=== PATIENT | female | born 1960 | race Caucasian/White ===

== ENCOUNTER 2021-05-16 09:44 | Inpatient (IN) | payer SELFPAY ==
[2021-05-16] MEDS ORDERED: Ondansetron 4 MG/2 ML SDV IVPUSH ONE (10:25)
--- NOTE | 2021-05-16 10:25 | PCM.EKG ---
#1 Interpretation EKG Interpretation Comments: KG sinus rhythm heart rate 92 AK 141 QT 421 axis -[address] and T impression essentially normal EKG
[2021-05-16] MEDS ORDERED: Sodium Chloride 0.9% 2.5 ML Syringe FLUSH PRN (10:26)
[2021-05-16] MEDS ORDERED: Sodium Chloride 0.9% 10 ML Syringe FLUSH PRN (10:26)
[2021-05-16] MEDS ORDERED: Sodium Chloride 0.9% 10 ML SDV IV STA (10:27)
--- NOTE | 2021-05-16 10:29 | EDM.PDOC ---
ED HPI GENERAL MEDICAL PROBLEM - General Chief Complaint: Respiratory Problem Stated Complaint: SHORTNESS OF BREATH COVID POS Time Seen by Provider: 05/16/21 10:00 Source of Information: Reports: Patient History Limitations: Reports: No Limitations - History of Present Illness INITIAL COMMENTS - FREE TEXT/NARRATIVE: HISTORY AND PHYSICAL: History of present illness: The patient is a 61-year-old female who presents to the emergency room with complaints of shortness of breath, fatigue, and nausea after being diagnosed with Covid on May 12, 2021. The patient started having shortness of breath yesterday. The patient started having symptoms on 05/07/2021 and presented for testing on 05/08/2021, however, her Covid test was negative. As her symptoms worsened over the weekend the patient tested again on 05/12/2021 and tested positive. The patient states that her provider stated she was outside the window of General as it was 3 days, however, its 10 days. The patient is not vaccinated as she is allergic to the flu vaccination and is worried about it. The patient denies any aches and pains. She is unable to eat or drink as she is extremely nauseated. Patient denies any headache, change in vision, syncope or near syncope. Denies any chest pain, or back pain. Denies any abdominal pain, vomiting, diarrhea, constipation or dysuria. Has not noted any blood in urine or stool. In the emergency department the patient is hemodynamically stable with a blood pressure of 114/71 and a pulse of 101. The patient's temperature is 101.4 and SPO2 of 87% on room air. 92% on O2 2 L per nasal cannula. Respiratory rate of 28. Review of systems: As per history of present illness and below otherwise all systems reviewed and negative. Past medical history: As per history of present illness and as reviewed below otherwise noncontributory. Surgical history: As per history of present illness and as reviewed below otherwise noncontributory. Social history: See social history for further information Family history: As per history of present illness and as reviewed below otherwise noncontributory. Physical exam: General: Well developed and well nourished. Alert and orientated x 3. Mild acute distress. Nursing notes were reviewed. HEENT: Atraumatic, normocephalic, pupils equal and reactive bilaterally, negative for conjunctival pallor or scleral icterus, mucous membranes moist, TMs normal bilaterally, throat clear, neck supple, nontender, trachea midline. No drooling or trismus noted. No meningeal signs. No hot potato voice noted. Lungs: Crackles scattered bilaterally bilaterally. No wheezes. Chest nontender. Increased work of breathing, no accessory muscles used. Heart: S1S2, sinus tachycardia and rhythm without overt murmur, gallops, or rubs. No JVD. No peripheral edema Abdomen: Soft, nondistended, nontender. Normoactive bowel sounds. Negative for masses or costovertebral tenderness. Skin: Intact, warm, dry. No lesions or rashes noted. Hematologic: No petechiae or purpra. Mucosa appropriate color and normal nail bed color and refill. Extremities: Atraumatic, moves all extremities per self without difficulty or deficits, negative for cords or calf pain. Neurovascular unremarkable. Neuro: Awake, alert, oriented. Cranial nerves II through XII unremarkable. Cerebellum unremarkable. Motor and sensory unremarkable throughout. Exam nonfocal. Psychiatric: Mood and affect are appropriate. Normal thought process. Answering questions appropriately. Notes: *This patient was seen and evaluated during the 2019 SARS-CoV-2 novel coronavirus pandemic period. Community viral transmission is ongoing at time of this encounter and the emergency department is operating under pandemic response procedures. As stated above the patient is a 61-year-old female who presents to the emergency room with complaints of shortness of breath which started yesterday, and nausea, cough that started on 05/07/2021. The patient was tested on for Covid which was negative. Her symptoms became progressively worse over the weekend and she again tested on 05/12/2021 and was positive for COVID- 19. The patient states that she did not receive a COVID-19 vaccination as she is allergic to the flu vaccination and was worried about her response. The patient states that she did not receive Regeneron because her provider told her it was within 3 days of onset of symptoms. The patient presented to the emergency department with an SPO2 of 87% on room air with increased work of breathing. Her SPO2 went to 92% on 2 L of oxygen per nasal cannula. She has complaints of severe nausea and has been unable to eat or drink for several days. I have ordered fluids but only to 250ml as her lung sounds have a few scattered crackles. After examination discussion with patient I have ordered a CBC, CMP, chest x-ray, EKG and Zofran 4 mg IV along with Motrin 400 mg p.o. The patient does have a temperature of 101.4 and as she is feeling extreme fatigue I will treat her temperature. The patient's CBC is unremarkable. The patient's CMP is remarkable for a sodium of 134 chloride of 97, calcium 8.4, AST is 68, and albumin 3.2. CXR 1 view: IMPRESSION: COVID-19 pneumonitis is suspected of moderate severity. Spoke with Dr. Alvarado regarding patient's requirement for 2 L of oxygen per nasal cannula and her inability to ingest fluids and eat. As the patient tested positive intermittent there is no need to retest the patient for COVID-19. We will admit her as an inpatient on telemetry. The patient is aware. I spoke with the patient's and he is aware of the admission process. Diagnostics: CBC, CMP, CXR, EKG Therapeutics: IV fluids, Zofran 4 mg IV, Motrin 400 mg p.o. Impression: Hypoxia, COVID-19, nausea, fatigue Definitive disposition and diagnosis as appropriate pending reevaluation and review of above. - Related Data Allergies Allergy/AdvReac Type Severity Reaction Status Date / Time acetaminophen [From Tylenol] Allergy Rash Verified 05/16/21 10:08 hydrocodone Allergy Rash Verified 05/16/21 10:08 shellfish derived Allergy Airway Verified 05/16/21 10:23 Tightness Flu Vaccine Allergy Edema Uncoded 05/16/21 10:23 Home Meds: Home Meds Diltiazem HCl [Diltiazem 24Hr ER] 360 mg PO DAILY 05/16/21 [History] Omeprazole 20 mg PO DAILY 05/16/21 [History] Past Medical History HEENT History: Reports: None Cardiovascular History: Reports: Hypertension Respiratory History: Reports: None Gastrointestinal History: Reports: Cholelithiasis, GERD Genitourinary History: Reports: None TREE SPECIALIST History: Reports: Musculoskeletal History: Reports: Back Pain, Chronic, Other (See Below) Other Musculoskeletal History: degenerative spinal stenosis Neurological History: Reports: None Psychiatric History: Reports: None Endocrine/Metabolic History: Reports: Obesity/BMI 30+ Hematologic History: Reports: None Immunologic History: Reports: None Oncologic (Cancer) History: Reports: None Dermatologic History: Reports: None - Infectious Disease History Infectious Disease History: Reports: Chicken Pox, Novel Coronavirus - Past Surgical History Head Surgeries/Procedures: Reports: None Cardiovascular Surgical History: Reports: None GI Surgical History: Reports: Cholecystectomy Female Surgical History: Reports: Hysterectomy, Oophorectomy Musculoskeletal Surgical History: Reports: None Social & Family History - Family History Family Medical History: No Pertinent Family History - Tobacco Use Tobacco Use Status *Q: Never Tobacco User - Caffeine Use Caffeine Use: Reports: Soda, Tea - Recreational Drug Use Recreational Drug Use: No ED ROS GENERAL - Review of Systems Review Of Systems: Comprehensive ROS is negative, except as noted in HPI. ED EXAM, GENERAL - Physical Exam Exam: See Below (See dictation) Course - Vital Signs Last Recorded V/S: Last Vital Signs Temp 97.9 F 05/16/21 13:26 Pulse 77 05/16/21 13:26 Resp 20 05/16/21 13:26 BP 101/71 05/16/21 13:26 Pulse Ox 94 L 05/16/21 13:26 - Orders/Labs/Meds Orders: Active Orders 24 hr Category Date Time Status Admission Status [Patient Status] [ADT] Stat ADT 05/16/21 12:05 Active Cardiac Monitoring [RC] . DIRECTED Care 05/16/21 12:05 Active Sodium Chloride 0.9% [Saline Flush] Med 05/16/21 10:26 Active 10 ml FLUSH ASDIRECTED PRN Sodium Chloride 0.9% [Saline Flush] Med 05/16/21 10:26 Active 2.5 ml FLUSH ASDIRECTED PRN Saline Lock Insert [OM.PC] Stat Oth 05/16/21 10:24 Ordered Medication Orders Albuterol/Ipratropium (Albuterol/Ipratropium 4 Gm Inhalation Banks) 1 gm INH Q4HRRT PRN PRN Reason: Dyspnea Dexamethasone (Dexamethasone 4 Mg Tab) 6 mg PO DAILY BJ Enoxaparin Sodium (Enoxaparin 40 Mg/0.4 Ml Syringe) 40 mg SUBCUT Q24H BJ Remdesivir 200 mg/ Sodium (Chloride) 250 mls @ 250 mls/hr IV ONETIME ONE Stop: 05/16/21 15:59 Remdesivir 100 mg/ Sodium (Chloride) 100 mls @ 100 mls/hr IV Q24H BJ Stop: 05/20/21 15:59 Pantoprazole Sodium 40 mg/ (Sodium Chloride) 10 mls @ 300 mls/hr IV Q24H BJ Ibuprofen (Ibuprofen 400 Mg Tab) 400 mg PO Q12H PRN PRN Reason: Pain Non-Formulary Medication (Diltiazem Hcl [Diltiazem 24hr Er]) 360 mg PO DAILY BJ Ondansetron HCl (Ondansetron 4 Mg/2 Ml Sdv) 4 mg IVPUSH Q4H PRN PRN Reason: Vomiting Sodium Chloride (Sodium Chloride 0.9% 10 Ml Syringe) 10 ml FLUSH ASDIRECTED PRN PRN Reason: Keep Vein Open Last Admin: 05/16/21 10:51 Dose: 10 ml Documented by: MANNY Sodium Chloride (Sodium Chloride 0.9% 2.5 Ml Syringe) 2.5 ml FLUSH ASDIRECTED PRN PRN Reason: Keep Vein Open Last Admin: 05/16/21 10:51 Dose: 2.5 ml Documented by: MANNY Labs: Laboratory Tests 05/16/21 05/16/21 Range/Units 10:45 10:45 WBC 4.41 (4.0-11.0) K/uL RBC 5.16 (4.30-5.90) M/uL Hgb 15.0 (12.0-16.0) g/dL Hct 44.5 (36.0-46.0) % MCV 86.2 (80.0-98.0) fL MCH 29.1 (27.0-32.0) pg MCHC 33.7 (31.0-37.0) g/dL RDW Std Deviation 43.0 (28.0-62.0) fl RDW Coeff of [place] 14 (11.0-15.0) % Plt Count 169 (150-400) K/uL MPV 10.20 (7.40-12.00) fL Neut % (Auto) 75.1 (48.0-80.0) % Lymph % (Auto) 13.4 L (16.0-40.0) % [place] % (Auto) 11.3 (0.0-15.0) % Eos % (Auto) 0.0 (0.0-7.0) % Baso % (Auto) 0.2 (0.0-1.5) % Neut # (Auto) 3.3 (1.4-5.7) K/uL Lymph # (Auto) 0.6 (0.6-2.4) K/uL [place] # (Auto) 0.5 (0.0-0.8) K/uL Eos # (Auto) 0.0 (0.0-0.7) K/uL Baso # (Auto) 0.0 (0.0-0.1) K/uL Sodium 134 L (136-145) mmol/L Potassium 3.9 (3.5-5.1) mmol/L Chloride 97 L (98-107) mmol/L Carbon Dioxide 28.5 (21.0-32.0) mmol/L BUN 9 (7.0-18.0) mg/dL Creatinine 1.0 (0.6-1.0) mg/dL Est Cr Clr Drug Dosing 58.09 mL/min Estimated GFR (MDRD) 56.0 ml/min Glucose 105 (74-106) mg/dL Calcium 8.4 L (8.5-10.1) mg/dL Total Bilirubin 0.7 (0.2-1.0) mg/dL AST 68 H (15-37) IU/L ALT 50 (14-63) IU/L Alkaline Phosphatase 69 (46-116) U/L Total Protein 7.1 (6.4-8.2) g/dL Albumin 3.2 L (3.4-5.0) g/dL Globulin 3.9 (2.6-4.0) g/dL Albumin/Globulin Ratio 0.8 L (0.9-1.6) Meds: Medications Generic Name Dose Route Start Last Admin Trade Name Freq PRN Reason Stop Dose Admin Albuterol/Ipratropium 1 gm 05/16/21 15:00 Albuterol/Ipratropium 4 Gm Inhalation Banks INH Q4HRRT PRN Dyspnea Dexamethasone 6 mg 05/16/21 14:45 Dexamethasone 4 Mg Tab PO DAILY BJ Enoxaparin Sodium 40 mg 05/16/21 15:00 Enoxaparin 40 Mg/0.4 Ml Syringe SUBCUT Q24H BJ Remdesivir 200 mg/ Sodium 250 mls @ 250 mls/hr 05/16/21 15:00 Chloride IV 05/16/21 15:59 ONETIME ONE Remdesivir 100 mg/ Sodium 100 mls @ 100 mls/hr 05/17/21 15:00 Chloride IV 05/20/21 15:59 Q24H BJ Pantoprazole Sodium 40 mg/ 10 mls @ 300 mls/hr 05/16/21 15:00 Sodium Chloride IV Q24H BJ Ibuprofen 400 mg 05/16/21 14:46 Ibuprofen 400 Mg Tab PO Q12H PRN Pain Non-Formulary Medication 360 mg 05/17/21 09:00 Diltiazem Hcl [Diltiazem 24hr Er] PO DAILY BJ Ondansetron HCl 4 mg 05/16/21 15:00 Ondansetron 4 Mg/2 Ml Sdv IVPUSH Q4H PRN Vomiting Sodium Chloride 10 ml 05/16/21 10:26 05/16/21 10:51 Sodium Chloride 0.9% 10 Ml Syringe FLUSH 10 ml ASDIRECTED PRN Administration Keep Vein Open Sodium Chloride 2.5 ml 05/16/21 10:26 05/16/21 10:51 Sodium Chloride 0.9% 2.5 Ml Syringe FLUSH 2.5 ml ASDIRECTED PRN Administration Keep Vein Open Discontinued Medications Generic Name Dose Route Start Last Admin Trade Name Freq PRN Reason Stop Dose Admin Sodium Chloride 1,000 mls @ 999 mls/hr 05/16/21 10:36 05/16/21 10:49 Normal Saline IV 05/16/21 11:36 999 mls/hr .Bolus ONE Administration Ibuprofen 400 mg 05/16/21 10:35 05/16/21 10:51 Ibuprofen 400 Mg Tab PO 05/16/21 10:36 400 mg ONETIME ONE Administration Ondansetron HCl 4 mg 05/16/21 10:25 05/16/21 10:47 Ondansetron 4 Mg/2 Ml Sdv IVPUSH 05/16/21 10:26 4 mg ONETIME ONE Administration Sodium Chloride 250 ml 05/16/21 10:27 05/16/21 10:36 Sodium Chloride 0.9% 10 Ml Sdv IV 05/16/21 10:28 Not Given STAT STA Departure - Departure Time of Disposition: 13:00 Disposition: Admitted As Inpatient 64 Condition: Fair Clinical Impression: Hypoxia, COVID-19, Nausea, Weakness - Discharge Information *PRESCRIPTION DRUG MONITORING PROGRAM REVIEWED*: Not Applicable *COPY OF PRESCRIPTION DRUG MONITORING REPORT IN PATIENT FARRUKH: Not Applicable Sepsis Event Note (ED) - Evaluation Sepsis Screening Result: Possible Sepsis Risk - Focused Exam Vital Signs: Vital Signs Temp Temp Pulse Resp BP Pulse Ox 05/16/21 11:54 100.4 F 78 20 96/55 L 91 L 05/16/21 11:51 100.4 F 05/16/21 11:35 91 L 05/16/21 11:32 81 109/64 89 L 05/16/21 11:04 85 101/59 L 90 L 05/16/21 10:51 101.6 F H 05/16/21 10:24 91 L 05/16/21 10:00 101.4 F H 101 H 28 H 114/71 87 L - My Orders Last 24 Hours: My Active Orders 05/16/21 10:24 Saline Lock Insert [OM.PC] Stat 05/16/21 10:26 Sodium Chloride 0.9% [Saline Flush] 10 ml FLUSH ASDIRECTED PRN Sodium Chloride 0.9% [Saline Flush] 2.5 ml FLUSH ASDIRECTED PRN 05/16/21 12:05 Admission Status [Patient Status] [ADT] Stat Cardiac Monitoring [RC] . DIRECTED - Assessment/Plan Last 24 Hours: My Active Orders 05/16/21 10:24 Saline Lock Insert [OM.PC] Stat 05/16/21 10:26 Sodium Chloride 0.9% [Saline Flush] 10 ml FLUSH ASDIRECTED PRN Sodium Chloride 0.9% [Saline Flush] 2.5 ml FLUSH ASDIRECTED PRN 05/16/21 12:05 Admission Status [Patient Status] [ADT] Stat Cardiac Monitoring [RC] . DIRECTED
[2021-05-16] MEDS ORDERED: Ibuprofen 400 MG Tab PO ONE (10:35)
[2021-05-16] MEDS ORDERED: Sodium Chloride 0.9% 1,000 ML IV ONE (10:36)
[2021-05-16 11:23] LABS: CARBON DIOXIDE,CO2 28.5 mmol/L (21.0-32.0); POTASSIUM,K 3.9 mmol/L (3.5-5.1)
--- NOTE | 2021-05-16 11:55 | CR ---
INDICATION: Shortness of breath. COVID-19 positive. TECHNIQUE: Chest 1 view. COMPARISON: None. FINDINGS: Cardiovascular and mediastinum: Heart size and vasculature are normal in caliber and appearance. Lungs and pleural spaces: Ill-defined infiltrates present in the periphery of both lungs. No effusions and no pneumothorax. Bones and soft tissues: No significant findings. IMPRESSION: COVID-19 pneumonitis is suspected of moderate severity. Dictated by Armond Le MD @ 05/16/2021 11:53:23 AM (Electronically Signed)
[2021-05-16] MEDS ORDERED: REMDESIVIR 200 MG in Sodium Chloride 0.9% 250 ML IV ONE (15:00)
--- NOTE | 2021-05-16 15:15 | PCM.HP.2 ---
<Gus Shell - Last Filed: 05/16/21 15:05> H&P History of Present Illness - General Date of Service: 05/16/21 Admit Problem/Dx: Admission Diagnosis/Problem Admission Diagnosis/Problem Hypoxia - History of Present Illness Initial Comments - Free Text/Narative: The patient is a 61-year-old female who was admitted to the medical floor today due to acute respiratory failure secondary to COVID-19 pneumonitis. She has a significant past medical history of hypertension, GERD, gallstones, obesity with a BMI over 30, and degenerative spinal stenosis. On 05/07 the patient developed fever ranging from 100-102, dry cough, sore throat, and loss of taste. On the following day 05/08 the patient had a COVID-19 test which was initially negative. Her symptoms progressively got worse and on 05/12 she had another COVID-19 test which was positive. She developed shortness of breath on 05/15 along with weakness and nausea. Since the onset of her symptoms on 05/07 the patient has not been eaten normally as previous to this date, but denies any chills, diarrhea, chest pain, abdominal pain, and urinary issues. This morning she felt extremely short of breath and presented to the emergency department and was found to have an oxygen saturation of 87%. Her initial chest x-ray today at [facility] showed COVID-19 pneumonitis of moderate severity. EKG displayed sinus rhythm with a heart rate of 92, WA interval of 141, and QTc interval of 421, with a normal QRS, ST, and T wave. In the emergency room she had a CBC, CMP, chest x-ray, EKG done; she also received normal saline 250 mL IV, ibuprofen 400 mg per oral once, Zofran 4 mg IV push once, and had a security monitor placed. Duration of Symptoms: Reports: Week(s): - Related Data Allergies/Adverse Reactions: Allergies Allergy/AdvReac Type Severity Reaction Status Date / Time acetaminophen [From Tylenol] Allergy Rash Verified 05/16/21 10:08 hydrocodone Allergy Rash Verified 05/16/21 10:08 Iodinated Contrast Media Allergy Rash Verified 05/17/21 13:25 iodine Allergy Rash Verified 05/17/21 13:25 shellfish derived Allergy Airway Verified 05/16/21 10:23 Tightness Flu Vaccine Allergy Edema Uncoded 05/16/21 10:23 Home Medications: Home Meds Diltiazem HCl [Diltiazem 24Hr ER] 360 mg PO DAILY 05/16/21 [History] Omeprazole 20 mg PO DAILY 05/16/21 [History] Past Medical History HEENT History: Reports: None Cardiovascular History: Reports: Hypertension Respiratory History: Reports: None Gastrointestinal History: Reports: Cholelithiasis, GERD Genitourinary History: Reports: None [employer] History: Reports: Musculoskeletal History: Reports: Back Pain, Chronic, Other (See Below) Other Musculoskeletal History: degenerative spinal stenosis Neurological History: Reports: None Psychiatric History: Reports: None Endocrine/Metabolic History: Reports: Obesity/BMI 30+ Hematologic History: Reports: None Immunologic History: Reports: None Oncologic (Cancer) History: Reports: None Dermatologic History: Reports: None - Infectious Disease History Infectious Disease History: Reports: Chicken Pox, Novel Coronavirus - Past Surgical History Head Surgeries/Procedures: Reports: None Cardiovascular Surgical History: Reports: None GI Surgical History: Reports: Cholecystectomy Female Surgical History: Reports: Hysterectomy, Oophorectomy Musculoskeletal Surgical History: Reports: None Social & Family History - Family History Family Medical History: No Pertinent Family History - Tobacco Use Tobacco Use Status *Q: Never Tobacco User - Caffeine Use Caffeine Use: Reports: Soda, Tea - Recreational Drug Use Recreational Drug Use: No H&P Review of Systems - Review of Systems: Review Of Systems: See Below General: Reports: Fever, Weakness, Fatigue. Denies: Chills, Night Sweats Pulmonary: Reports: Shortness of Breath, Wheezing, Cough. Denies: Pleuritic Chest Pain Cardiovascular: Denies: Chest Pain, Palpitations, Edema Gastrointestinal: Reports: Decreased Appetite. Denies: Abdominal Pain, Constipation, Diarrhea Genitourinary: Denies: Dysuria Skin: Denies: Cyanosis Neurological: Denies: Headache Exam - Exam Exam: See Below - Vital Signs Vital Signs: Last Vital Signs Temp 97.9 F 05/16/21 13:26 Pulse 77 05/16/21 13:26 Resp 20 05/16/21 13:26 BP 101/71 05/16/21 13:26 Pulse Ox 94 L 05/16/21 13:26 Weight: 96.1 kg - Exam General: Alert, Oriented, Cooperative, Mild Distress HEENT: Conjunctiva Clear, Normal Nasal Septum, Posterior Pharynx Clear Lungs: Wheezing Cardiovascular: Regular Rate, Regular Rhythm GI/Abdominal Exam: Normal Bowel Sounds, Soft, Non-Tender Back Exam: Decreased Range of Motion Extremities: No Pedal Edema - Patient Data Lab Results Last 24 hrs: Laboratory Results - last 24 hr 05/16/21 05/16/21 Range/Units 10:45 10:45 WBC 4.41 (4.0-11.0) K/uL RBC 5.16 (4.30-5.90) M/uL Hgb 15.0 (12.0-16.0) g/dL Hct 44.5 (36.0-46.0) % MCV 86.2 (80.0-98.0) fL MCH 29.1 (27.0-32.0) pg MCHC 33.7 (31.0-37.0) g/dL RDW Std Deviation 43.0 (28.0-62.0) fl RDW Coeff of Mulu 14 (11.0-15.0) % Plt Count 169 (150-400) K/uL MPV 10.20 (7.40-12.00) fL Neut % (Auto) 75.1 (48.0-80.0) % Lymph % (Auto) 13.4 L (16.0-40.0) % Armstrong % (Auto) 11.3 (0.0-15.0) % Eos % (Auto) 0.0 (0.0-7.0) % Baso % (Auto) 0.2 (0.0-1.5) % Neut # (Auto) 3.3 (1.4-5.7) K/uL Lymph # (Auto) 0.6 (0.6-2.4) K/uL Armstrong # (Auto) 0.5 (0.0-0.8) K/uL Eos # (Auto) 0.0 (0.0-0.7) K/uL Baso # (Auto) 0.0 (0.0-0.1) K/uL Sodium 134 L (136-145) mmol/L Potassium 3.9 (3.5-5.1) mmol/L Chloride 97 L (98-107) mmol/L Carbon Dioxide 28.5 (21.0-32.0) mmol/L BUN 9 (7.0-18.0) mg/dL Creatinine 1.0 (0.6-1.0) mg/dL Est Cr Clr Drug Dosing 58.09 mL/min Estimated GFR (MDRD) 56.0 ml/min Glucose 105 (74-106) mg/dL Calcium 8.4 L (8.5-10.1) mg/dL Total Bilirubin 0.7 (0.2-1.0) mg/dL AST 68 H (15-37) IU/L ALT 50 (14-63) IU/L Alkaline Phosphatase 69 (46-116) U/L Total Protein 7.1 (6.4-8.2) g/dL Albumin 3.2 L (3.4-5.0) g/dL Globulin 3.9 (2.6-4.0) g/dL Albumin/Globulin Ratio 0.8 L (0.9-1.6) Result Diagrams: 05/16/21 10:45 05/16/21 10:45 Sepsis Event Note - Evaluation Sepsis Screening Result: Possible Sepsis Risk - Focused Exam Vital Signs: Vital Signs Temp Temp Temp Pulse Resp BP Pulse Ox 05/16/21 13:26 97.9 F 77 20 101/71 94 L 05/16/21 12:32 75 20 96/59 L 91 L 05/16/21 11:54 100.4 F 78 20 96/55 L 91 L 05/16/21 11:51 100.4 F 05/16/21 11:35 91 L 05/16/21 11:32 81 109/64 89 L 05/16/21 11:04 85 101/59 L 90 L 05/16/21 10:51 101.6 F H 05/16/21 10:24 91 L 05/16/21 10:00 101.4 F H 101 H 28 H 114/71 87 L - Problem List (1) Hypertension SNOMED Code(s): 37835786 ICD Code: I10 - ESSENTIAL (PRIMARY) HYPERTENSION Status: Acute Current Visit: Yes (2) COVID-19 SNOMED Code(s): 652594236 ICD Code: U07.1 - COVID-19 Status: Acute Current Visit: Yes (3) Hypoxia SNOMED Code(s): 131087674 ICD Code: R09.02 - HYPOXEMIA Status: Acute Current Visit: Yes (4) Nausea SNOMED Code(s): 885891765 ICD Code: R11.0 - NAUSEA Status: Acute Current Visit: Yes (5) Weakness SNOMED Code(s): 23930119 ICD Code: R53.1 - WEAKNESS Status: Acute Current Visit: Yes (6) GERD (gastroesophageal reflux disease) SNOMED Code(s): 259197426 ICD Code: K21.9 - GASTRO-ESOPHAGEAL REFLUX DISEASE WITHOUT ESOPHAGITIS Status: Acute Current Visit: Yes (7) Spinal stenosis SNOMED Code(s): 83239301 ICD Code: M48.00 - SPINAL STENOSIS, SITE UNSPECIFIED Status: Acute C urrent Visit: Yes Problem List Initiated/Reviewed/Updated: Yes Orders Last 24hrs: Active Orders 24 hr Category Date Time Status Admission Status [Patient Status] [ADT] Stat ADT 05/16/21 12:05 Active Cardiac Monitoring [RC] . DIRECTED Care 05/16/21 12:05 Active Oxygen Therapy [RC] PRN Care 05/16/21 13:26 Ordered RT Post Treatment Assessment [RC] Click to Edit Care 05/16/21 14:43 Active RT Pre-Treatment Assessment [RC] Click to Edit Care 05/16/21 14:43 Active Telemetry Monitoring [Cardiac Monitoring] [RC] Q8H Care 05/16/21 13:05 Active VTE/DVT Education [RC] PER UNIT ROUTINE Care 05/16/21 13:26 Ordered Vital Signs [RC] Q4H Care 05/16/21 13:26 Ordered Regular Diet [DIET] Diet 05/16/21 Lunch Ordered CBC WITH AUTO DIFF [HEME] AM Lab 05/17/21 05:11 Ordered CBC WITH AUTO DIFF [HEME] AM Lab 05/18/21 05:11 Ordered CBC WITH AUTO DIFF [HEME] AM Lab 05/19/21 05:11 Ordered CMP [COMPREHENSIVE METABOLIC PN,CMP] [CHEM] AM Lab 05/17/21 05:11 Ordered CMP [COMPREHENSIVE METABOLIC PN,CMP] [CHEM] AM Lab 05/18/21 05:11 Ordered CMP [COMPREHENSIVE METABOLIC PN,CMP] [CHEM] AM Lab 05/19/21 05:11 Ordered Albuterol/Ipratropium [Combivent Respimat] Med 05/16/21 15:00 Active 1 gm INH Q4HRRT PRN Diltiazem [Cardizem CD] Med 05/17/21 09:00 Active 360 mg PO DAILY Enoxaparin [Lovenox] Med 05/16/21 15:00 Active 40 mg SUBCUT Q24H Ibuprofen [Motrin] Med 05/16/21 15:00 Active 400 mg PO Q12H PRN Ondansetron [Zofran] Med 05/16/21 15:00 Active 4 mg IVPUSH Q4H PRN Pantoprazole [ProTONIX IV] 40 mg Med 05/16/21 15:00 Active Sodium Chloride 0.9% [Normal Saline] 10 ml IV Q24H Remdesivir 100 mg Med 05/17/21 15:00 Active Sodium Chloride 0.9% [Normal Saline] 100 ml IV Q24H Remdesivir 200 mg Med 05/16/21 15:00 Active Sodium Chloride 0.9% [Normal Saline] 250 ml IV ONETIME Sodium Chloride 0.9% [Saline Flush] Med 05/16/21 10:26 Active 10 ml FLUSH ASDIRECTED PRN Sodium Chloride 0.9% [Saline Flush] Med 05/16/21 10:26 Active 2.5 ml FLUSH ASDIRECTED PRN dexAMETHasone Med 05/16/21 14:45 Active 6 mg PO DAILY Saline Lock Insert [OM.PC] Stat Oth 05/16/21 10:24 Ordered Medication Orders Albuterol/Ipratropium (Albuterol/Ipratropium 4 Gm Inhalation [place]) 1 gm INH Q4HRRT PRN PRN Reason: Dyspnea Dexamethasone (Dexamethasone 4 Mg Tab) 6 mg PO DAILY [facility] Diltiazem HCl (Diltiazem 180 Mg Cap.Cd) 360 mg PO DAILY [facility] Enoxaparin Sodium (Enoxaparin 40 Mg/0.4 Ml Syringe) 40 mg SUBCUT Q24H [facility] Remdesivir 200 mg/ Sodium (Chloride) 250 mls @ 250 mls/hr IV ONETIME ONE Stop: 05/16/21 15:59 Remdesivir 100 mg/ Sodium (Chloride) 100 mls @ 100 mls/hr IV Q24H [facility] Stop: 05/20/21 15:59 Pantoprazole Sodium 40 mg/ (Sodium Chloride) 10 mls @ 300 mls/hr IV Q24H [facility] Ibuprofen (Ibuprofen 400 Mg Tab) 400 mg PO Q12H PRN PRN Reason: Pain Ondansetron HCl (Ondansetron 4 Mg/2 Ml Sdv) 4 mg IVPUSH Q4H PRN PRN Reason: Vomiting Sodium Chloride (Sodium Chloride 0.9% 10 Ml Syringe) 10 ml FLUSH ASDIRECTED PRN PRN Reason: Keep Vein Open Last Admin: 05/16/21 10:51 Dose: 10 ml Documented by: MANNY Sodium Chloride (Sodium Chloride 0.9% 2.5 Ml Syringe) 2.5 ml FLUSH ASDIRECTED PRN PRN Reason: Keep Vein Open Last Admin: 05/16/21 10:51 Dose: 2.5 ml Documented by: MANNY Assessment/Plan Comment:: Admit the patient to the medical floor, regular diet, activity as tolerated, vitals per unit routine, GI prophylaxis with pantoprazole 40 mg IV every 24 hours, DVT prophylaxis with Lovenox 40 mg SQ once a day. 1. Hypoxia secondary to COVID-19 -The patient will receive her first dose of remdesivir IV 200 mg loading dose today, she will receive her second dose of remdesivir IV 100 mg once a day starting tomorrow from days 2-5 -The patient has been started on dexamethasone 6 mg per oral route once a day -We have started the patient on Combivent 1 puff/inh. every 4 hours as needed -Oxygen therapy has been initiated, and will continue in attempts to keep saturation over 92% -We encourage incentive spirometry in prone position -For the patient's nausea we have Zofran IV 4 mg as needed on board -Daily CBC and chemistries 2. Hypertension -The patient is on diltiazem as a home medication per oral route and we will continue this as long as her blood pressure is not controlled 3. GERD -The patient takes omeprazole at home, but here in the hospital GI prophylaxis with pantoprazole has been initiated and we will continue to monitor for symptoms 4. Degenerative spinal stenosis -The patient takes 800 mg of ibuprofen at home for this condition via oral route per day, we will continue with this dosage at 400 mg per oral twice daily <Haroldo Adams - Last Filed: 05/24/21 15:15> H&P History of Present Illness - General Admit Problem/Dx: Admission Diagnosis/Problem Admission Diagnosis/Problem Hypoxia Throat Pain Score (Numeric/FACES): 4 Exam - Vital Signs Vital Signs: Last Vital Signs Temp 36.7 C 05/24/21 12:00 Pulse 55 L 05/21/21 19:00 Resp 23 H 05/24/21 12:00 BP 114/67 05/24/21 12:00 Pulse Ox 92 L 05/24/21 12:00 - Patient Data Lab Results Last 24 hrs: Laboratory Results - last 24 hr 05/24/21 05/24/21 05/24/21 Range/Units 06:30 06:30 06:30 WBC 8.10 (4.0-11.0) K/uL RBC 5.08 (4.30-5.90) M/uL Hgb 14.9 (12.0-16.0) g/dL Hct 43.7 (36.0-46.0) % MCV 86.0 (80.0-98.0) fL MCH 29.3 (27.0-32.0) pg MCHC 34.1 (31.0-37.0) g/dL RDW Std Deviation 41.5 (28.0-62.0) fl RDW Coeff of Mulu 13 (11.0-15.0) % Plt Count 321 (150-400) K/uL MPV 10.20 (7.40-12.00) fL Neut % (Auto) 79.2 (48.0-80.0) % Lymph % (Auto) 9.6 L (16.0-40.0) % Armstrong % (Auto) 10.7 (0.0-15.0) % Eos % (Auto) 0.4 (0.0-7.0) % Baso % (Auto) 0.1 (0.0-1.5) % Neut # (Auto) 6.4 H (1.4-5.7) K/uL Lymph # (Auto) 0.8 (0.6-2.4) K/uL Armstrong # (Auto) 0.9 H (0.0-0.8) K/uL Eos # (Auto) 0.0 (0.0-0.7) K/uL Baso # (Auto) 0.0 (0.0-0.1) K/uL Nucleated RBC % 0.0 /100WBC Nucleated RBCs # 0 K/uL Sodium 139 (136-145) mmol/L Potassium 4.5 (3.5-5.1) mmol/L Chloride 103 (98-107) mmol/L Carbon Dioxide 27.7 (21.0-32.0) mmol/L BUN 18 (7.0-18.0) mg/dL Creatinine 0.7 (0.6-1.0) mg/dL Est Cr Clr Drug Dosing 82.98 mL/min Estimated GFR (MDRD) > 60.0 ml/min Glucose 91 (74-106) mg/dL Calcium 8.2 L (8.5-10.1) mg/dL Phosphorus 3.6 (2.6-4.7) mg/dL Magnesium 2.3 (1.8-2.4) mg/dL Total Bilirubin 1.1 H (0.2-1.0) mg/dL AST 27 (15-37) IU/L ALT 40 (14-63) IU/L Alkaline Phosphatase 63 (46-116) U/L Total Protein 6.4 (6.4-8.2) g/dL Albumin 2.8 L (3.4-5.0) g/dL Globulin 3.6 (2.6-4.0) g/dL Albumin/Globulin Ratio 0.8 L (0.9-1.6) Result Diagrams: 05/24/21 06:30 05/24/21 06:30 Sepsis Event Note - Focused Exam Vital Signs: Vital Signs Temp Resp BP Pulse Ox 05/24/21 12:00 36.7 C 23 H 114/67 92 L 05/24/21 11:00 19 106/61 90 L 05/24/21 10:00 13 94/56 L 92 L 05/24/21 09:00 36.6 C 22 H 98/57 L 92 L 05/24/21 08:00 24 H 91/59 L 89 L 05/24/21 07:00 21 H 99/55 L 92 L 05/24/21 06:00 20 92 L 05/24/21 05:00 17 92 L 05/24/21 04:00 36.4 C 20 94 L Orders Last 24hrs: Active Orders 24 hr Category Date Time Status CBC WITH AUTO DIFF [HEME] AM Lab 05/25/21 05:11 Ordered CBC WITH AUTO DIFF [HEME] AM Lab 05/26/21 05:11 Ordered CBC WITH AUTO DIFF [HEME] AM Lab 05/27/21 05:11 Ordered CBC WITH AUTO DIFF [HEME] AM Lab 05/28/21 05:11 Ordered CMP [COMPREHENSIVE METABOLIC PN,CMP] [CHEM] AM Lab 05/25/21 05:11 Ordered CMP [COMPREHENSIVE METABOLIC PN,CMP] [CHEM] AM Lab 05/26/21 05:11 Ordered CMP [COMPREHENSIVE METABOLIC PN,CMP] [CHEM] AM Lab 05/27/21 05:11 Ordered CMP [COMPREHENSIVE METABOLIC PN,CMP] [CHEM] AM Lab 05/28/21 05:11 Ordered MAGNESIUM [CHEM] AM Lab 05/25/21 05:11 Ordered guaiFENesin [Robitussin] Med 05/24/21 12:00 Active 100 mg PO Q4H PRN polyethylene glycoL 3350 [MiraLAX] Med 05/23/21 21:00 Active 17 gm PO BEDTIME polyethylene glycoL 3350 [MiraLAX] Med 05/24/21 21:00 Active 17 gm PO BEDTIME Medication Orders Albuterol/Ipratropium (Albuterol/Ipratropium 4 Gm Inhalation [place]) 1 gm INH Q4HRRT [facility] Admin: 05/24/21 14:40 Dose: 1 puff Documented by: Admin: 05/24/21 09:33 Dose: 1 puff Documented by: Admin: 05/24/21 06:21 Dose: 1 puff Documented by: Admin: 05/24/21 01:36 Dose: 1 puff Documented by: Admin: 05/23/21 21:59 Dose: 1 puff Documented by: Admin: 05/23/21 18:11 Dose: 1 puff Documented by: Admin: 05/23/21 14:10 Dose: 1 puff Documented by: Admin: 05/23/21 10:15 Dose: Not Given Documented by: Admin: 05/23/21 05:52 Dose: 1 puff Documented by: Admin: 05/23/21 02:46 Dose: 1 puff Documented by: Admin: 05/22/21 21:28 Dose: 1 puff Documented by: Admin: 05/22/21 17:41 Dose: 1 puff Documented by: Admin: 05/22/21 14:12 Dose: 1 puff Documented by: Admin: 05/22/21 10:06 Dose: 1 puff Documented by: Admin: 05/22/21 05:42 Dose: 1 puff Documented by: Admin: 05/22/21 02:47 Dose: 1 puff Documented by: Admin: 05/21/21 20:59 Dose: 1 puff Documented by: Admin: 05/21/21 17:16 Dose: 1 puff Documented by: Admin: 05/21/21 13:50 Dose: 1 puff Documented by: Admin: 05/21/21 09:29 Dose: 1 puff Documented by: Admin: 05/21/21 05:02 Dose: 1 puff Documented by: Admin: 05/21/21 02:00 Dose: 1 puff Documented by: Admin: 05/20/21 22:50 Dose: Not Given Documented by: Admin: 05/20/21 18:27 Dose: 1 puff Documented by: Admin: 05/20/21 13:00 Dose: 1 puff Documented by: Admin: 05/20/21 09:33 Dose: 1 puff Documented by: Admin: 05/20/21 05:41 Dose: 1 puff Documented by: Admin: 05/20/21 03:34 Dose: Not Given Documented by: Admin: 05/19/21 23:12 Dose: Not Given Documented by: Admin: 05/19/21 17:15 Dose: 1 puff Documented by: Admin: 05/19/21 13:37 Dose: 1 puff Documented by: Admin: 05/19/21 10:27 Dose: 1 puff Documented by: Admin: 05/19/21 05:56 Dose: 1 puff Documented by: Admin: 05/19/21 02:41 Dose: Not Given Documented by: Admin: 05/18/21 22:48 Dose: 1 puff Documented by: Admin: 05/18/21 17:31 Dose: 1 puff Documented by: Admin: 05/18/21 14:03 Dose: 1 puff Documented by: SEMICHR Albuterol/Ipratropium (Albuterol/Ipratropium 3.0-0.5 Mg/3 Ml Neb Soln) 3 ml NEB Q4HRRT PRN PRN Reason: Shortness of Breath Last Admin: 05/20/21 11:36 Dose: 3 ml Documented by: DEJUAN Dexamethasone (Dexamethasone 4 Mg Tab) 6 mg PO DAILY [facility] Last Admin: 05/24/21 08:19 Dose: 6 mg Documented by: Admin: 05/23/21 08:40 Dose: 6 mg Documented by: Admin: 05/22/21 08:36 Dose: 6 mg Documented by: Admin: 05/21/21 08:03 Dose: 6 mg Documented by: Admin: 05/20/21 09:33 Dose: 6 mg Documented by: Admin: 05/19/21 08:11 Dose: 6 mg Documented by: Admin: 05/18/21 08:38 Dose: 6 mg Documented by: Admin: 05/17/21 08:04 Dose: 6 mg Documented by: Admin: 05/16/21 15:49 Dose: 6 mg Documented by: JEFFERSON Enoxaparin Sodium (Enoxaparin 40 Mg/0.4 Ml Syringe) 40 mg SUBCUT Q24H [facility] Admin: 05/24/21 14:41 Dose: 40 mg Documented by: Admin: 05/23/21 14:12 Dose: 40 mg Documented by: Admin: 05/22/21 15:48 Dose: 40 mg Documented by: Admin: 05/21/21 14:57 Dose: 40 mg Documented by: Admin: 05/20/21 14:37 Dose: 40 mg Documented by: Admin: 05/19/21 15:16 Dose: 40 mg Documented by: Admin: 05/18/21 14:43 Dose: 40 mg Documented by: Admin: 05/17/21 14:12 Dose: 40 mg Documented by: Admin: 05/16/21 15:51 Dose: 40 mg Documented by: JEFFERSON Guaifenesin (Guaifenesin 100 Mg/5 Ml Soln 5 Ml Ud Cup) 100 mg PO Q4H PRN PRN Reason: Cough Pantoprazole Sodium 40 mg/ (Sodium Chloride) 10 mls @ 300 mls/hr IV Q24H [facility] Last Admin: 05/24/21 14:41 Dose: 300 mls/hr Documented by: Infusion: 05/23/21 14:14 Dose: 300 mls/hr Documented by: Admin: 05/23/21 14:12 Dose: 300 mls/hr Documented by: Infusion: 05/22/21 15:50 Dose: 300 mls/hr Documented by: Admin: 05/22/21 15:48 Dose: 300 mls/hr Documented by: Infusion: 05/21/21 14:58 Dose: 300 mls/hr Documented by: Admin: 05/21/21 14:56 Dose: 300 mls/hr Documented by: Infusion: 05/20/21 14:39 Dose: 300 mls/hr Documented by: Admin: 05/20/21 14:37 Dose: 300 mls/hr Documented by: Infusion: 05/19/21 15:18 Dose: 300 mls/hr Documented by: [email or web address] Admin: 05/19/21 15:16 Dose: 300 mls/hr Documented by: Infusion: 05/18/21 14:45 Dose: 300 mls/hr Documented by: Admin: 05/18/21 14:43 Dose: 300 mls/hr Documented by: Infusion: 05/17/21 14:14 Dose: 300 mls/hr Documented by: Admin: 05/17/21 14:12 Dose: 300 mls/hr Documented by: Infusion: 05/16/21 15:56 Dose: 300 mls/hr Documented by: Admin: 05/16/21 15:54 Dose: 300 mls/hr Documented by: JEFFERSON Levofloxacin/Dextrose 750 mg/ (Premix) 150 mls @ 100 mls/hr IV Q24H [facility] Last Admin: 05/23/21 21:58 Dose: 100 mls/hr Documented by: Infusion: 05/22/21 22:45 Dose: 100 mls/hr Documented by: Admin: 05/22/21 21:15 Dose: 100 mls/hr Documented by: Infusion: 05/21/21 22:23 Dose: 100 mls/hr Documented by: Admin: 05/21/21 20:53 Dose: 100 mls/hr Documented by: KURT Ibuprofen (Ibuprofen 400 Mg Tab) 400 mg PO Q8H PRN PRN Reason: Pain Last Admin: 05/19/21 18:09 Dose: 400 mg Documented by: Admin: 05/19/21 00:34 Dose: 400 mg Documented by: ROHINI Lorazepam (Lorazepam 2 Mg/Ml Sdv) 1 mg IVPUSH Q4H PRN PRN Reason: Agitation Last Admin: 05/23/21 00:58 Dose: 1 mg Documented by: Admin: 05/21/21 23:47 Dose: 1 mg Documented by: Admin: 05/21/21 04:57 Dose: 1 mg Documented by: Admin: 05/21/21 00:59 Dose: 1 mg Documented by: DIANA Ondansetron HCl (Ondansetron 4 Mg/2 Ml Sdv) 4 mg IVPUSH Q4H PRN PRN Reason: Vomiting Last Admin: 05/17/21 12:03 Dose: 4 mg Documented by: Admin: 05/17/21 07:36 Dose: 4 mg Documented by: LOC Oxycodone HCl (Oxycodone 5 Mg Tab) 5 mg PO Q6H PRN PRN Reason: Pain Last Admin: 05/22/21 03:53 Dose: 5 mg Documented by: Admin: 05/21/21 20:47 Dose: 5 mg Documented by: Admin: 05/21/21 10:41 Dose: 5 mg Documented by: YARA Polyethylene Glycol (Polyethylene Glycol 3350 Powder 17 Gm Packet) 17 gm PO BEDTIME BJ Last Admin: 05/23/21 21:58 Dose: 17 gm Documented by: KURT Polyethylene Glycol (Polyethylene Glycol 3350 Powder 17 Gm Packet) 17 gm PO BEDTIME [facility] Sodium Chloride (Sodium Chloride 0.9% 10 Ml Syringe) 10 ml FLUSH ASDIRECTED PRN PRN Reason: Keep Vein Open Last Admin: 05/16/21 10:51 Dose: 10 ml Documented by: MANNY Sodium Chloride (Sodium Chloride 0.9% 2.5 Ml Syringe) 2.5 ml FLUSH ASDIRECTED PRN PRN Reason: Keep Vein Open Last Admin: 05/16/21 10:51 Dose: 2.5 ml Documented by: MANNY Assessment/Plan Comment:: I performed a history and physical exam of the patient and discussed management with resident. I have reviewed the residents note and agree with documented findings and plan unless otherwise specified in my note.
[2021-05-16] MEDS: Dexamethasone 4 MG Tab PO SCH (15:49)
[2021-05-16] MEDS: Enoxaparin 40 MG/0.4 ML Syringe SUBCUT SCH (15:51)
[2021-05-16] MEDS: Pantoprazole 40 MG in Sodium Chloride 0.9% 10 ML IV SCH (15:54)
[2021-05-16] MEDS: Albuterol/Ipratropium 4 GM Inhalation Spray INH PRN ×2 (15:59→19:53)
[2021-05-17 07:08] LABS: BLOOD UREA NITROGEN,BUN 12 mg/dL (7.0-18.0); CHLORIDE,CL 103 mmol/L (98-107); GLUCOSE RANDOM 113 mg/dL (74-106); POTASSIUM,K 4.5 mmol/L (3.5-5.1); SODIUM,NA 139 mmol/L (136-145)
[2021-05-17] MEDS: Ondansetron 4 MG/2 ML SDV IVPUSH PRN ×2 (07:36→12:03)
[2021-05-17] MEDS: Diltiazem 180 MG Cap.CD PO SCH (08:03)
[2021-05-17] MEDS: Dexamethasone 4 MG Tab PO SCH (08:04)
[2021-05-17] MEDS: guaiFENesin/Dextromethorphan 100-10 MG/5 ML Soln 10 ML Cup PO PRN (08:13)
[2021-05-17] MEDS ORDERED: Omeprazole 20 MG Cap.CR PO SCH (09:00)
[2021-05-17] MEDS: Ibuprofen 400 MG Tab PO PRN (12:09)
[2021-05-17] MEDS: Enoxaparin 40 MG/0.4 ML Syringe SUBCUT SCH (14:12)
[2021-05-17] MEDS: Pantoprazole 40 MG in Sodium Chloride 0.9% 10 ML IV SCH (14:12)
[2021-05-17] MEDS: REMDESIVIR 100 MG in Sodium Chloride 0.9% 100 ML IV SCH (14:20)
--- NOTE | 2021-05-17 14:21 | PCM.PN ---
- General Info Date of Service: 05/17/21 Subjective Update: Patient still states nausea, shortness of breath and mild nonradiating chest pain with ambulation. Patient denies fever, chills, vomiting, diarrhea. Patient does state however improved appetite from yesterday. - Review of Systems General: Denies: Fever, Chills Pulmonary: Reports: Shortness of Breath, Cough Cardiovascular: Reports: Chest Pain, Dyspnea on Exertion. Denies: Orthopnea, Edema Gastrointestinal: Denies: Abdominal Pain, Decreased Appetite, Nausea, Vomiting Neurological: Denies: Confusion, Dizziness, Headache Psychiatric: Denies: Confusion - Patient Data Vitals - Most Recent: Last Vital Signs Temp 98.9 F 05/17/21 07:42 Pulse 67 05/17/21 07:42 Resp 22 H 05/17/21 07:42 BP 102/60 05/17/21 07:42 Pulse Ox 91 L 05/17/21 13:26 Weight - Most Recent: 211 lb 13.828 oz I&O - Last 24 Hours: Intake & Output 05/16/21 05/17/21 05/17/21 22:59 06:59 14:59 Intake Total 400 1350 Output Total 1950 Balance 400 -600 Lab Results Last 24 Hours: Laboratory Results - last 24 hr 05/17/21 05/17/21 05/17/21 Range/Units 06:10 06:10 06:10 WBC 3.63 L (4.0-11.0) K/uL RBC 4.88 (4.30-5.90) M/uL Hgb 14.3 (12.0-16.0) g/dL Hct 42.1 (36.0-46.0) % MCV 86.3 (80.0-98.0) fL MCH 29.3 (27.0-32.0) pg MCHC 34.0 (31.0-37.0) g/dL RDW Std Deviation 43.5 (28.0-62.0) fl RDW Coeff of Mulu 14 (11.0-15.0) % Plt Count 178 (150-400) K/uL MPV 10.60 (7.40-12.00) fL Neut % (Auto) 73.0 (48.0-80.0) % Lymph % (Auto) 16.5 (16.0-40.0) % [place] % (Auto) 10.5 (0.0-15.0) % Eos % (Auto) 0.0 (0.0-7.0) % Baso % (Auto) 0.0 (0.0-1.5) % Neut # (Auto) 2.7 (1.4-5.7) K/uL Lymph # (Auto) 0.6 (0.6-2.4) K/uL [place] # (Auto) 0.4 (0.0-0.8) K/uL Eos # (Auto) 0.0 (0.0-0.7) K/uL Baso # (Auto) 0.0 (0.0-0.1) K/uL Nucleated RBC % 0.0 /100WBC Nucleated RBCs # 0 K/uL Sodium 139 (136-145) mmol/L Potassium 4.5 (3.5-5.1) mmol/L Chloride 103 (98-107) mmol/L Carbon Dioxide 28.0 (21.0-32.0) mmol/L BUN 12 (7.0-18.0) mg/dL Creatinine 0.9 (0.6-1.0) mg/dL Est Cr Clr Drug Dosing 64.54 mL/min Estimated GFR (MDRD) > 60.0 ml/min Glucose 113 H (74-106) mg/dL Calcium 8.0 L (8.5-10.1) mg/dL Total Bilirubin 0.6 (0.2-1.0) mg/dL AST 65 H (15-37) IU/L ALT 55 (14-63) IU/L Alkaline Phosphatase 64 (46-116) U/L C-Reactive Protein 3.40 H (0.00-0.90) mg/dL Total Protein 6.6 (6.4-8.2) g/dL Albumin 2.9 L (3.4-5.0) g/dL Globulin 3.7 (2.6-4.0) g/dL Albumin/Globulin Ratio 0.8 L (0.9-1.6) Med Orders - Current: Current Medications Albuterol/Ipratropium (Albuterol/Ipratropium 4 Gm Inhalation [place]) 1 gm INH Q4HRRT PRN PRN Reason: Dyspnea Last Admin: 05/16/21 19:53 Dose: 1 puff Documented by: Dexamethasone (Dexamethasone 4 Mg Tab) 6 mg PO DAILY [facility] Last Admin: 05/17/21 08:04 Dose: 6 mg Documented by: Diltiazem HCl (Diltiazem 180 Mg Cap.Cd) 360 mg PO DAILY [facility] Last Admin: 05/17/21 08:03 Dose: Not Given Documented by: Enoxaparin Sodium (Enoxaparin 40 Mg/0.4 Ml Syringe) 40 mg SUBCUT Q24H [facility] Last Admin: 05/17/21 14:12 Dose: 40 mg Documented by: Guaifenesin/Dextromethorphan (Guaifenesin/Dextromethorphan 100-10 Mg/5 Ml Soln 10 Ml Cup) 10 ml PO Q4H PRN PRN Reason: Cough Last Admin: 05/17/21 08:13 Dose: 10 ml Documented by: Remdesivir 100 mg/ Sodium (Chloride) 100 mls @ 100 mls/hr IV Q24H [facility] Stop: 05/20/21 15:59 Pantoprazole Sodium 40 mg/ (Sodium Chloride) 10 mls @ 300 mls/hr IV Q24H [facility] Last Admin: 05/17/21 14:12 Dose: 300 mls/hr Documented by: Ibuprofen (Ibuprofen 400 Mg Tab) 400 mg PO Q12H PRN PRN Reason: Pain Last Admin: 05/17/21 12:09 Dose: 400 mg Documented by: Ondansetron HCl (Ondansetron 4 Mg/2 Ml Sdv) 4 mg IVPUSH Q4H PRN PRN Reason: Vomiting Last Admin: 05/17/21 12:03 Dose: 4 mg Documented by: Sodium Chloride (Sodium Chloride 0.9% 10 Ml Syringe) 10 ml FLUSH ASDIRECTED PRN PRN Reason: Keep Vein Open Last Admin: 05/16/21 10:51 Dose: 10 ml Documented by: Sodium Chloride (Sodium Chloride 0.9% 2.5 Ml Syringe) 2.5 ml FLUSH ASDIRECTED PRN PRN Reason: Keep Vein Open Last Admin: 05/16/21 10:51 Dose: 2.5 ml Documented by: Discontinued Medications Sodium Chloride (Normal Saline) 1,000 mls @ 999 mls/hr IV .Bolus ONE Stop: 05/16/21 11:36 Last Admin: 05/16/21 10:49 Dose: 999 mls/hr Documented by: Remdesivir 200 mg/ Sodium (Chloride) 250 mls @ 250 mls/hr IV ONETIME ONE Stop: 05/16/21 15:59 Last Admin: 05/16/21 15:52 Dose: 250 mls/hr Documented by: Ibuprofen (Ibuprofen 400 Mg Tab) 400 mg PO ONETIME ONE Stop: 05/16/21 10:36 Last Admin: 05/16/21 10:51 Dose: 400 mg Documented by: Omeprazole (Omeprazole 20 Mg Cap.Cr) 20 mg PO DAILY [facility] Last Admin: 05/17/21 14:06 Dose: Not Given Documented by: Ondansetron HCl (Ondansetron 4 Mg/2 Ml Sdv) 4 mg IVPUSH ONETIME ONE Stop: 05/16/21 10:26 Last Admin: 05/16/21 10:47 Dose: 4 mg Documented by: Sodium Chloride (Sodium Chloride 0.9% 10 Ml Sdv) 250 ml IV STAT STA Stop: 05/16/21 10:28 Last Admin: 05/16/21 10:36 Dose: Not Given Documented by: - Exam Quality Assessment: Supplemental Oxygen General: Alert, Oriented Lungs: Crackles. No: Normal Respiratory Effort (shallow breathing secondary to coughing) Cardiovascular: Regular Rate, Regular Rhythm GI/Abdominal Exam: Soft, Non-Tender, No Distention. No: Distended, Guarding Extremities: No Pedal Edema Psy/Mental Status: Alert - Patient Data Lab Results Last 24 hrs: Laboratory Results - last 24 hr 05/17/21 05/17/21 05/17/21 Range/Units 06:10 06:10 06:10 WBC 3.63 L (4.0-11.0) K/uL RBC 4.88 (4.30-5.90) M/uL Hgb 14.3 (12.0-16.0) g/dL Hct 42.1 (36.0-46.0) % MCV 86.3 (80.0-98.0) fL MCH 29.3 (27.0-32.0) pg MCHC 34.0 (31.0-37.0) g/dL RDW Std Deviation 43.5 (28.0-62.0) fl RDW Coeff of Mulu 14 (11.0-15.0) % Plt Count 178 (150-400) K/uL MPV 10.60 (7.40-12.00) fL Neut % (Auto) 73.0 (48.0-80.0) % Lymph % (Auto) 16.5 (16.0-40.0) % [place] % (Auto) 10.5 (0.0-15.0) % Eos % (Auto) 0.0 (0.0-7.0) % Baso % (Auto) 0.0 (0.0-1.5) % Neut # (Auto) 2.7 (1.4-5.7) K/uL Lymph # (Auto) 0.6 (0.6-2.4) K/uL [place] # (Auto) 0.4 (0.0-0.8) K/uL Eos # (Auto) 0.0 (0.0-0.7) K/uL Baso # (Auto) 0.0 (0.0-0.1) K/uL Nucleated RBC % 0.0 /100WBC Nucleated RBCs # 0 K/uL Sodium 139 (136-145) mmol/L Potassium 4.5 (3.5-5.1) mmol/L Chloride 103 (98-107) mmol/L Carbon Dioxide 28.0 (21.0-32.0) mmol/L BUN 12 (7.0-18.0) mg/dL Creatinine 0.9 (0.6-1.0) mg/dL Est Cr Clr Drug Dosing 64.54 mL/min Estimated GFR (MDRD) > 60.0 ml/min Glucose 113 H (74-106) mg/dL Calcium 8.0 L (8.5-10.1) mg/dL Total Bilirubin 0.6 (0.2-1.0) mg/dL AST 65 H (15-37) IU/L ALT 55 (14-63) IU/L Alkaline Phosphatase 64 (46-116) U/L C-Reactive Protein 3.40 H (0.00-0.90) mg/dL Total Protein 6.6 (6.4-8.2) g/dL Albumin 2.9 L (3.4-5.0) g/dL Globulin 3.7 (2.6-4.0) g/dL Albumin/Globulin Ratio 0.8 L (0.9-1.6) Result Diagrams: 09/25/21 06:10 05/17/21 06:10 Sepsis Event Note - Evaluation Sepsis Screening Result: No Definite Risk - Focused Exam Vital Signs: Vital Signs Temp Pulse Resp BP Pulse Ox Pulse Ox 05/17/21 13:26 91 L 05/17/21 13:20 91 L 05/17/21 07:42 98.9 F 67 22 H 102/60 89 L 05/17/21 05:00 69 20 108/61 90 L - Problem List & Annotations (1) COVID-19 SNOMED Code(s): 815633239 Code(s): U07.1 - COVID-19 Status: Acute Current Visit: Yes (2) GERD (gastroesophageal reflux disease) SNOMED Code(s): 683362750 Code(s): K21.9 - GASTRO-ESOPHAGEAL REFLUX DISEASE WITHOUT ESOPHAGITIS Stat us: Acute Current Visit: Yes (3) Hypertension SNOMED Code(s): 47457010 Code(s): I10 - ESSENTIAL (PRIMARY) HYPERTENSION Status: Acute Current Visit: Yes (4) Hypoxia SNOMED Code(s): 926511044 Code(s): R09.02 - HYPOXEMIA Status: Acute Current Visit: Yes (5) Nausea SNOMED Code(s): 061277709 Code(s): R11.0 - NAUSEA Status: Acute Current Visit: Yes (6) Spinal stenosis SNOMED Code(s): 04842773 Code(s): M48.00 - SPINAL STENOSIS, SITE UNSPECIFIED Status: Acute Current Visit: Yes (7) Weakness SNOMED Code(s): 14452763 Code(s): R53.1 - WEAKNESS Status: Acute Current Visit: Yes - Problem List Review Problem List Initiated/Reviewed/Updated: Yes - My Orders Last 24 Hours: My Active Orders 05/17/21 08:02 Dextromethorphan/guaiFENesin [Robitussin DM] 10 ml PO Q4H PRN 05/17/21 12:54 Ang Chest [CT] Urgent - Plan Plan:: Hypoxia secondary to COVID-19 remdesivir IV 100 mg X 4days, dexamethasone 6 mg daily, Combivent ING Q4hr PRN, I/S Proning, Zofran 4 mg IV prn, Protonix 40mg IV q24hr, Robitussin-DM as needed, Lovenox 40mg daily SQ Patient transitioned to high flow oxygen therapy due to increased demand. Oxygen increased to 8 L, wean as tolerated. Degenerative spinal stenosis 400 mg BID, PRN
[2021-05-18] MEDS: Ibuprofen 400 MG Tab PO PRN ×2 (02:56→13:58)
[2021-05-18 06:24] LABS: POTASSIUM,K 4.5 mmol/L (3.5-5.1)
[2021-05-18] MEDS: Dexamethasone 4 MG Tab PO SCH (08:38)
[2021-05-18] MEDS: Diltiazem 180 MG Cap.CD PO SCH (09:15)
[2021-05-18] MEDS: guaiFENesin/Dextromethorphan 100-10 MG/5 ML Soln 10 ML Cup PO PRN ×4 (09:16→22:48)
[2021-05-18] MEDS: Albuterol/Ipratropium 4 GM Inhalation Spray INH PRN (11:29)
--- NOTE | 2021-05-18 13:49 | PCM.PN ---
- General Info Date of Service: 05/18/21 Subjective Update: The patient is a 61-year-old female on day 3 of service with a significant past medical history of degenerative spinal stenosis, GERD, and hypertension who was admitted due to hypoxia secondary to COVID-19 pneumonia. Upon interview today the patient continues to feel weak and has a dry cough. She has extreme shortness of breath and says that it hurts when she breathes deeply. She is able to eat, but says that she does so forcefully in order to k eep her nutrition up. Nonetheless, she says that she feels much better than her initial presentation to the hospital. A CT angiogram could not be done because this patient has allergies to shellfish and iodine. She denies chest pain, palpitations, abdominal pain, and any issues with urination and/or defecation. She does admit that her nausea which she presented with has mostly subsided, and feels medication in the hospital has helped her accomplish this. She is currently saturating 93% on 7 L of oxygen. - Review of Systems General: Reports: Fatigue. Denies: Fever, Weakness, Chills HEENT: Denies: Headaches Pulmonary: Reports: Shortness of Breath, Cough. Denies: Pleuritic Chest Pain Cardiovascular: Denies: Chest Pain, Palpitations Gastrointestinal: Denies: Abdominal Pain, Constipation, Diarrhea Genitourinary: Denies: Dysuria - Patient Data Vitals - Most Recent: Last Vital Signs Temp 97.3 F 05/18/21 11:44 Pulse 60 05/18/21 11:44 Resp 20 05/18/21 11:44 BP 90/58 L 05/18/21 11:44 Pulse Ox 91 L 05/18/21 11:44 Weight - Most Recent: 211 lb 13.828 oz I&O - Last 24 Hours: Intake & Output 05/17/21 05/18/21 05/18/21 22:59 06:59 14:59 Intake Total 750 600 Output Total 400 1100 Balance 350 -500 Lab Results Last 24 Hours: Laboratory Results - last 24 hr 05/18/21 05/18/21 Range/Units 05:30 05:30 WBC 5.04 (4.0-11.0) K/uL RBC 4.78 (4.30-5.90) M/uL Hgb 13.7 (12.0-16.0) g/dL Hct 41.4 (36.0-46.0) % MCV 86.6 (80.0-98.0) fL MCH 28.7 (27.0-32.0) pg MCHC 33.1 (31.0-37.0) g/dL RDW Std Deviation 43.1 (28.0-62.0) fl RDW Coeff of Mulu 14 (11.0-15.0) % Plt Count 186 (150-400) K/uL MPV 10.30 (7.40-12.00) fL Neut % (Auto) 67.3 (48.0-80.0) % Lymph % (Auto) 19.0 (16.0-40.0) % [place] % (Auto) 13.7 (0.0-15.0) % Eos % (Auto) 0.0 (0.0-7.0) % Baso % (Auto) 0.0 (0.0-1.5) % Neut # (Auto) 3.4 (1.4-5.7) K/uL Lymph # (Auto) 1.0 (0.6-2.4) K/uL [place] # (Auto) 0.7 (0.0-0.8) K/uL Eos # (Auto) 0.0 (0.0-0.7) K/uL Baso # (Auto) 0.0 (0.0-0.1) K/uL Nucleated RBC % 0.0 /100WBC Nucleated RBCs # 0 K/uL Sodium 140 (136-145) mmol/L Potassium 4.5 (3.5-5.1) mmol/L Chloride 103 (98-107) mmol/L Carbon Dioxide 32.0 (21.0-32.0) mmol/L BUN 19 H (7.0-18.0) mg/dL Creatinine 1.0 (0.6-1.0) mg/dL Est Cr Clr Drug Dosing 58.09 mL/min Estimated GFR (MDRD) 56.0 ml/min Glucose 103 (74-106) mg/dL Calcium 8.6 (8.5-10.1) mg/dL Total Bilirubin 0.5 (0.2-1.0) mg/dL AST 53 H (15-37) IU/L ALT 47 (14-63) IU/L Alkaline Phosphatase 56 (46-116) U/L Total Protein 6.3 L (6.4-8.2) g/dL Albumin 2.8 L (3.4-5.0) g/dL Globulin 3.5 (2.6-4.0) g/dL Albumin/Globulin Ratio 0.8 L (0.9-1.6) Med Orders - Current: Current Medications Albuterol/Ipratropium (Albuterol/Ipratropium 4 Gm Inhalation [place]) 1 gm INH Q4HRRT [facility] Dexamethasone (Dexamethasone 4 Mg Tab) 6 mg PO DAILY [facility] Last Admin: 05/18/21 08:38 Dose: 6 mg Documented by: Diltiazem HCl (Diltiazem 180 Mg Cap.Cd) 360 mg PO DAILY [facility] Last Admin: 05/18/21 09:15 Dose: Not Given Documented by: Enoxaparin Sodium (Enoxaparin 40 Mg/0.4 Ml Syringe) 40 mg SUBCUT Q24H [facility] Last Admin: 05/17/21 14:12 Dose: 40 mg Documented by: Guaifenesin/Dextromethorphan (Guaifenesin/Dextromethorphan 100-10 Mg/5 Ml Soln 10 Ml Cup) 10 ml PO Q4H PRN PRN Reason: Cough Last Admin: 05/18/21 09:16 Dose: 10 ml Documented by: Remdesivir 100 mg/ Sodium (Chloride) 100 mls @ 100 mls/hr IV Q24H [facility] Stop: 05/20/21 15:59 Last Admin: 05/17/21 14:20 Dose: 100 mls/hr Documented by: Pantoprazole Sodium 40 mg/ (Sodium Chloride) 10 mls @ 300 mls/hr IV Q24H [facility] Last Admin: 05/17/21 14:12 Dose: 300 mls/hr Documented by: Ibuprofen (Ibuprofen 400 Mg Tab) 400 mg PO Q12H PRN PRN Reason: Pain Last Admin: 05/18/21 02:56 Dose: 400 mg Documented by: Ondansetron HCl (Ondansetron 4 Mg/2 Ml Sdv) 4 mg IVPUSH Q4H PRN PRN Reason: Vomiting Last Admin: 05/17/21 12:03 Dose: 4 mg Documented by: Sodium Chloride (Sodium Chloride 0.9% 10 Ml Syringe) 10 ml FLUSH ASDIRECTED PRN PRN Reason: Keep Vein Open Last Admin: 05/16/21 10:51 Dose: 10 ml Documented by: Sodium Chloride (Sodium Chloride 0.9% 2.5 Ml Syringe) 2.5 ml FLUSH ASDIRECTED PRN PRN Reason: Keep Vein Open Last Admin: 05/16/21 10:51 Dose: 2.5 ml Documented by: Discontinued Medications Albuterol/Ipratropium (Albuterol/Ipratropium 4 Gm Inhalation [place]) 1 gm INH Q4HRRT PRN PRN Reason: Dyspnea Last Admin: 05/18/21 11:29 Dose: 1 puff Documented by: Sodium Chloride (Normal Saline) 1,000 mls @ 999 mls/hr IV .Bolus ONE Stop: 05/16/21 11:36 Last Admin: 05/16/21 10:49 Dose: 999 mls/hr Documented by: Remdesivir 200 mg/ Sodium (Chloride) 250 mls @ 250 mls/hr IV ONETIME ONE Stop: 05/16/21 15:59 Last Admin: 05/16/21 15:52 Dose: 250 mls/hr Documented by: Ibuprofen (Ibuprofen 400 Mg Tab) 400 mg PO ONETIME ONE Stop: 05/16/21 10:36 Last Admin: 05/16/21 10:51 Dose: 400 mg Documented by: Omeprazole (Omeprazole 20 Mg Cap.Cr) 20 mg PO DAILY [facility] Last Admin: 05/17/21 14:06 Dose: Not Given Documented by: Ondansetron HCl (Ondansetron 4 Mg/2 Ml Sdv) 4 mg IVPUSH ONETIME ONE Stop: 05/16/21 10:26 Last Admin: 05/16/21 10:47 Dose: 4 mg Documented by: Sodium Chloride (Sodium Chloride 0.9% 10 Ml Sdv) 250 ml IV STAT STA Stop: 05/16/21 10:28 Last Admin: 05/16/21 10:36 Dose: Not Given Documented by: - Exam General: Alert, Oriented, Cooperative HEENT: Mucous Membr. Moist/Gramling Lungs: Wheezing Cardiovascular: Regular Rate, Regular Rhythm, No Murmurs GI/Abdominal Exam: Normal Bowel Sounds, Soft, Non-Tender, No Organomegaly - Patient Data Lab Results Last 24 hrs: Laboratory Results - last 24 hr 05/18/21 05/18/21 Range/Units 05:30 05:30 WBC 5.04 (4.0-11.0) K/uL RBC 4.78 (4.30-5.90) M/uL Hgb 13.7 (12.0-16.0) g/dL Hct 41.4 (36.0-46.0) % MCV 86.6 (80.0-98.0) fL MCH 28.7 (27.0-32.0) pg MCHC 33.1 (31.0-37.0) g/dL RDW Std Deviation 43.1 (28.0-62.0) fl RDW Coeff of Mulu 14 (11.0-15.0) % Plt Count 186 (150-400) K/uL MPV 10.30 (7.40-12.00) fL Neut % (Auto) 67.3 (48.0-80.0) % Lymph % (Auto) 19.0 (16.0-40.0) % Charles % (Auto) 13.7 (0.0-15.0) % Eos % (Auto) 0.0 (0.0-7.0) % Baso % (Auto) 0.0 (0.0-1.5) % Neut # (Auto) 3.4 (1.4-5.7) K/uL Lymph # (Auto) 1.0 (0.6-2.4) K/uL [place] # (Auto) 0.7 (0.0-0.8) K/uL Eos # (Auto) 0.0 (0.0-0.7) K/uL Baso # (Auto) 0.0 (0.0-0.1) K/uL Nucleated RBC % 0.0 /100WBC Nucleated RBCs # 0 K/uL Sodium 140 (136-145) mmol/L Potassium 4.5 (3.5-5.1) mmol/L Chloride 103 (98-107) mmol/L Carbon Dioxide 32.0 (21.0-32.0) mmol/L BUN 19 H (7.0-18.0) mg/dL Creatinine 1.0 (0.6-1.0) mg/dL Est Cr Clr Drug Dosing 58.09 mL/min Estimated GFR (MDRD) 56.0 ml/min Glucose 103 (74-106) mg/dL Calcium 8.6 (8.5-10.1) mg/dL Total Bilirubin 0.5 (0.2-1.0) mg/dL AST 53 H (15-37) IU/L ALT 47 (14-63) IU/L Alkaline Phosphatase 56 (46-116) U/L Total Protein 6.3 L (6.4-8.2) g/dL Albumin 2.8 L (3.4-5.0) g/dL Globulin 3.5 (2.6-4.0) g/dL Albumin/Globulin Ratio 0.8 L (0.9-1.6) Result Diagrams: 05/18/21 05:30 05/18/21 05:30 Sepsis Event Note - Evaluation Sepsis Screening Result: No Definite Risk - Focused Exam Vital Signs: Vital Signs Temp Pulse Resp BP Pulse Ox 05/18/21 11:44 97.3 F 60 20 90/58 L 91 L 05/18/21 09:16 62 100/55 L 05/18/21 08:36 97 F 62 20 85/46 L 91 L 05/18/21 03:00 97.5 F 55 L 17 94/50 L 94 L - Problem List & Annotations (1) Hypertension SNOMED Code(s): 23761966 Code(s): I10 - ESSENTIAL (PRIMARY) HYPERTENSION Status: Acute Current Visit: Yes (2) COVID-19 SNOMED Code(s): 985805683 Code(s): U07.1 - COVID-19 Status: Acute Current Visit: Yes (3) Hypoxia SNOMED Code(s): 886176914 Code(s): R09.02 - HYPOXEMIA Status: Acute Current Visit: Yes (4) Nausea SNOMED Code(s): 521627145 Code(s): R11.0 - NAUSEA Status: Acute Current Visit: Yes (5) Weakness SNOMED Code(s): 67706057 Code(s): R53.1 - WEAKNESS Status: Acute Current Visit: Yes (6) GERD (gastroesophageal reflux disease) SNOMED Code(s): 467859002 Code(s): K21.9 - GASTRO-ESOPHAGEAL REFLUX DISEASE WITHOUT ESOPHAGITIS Status: Acute Current Visit: Yes (7) Spinal stenosis SNOMED Code(s): 32579959 Code(s): M48.00 - SPINAL STENOSIS, SITE UNSPECIFIED Status: Acute Current Visit: Yes - Problem List Review Problem List Initiated/Reviewed/Updated: Yes - My Orders Last 24 Hours: My Active Orders 05/17/21 15:00 Remdesivir 100 mg Sodium Chloride 0.9% [Normal Saline] 100 ml IV Q24H 05/18/21 14:00 Albuterol/Ipratropium [Combivent Respimat] 1 gm INH Q4HRRT 05/19/21 05:11 CBC WITH AUTO DIFF [HEME] AM CMP [COMPREHENSIVE METABOLIC PN,CMP] [CHEM] AM - Plan Plan:: 1. Hypoxia secondary to COVID-19 pneumonia -We will continue the patient on remdesivir IV 100 mg for 4 doses, she already received 2 doses on 05/16 and 05/17 -We will continue the patient on dexamethasone 6 mg per oral route once a day, she has already received 2 doses, with the third happening today -For shortness of breath, we will continue with Combivent every 4 hours as needed -For cough, we will continue with Robitussin DM 10 mL per oral route every 4 hours now scheduled -The patient's nausea has decreased significantly, but still Zofran 4 mg IV as needed is on board -We will continue to encourage incentive spirometry in the prone position -Continue supplying oxygen as needed 2. Degenerative spinal stenosis -The patient's home dose is 800 mg of ibuprofen for pain related to this condition, here in hospital she is on 400 mg of ibuprofen twice a day per oral route 3. GERD -In hospital for GI prophylaxis the patient is on pantoprazole 40 mg, we will continue to supply this dosage and monitor for any symptoms of heartburn or reflux 4. Hypertension -The patient has a home dose of diltiazem 360 mg once a day per oral route, this is being held due to her blood pressure in hospital being hypotensive
[2021-05-18] MEDS: Albuterol/Ipratropium 4 GM Inhalation Spray INH SCH ×3 (14:03→22:48)
[2021-05-18] MEDS ORDERED: Ketorolac 30 MG/ML SDV IVPUSH ONE (14:10)
[2021-05-18] MEDS: Enoxaparin 40 MG/0.4 ML Syringe SUBCUT SCH (14:43)
[2021-05-18] MEDS: REMDESIVIR 100 MG in Sodium Chloride 0.9% 100 ML IV SCH (14:43)
[2021-05-18] MEDS: Pantoprazole 40 MG in Sodium Chloride 0.9% 10 ML IV SCH (14:43)
[2021-05-19] MEDS: Ibuprofen 400 MG Tab PO PRN ×2 (00:34→18:09)
[2021-05-19] MEDS: Albuterol/Ipratropium 4 GM Inhalation Spray INH SCH ×6 (02:41→23:12)
[2021-05-19 06:30] LABS: BLOOD UREA NITROGEN,BUN 14 mg/dL (7.0-18.0); CARBON DIOXIDE,CO2 33.2 mmol/L (21.0-32.0); CHLORIDE,CL 104 mmol/L (98-107); GLUCOSE RANDOM 91 mg/dL (74-106); POTASSIUM,K 4.7 mmol/L (3.5-5.1); SODIUM,NA 143 mmol/L (136-145)
[2021-05-19] MEDS: Dexamethasone 4 MG Tab PO SCH (08:11)
[2021-05-19] MEDS: Diltiazem 180 MG Cap.CD PO SCH (10:22)
[2021-05-19] MEDS ORDERED: Polyethylene Glycol 3350 Powder 17 GM Packet PO ONE (10:25)
--- NOTE | 2021-05-19 14:05 | PCM.PN ---
- General Info Date of Service: 05/19/21 Subjective Update: The patient is a 61-year-old female, on day for service, with a significant past medical history of degenerative spinal stenosis, GERD, and hypertension, who was admitted for hypoxia secondary to COVID-19 pneumonia. The patient also has been receiving treatment in hospital for degenerative spinal stenosis. Upon interview today the patient admits to feeling extremely weak and having dyspnea upon exertion whenever she gets up to move around the room or go to the washroom. She is also complaining of a little cough which has improved but is still there and worse upon exertion. She is eating and drinking without any issues and is voiding. She does complain that she feels constipated and has not had a regular bowel movement in couple days. She is currently saturating 93% on 6 L. She has no other complaints at this time. - Review of Systems General: Reports: Fatigue. Denies: Fever, Chills HEENT: Denies: Sore Throat Pulmonary: Reports: Shortness of Breath, Cough Cardiovascular: Reports: Dyspnea on Exertion. Denies: Chest Pain, Palpitations Gastrointestinal: Reports: Constipation. Denies: Abdominal Pain Genitourinary: Denies: Dysuria Musculoskeletal: Reports: Back Pain - Patient Data Vitals - Most Recent: Last Vital Signs Temp 97.3 F 05/19/21 12:00 Pulse 54 L 05/19/21 12:00 Resp 18 05/19/21 12:00 BP 113/66 05/19/21 12:00 Pulse Ox 94 L 05/19/21 12:00 Weight - Most Recent: 211 lb 13.828 oz I&O - Last 24 Hours: Intake & Output 05/18/21 05/19/21 05/19/21 22:59 06:59 14:59 Intake Total 1010 650 Output Total 1200 1150 Balance -190 -500 Lab Results Last 24 Hours: Laboratory Results - last 24 hr 05/19/21 05/19/21 Range/Units 05:40 05:40 WBC 4.17 (4.0-11.0) K/uL RBC 4.77 (4.30-5.90) M/uL Hgb 13.6 (12.0-16.0) g/dL Hct 41.4 (36.0-46.0) % MCV 86.8 (80.0-98.0) fL MCH 28.5 (27.0-32.0) pg MCHC 32.9 (31.0-37.0) g/dL RDW Std Deviation 43.4 (28.0-62.0) fl RDW Coeff of [place] 14 (11.0-15.0) % Plt Count 213 (150-400) K/uL MPV 10.40 (7.40-12.00) fL Neut % (Auto) 61.2 (48.0-80.0) % Lymph % (Auto) 26.1 (16.0-40.0) % [place] % (Auto) 12.7 (0.0-15.0) % Eos % (Auto) 0.0 (0.0-7.0) % Baso % (Auto) 0.0 (0.0-1.5) % Neut # (Auto) 2.6 (1.4-5.7) K/uL Lymph # (Auto) 1.1 (0.6-2.4) K/uL [place] # (Auto) 0.5 (0.0-0.8) K/uL Eos # (Auto) 0.0 (0.0-0.7) K/uL Baso # (Auto) 0.0 (0.0-0.1) K/uL Nucleated RBC % 0.0 /100WBC Nucleated RBCs # 0 K/uL Sodium 143 (136-145) mmol/L Potassium 4.7 (3.5-5.1) mmol/L Chloride 104 (98-107) mmol/L Carbon Dioxide 33.2 H (21.0-32.0) mmol/L BUN 14 (7.0-18.0) mg/dL Creatinine 0.8 (0.6-1.0) mg/dL Est Cr Clr Drug Dosing 72.61 mL/min Estimated GFR (MDRD) > 60.0 ml/min Glucose 91 (74-106) mg/dL Calcium 7.8 L (8.5-10.1) mg/dL Total Bilirubin 0.6 (0.2-1.0) mg/dL AST 58 H (15-37) IU/L ALT 52 (14-63) IU/L Alkaline Phosphatase 55 (46-116) U/L Total Protein 6.2 L (6.4-8.2) g/dL Albumin 2.7 L (3.4-5.0) g/dL Globulin 3.5 (2.6-4.0) g/dL Albumin/Globulin Ratio 0.8 L (0.9-1.6) Med Orders - Current: Current Medications Albuterol/Ipratropium (Albuterol/Ipratropium 4 Gm Inhalation [place]) 1 gm INH Q 4HRRT [facility] Last Admin: 05/19/21 13:37 Dose: 1 puff Documented by: Dexamethasone (Dexamethasone 4 Mg Tab) 6 mg PO DAILY [facility] Last Admin: 05/19/21 08:11 Dose: 6 mg Documented by: Diltiazem HCl (Diltiazem 180 Mg Cap.Cd) 360 mg PO DAILY [facility] Last Admin: 05/19/21 10:22 Dose: Not Given Documented by: Enoxaparin Sodium (Enoxaparin 40 Mg/0.4 Ml Syringe) 40 mg SUBCUT Q24H [facility] Last Admin: 05/18/21 14:43 Dose: 40 mg Documented by: Guaifenesin/Dextromethorphan (Guaifenesin/Dextromethorphan 100-10 Mg/5 Ml Soln 10 Ml Cup) 10 ml PO Q4H PRN PRN Reason: Cough Last Admin: 05/18/21 22:48 Dose: 10 ml Documented by: Remdesivir 100 mg/ Sodium (Chloride) 100 mls @ 100 mls/hr IV Q24H [facility] Stop: 05/20/21 15:59 Last Admin: 05/18/21 14:43 Dose: 100 mls/hr Documented by: Pantoprazole Sodium 40 mg/ (Sodium Chloride) 10 mls @ 300 mls/hr IV Q24H [facility] Last Admin: 05/18/21 14:43 Dose: 300 mls/hr Documented by: Ibuprofen (Ibuprofen 400 Mg Tab) 400 mg PO Q8H PRN PRN Reason: Pain Last Admin: 05/19/21 00:34 Dose: 400 mg Documented by: Ondansetron HCl (Ondansetron 4 Mg/2 Ml Sdv) 4 mg IVPUSH Q4H PRN PRN Reason: Vomiting Last Admin: 05/17/21 12:03 Dose: 4 mg Documented by: Oxycodone HCl (Oxycodone 5 Mg Tab) 5 mg PO Q6H PRN PRN Reason: Pain Sodium Chloride (Sodium Chloride 0.9% 10 Ml Syringe) 10 ml FLUSH ASDIRECTED PRN PRN Reason: Keep Vein Open Last Admin: 05/16/21 10:51 Dose: 10 ml Documented by: Sodium Chloride (Sodium Chloride 0.9% 2.5 Ml Syringe) 2.5 ml FLUSH ASDIRECTED PRN PRN Reason: Keep Vein Open Last Admin: 05/16/21 10:51 Dose: 2.5 ml Documented by: Discontinued Medications Albuterol/Ipratropium (Albuterol/Ipratropium 4 Gm Inhalation [place]) 1 gm INH Q4HRRT PRN PRN Reason: Dyspnea Last Admin: 05/18/21 11:29 Dose: 1 puff Documented by: Sodium Chloride (Normal Saline) 1,000 mls @ 999 mls/hr IV .Bolus ONE Stop: 05/16/21 11:36 Last Admin: 05/16/21 10:49 Dose: 999 mls/hr Documented by: Remdesivir 200 mg/ Sodium (Chloride) 250 mls @ 250 mls/hr IV ONETIME ONE Stop: 05/16/21 15:59 Last Admin: 05/16/21 15:52 Dose: 250 mls/hr Documented by: Ibuprofen (Ibuprofen 400 Mg Tab) 400 mg PO ONETIME ONE Stop: 05/16/21 10:36 Last Admin: 05/16/21 10:51 Dose: 400 mg Documented by: Ibuprofen (Ibuprofen 400 Mg Tab) 400 mg PO Q12H PRN PRN Reason: Pain Last Admin: 05/18/21 13:58 Dose: 400 mg Documented by: Ketorolac Tromethamine (Ketorolac 30 Mg/Ml Sdv) 30 mg IVPUSH ONETIME ONE Stop: 05/18/21 14:11 Last Admin: 05/18/21 14:42 Dose: 30 mg Documented by: Omeprazole (Omeprazole 20 Mg Cap.Cr) 20 mg PO DAILY [facility] Last Admin: 05/17/21 14:06 Dose: Not Given Documented by: Ondansetron HCl (Ondansetron 4 Mg/2 Ml Sdv) 4 mg IVPUSH ONETIME ONE Stop: 05/16/21 10:26 Last Admin: 05/16/21 10:47 Dose: 4 mg Documented by: Polyethylene Glycol (Polyethylene Glycol 3350 Powder 17 Gm Packet) 17 gm PO ONETIME ONE Stop: 05/19/21 10:26 Last Admin: 05/19/21 11:46 Dose: 17 gm Documented by: Sodium Chloride (Sodium Chloride 0.9% 10 Ml Sdv) 250 ml IV STAT STA Stop: 05/16/21 10:28 Last Admin: 05/16/21 10:36 Dose: Not Given Documented by: - Exam General: Alert, Oriented, Cooperative HEENT: Mucous Membr. Moist/[place] Neck: No Thyromegaly Lungs: Wheezing Cardiovascular: Regular Rate, Regular Rhythm, No Murmurs GI/Abdominal Exam: Normal Bowel Sounds, Soft, Non-Tender - Patient Data Lab Results Last 24 hrs: Laboratory Results - last 24 hr 05/19/21 05/19/21 Range/Units 05:40 05:40 WBC 4.17 (4.0-11.0) K/uL RBC 4.77 (4.30-5.90) M/uL Hgb 13.6 (12.0-16.0) g/dL Hct 41.4 (36.0-46.0) % MCV 86.8 (80.0-98.0) fL MCH 28.5 (27.0-32.0) pg MCHC 32.9 (31.0-37.0) g/dL RDW Std Deviation 43.4 (28.0-62.0) fl RDW Coeff of [place] 14 (11.0-15.0) % Plt Count 213 (150-400) K/uL MPV 10.40 (7.40-12.00) fL Neut % (Auto) 61.2 (48.0-80.0) % Lymph % (Auto) 26.1 (16.0-40.0) % [place] % (Auto) 12.7 (0.0-15.0) % Eos % (Auto) 0.0 (0.0-7.0) % Baso % (Auto) 0.0 (0.0-1.5) % Neut # (Auto) 2.6 (1.4-5.7) K/uL Lymph # (Auto) 1.1 (0.6-2.4) K/uL [place] # (Auto) 0.5 (0.0-0.8) K/uL Eos # (Auto) 0.0 (0.0-0.7) K/uL Baso # (Auto) 0.0 (0.0-0.1) K/uL Nucleated RBC % 0.0 /100WBC Nucleated RBCs # 0 K/uL Sodium 143 (136-145) mmol/L Potassium 4.7 (3.5-5.1) mmol/L Chloride 104 (98-107) mmol/L Carbon Dioxide 33.2 H (21.0-32.0) mmol/L BUN 14 (7.0-18.0) mg/dL Creatinine 0.8 (0.6-1.0) mg/dL Est Cr Clr Drug Dosing 72.61 mL/min Estimated GFR (MDRD) > 60.0 ml/min Glucose 91 (74-106) mg/dL Calcium 7.8 L (8.5-10.1) mg/dL Total Bilirubin 0.6 (0.2-1.0) mg/dL AST 58 H (15-37) IU/L ALT 52 (14-63) IU/L Alkaline Phosphatase 55 (46-116) U/L Total Protein 6.2 L (6.4-8.2) g/dL Albumin 2.7 L (3.4-5.0) g/dL Globulin 3.5 (2.6-4.0) g/dL Albumin/Globulin Ratio 0.8 L (0.9-1.6) Result Diagrams: 05/19/21 05:40 05/19/21 05:40 Sepsis Event Note - Evaluation Sepsis Screening Result: No Definite Risk - Focused Exam Vital Signs: Vital Signs Temp Pulse Resp BP Pulse Ox 05/19/21 12:00 97.3 F 54 L 18 113/66 94 L 05/19/21 08:09 97.4 F 57 L 18 116/64 90 L 05/19/21 04:01 97.3 F 52 L 19 123/69 93 L - Problem List & Annotations (1) Hypertension SNOMED Code(s): 13042679 Code(s): I10 - ESSENTIAL (PRIMARY) HYPERTENSION Status: Acute Current Visit: Yes (2) COVID-19 SNOMED Code(s): 724550045 Code(s): U07.1 - COVID-19 Status: Acute Current Visit: Yes (3) Hypoxia SNOMED Code(s): 179226821 Code(s): R09.02 - HYPOXEMIA Status: Acute Current Visit: Yes (4) Nausea SNOMED Code(s): 367412767 Code(s): R11.0 - NAUSEA Status: Acute Current Visit: Yes (5) Weakness SNOMED Code(s): 45117746 Code(s): R53.1 - WEAKNESS Status: Acute Current Visit: Yes (6) GERD (gastroesophageal reflux disease) SNOMED Code(s): 682318964 Code(s): K21.9 - GASTRO-ESOPHAGEAL REFLUX DISEASE WITHOUT ESOPHAGITIS Status: Acute Current Visit: Yes (7) Spinal stenosis SNOMED Code(s): 58017396 Code(s): M48.00 - SPINAL STENOSIS, SITE UNSPECIFIED Status: Acute Current Visit: Yes (8) Constipation SNOMED Code(s): 99446682 Code(s): K59.00 - CONSTIPATION, UNSPECIFIED Status: Acute Current Visit: Yes - Problem List Review Problem List Initiated/Reviewed/Updated: Yes - My Orders Last 24 Hours: My Active Orders 05/18/21 14:00 Albuterol/Ipratropium [Combivent Respimat] 1 gm INH Q4HRRT 05/18/21 16:18 Code Status [Resuscitation Status] Routine - Plan Plan:: 1. Hypoxia secondary to COVID-19 pneumonia -We will continue the patient on remdesivir IV 100 mg -We will continue the patient on dexamethasone 6 mg per oral route once a day -For shortness of breath, we will continue with Combivent every 4 hours as needed -For cough, we will continue with Robitussin DM 10 mL per oral route every 4 hours now scheduled -For nausea continue Zofran 4 mg IV as needed -We will continue to encourage incentive spirometry in the prone position -Continue supplying oxygen as needed 2. Degenerative spinal stenosis -Continue the patient on ibuprofen 400 mg 3 times a day for oral route 3. GERD -In hospital for GI prophylaxis the patient is on pantoprazole 40 mg 4. Hypertension -The patient is currently normotensive/hypotensive, we will continue to hold diltiazem 5. Constipation -The patient has been started on MiraLAX
[2021-05-19] MEDS: Enoxaparin 40 MG/0.4 ML Syringe SUBCUT SCH (15:16)
[2021-05-19] MEDS: Pantoprazole 40 MG in Sodium Chloride 0.9% 10 ML IV SCH (15:16)
[2021-05-19] MEDS: REMDESIVIR 100 MG in Sodium Chloride 0.9% 100 ML IV SCH (15:23)
[2021-05-19] MEDS: guaiFENesin/Dextromethorphan 100-10 MG/5 ML Soln 10 ML Cup PO PRN (20:46)
[2021-05-20] MEDS: Albuterol/Ipratropium 4 GM Inhalation Spray INH SCH ×6 (03:34→22:50)
[2021-05-20 08:09] LABS: BLOOD UREA NITROGEN,BUN 14 mg/dL (7.0-18.0); CARBON DIOXIDE,CO2 29.9 mmol/L (21.0-32.0); CHLORIDE,CL 106 mmol/L (98-107); GLUCOSE RANDOM 80 mg/dL (74-106); POTASSIUM,K 4.2 mmol/L (3.5-5.1); SODIUM,NA 144 mmol/L (136-145)
[2021-05-20] MEDS: Dexamethasone 4 MG Tab PO SCH (09:33)
[2021-05-20] MEDS ORDERED: Albuterol/Ipratropium 3.0-0.5 MG/3 ML Neb Soln NEB PRN (10:30)
[2021-05-20] MEDS: Diltiazem 180 MG Cap.CD PO SCH (11:21)
--- NOTE | 2021-05-20 12:29 | PCM.PN ---
- General Info Date of Service: 05/20/21 Subjective Update: The patient is a 61-year-old female, on day 5 of service, who has a significant past medical history of degenerative spinal stenosis, GERD, and hypertension, who was admitted for hypoxia secondary to COVID-19 pneumonia. Upon interview today the patient feels like she is taking steps backwards, she feels lightheaded and dizzy and extremely short of breath whenever she breathes and whenever she tries to get up to go to the restroom. She is extremely worried and wants to know what she can do to decrease the exertion that she feels when she does move around. She is currently saturating 90% on 10 L of oxygen. He is on Combivent every 4 hours as scheduled but may need nebulizer treatment to to help with her dyspnea. She denies chest pain, abdominal pain, pain in her extremities, but does admit that she has a family history on her mother's side of clots even though she herself has never had one. She is forcing herself to eat and drink in order to not feel tired. She has no other complaints at this time. - Review of Systems General: Reports: Fatigue. Denies: Fever, Chills HEENT: Denies: Sore Throat Pulmonary: Reports: Shortness of Breath, Cough Cardiovascular: Reports: Dyspnea on Exertion. Denies: Chest Pain, Palpitations Gastrointestinal: Denies: Abdominal Pain, Constipation, Diarrhea Genitourinary: Denies: Dysuria - Patient Data Vitals - Most Recent: Last Vital Signs Temp 97.4 F 05/20/21 09:29 Pulse 58 L 05/20/21 11:09 Resp 16 05/20/21 11:09 BP 113/66 05/20/21 11:09 Pulse Ox 91 L 05/20/21 11:09 Weight - Most Recent: 211 lb 13.828 oz I&O - Last 24 Hours: Intake & Output 05/19/21 05/20/21 05/20/21 22:59 06:59 14:59 Intake Total 1350 600 Output Total 1850 350 Balance -500 250 Lab Results Last 24 Hours: Laboratory Results - last 24 hr 05/20/21 05/20/21 05/20/21 Range/Units 05:59 05:59 10:57 WBC 4.80 (4.0-11.0) K/uL RBC 4.89 (4.30-5.90) M/uL Hgb 14.1 (12.0-16.0) g/dL Hct 42.9 (36.0-46.0) % MCV 87.7 (80.0-98.0) fL MCH 28.8 (27.0-32.0) pg MCHC 32.9 (31.0-37.0) g/dL RDW Std Deviation 43.5 (28.0-62.0) fl RDW Coeff of Mulu 14 (11.0-15.0) % Plt Count 228 (150-400) K/uL MPV 10.50 (7.40-12.00) fL Neut % (Auto) 56.7 (48.0-80.0) % Lymph % (Auto) 29.0 (16.0-40.0) % [place] % (Auto) 13.3 (0.0-15.0) % Eos % (Auto) 0.8 (0.0-7.0) % Baso % (Auto) 0.2 (0.0-1.5) % Neut # (Auto) 2.7 (1.4-5.7) K/uL Lymph # (Auto) 1.4 (0.6-2.4) K/uL [place] # (Auto) 0.6 (0.0-0.8) K/uL Eos # (Auto) 0.0 (0.0-0.7) K/uL Baso # (Auto) 0.0 (0.0-0.1) K/uL Nucleated RBC % 0.0 /100WBC Nucleated RBCs # 0 K/uL D-Dimer, Quantitative 0.49 (0.0-0.50) mg/L FEU Sodium 144 (136-145) mmol/L Potassium 4.2 (3.5-5.1) mmol/L Chloride 106 (98-107) mmol/L Carbon Dioxide 29.9 (21.0-32.0) mmol/L BUN 14 (7.0-18.0) mg/dL Creatinine 0.8 (0.6-1.0) mg/dL Est Cr Clr Drug Dosing 72.61 mL/min Estimated GFR (MDRD) > 60.0 ml/min Glucose 80 (74-106) mg/dL Calcium 8.1 L (8.5-10.1) mg/dL Total Bilirubin 0.8 (0.2-1.0) mg/dL AST 64 H (15-37) IU/L ALT 68 H (14-63) IU/L Alkaline Phosphatase 60 (46-116) U/L Total Protein 6.5 (6.4-8.2) g/dL Albumin 2.7 L (3.4-5.0) g/dL Globulin 3.8 (2.6-4.0) g/dL Albumin/Globulin Ratio 0.7 L (0.9-1.6) Med Orders - Current: Current Medications Albuterol/Ipratropium (Albuterol/Ipratropium 4 Gm Inhalation [place]) [address] [facility] Last Admin: 05/20/21 09:33 Dose: 1 puff Documented by: Albuterol/Ipratropium (Albuterol/Ipratropium 3.0-0.5 Mg/3 Ml Neb Soln) 3 ml NEB Q4HRRT PRN PRN Reason: Shortness of Breath Last Admin: 05/20/21 11:36 Dose: 3 ml Documented by: Dexamethasone (Dexamethasone 4 Mg Tab) [address] [facility] Last Admin: 05/20/21 09:33 Dose: 6 mg Documented by: Diltiazem HCl (Diltiazem 180 Mg Cap.Cd) [address] [facility] Last Admin: 05/20/21 11:21 Dose: Not Given Documented by: Enoxaparin Sodium (Enoxaparin 40 Mg/0.4 Ml Syringe) [address] [facility] Last Admin: 05/19/21 15:16 Dose: 40 mg Documented by: Guaifenesin/Dextromethorphan (Guaifenesin/Dextromethorphan 100-10 Mg/5 Ml Soln 10 Ml Cup) 10 ml PO Q4H PRN PRN Reason: Cough Last Admin: 05/19/21 20:46 Dose: 10 ml Documented by: Remdesivir 100 mg/ Sodium (Chloride) 100 mls @ 100 mls/hr IV Q24H [facility] Stop: 05/20/21 15:59 Last Admin: 05/19/21 15:23 Dose: 100 mls/hr Documented by: Pantoprazole Sodium 40 mg/ (Sodium Chloride) 10 mls @ 300 mls/hr IV Q24H [facility] Last Admin: 05/19/21 15:16 Dose: 300 mls/hr Documented by: Ibuprofen (Ibuprofen 400 Mg Tab) 400 mg PO Q8H PRN PRN Reason: Pain Last Admin: 05/19/21 18:09 Dose: 400 mg Documented by: Ondansetron HCl (Ondansetron 4 Mg/2 Ml Sdv) 4 mg IVPUSH Q4H PRN PRN Reason: Vomiting Last Admin: 05/17/21 12:03 Dose: 4 mg Documented by: Oxycodone HCl (Oxycodone 5 Mg Tab) 5 mg PO Q6H PRN PRN Reason: Pain Sodium Chloride (Sodium Chloride 0.9% 10 Ml Syringe) 10 ml FLUSH ASDIRECTED PRN PRN Reason: Keep Vein Open Last Admin: 05/16/21 10:51 Dose: 10 ml Documented by: Sodium Chloride (Sodium Chloride 0.9% 2.5 Ml Syringe) 2.5 ml FLUSH ASDIRECTED PRN PRN Reason: Keep Vein Open Last Admin: 05/16/21 10:51 Dose: 2.5 ml Documented by: Discontinued Medications Albuterol/Ipratropium (Albuterol/Ipratropium 4 Gm Inhalation [place]) 1 gm INH Q4HRRT PRN PRN Reason: Dyspnea Last Admin: 05/18/21 11:29 Dose: 1 puff Documented by: Sodium Chloride (Normal Saline) 1,000 mls @ 999 mls/hr IV .Bolus ONE Stop: 05/16/21 11:36 Last Admin: 05/16/21 10:49 Dose: 999 mls/hr Documented by: Remdesivir 200 mg/ Sodium (Chloride) 250 mls @ 250 mls/hr IV ONETIME ONE Stop: 05/16/21 15:59 Last Admin: 05/16/21 15:52 Dose: 250 mls/hr Documented by: Ibuprofen (Ibuprofen 400 Mg Tab) 400 mg PO ONETIME ONE Stop: 05/16/21 10:36 Last Admin: 05/16/21 10:51 Dose: 400 mg Documented by: Ibuprofen (Ibuprofen 400 Mg Tab) 400 mg PO Q12H PRN PRN Reason: Pain Last Admin: 05/18/21 13:58 Dose: 400 mg Documented by: Ketorolac Tromethamine (Ketorolac 30 Mg/Ml Sdv) 30 mg IVPUSH ONETIME ONE Stop: 05/18/21 14:11 Last Admin: 05/18/21 14:42 Dose: 30 mg Documented by: Omeprazole (Omeprazole 20 Mg Cap.Cr) 20 mg PO DAILY [facility] Last Admin: 05/17/21 14:06 Dose: Not Given Documented by: Ondansetron HCl (Ondansetron 4 Mg/2 Ml Sdv) 4 mg IVPUSH ONETIME ONE Stop: 05/16/21 10:26 Last Admin: 05/16/21 10:47 Dose: 4 mg Documented by: Polyethylene Glycol (Polyethylene Glycol 3350 Powder 17 Gm Packet) 17 gm PO ONETIME ONE Stop: 05/19/21 10:26 Last Admin: 05/19/21 11:46 Dose: 17 gm Documented by: Sodium Chloride (Sodium Chloride 0.9% 10 Ml Sdv) 250 ml IV STAT STA Stop: 05/16/21 10:28 Last Admin: 05/16/21 10:36 Dose: Not Given Documented by: - Exam General: Alert, Oriented, Mild Distress HEENT: Mucous Membr. Moist/[place] Neck: Trachea Midline Lungs: Wheezing Cardiovascular: Regular Rate, Regular Rhythm, No Murmurs GI/Abdominal Exam: Normal Bowel Sounds, Soft, Non-Tender, No Organomegaly - Patient Data Lab Results Last 24 hrs: Laboratory Results - last 24 hr 05/20/21 05/20/21 05/20/21 Range/Units 05:59 05:59 10:57 WBC 4.80 (4.0-11.0) K/uL RBC 4.89 (4.30-5.90) M/uL Hgb 14.1 (12.0-16.0) g/dL Hct 42.9 (36.0-46.0) % MCV 87.7 (80.0-98.0) fL MCH 28.8 (27.0-32.0) pg MCHC 32.9 (31.0-37.0) g/dL RDW Std Deviation 43.5 (28.0-62.0) fl RDW Coeff of [place] 14 (11.0-15.0) % Plt Count 228 (150-400) K/uL MPV 10.50 (7.40-12.00) fL Neut % (Auto) 56.7 (48.0-80.0) % Lymph % (Auto) 29.0 (16.0-40.0) % [place] % (Auto) 13.3 (0.0-15.0) % Eos % (Auto) 0.8 (0.0-7.0) % Baso % (Auto) 0.2 (0.0-1.5) % Neut # (Auto) 2.7 (1.4-5.7) K/uL Lymph # (Auto) 1.4 (0.6-2.4) K/uL [place] # (Auto) 0.6 (0.0-0.8) K/uL Eos # (Auto) 0.0 (0.0-0.7) K/uL Baso # (Auto) 0.0 (0.0-0.1) K/uL Nucleated RBC % 0.0 /100WBC Nucleated RBCs # 0 K/uL D-Dimer, Quantitative 0.49 (0.0-0.50) mg/L FEU Sodium 144 (136-145) mmol/L Potassium 4.2 (3.5-5.1) mmol/L Chloride 106 (98-107) mmol/L Carbon Dioxide 29.9 (21.0-32.0) mmol/L BUN 14 (7.0-18.0) mg/dL Creatinine 0.8 (0.6-1.0) mg/dL Est Cr Clr Drug Dosing 72.61 mL/min Estimated GFR (MDRD) > 60.0 ml/min Glucose 80 (74-106) mg/dL Calcium 8.1 L (8.5-10.1) mg/dL Total Bilirubin 0.8 (0.2-1.0) mg/dL AST 64 H (15-37) IU/L ALT 68 H (14-63) IU/L Alkaline Phosphatase 60 (46-116) U/L Total Protein 6.5 (6.4-8.2) g/dL Albumin 2.7 L (3.4-5.0) g/dL Globulin 3.8 (2.6-4.0) g/dL Albumin/Globulin Ratio 0.7 L (0.9-1.6) Result Diagrams: 05/20/21 05:59 05/20/21 05:59 Sepsis Event Note - Evaluation Sepsis Screening Result: No Definite Risk - Focused Exam Vital Signs: Vital Signs Temp Pulse Resp BP Pulse Ox 05/20/21 11:09 58 L 16 113/66 91 L 05/20/21 09:29 97.4 F 59 L 17 99/56 L 90 L 05/20/21 03:32 97.2 F 53 L 18 135/73 94 L - Problem List & Annotations (1) Hypertension SNOMED Code(s): 68773217 Code(s): I10 - ESSENTIAL (PRIMARY) HYPERTENSION Status: Acute Current Visit: Yes (2) COVID-19 SNOMED Code(s): 261670084 Code(s): U07.1 - COVID-19 Status: Acute Current Visit: Yes (3) Hypoxia SNOMED Code(s): 725333740 Code(s): R09.02 - HYPOXEMIA Status: Acute Current Visit: Yes (4) Nausea SNOMED Code(s): 795413486 Code(s): R11.0 - NAUSEA Status: Acute Current Visit: Yes (5) Weakness SNOMED Code(s): 61429405 Code(s): R53.1 - WEAKNESS Status: Acute Current Visit: Yes (6) GERD (gastroesophageal reflux disease) SNOMED Code(s): 700181949 Code(s): K21.9 - GASTRO-ESOPHAGEAL REFLUX DISEASE WITHOUT ESOPHAGITIS Status: Acute Current Visit: Yes (7) Spinal stenosis SNOMED Code(s): 55441762 Code(s): M48.00 - SPINAL STENOSIS, SITE UNSPECIFIED Status: Acute Current Visit: Yes - Problem List Review Problem List Initiated/Reviewed/Updated: Yes - My Orders Last 24 Hours: My Active Orders 05/20/21 10:30 Albuterol/Ipratropium [DuoNeb 3.0-0.5 MG/3 ML] 3 ml NEB Q4HRRT PRN 05/20/21 10:34 RT Aerosol Therapy [RC] ASDIRECTED 05/20/21 10:35 Venous Doppler Lwr Ext Bi [US] Routine 05/21/21 05:11 CBC WITH AUTO DIFF [HEME] AM CMP [COMPREHENSIVE METABOLIC PN,CMP] [CHEM] AM 05/22/21 05:11 CBC WITH AUTO DIFF [HEME] AM CMP [COMPREHENSIVE METABOLIC PN,CMP] [CHEM] AM 05/23/21 05:11 CBC WITH AUTO DIFF [HEME] AM CMP [COMPREHENSIVE METABOLIC PN,CMP] [CHEM] AM - Plan Plan:: 1. Hypoxia secondary to COVID-19 pneumonia -Patient was extremely short of breath this morning, so we have added a duo nebulizer treatment once to her regimen in order to help her breathe. We have also ordered a D-dimer and an ultrasound of the lower extremities to assess for any DVTs that may have moved up to the lungs and are causing her symptoms. -We will continue the patient on remdesivir IV 100 mg -We will continue the patient on dexamethasone 6 mg per oral route once a day -For shortness of breath, we will continue with Combivent every 4 hours as needed -For cough, we will continue with Robitussin DM 10 mL per oral route every 4 hours now scheduled -For nausea continue Zofran 4 mg IV as needed -We will continue to encourage incentive spirometry in the prone position -Continue supplying oxygen as needed 2. Degenerative spinal stenosis -Continue the patient on ibuprofen 400 mg 3 times a day for oral route 3. GERD -In hospital for GI prophylaxis the patient is on pantoprazole 40 mg
--- NOTE | 2021-05-20 13:00 | US ---
INDICATION: Possible DVT/PE. COMPARISON: None. TECHNIQUE: A compression venous ultrasound exam was performed of both lower extremities using lund scale imaging, color Doppler and spectral Doppler analysis. FINDINGS: Sonographic imaging of the lower extremities demonstrates normal compressibility and color Doppler venous blood flow within the common femoral, deep femoral, and proximal greater saphenous veins. Within the thighs the femoral veins are patent and compressible. At a lower level the popliteal, peroneal, and posterior tibial veins also show normal compressibility and color Doppler venous blood flow. IMPRESSION: Negative for acute DVT in the lower extremities bilaterally. Dictated by Noemy Castrejon MD @ 05/20/2021 12:59:27 PM (Electronically Signed)
[2021-05-20] MEDS: Pantoprazole 40 MG in Sodium Chloride 0.9% 10 ML IV SCH (14:37)
[2021-05-20] MEDS: Enoxaparin 40 MG/0.4 ML Syringe SUBCUT SCH (14:37)
[2021-05-20] MEDS: REMDESIVIR 100 MG in Sodium Chloride 0.9% 100 ML IV SCH (14:39)
--- NOTE | 2021-05-20 16:21 | CR ---
INDICATION: COVID. TECHNIQUE: Chest 1 view. COMPARISON: Chest radiograph 05/16/2021. FINDINGS: Low lung volumes. There are patchy opacities throughout the lungs bilaterally which have increased since prior exam. No pleural effusion or pneumothorax. Normal heart size. The bones are unremarkable. IMPRESSION: Increased patchy opacities throughout the lungs bilaterally compatible with worsening pneumonia. Dictated by Noemy Castrejon MD @ 05/20/2021 4:20:38 PM (Electronically Signed)
[2021-05-20] MEDS: guaiFENesin/Dextromethorphan 100-10 MG/5 ML Soln 10 ML Cup PO PRN (20:42)
[2021-05-21] MEDS: LORazepam 2 MG/ML SDV IVPUSH PRN ×3 (00:59→23:47)
--- NOTE | 2021-05-21 00:59 | PN ---
THC Physician - Brief Progress [id number]/29/2021 00:55[facility] [place] Mal[place], [place] [facility] - POLI STEVENSDate of Service 05/21/2021 00:55HPI/Events o f Note Case discussed with RN. 61 year old F admitted with COVID, transferred to ICU for CPAP. Mercedes charlie with decadron/remdesivir.Recs include: hemodynamic monitoring, HHF/CPAP as needed, encourage self proning as tolerated, decadron/remdesivir, GI and DVT prophylaxis, low threshold for abx, replace ly vince as needed, glycemic monitoring, pain control.Interventions Minor-Communication with other healthc are providers and/or family
[2021-05-21] MEDS ORDERED: Levofloxacin/Dextrose 5%-Water 750 MG in Premix Bag 1 BAG IV ONE (01:30)
[2021-05-21] MEDS: Albuterol/Ipratropium 4 GM Inhalation Spray INH SCH ×6 (02:00→20:59)
--- NOTE | 2021-05-21 03:33 | PN ---
THC Physician - Brief Progress [id number]/29/2021 03:29[facility] romy [place], [place] [facility] - POLI STEVENSDate of Service 05/21/2021 03:29HPI/Events o f Note Discussed with RN: Pt desats with any movement and when getting up to commode.Plan: place fole y for now assess for removal in am , trend Cr and I+Os.Interventions Minor-[facility] and/or family
[2021-05-21 06:57] LABS: BLOOD UREA NITROGEN,BUN 15 mg/dL (7.0-18.0); CARBON DIOXIDE,CO2 31.4 mmol/L (21.0-32.0); CHLORIDE,CL 105 mmol/L (98-107); GLUCOSE RANDOM 86 mg/dL (74-106); POTASSIUM,K 4.2 mmol/L (3.5-5.1); SODIUM,NA 144 mmol/L (136-145)
[2021-05-21] MEDS: Dexamethasone 4 MG Tab PO SCH (08:03)
[2021-05-21] MEDS: Diltiazem 180 MG Cap.CD PO SCH (08:04)
[2021-05-21] MEDS: oxyCODONE 5 MG Tab PO PRN ×2 (10:41→20:47)
--- NOTE | 2021-05-21 14:37 | PCM.PN ---
- General Info Date of Service: 05/21/21 Subjective Update: The patient is a 61-year-old female, on day 6 of service, who has a significant past medical history of degenerative spinal stenosis, GERD, and hypertension, who was admitted for hypoxia secondary to COVID-19 pneumonia and has been found to have worsening pneumonia on chest x-ray. Her overall respiratory function has declined in the past 24 hours and she has required more oxygen than previously. She is currently saturating 95% on 8 L with an FiO2 of 80. When seen today, the patient has extreme difficulty speaking due to her decreased lung function. She was complaining of dry mouth and pain in her back and asked to be shifted in bed in order to decrease the chances of developing a pressure ulcer. I tried on multiple counts to reach both the patient's and daughter via phone call to discuss the latest clinical findings but could n ot get through. The patient was extremely lethargic upon interview today and could not answer questions because she kept dosing off. We will continue to monitor this patient for improvements and/or worsening of her symptoms. - Review of Systems General: Reports: Weakness, Fatigue. Denies: Fever, Chills HEENT: Denies: Sore Throat Pulmonary: Reports: Shortness of Breath, Cough, Sputum Cardiovascular: Denies: Chest Pain, Palpitations Gastrointestinal: Denies: Abdominal Pain Genitourinary: Reports: Other (Patient has a Montoya in place and was complaining of discomfort) - Patient Data Vitals - Most Recent: Last Vital Signs Temp 98.4 F 05/21/21 14:00 Pulse 64 05/21/21 14:00 Resp 26 H 05/21/21 14:00 BP 100/54 L 05/21/21 14:00 Pulse Ox 95 05/21/21 14:00 Weight - Most Recent: 204 lb 3.2 oz I&O - Last 24 Hours: Intake & Output 05/20/21 05/21/21 05/21/21 22:59 06:59 14:59 Intake Total 670 400 Output Total 890 800 Balance -220 -400 Lab Results Last 24 Hours: Laboratory Results - last 24 hr 05/21/21 05/21/21 Range/Units 05:39 05:39 WBC 6.23 (4.0-11.0) K/uL RBC 4.89 (4.30-5.90) M/uL Hgb 14.1 (12.0-16.0) g/dL Hct 42.4 (36.0-46.0) % MCV 86.7 (80.0-98.0) fL MCH 28.8 (27.0-32.0) pg MCHC 33.3 (31.0-37.0) g/dL RDW Std Deviation 42.6 (28.0-62.0) fl RDW Coeff of Mulu 13 (11.0-15.0) % Plt Count 253 (150-400) K/uL MPV 9.90 (7.40-12.00) fL Neut % (Auto) 72.4 (48.0-80.0) % Lymph % (Auto) 15.9 L (16.0-40.0) % Mcdonald % (Auto) 10.9 (0.0-15.0) % Eos % (Auto) 0.8 (0.0-7.0) % Baso % (Auto) 0.0 (0.0-1.5) % Neut # (Auto) 4.5 (1.4-5.7) K/uL Lymph # (Auto) 1.0 (0.6-2.4) K/uL Mcdonald # (Auto) 0.7 (0.0-0.8) K/uL Eos # (Auto) 0.1 (0.0-0.7) K/uL Baso # (Auto) 0.0 (0.0-0.1) K/uL Nucleated RBC % 0.0 /100WBC Nucleated RBCs # 0 K/uL Sodium 144 (136-145) mmol/L Potassium 4.2 (3.5-5.1) mmol/L Chloride 105 (98-107) mmol/L Carbon Dioxide 31.4 (21.0-32.0) mmol/L BUN 15 (7.0-18.0) mg/dL Creatinine 0.7 (0.6-1.0) mg/dL Est Cr Clr Drug Dosing 82.98 mL/min Estimated GFR (MDRD) > 60.0 ml/min Glucose 86 (74-106) mg/dL Calcium 7.9 L (8.5-10.1) mg/dL Total Bilirubin 1.0 (0.2-1.0) mg/dL AST 51 H (15-37) IU/L ALT 59 (14-63) IU/L Alkaline Phosphatase 66 (46-116) U/L Total Protein 6.2 L (6.4-8.2) g/dL Albumin 2.8 L (3.4-5.0) g/dL Globulin 3.4 (2.6-4.0) g/dL Albumin/Globulin Ratio 0.8 L (0.9-1.6) Med Orders - Current: Current Medications Albuterol/Ipratropium (Albuterol/Ipratropium 4 Gm Inhalation [place]) 1 gm INH Q4HRRT [facility] Last Admin: 05/21/21 13:50 Dose: 1 puff Documented by: Albuterol/Ipratropium (Albuterol/Ipratropium 3.0-0.5 Mg/3 Ml Neb Soln) 3 ml NEB Q4HRRT PRN PRN Reason: Shortness of Breath Last Admin: 05/20/21 11:36 Dose: 3 ml Documented by: Dexamethasone (Dexamethasone 4 Mg Tab) 6 mg PO DAILY [facility] Last Admin: 05/21/21 08:03 Dose: 6 mg Documented by: Diltiazem HCl (Diltiazem 180 Mg Cap.Cd) 360 mg PO DAILY [facility] Last Admin: 05/21/21 08:04 Dose: 360 mg Documented by: Enoxaparin Sodium (Enoxaparin 40 Mg/0.4 Ml Syringe) 40 mg SUBCUT Q24H [facility] Last Admin: 05/20/21 14:37 Dose: 40 mg Documented by: Guaifenesin/Dextromethorphan (Guaifenesin/Dextromethorphan 100-10 Mg/5 Ml Soln 10 Ml Cup) 10 ml PO Q4H PRN PRN Reason: Cough Last Admin: 05/20/21 20:42 Dose: 10 ml Documented by: Pantoprazole Sodium 40 mg/ (Sodium Chloride) 10 mls @ 300 mls/hr IV Q24H [facility] Last Admin: 05/20/21 14:37 Dose: 300 mls/hr Documented by: Levofloxacin/Dextrose 750 mg/ (Premix) 150 mls @ 100 mls/hr IV Q24H [facility] Ibuprofen (Ibuprofen 400 Mg Tab) 400 mg PO Q8H PRN PRN Reason: Pain Last Admin: 05/19/21 18:09 Dose: 400 mg Documented by: Lorazepam (Lorazepam 2 Mg/Ml Sdv) 1 mg IVPUSH Q4H PRN PRN Reason: Agitation Last Admin: 05/21/21 04:57 Dose: 1 mg Documented by: Ondansetron HCl (Ondansetron 4 Mg/2 Ml Sdv) 4 mg IVPUSH Q4H PRN PRN Reason: Vomiting Last Admin: 05/17/21 12:03 Dose: 4 mg Documented by: Oxycodone HCl (Oxycodone 5 Mg Tab) 5 mg PO Q6H PRN PRN Reason: Pain Last Admin: 05/21/21 10:41 Dose: 5 mg Documented by: Sodium Chloride (Sodium Chloride 0.9% 10 Ml Syringe) 10 ml FLUSH ASDIRECTED PRN PRN Reason: Keep Vein Open Last Admin: 05/16/21 10:51 Dose: 10 ml Documented by: Sodium Chloride (Sodium Chloride 0.9% 2.5 Ml Syringe) 2.5 ml FLUSH ASDIRECTED PRN PRN Reason: Keep Vein Open Last Admin: 05/16/21 10:51 Dose: 2.5 ml Documented by: Discontinued Medications Albuterol/Ipratropium (Albuterol/Ipratropium 4 Gm Inhalation [place]) 1 gm INH Q4HRRT PRN PRN Reason: Dyspnea Last Admin: 05/18/21 11:29 Dose: 1 puff Documented by: Sodium Chloride (Normal Saline) 1,000 mls @ 999 mls/hr IV .Bolus ONE Stop: 05/16/21 11:36 Last Admin: 05/16/21 10:49 Dose: 999 mls/hr Documented by: Remdesivir 200 mg/ Sodium (Chloride) 250 mls @ 250 mls/hr IV ONETIME ONE Stop: 05/16/21 15:59 Last Admin: 05/16/21 15:52 Dose: 250 mls/hr Documented by: Remdesivir 100 mg/ Sodium (Chloride) 100 mls @ 100 mls/hr IV Q24H [facility]J Stop: 05/20/21 15:59 Last Admin: 05/20/21 14:39 Dose: 100 mls/hr Documented by: Levofloxacin/Dextrose 750 mg/ (Premix) 150 mls @ 100 mls/hr IV NOW ONE Stop: 05/21/21 02:59 Last Admin: 05/21/21 02:01 Dose: 100 mls/hr Documented by: Ibuprofen (Ibuprofen 400 Mg Tab) 400 mg PO ONETIME ONE Stop: 05/16/21 10:36 Last Admin: 05/16/21 10:51 Dose: 400 mg Documented by: Ibuprofen (Ibuprofen 400 Mg Tab) 400 mg PO Q12H PRN PRN Reason: Pain Last Admin: 05/18/21 13:58 Dose: 400 mg Documented by: Ketorolac Tromethamine (Ketorolac 30 Mg/Ml Sdv) 30 mg IVPUSH ONETIME ONE Stop: 05/18/21 14:11 Last Admin: 05/18/21 14:42 Dose: 30 mg Documented by: Omeprazole (Omeprazole 20 Mg Cap.Cr) 20 mg PO DAILY [facility] Last Admin: 05/17/21 14:06 Dose: Not Given Documented by: Ondansetron HCl (Ondansetron 4 Mg/2 Ml Sdv) 4 mg IVPUSH ONETIME ONE Stop: 05/16/21 10:26 Last Admin: 05/16/21 10:47 Dose: 4 mg Documented by: Polyethylene Glycol (Polyethylene Glycol 3350 Powder 17 Gm Packet) 17 gm PO ONETIME ONE Stop: 05/19/21 10:26 Last Admin: 05/19/21 11:46 Dose: 17 gm Documented by: Sodium Chloride (Sodium Chloride 0.9% 10 Ml Sdv) 250 ml IV STAT STA Stop: 05/16/21 10:28 Last Admin: 05/16/21 10:36 Dose: Not Given Documented by: - Exam Urinary Catheter Total Time: 0Days 0Hours General: Lethargic HEENT: Other (Dry mucous membranes) Neck: Trachea Midline Lungs: Wheezing Cardiovascular: Regular Rate, Regular Rhythm, No Murmurs GI/Abdominal Exam: Normal Bowel Sounds, Soft, Non-Tender (Female) Exam: Other (Montoya in place) - Patient Data Lab Results Last 24 hrs: Laboratory Results - last 24 hr 05/21/21 05/21/21 Range/Units 05:39 05:39 WBC 6.23 (4.0-11.0) K/uL RBC 4.89 (4.30-5.90) M/uL Hgb 14.1 (12.0-16.0) g/dL Hct 42.4 (36.0-46.0) % MCV 86.7 (80.0-98.0) fL MCH 28.8 (27.0-32.0) pg MCHC 33.3 (31.0-37.0) g/dL RDW Std Deviation 42.6 (28.0-62.0) fl RDW Coeff of Mulu 13 (11.0-15.0) % Plt Count 253 (150-400) K/uL MPV 9.90 (7.40-12.00) fL Neut % (Auto) 72.4 (48.0-80.0) % Lymph % (Auto) 15.9 L (16.0-40.0) % Mcdonald % (Auto) 10.9 (0.0-15.0) % Eos % (Auto) 0.8 (0.0-7.0) % Baso % (Auto) 0.0 (0.0-1.5) % Neut # (Auto) 4.5 (1.4-5.7) K/uL Lymph # (Auto) 1.0 (0.6-2.4) K/uL Mcdonald # (Auto) 0.7 (0.0-0.8) K/uL Eos # (Auto) 0.1 (0.0-0.7) K/uL Baso # (Auto) 0.0 (0.0-0.1) K/uL Nucleated RBC % 0.0 /100WBC Nucleated RBCs # 0 K/uL Sodium 144 (136-145) mmol/L Potassium 4.2 (3.5-5.1) mmol/L Chloride 105 (98-107) mmol/L Carbon Dioxide 31.4 (21.0-32.0) mmol/L BUN 15 (7.0-18.0) mg/dL Creatinine 0.7 (0.6-1.0) mg/dL Est Cr Clr Drug Dosing 82.98 mL/min Estimated GFR (MDRD) > 60.0 ml/min Glucose 86 (74-106) mg/dL Calcium 7.9 L (8.5-10.1) mg/dL Total Bilirubin 1.0 (0.2-1.0) mg/dL AST 51 H (15-37) IU/L ALT 59 (14-63) IU/L Alkaline Phosphatase 66 (46-116) U/L Total Protein 6.2 L (6.4-8.2) g/dL Albumin 2.8 L (3.4-5.0) g/dL Globulin 3.4 (2.6-4.0) g/dL Albumin/Globulin Ratio 0.8 L (0.9-1.6) Result Diagrams: 05/21/21 05:39 05/21/21 05:39 Sepsis Event Note - Evaluation Sepsis Screening Result: No Definite Risk - Focused Exam Vital Signs: Vital Signs Temp Pulse Resp BP Pulse Ox Pulse Ox 05/21/21 14:00 98.4 F 64 26 H 100/54 L 95 05/21/21 13:00 97.3 F 68 28 H 95/56 L 94 L 05/21/21 12:00 59 L 21 H 97/52 L 94 L 05/21/21 10:49 97.8 F 66 28 H 128/71 92 L 05/21/21 10:00 78 29 H 128/71 93 L 05/21/21 09:00 62 30 H 122/74 93 L 05/21/21 08:00 97.1 F 78 14 112/73 94 L 05/21/21 07:00 58 L 10 L 126/68 95 05/21/21 06:00 63 25 H 108/63 95 05/21/21 05:00 57 L 28 H 116/70 92 L 92 L 05/21/21 04:00 96.8 F L 75 17 117/70 92 L 05/21/21 03:00 61 17 154/78 H 94 L - Problem List & Annotations (1) Hypertension SNOMED Code(s): 84822563 Code(s): I10 - ESSENTIAL (PRIMARY) HYPERTENSION Status: Acute Current Visit: Yes (2) COVID-19 SNOMED Code(s): 135574592 Code(s): U07.1 - COVID-19 Status: Acute Current Visit: Yes (3) Hypoxia SNOMED Code(s): 663960481 Code(s): R09.02 - HYPOXEMIA Status: Acute Current Visit: Yes (4) Nausea SNOMED Code(s): 055396683 Code(s): R11.0 - NAUSEA Status: Acute Current Visit: Yes (5) Weakness SNOMED Code(s): 63329696 Code(s): R53.1 - WEAKNESS Status: Acute Current Visit: Yes (6) GERD (gastroesophageal reflux disease) SNOMED Code(s): 198455912 Code(s): K21.9 - GASTRO-ESOPHAGEAL REFLUX DISEASE WITHOUT ESOPHAGITIS Status: Acute Current Visit: Yes (7) Spinal stenosis SNOMED Code(s): 07141426 Code(s): M48.00 - SPINAL STENOSIS, SITE UNSPECIFIED Status: Acute Current Visit: Yes - Problem List Review Problem List Initiated/Reviewed/Updated: Yes - My Orders Last 24 Hours: My Active Orders 05/22/21 05:11 CBC WITH AUTO DIFF [HEME] AM CMP [COMPREHENSIVE METABOLIC PN,CMP] [CHEM] AM 05/23/21 05:11 CBC WITH AUTO DIFF [HEME] AM CMP [COMPREHENSIVE METABOLIC PN,CMP] [CHEM] AM - Plan Plan:: 1. Hypoxia secondary to COVID-19 pneumonia -Patient is severely short of breath and has been moved from the medical floor to the ICU where she is saturating 95% on 8 L with an FiO2 of 80 -The patient's is agitated with respect to her respiratory decline, she has been put on Ativan 1 mg IV push every 4 hours as needed -In regards to her respiratory decline, there was attempts to reach the patient's family in order to give them updates, however both the and daughter of the patient were unable to be reached via phone call. When the 's phone number on file is called it goes straight to voicemail, when I tried to call the patient's daughters phone number on file it rang but no one picked up. -She has finished her remdesivir doses -We will continue the patient on dexamethasone 6 mg per oral route once a day -For shortness of breath, we will continue with Combivent every 4 hours as needed -For cough, we will continue with Robitussin DM 10 mL per oral route every 4 hours now scheduled -For nausea continue Zofran 4 mg IV as needed -Continue supplying oxygen as needed 2. Worsening pneumonia on chest x-ray -The patient has been put on levofloxacin/dextrose 750 mg IV route every 24 hours -Daily CBC/CMP 3. Degenerative spinal stenosis -Continue the patient on ibuprofen 400 mg 3 times a day for oral route -She also has oxycodone 5 mg per oral route every 6 hours as needed on board 4. GERD -In hospital for GI prophylaxis the patient is on pantoprazole 40 mg 5. Hypertension -We are currently holding her blood pressure medications due to her being normotensive
[2021-05-21] MEDS: Pantoprazole 40 MG in Sodium Chloride 0.9% 10 ML IV SCH (14:56)
[2021-05-21] MEDS: Enoxaparin 40 MG/0.4 ML Syringe SUBCUT SCH (14:57)
[2021-05-21] MEDS: guaiFENesin/Dextromethorphan 100-10 MG/5 ML Soln 10 ML Cup PO PRN (20:46)
[2021-05-21] MEDS: Levofloxacin/Dextrose 5%-Water 750 MG in Premix Bag 1 BAG IV SCH (20:53)
[2021-05-22] MEDS: Albuterol/Ipratropium 4 GM Inhalation Spray INH SCH ×6 (02:47→21:28)
[2021-05-22] MEDS: oxyCODONE 5 MG Tab PO PRN (03:53)
[2021-05-22 07:49] LABS: BLOOD UREA NITROGEN,BUN 18 mg/dL (7.0-18.0); CARBON DIOXIDE,CO2 27.8 mmol/L (21.0-32.0); CHLORIDE,CL 102 mmol/L (98-107); GLUCOSE RANDOM 101 mg/dL (74-106); POTASSIUM,K 4.5 mmol/L (3.5-5.1); SODIUM,NA 140 mmol/L (136-145)
[2021-05-22] MEDS: Dexamethasone 4 MG Tab PO SCH (08:36)
--- NOTE | 2021-05-22 10:01 | PN ---
[facility] Physician - Brief Progress [id number]/29/2021 15:54[facility] Malena Hobbs, [place] - JAREDN (ABDULAZIZ) - JAREDN POLI BHARDWAJ, COVID+Date of Service 05/21/2021 15:54HPI/ Events of Note eICU Progress NotePatient was admitted on 05/16 with hypoxic resp failue due to covid p neumonia, on 05/20 due to increase dyspnea and lethargy, CXR showed worsening infiltrates, doppler LE was negative. Patient is on treatment with decadron, prophylactic lovenox and levofloxacin.Today RN r eports that patient looks better, less agitated and anxious, she remains on NIV for the makority of t he time, Patient was seen in camera, case reviewed with bedside RNeICU Recommendations:Wean off O2 as toleratedSpecific COvid therapies based on hospital guidelines.Self-proning if ableKeep negative flu id balance if possible.Consider respiratory culture to guide antibiotic therapy.In case of clinical d eterioration consider CT chest with contrast to evaluate for PE. Continue lovenoxContinue PUD prophyl axisThank you for allowing us to participate in the care of your patient.Interventions Major-Hypoxemi a - evaluation and management, Respiratory failure - evaluation and managementIntermediate-Communicat ion with other healthcare providers and/or familyElectronically Signed by: HERNAN HANSEN) on 05/21 16:01
[2021-05-22] MEDS: Pantoprazole 40 MG in Sodium Chloride 0.9% 10 ML IV SCH (15:48)
[2021-05-22] MEDS: Enoxaparin 40 MG/0.4 ML Syringe SUBCUT SCH (15:48)
--- NOTE | 2021-05-22 17:03 | PCM.PN ---
<Gus Shell - Last Filed: 05/22/21 16:56> - General Info Date of Service: 05/22/21 Subjective Update: The patient is a 61-year-old female, on day 7 of service, with a significant past medical history of degenerative spinal stenosis, GERD, and hypertension, who was admitted for hypoxia secondary to COVID-19 pneumonia. The patient finished the remdesivir course of her medication however her oxygen demand has increased and her respiratory function has declined. The patient is currently on CPAP and saturating at 90%, with a PEEP of 8, and FiO2 of 70. Upon interview today the patient has extreme difficulty breathing and is uncomfortable. She is complaining of dry mouth and dry throat. She does admit to less cough than usual. She also is being treated for pneumonia with levofloxacin/dextrose 750 mg via IV route. I tried to contact the patient's daughter once again today, but could not get through. It was attempted to ask the patient additional questions during interview today however it was difficult based on her inability to speak for longer than 5-second periods before struggl ing to catch her breath. I will attempt again to call the patients family to discuss her current clinical status. - Review of Systems General: Reports: Weakness. Denies: Fever Pulmonary: Reports: Shortness of Breath, Cough Cardiovascular: Denies: Chest Pain, Palpitations Gastrointestinal: Denies: Abdominal Pain Genitourinary: Denies: Dysuria - Patient Data Vitals - Most Recent: Last Vital Signs Temp 96.6 F L 05/22/21 08:00 Pulse 55 L 05/21/21 19:00 Resp 18 05/22/21 10:00 BP 90/50 L 05/22/21 10:00 Pulse Ox 86 L 05/22/21 10:30 Weight - Most Recent: 93.44 kg I&O - Last 24 Hours: Intake & Output 05/22/21 05/22/21 05/22/21 06:59 14:59 22:59 Intake Total 600 Output Total 625 Balance -25 Lab Results Last 24 Hours: Laboratory Results - last 24 hr 05/20/21 05/22/21 05/22/21 Range/Units 05:39 06:08 06:08 WBC 5.79 (4.0-11.0) K/uL RBC 4.98 (4.30-5.90) M/uL Hgb 14.2 (12.0-16.0) g/dL Hct 43.1 (36.0-46.0) % MCV 86.5 (80.0-98.0) fL MCH 28.5 (27.0-32.0) pg MCHC 32.9 (31.0-37.0) g/dL RDW Std Deviation 42.0 (28.0-62.0) fl RDW Coeff of Mulu 13 (11.0-15.0) % Plt Count 290 (150-400) K/uL MPV 10.30 (7.40-12.00) fL Neut % (Auto) 76.3 (48.0-80.0) % Lymph % (Auto) 13.3 L (16.0-40.0) % Gillespie % (Auto) 10.2 (0.0-15.0) % Eos % (Auto) 0.2 (0.0-7.0) % Baso % (Auto) 0.0 (0.0-1.5) % Neut # (Auto) 4.4 (1.4-5.7) K/uL Lymph # (Auto) 0.8 (0.6-2.4) K/uL Gillespie # (Auto) 0.6 (0.0-0.8) K/uL Eos # (Auto) 0.0 (0.0-0.7) K/uL Baso # (Auto) 0.0 (0.0-0.1) K/uL Nucleated RBC % 0.0 /100WBC Nucleated RBCs # 0 K/uL Sodium 140 (136-145) mmol/L Potassium 4.5 (3.5-5.1) mmol/L Chloride 102 (98-107) mmol/L Carbon Dioxide 27.8 (21.0-32.0) mmol/L BUN 18 (7.0-18.0) mg/dL Creatinine 0.7 (0.6-1.0) mg/dL Est Cr Clr Drug Dosing 82.98 mL/min Estimated GFR (MDRD) > 60.0 ml/min Glucose 101 (74-106) mg/dL Calcium 7.8 L (8.5-10.1) mg/dL Total Bilirubin 1.2 H (0.2-1.0) mg/dL AST 62 H (15-37) IU/L ALT 75 H (14-63) IU/L Alkaline Phosphatase 72 (46-116) U/L Total Protein 6.3 L (6.4-8.2) g/dL Albumin 2.8 L (3.4-5.0) g/dL Globulin 3.5 (2.6-4.0) g/dL Albumin/Globulin Ratio 0.8 L (0.9-1.6) Procalcitonin <0.05 ng/mL Med Orders - Current: Current Medications Albuterol/Ipratropium (Albuterol/Ipratropium 4 Gm Inhalation [place]) 1 gm INH Q4HRRT [facility] Last Admin: 05/22/21 14:12 Dose: 1 puff Documented by: Albuterol/Ipratropium (Albuterol/Ipratropium 3.0-0.5 Mg/3 Ml Neb Soln) 3 ml NEB Q4HRRT PRN PRN Reason: Shortness of Breath Last Admin: 05/20/21 11:36 Dose: 3 ml Documented by: Dexamethasone (Dexamethasone 4 Mg Tab) 6 mg PO DAILY [facility] Last Admin: 05/22/21 08:36 Dose: 6 mg Documented by: Enoxaparin Sodium (Enoxaparin 40 Mg/0.4 Ml Syringe) 40 mg SUBCUT Q24H [facility] Last Admin: 05/22/21 15:48 Dose: 40 mg Documented by: Guaifenesin/Dextromethorphan (Guaifenesin/Dextromethorphan 100-10 Mg/5 Ml Soln 10 Ml Cup) 10 ml PO Q4H PRN PRN Reason: Cough Last Admin: 05/21/21 20:46 Dose: 10 ml Documented by: Pantoprazole Sodium 40 mg/ (Sodium Chloride) 10 mls @ 300 mls/hr IV Q24H [facility] Last Admin: 05/22/21 15:48 Dose: 300 mls/hr Documented by: Levofloxacin/Dextrose 750 mg/ (Premix) 150 mls @ 100 mls/hr IV Q24H [facility] Last Admin: 05/21/21 20:53 Dose: 100 mls/hr Documented by: Ibuprofen (Ibuprofen 400 Mg Tab) 400 mg PO Q8H PRN PRN Reason: Pain Last Admin: 05/19/21 18:09 Dose: 400 mg Documented by: Lorazepam (Lorazepam 2 Mg/Ml Sdv) 1 mg IVPUSH Q4H PRN PRN Reason: Agitation Last Admin: 05/21/21 23:47 Dose: 1 mg Documented by: Ondansetron HCl (Ondansetron 4 Mg/2 Ml Sdv) 4 mg IVPUSH Q4H PRN PRN Reason: Vomiting Last Admin: 05/17/21 12:03 Dose: 4 mg Documented by: Oxycodone HCl (Oxycodone 5 Mg Tab) 5 mg PO Q6H PRN PRN Reason: Pain Last Admin: 05/22/21 03:53 Dose: 5 mg Documented by: Sodium Chloride (Sodium Chloride 0.9% 10 Ml Syringe) 10 ml FLUSH ASDIRECTED PRN PRN Reason: Keep Vein Open Last Admin: 05/16/21 10:51 Dose: 10 ml Documented by: Sodium Chloride (Sodium Chloride 0.9% 2.5 Ml Syringe) 2.5 ml FLUSH ASDIRECTED PRN PRN Reason: Keep Vein Open Last Admin: 05/16/21 10:51 Dose: 2.5 ml Documented by: Discontinued Medications Albuterol/Ipratropium (Albuterol/Ipratropium 4 Gm Inhalation [place]) 1 gm INH Q4HRRT PRN PRN Reason: Dyspnea Last Admin: 05/18/21 11:29 Dose: 1 puff Documented by: Diltiazem HCl (Diltiazem 180 Mg Cap.Cd) 360 mg PO DAILY JB Last Admin: 05/21/21 08:04 Dose: 360 mg Documented by: Sodium Chloride (Normal Saline) 1,000 mls @ 999 mls/hr IV .Bolus ONE Stop: 05/16/21 11:36 Last Admin: 05/16/21 10:49 Dose: 999 mls/hr Documented by: Remdesivir 200 mg/ Sodium (Chloride) 250 mls @ 250 mls/hr IV ONETIME ONE Stop: 05/16/21 15:59 Last Admin: 05/16/21 15:52 Dose: 250 mls/hr Documented by: Remdesivir 100 mg/ Sodium (Chloride) 100 mls @ 100 mls/hr IV Q24H BJ Stop: 05/20/21 15:59 Last Admin: 05/20/21 14:39 Dose: 100 mls/hr Documented by: Levofloxacin/Dextrose 750 mg/ (Premix) 150 mls @ 100 mls/hr IV NOW ONE Stop: 05/21/21 02:59 Last Admin: 05/21/21 02:01 Dose: 100 mls/hr Documented by: Ibuprofen (Ibuprofen 400 Mg Tab) 400 mg PO ONETIME ONE Stop: 05/16/21 10:36 Last Admin: 05/16/21 10:51 Dose: 400 mg Documented by: Ibuprofen (Ibuprofen 400 Mg Tab) 400 mg PO Q12H PRN PRN Reason: Pain Last Admin: 05/18/21 13:58 Dose: 400 mg Documented by: Ketorolac Tromethamine (Ketorolac 30 Mg/Ml Sdv) 30 mg IVPUSH ONETIME ONE Stop: 05/18/21 14:11 Last Admin: 05/18/21 14:42 Dose: 30 mg Documented by: Omeprazole (Omeprazole 20 Mg Cap.Cr) 20 mg PO DAILY BJ Last Admin: 05/17/21 14:06 Dose: Not Given Documented by: Ondansetron HCl (Ondansetron 4 Mg/2 Ml Sdv) 4 mg IVPUSH ONETIME ONE Stop: 05/16/21 10:26 Last Admin: 05/16/21 10:47 Dose: 4 mg Documented by: Polyethylene Glycol (Polyethylene Glycol 3350 Powder 17 Gm Packet) 17 gm PO ONETIME ONE Stop: 05/19/21 10:26 Last Admin: 05/19/21 11:46 Dose: 17 gm Documented by: Sodium Chloride (Sodium Chloride 0.9% 10 Ml Sdv) 250 ml IV STAT STA Stop: 05/16/21 10:28 Last Admin: 05/16/21 10:36 Dose: Not Given Documented by: - Exam Urinary Catheter Total Time: 1Days 5Hours General: Lethargic HEENT: Other (dry oral mucous membranes ) Lungs: Other (on CPAP) Cardiovascular: No Murmurs GI/Abdominal Exam: Normal Bowel Sounds, Soft, Non-Tender (Female) Exam: Other (galarza in place) - Patient Data Lab Results Last 24 hrs: Laboratory Results - last 24 hr 05/20/21 05/22/21 05/22/21 Range/Units 05:39 06:08 06:08 WBC 5.79 (4.0-11.0) K/uL RBC 4.98 (4.30-5.90) M/uL Hgb 14.2 (12.0-16.0) g/dL Hct 43.1 (36.0-46.0) % MCV 86.5 (80.0-98.0) fL MCH 28.5 (27.0-32.0) pg MCHC 32.9 (31.0-37.0) g/dL RDW Std Deviation 42.0 (28.0-62.0) fl RDW Coeff of Mulu 13 (11.0-15.0) % Plt Count 290 (150-400) K/uL MPV 10.30 (7.40-12.00) fL Neut % (Auto) 76.3 (48.0-80.0) % Lymph % (Auto) 13.3 L (16.0-40.0) % Gillespie % (Auto) 10.2 (0.0-15.0) % Eos % (Auto) 0.2 (0.0-7.0) % Baso % (Auto) 0.0 (0.0-1.5) % Neut # (Auto) 4.4 (1.4-5.7) K/uL Lymph # (Auto) 0.8 (0.6-2.4) K/uL Gillespie # (Auto) 0.6 (0.0-0.8) K/uL Eos # (Auto) 0.0 (0.0-0.7) K/uL Baso # (Auto) 0.0 (0.0-0.1) K/uL Nucleated RBC % 0.0 /100WBC Nucleated RBCs # 0 K/uL Sodium 140 (136-145) mmol/L Potassium 4.5 (3.5-5.1) mmol/L Chloride 102 (98-107) mmol/L Carbon Dioxide 27.8 (21.0-32.0) mmol/L BUN 18 (7.0-18.0) mg/dL Creatinine 0.7 (0.6-1.0) mg/dL Est Cr Clr Drug Dosing 82.98 mL/min Estimated GFR (MDRD) > 60.0 ml/min Glucose 101 (74-106) mg/dL Calcium 7.8 L (8.5-10.1) mg/dL Total Bilirubin 1.2 H (0.2-1.0) mg/dL AST 62 H (15-37) IU/L ALT 75 H (14-63) IU/L Alkaline Phosphatase 72 (46-116) U/L Total Protein 6.3 L (6.4-8.2) g/dL Albumin 2.8 L (3.4-5.0) g/dL Globulin 3.5 (2.6-4.0) g/dL Albumin/Globulin Ratio 0.8 L (0.9-1.6) Procalcitonin <0.05 ng/mL Result Diagrams: 05/22/21 06:08 05/22/21 06:08 Sepsis Event Note - Evaluation Sepsis Screening Result: No Definite Risk - Focused Exam Vital Signs: Vital Signs Temp Resp BP Pulse Ox Pulse Ox 05/22/21 10:30 86 L 05/22/21 10:00 18 90/50 L 89 L 05/22/21 09:00 22 H 104/59 L 89 L 05/22/21 08:00 96.6 F L 18 98/55 L 88 L 05/22/21 07:00 20 96/59 L 90 L 90 L 05/22/21 06:00 17 104/55 L 90 L 05/22/21 05:00 22 H 101/56 L 93 L - Problem List & Annotations (1) Hypertension SNOMED Code(s): 66514650 Code(s): I10 - ESSENTIAL (PRIMARY) HYPERTENSION Status: Acute Current Visit: Yes (2) COVID-19 SNOMED Code(s): 805624719 Code(s): U07.1 - COVID-19 Status: Acute Current Visit: Yes (3) Hypoxia SNOMED Code(s): 565645926 Code(s): R09.02 - HYPOXEMIA Status: Acute Current Visit: Yes (4) Nausea SNOMED Code(s): 083765298 Code(s): R11.0 - NAUSEA Status: Acute Current Visit: Yes (5) Weakness SNOMED Code(s): 23281031 Code(s): R53.1 - WEAKNESS Status: Acute Current Visit: Yes (6) GERD (gastroesophageal reflux disease) SNOMED Code(s): 296936325 Code(s): K21.9 - GASTRO-ESOPHAGEAL REFLUX DISEASE WITHOUT ESOPHAGITIS Status: Acute Current Visit: Yes (7) Spinal stenosis SNOMED Code(s): 94862003 Code(s): M48.00 - SPINAL STENOSIS, SITE UNSPECIFIED Status: Acute Current Visit: Yes - Problem List Review Problem List Initiated/Reviewed/Updated: Yes - My Orders Last 24 Hours: My Active Orders 05/23/21 05:11 CBC WITH AUTO DIFF [HEME] AM CMP [COMPREHENSIVE METABOLIC PN,CMP] [CHEM] AM - Plan Plan:: 1. Hypoxia secondary to COVID-19 pneumonia -Patient is severely short of breath and currently on CPAP with O2 saturation of 90%, PEEP of 8 and FiO2 of 70, will continue supplying oxygen as needed -The patient's is agitated, will continue Ativan 1 mg IV push every 4 hours as needed -In regards to her respiratory decline, there was attempts to reach the patient's family in order to give them updates, however daughter of the patient could not be reached via phone call. -She has finished her remdesivir doses -We will continue the patient on dexamethasone 6 mg per oral route once a day -For shortness of breath, we will continue with Duoneb treatment -For cough, we will continue with Robitussin DM 10 mL per oral route every 4 hours 2. Pneumonia -Continue levofloxacin/dextrose 750 mg IV route every 24 hours -Daily CBC/CMP 3. Degenerative spinal stenosis -Continue the patient on ibuprofen 400 mg 3 times a day for oral route -She also has oxycodone 5 mg per oral route every 6 hours as needed on board <Haroldo Adams - Last Filed: 05/24/21 15:29> - Patient Data Vitals - Most Recent: Last Vital Signs Temp 36.7 C 05/24/21 12:00 Pulse 55 L 05/21/21 19:00 Resp 23 H 05/24/21 12:00 BP 114/67 05/24/21 12:00 Pulse Ox 92 L 05/24/21 12:00 I&O - Last 24 Hours: Intake & Output 05/24/21 05/24/21 05/24/21 06:59 14:59 22:59 Intake Total 850 Output Total 1150 Balance -300 Lab Results Last 24 Hours: Laboratory Results - last 24 hr 05/24/21 05/24/21 05/24/21 Range/Units 06:30 06:30 06:30 WBC 8.10 (4.0-11.0) K/uL RBC 5.08 (4.30-5.90) M/uL Hgb 14.9 (12.0-16.0) g/dL Hct 43.7 (36.0-46.0) % MCV 86.0 (80.0-98.0) fL MCH 29.3 (27.0-32.0) pg MCHC 34.1 (31.0-37.0) g/dL RDW Std Deviation 41.5 (28.0-62.0) fl RDW Coeff of Mulu 13 (11.0-15.0) % Plt Count 321 (150-400) K/uL MPV 10.20 (7.40-12.00) fL Neut % (Auto) 79.2 (48.0-80.0) % Lymph % (Auto) 9.6 L (16.0-40.0) % Gillespie % (Auto) 10.7 (0.0-15.0) % Eos % (Auto) 0.4 (0.0-7.0) % Baso % (Auto) 0.1 (0.0-1.5) % Neut # (Auto) 6.4 H (1.4-5.7) K/uL Lymph # (Auto) 0.8 (0.6-2.4) K/uL Gillespie # (Auto) 0.9 H (0.0-0.8) K/uL Eos # (Auto) 0.0 (0.0-0.7) K/uL Baso # (Auto) 0.0 (0.0-0.1) K/uL Nucleated RBC % 0.0 /100WBC Nucleated RBCs # 0 K/uL Sodium 139 (136-145) mmol/L Potassium 4.5 (3.5-5.1) mmol/L Chloride 103 (98-107) mmol/L Carbon Dioxide 27.7 (21.0-32.0) mmol/L BUN 18 (7.0-18.0) mg/dL Creatinine 0.7 (0.6-1.0) mg/dL Est Cr Clr Drug Dosing 82.98 mL/min Estimated GFR (MDRD) > 60.0 ml/min Glucose 91 (74-106) mg/dL Calcium 8.2 L (8.5-10.1) mg/dL Phosphorus 3.6 (2.6-4.7) mg/dL Magnesium 2.3 (1.8-2.4) mg/dL Total Bilirubin 1.1 H (0.2-1.0) mg/dL AST 27 (15-37) IU/L ALT 40 (14-63) IU/L Alkaline Phosphatase 63 (46-116) U/L Total Protein 6.4 (6.4-8.2) g/dL Albumin 2.8 L (3.4-5.0) g/dL Globulin 3.6 (2.6-4.0) g/dL Albumin/Globulin Ratio 0.8 L (0.9-1.6) Med Orders - Current: Current Medications Albuterol/Ipratropium (Albuterol/Ipratropium 4 Gm Inhalation [place]) 1 gm INH Q4HRRT [facility] Last Admin: 05/24/21 14:40 Dose: 1 puff Documented by: Albuterol/Ipratropium (Albuterol/Ipratropium 3.0-0.5 Mg/3 Ml Neb Soln) 3 ml NEB Q4HRRT PRN PRN Reason: Shortness of Breath Last Admin: 05/20/21 11:36 Dose: 3 ml Documented by: Dexamethasone (Dexamethasone 4 Mg Tab) 6 mg PO DAILY [facility] Last Admin: 05/24/21 08:19 Dose: 6 mg Documented by: Enoxaparin Sodium (Enoxaparin 40 Mg/0.4 Ml Syringe) 40 mg SUBCUT Q24H [facility] Last Admin: 05/24/21 14:41 Dose: 40 mg Documented by: Guaifenesin (Guaifenesin 100 Mg/5 Ml Soln 5 Ml Ud Cup) 100 mg PO Q4H PRN PRN Reason: Cough Pantoprazole Sodium 40 mg/ (Sodium Chloride) 10 mls @ 300 mls/hr IV Q24H [facility] Last Admin: 05/24/21 14:41 Dose: 300 mls/hr Documented by: Levofloxacin/Dextrose 750 mg/ (Premix) 150 mls @ 100 mls/hr IV Q24H [facility] Last Admin: 05/23/21 21:58 Dose: 100 mls/hr Documented by: Ibuprofen (Ibuprofen 400 Mg Tab) 400 mg PO Q8H PRN PRN Reason: Pain Last Admin: 05/19/21 18:09 Dose: 400 mg Documented by: Lorazepam (Lorazepam 2 Mg/Ml Sdv) 1 mg IVPUSH Q4H PRN PRN Reason: Agitation Last Admin: 05/23/21 00:58 Dose: 1 mg Documented by: Ondansetron HCl (Ondansetron 4 Mg/2 Ml Sdv) 4 mg IVPUSH Q4H PRN PRN Reason: Vomiting Last Admin: 05/17/21 12:03 Dose: 4 mg Documented by: Oxycodone HCl (Oxycodone 5 Mg Tab) 5 mg PO Q6H PRN PRN Reason: Pain Last Admin: 05/22/21 03:53 Dose: 5 mg Documented by: Polyethylene Glycol (Polyethylene Glycol 3350 Powder 17 Gm Packet) 17 gm PO BEDTIME BJ Last Admin: 05/23/21 21:58 Dose: 17 gm Documented by: Polyethylene Glycol (Polyethylene Glycol 3350 Powder 17 Gm Packet) 17 gm PO BEDTIME BJ Sodium Chloride (Sodium Chloride 0.9% 10 Ml Syringe) 10 ml FLUSH ASDIRECTED PRN PRN Reason: Keep Vein Open Last Admin: 05/16/21 10:51 Dose: 10 ml Documented by: Sodium Chloride (Sodium Chloride 0.9% 2.5 Ml Syringe) 2.5 ml FLUSH ASDIRECTED PRN PRN Reason: Keep Vein Open Last Admin: 05/16/21 10:51 Dose: 2.5 ml Documented by: Discontinued Medications Albuterol/Ipratropium (Albuterol/Ipratropium 4 Gm Inhalation [place]) 1 gm INH Q4HRRT PRN PRN Reason: Dyspnea Last Admin: 05/18/21 11:29 Dose: 1 puff Documented by: Diltiazem HCl (Diltiazem 180 Mg Cap.Cd) 360 mg PO DAILY BJ Last Admin: 05/21/21 08:04 Dose: 360 mg Documented by: Guaifenesin/Dextromethorphan (Guaifenesin/Dextromethorphan 100-10 Mg/5 Ml Soln 10 Ml Cup) 10 ml PO Q4H PRN PRN Reason: Cough Last Admin: 05/24/21 03:34 Dose: 10 ml Documented by: Sodium Chloride (Normal Saline) 1,000 mls @ 999 mls/hr IV .Bolus ONE Stop: 05/16/21 11:36 Last Admin: 05/16/21 10:49 Dose: 999 mls/hr Documented by: Remdesivir 200 mg/ Sodium (Chloride) 250 mls @ 250 mls/hr IV ONETIME ONE Stop: 05/16/21 15:59 Last Admin: 05/16/21 15:52 Dose: 250 mls/hr Documented by: Remdesivir 100 mg/ Sodium (Chloride) 100 mls @ 100 mls/hr IV Q24H BJ Stop: 05/20/21 15:59 Last Admin: 05/20/21 14:39 Dose: 100 mls/hr Documented by: Levofloxacin/Dextrose 750 mg/ (Premix) 150 mls @ 100 mls/hr IV NOW ONE Stop: 05/21/21 02:59 Last Admin: 05/21/21 02:01 Dose: 100 mls/hr Documented by: Lactated Ringer's (Ringers, Lactated) 250 mls @ 999 mls/hr IV ONETIME ONE Stop: 05/23/21 14:15 Last Admin: 05/23/21 14:13 Dose: 999 mls/hr Documented by: Ibuprofen (Ibuprofen 400 Mg Tab) 400 mg PO ONETIME ONE Stop: 05/16/21 10:36 Last Admin: 05/16/21 10:51 Dose: 400 mg Documented by: Ibuprofen (Ibuprofen 400 Mg Tab) 400 mg PO Q12H PRN PRN Reason: Pain Last Admin: 05/18/21 13:58 Dose: 400 mg Documented by: Ketorolac Tromethamine (Ketorolac 30 Mg/Ml Sdv) 30 mg IVPUSH ONETIME ONE Stop: 05/18/21 14:11 Last Admin: 05/18/21 14:42 Dose: 30 mg Documented by: Omeprazole (Omeprazole 20 Mg Cap.Cr) 20 mg PO DAILY [facility] Last Admin: 05/17/21 14:06 Dose: Not Given Documented by: Ondansetron HCl (Ondansetron 4 Mg/2 Ml Sdv) 4 mg IVPUSH ONETIME ONE Stop: 05/16/21 10:26 Last Admin: 05/16/21 10:47 Dose: 4 mg Documented by: Polyethylene Glycol (Polyethylene Glycol 3350 Powder 17 Gm Packet) 17 gm PO ONETIME ONE Stop: 05/19/21 10:26 Last Admin: 05/19/21 11:46 Dose: 17 gm Documented by: Sodium Chloride (Sodium Chloride 0.9% 10 Ml Sdv) 250 ml IV STAT STA Stop: 05/16/21 10:28 Last Admin: 05/16/21 10:36 Dose: Not Given Documented by: - Patient Data Lab Results Last 24 hrs: Laboratory Results - last 24 hr 05/24/21 05/24/21 05/24/21 Range/Units 06:30 06:30 06:30 WBC 8.10 (4.0-11.0) K/uL RBC 5.08 (4.30-5.90) M/uL Hgb 14.9 (12.0-16.0) g/dL Hct 43.7 (36.0-46.0) % MCV 86.0 (80.0-98.0) fL MCH 29.3 (27.0-32.0) pg MCHC 34.1 (31.0-37.0) g/dL RDW Std Deviation 41.5 (28.0-62.0) fl RDW Coeff of Mulu 13 (11.0-15.0) % Plt Count 321 (150-400) K/uL MPV 10.20 (7.40-12.00) fL Neut % (Auto) 79.2 (48.0-80.0) % Lymph % (Auto) 9.6 L (16.0-40.0) % Gillespie % (Auto) 10.7 (0.0-15.0) % Eos % (Auto) 0.4 (0.0-7.0) % Baso % (Auto) 0.1 (0.0-1.5) % Neut # (Auto) 6.4 H (1.4-5.7) K/uL Lymph # (Auto) 0.8 (0.6-2.4) K/uL Gillespie # (Auto) 0.9 H (0.0-0.8) K/uL Eos # (Auto) 0.0 (0.0-0.7) K/uL Baso # (Auto) 0.0 (0.0-0.1) K/uL Nucleated RBC % 0.0 /100WBC Nucleated RBCs # 0 K/uL Sodium 139 (136-145) mmol/L Potassium 4.5 (3.5-5.1) mmol/L Chloride 103 (98-107) mmol/L Carbon Dioxide 27.7 (21.0-32.0) mmol/L BUN 18 (7.0-18.0) mg/dL Creatinine 0.7 (0.6-1.0) mg/dL Est Cr Clr Drug Dosing 82.98 mL/min Estimated GFR (MDRD) > 60.0 ml/min Glucose 91 (74-106) mg/dL Calcium 8.2 L (8.5-10.1) mg/dL Phosphorus 3.6 (2.6-4.7) mg/dL Magnesium 2.3 (1.8-2.4) mg/dL Total Bilirubin 1.1 H (0.2-1.0) mg/dL AST 27 (15-37) IU/L ALT 40 (14-63) IU/L Alkaline Phosphatase 63 (46-116) U/L Total Protein 6.4 (6.4-8.2) g/dL Albumin 2.8 L (3.4-5.0) g/dL Globulin 3.6 (2.6-4.0) g/dL Albumin/Globulin Ratio 0.8 L (0.9-1.6) Result Diagrams: 05/24/21 06:30 05/24/21 06:30 Sepsis Event Note - Focused Exam Vital Signs: Vital Signs Temp Resp BP Pulse Ox 05/24/21 12:00 36.7 C 23 H 114/67 92 L 05/24/21 11:00 19 106/61 90 L 05/24/21 10:00 13 94/56 L 92 L 05/24/21 09:00 36.6 C 22 H 98/57 L 92 L 05/24/21 08:00 24 H 91/59 L 89 L 05/24/21 07:00 21 H 99/55 L 92 L 05/24/21 06:00 20 92 L 05/24/21 05:00 17 92 L 05/24/21 04:00 36.4 C 20 94 L - Plan Plan:: I have seen and evaluated the patient and agree with the residents note unless specified in my note
[2021-05-22] MEDS: Levofloxacin/Dextrose 5%-Water 750 MG in Premix Bag 1 BAG IV SCH (21:15)
[2021-05-22] MEDS: guaiFENesin/Dextromethorphan 100-10 MG/5 ML Soln 10 ML Cup PO PRN (22:35)
[2021-05-23] MEDS: LORazepam 2 MG/ML SDV IVPUSH PRN (00:58)
[2021-05-23] MEDS: Albuterol/Ipratropium 4 GM Inhalation Spray INH SCH ×6 (02:46→21:59)
[2021-05-23] MEDS: guaiFENesin/Dextromethorphan 100-10 MG/5 ML Soln 10 ML Cup PO PRN ×2 (05:54→19:48)
[2021-05-23 07:16] LABS: BLOOD UREA NITROGEN,BUN 20 mg/dL (7.0-18.0); CARBON DIOXIDE,CO2 28.4 mmol/L (21.0-32.0); CHLORIDE,CL 103 mmol/L (98-107); GLUCOSE RANDOM 106 mg/dL (74-106); POTASSIUM,K 4.6 mmol/L (3.5-5.1); SODIUM,NA 140 mmol/L (136-145)
[2021-05-23] MEDS: Dexamethasone 4 MG Tab PO SCH (08:40)
--- NOTE | 2021-05-23 12:07 | PN ---
CHAR[facility] Physician - Brief Progress [id number]/01/2021 11:56[facility] [place], [place] - SEB (ABDULAZIZ) - POLI STEVENS, COVID+Date of Service 05/23/2021 11:56HPI/ Events of Note EICU progress note 1. Acute hypoxemin resp failure2. COVID-19 pneumoniaLast 24 hour ev ents:- On CPAP 6, 70% FiO2- Hemodynamically stable- No acute distressEICU recommendations:- Continue Dexamethasone, levaquin, bronchodilators, stress ulcer and DVT prophylaxis- Discussed with ICU nursin g staffInterventions Major-Respiratory failure - evaluation and management
--- NOTE | 2021-05-23 12:39 | CR ---
Indication: Decline in respiratory function, COVID positive Technique: Chest 1 view Comparison: May 20, 2021 Findings/Impression: Normal cardiomediastinal silhouette. Scattered areas of patchy opacity throughout the lungs are not significantly changed compared to the prior exam. No effusion or pneumothorax. Acute osseous abnormality. Dictated by Frances Fields MD @ 05/23/2021 12:38:12 PM (Electronically Signed)
[2021-05-23] MEDS ORDERED: Lactated Ringers 250 ML IV ONE (14:00)
[2021-05-23] MEDS: Pantoprazole 40 MG in Sodium Chloride 0.9% 10 ML IV SCH (14:12)
[2021-05-23] MEDS: Enoxaparin 40 MG/0.4 ML Syringe SUBCUT SCH (14:12)
--- NOTE | 2021-05-23 16:47 | PCM.PN ---
<Gus Shell - Last Filed: 05/23/21 16:51> - General Info Date of Service: 05/23/21 Subjective Update: The patient is a 61-year-old female, on day 8 of service, with a significant past medical history of degenerative spinal stenosis, GERD, and hypertension, who was admitted for hypoxia secondary to COVID-19 pneumonia. The patient finished her remdesivir course, however her oxygen demand has increased and respiratory function is worsening. The patient is currently on CPAP with a flow of 8, O2 saturation of 89-91%, FiO2 of 65. If the patient does not improve on this regimen we might have to progress further to BiPAP treatment. A history was very difficult to obtain from the patient as she is struggling to breathe. She did complain of dry mouth and dry throat which was barely audible when speaking. She is still being treated with antibiotics for pneumonia, more specifically levofloxacin/dextrose 750 mg via IV route. Due to the patient's clinical deterioration we ordered a chest x-ray and ABG. ABGs revealed a pH of 7.45, PCO2 of 39, PO2 of 64, HCO3 of 27, and a base excess of 3.1. Chest x-ray revealed scattered areas of patchy opacity throughout the lung nelson that were not significantly different from prior exam. - Review of Systems HEENT: Reports: Other (Dry mouth, dry throat) Pulmonary: Reports: Other (Patient nodded yes when asked if her shortness of breath is worse) Cardiovascular: Reports: Other (Patient nodded no when asked if she has chest pain) Gastrointestinal: Reports: Other (Patient noted no when asked if she has abdominal pain) - Patient Data Vitals - Most Recent: Last Vital Signs Temp 97.1 F 05/23/21 12:00 Pulse 55 L 05/21/21 19:00 Resp 27 H 05/23/21 16:00 BP 97/52 L 05/23/21 16:00 Pulse Ox 89 L 05/23/21 16:00 Weight - Most Recent: 90.083 kg I&O - Last 24 Hours: Intake & Output 05/23/21 05/23/21 05/23/21 06:59 14:59 22:59 Intake Total 800 420 Output Total 1025 450 Balance -225 -30 Lab Results Last 24 Hours: Laboratory Results - last 24 hr 05/23/21 05/23/2121 Range/Units 05:58 05:58 14:45 WBC 7.30 (4.0-11.0) K/uL RBC 5.06 (4.30-5.90) M/uL Hgb 14.7 (12.0-16.0) g/dL Hct 43.3 (36.0-46.0) % MCV 85.6 (80.0-98.0) fL MCH 29.1 (27.0-32.0) pg MCHC 33.9 (31.0-37.0) g/dL RDW Std Deviation 40.5 (28.0-62.0) fl RDW Coeff of Mulu 13 (11.0-15.0) % Plt Count 306 (150-400) K/uL MPV 10.20 (7.40-12.00) fL Neut % (Auto) 80.7 H (48.0-80.0) % Lymph % (Auto) 9.5 L (16.0-40.0) % [place] % (Auto) 9.6 (0.0-15.0) % Eos % (Auto) 0.1 (0.0-7.0) % Baso % (Auto) 0.1 (0.0-1.5) % Neut # (Auto) 5.9 H (1.4-5.7) K/uL Lymph # (Auto) 0.7 (0.6-2.4) K/uL [place] # (Auto) 0.7 (0.0-0.8) K/uL Eos # (Auto) 0.0 (0.0-0.7) K/uL Baso # (Auto) 0.0 (0.0-0.1) K/uL Nucleated RBC % 0.0 /100WBC Nucleated RBCs # 0 K/uL ABG pH 7.45 (7.35-7.45) ABG pCO2 39 (35-45) mmHG ABG pO2 64 L (80-105) mmHG ABG HCO3 27 H (22-26) mEq/L ABG Total CO2 23.9 (23-27) mmol/L ABG Base Excess 3.1 H (-2.0-3.0) Sodium 140 (136-145) mmol/L Potassium 4.6 (3.5-5.1) mmol/L Chloride 103 (98-107) mmol/L Carbon Dioxide 28.4 (21.0-32.0) mmol/L BUN 20 H (7.0-18.0) mg/dL Creatinine 0.7 (0.6-1.0) mg/dL Est Cr Clr Drug Dosing 82.98 mL/min Estimated GFR (MDRD) > 60.0 ml/min Glucose 106 (74-106) mg/dL Calcium 8.0 L (8.5-10.1) mg/dL Total Bilirubin 0.9 (0.2-1.0) mg/dL AST 32 (15-37) IU/L ALT 55 (14-63) IU/L Alkaline Phosphatase 66 (46-116) U/L Total Protein 6.3 L (6.4-8.2) g/dL Albumin 2.8 L (3.4-5.0) g/dL Globulin 3.5 (2.6-4.0) g/dL Albumin/Globulin Ratio 0.8 L (0.9-1.6) Med Orders - Current: Current Medications Albuterol/Ipratropium (Albuterol/Ipratropium 4 Gm Inhalation Browder) 1 gm INH Q4HRRT [facility] Last Admin: 05/23/21 14:10 Dose: 1 puff Documented by: Albuterol/Ipratropium (Albuterol/Ipratropium 3.0-0.5 Mg/3 Ml Neb Soln) 3 ml NEB Q4HRRT PRN PRN Reason: Shortness of Breath Last Admin: 05/20/21 11:36 Dose: 3 ml Documented by: Dexamethasone (Dexamethasone 4 Mg Tab) 6 mg PO DAILY [facility] Last Admin: 05/23/21 08:40 Dose: 6 mg Documented by: Enoxaparin Sodium (Enoxaparin 40 Mg/0.4 Ml Syringe) 40 mg SUBCUT Q24H [facility] Last Admin: 05/23/21 14:12 Dose: 40 mg Documented by: Guaifenesin/Dextromethorphan (Guaifenesin/Dextromethorphan 100-10 Mg/5 Ml Soln 10 Ml Cup) 10 ml PO Q4H PRN PRN Reason: Cough Last Admin: 05/23/21 05:54 Dose: 10 ml Documented by: Pantoprazole Sodium 40 mg/ (Sodium Chloride) 10 mls @ 300 mls/hr IV Q24H [facility] Last Admin: 05/23/21 14:12 Dose: 300 mls/hr Documented by: Levofloxacin/Dextrose 750 mg/ (Premix) 150 mls @ 100 mls/hr IV Q24H [facility] Last Admin: 05/22/21 21:15 Dose: 100 mls/hr Documented by: Ibuprofen (Ibuprofen 400 Mg Tab) 400 mg PO Q8H PRN PRN Reason: Pain Last Admin: 05/19/21 18:09 Dose: 400 mg Documented by: Lorazepam (Lorazepam 2 Mg/Ml Sdv) 1 mg IVPUSH Q4H PRN PRN Reason: Agitation Last Admin: 05/23/21 00:58 Dose: 1 mg Documented by: Ondansetron HCl (Ondansetron 4 Mg/2 Ml Sdv) 4 mg IVPUSH Q4H PRN PRN Reason: Vomiting Last Admin: 05/17/21 12:03 Dose: 4 mg Documented by: Oxycodone HCl (Oxycodone 5 Mg Tab) 5 mg PO Q6H PRN PRN Reason: Pain Last Admin: 05/22/21 03:53 Dose: 5 mg Documented by: Polyethylene Glycol (Polyethylene Glycol 3350 Powder 17 Gm Packet) 17 gm PO BEDTIME [facility] Sodium Chloride (Sodium Chloride 0.9% 10 Ml Syringe) 10 ml FLUSH ASDIRECTED PRN PRN Reason: Keep Vein Open Last Admin: 05/16/21 10:51 Dose: 10 ml Documented by: Sodium Chloride (Sodium Chloride 0.9% 2.5 Ml Syringe) 2.5 ml FLUSH ASDIRECTED PRN PRN Reason: Keep Vein Open Last Admin: 05/16/21 10:51 Dose: 2.5 ml Documented by: Discontinued Medications Albuterol/Ipratropium (Albuterol/Ipratropium 4 Gm Inhalation [place]) 1 gm INH Q4HRRT PRN PRN Reason: Dyspnea Last Admin: 05/18/21 11:29 Dose: 1 puff Documented by: Diltiazem HCl (Diltiazem 180 Mg Cap.Cd) 360 mg PO DAILY [facility] Last Admin: 05/21/21 08:04 Dose: 360 mg Documented by: Sodium Chloride (Normal Saline) 1,000 mls @ 999 mls/hr IV .Bolus ONE Stop: 05/16/21 11:36 Last Admin: 05/16/21 10:49 Dose: 999 mls/hr Documented by: Remdesivir 200 mg/ Sodium (Chloride) 250 mls @ 250 mls/hr IV ONETIME ONE Stop: 05/16/21 15:59 Last Admin: 05/16/21 15:52 Dose: 250 mls/hr Documented by: Remdesivir 100 mg/ Sodium (Chloride) 100 mls @ 100 mls/hr IV Q24H [facility] Stop: 05/20/21 15:59 Last Admin: 05/20/21 14:39 Dose: 100 mls/hr Documented by: Levofloxacin/Dextrose 750 mg/ (Premix) 150 mls @ 100 mls/hr IV NOW ONE Stop: 05/21/21 02:59 Last Admin: 05/21/21 02:01 Dose: 100 mls/hr Documented by: Lactated Ringer's (Ringers, Lactated) 250 mls @ 999 mls/hr IV ONETIME ONE Stop: 05/23/21 14:15 Last Admin: 05/23/21 14:13 Dose: 999 mls/hr Documented by: Ibuprofen (Ibuprofen 400 Mg Tab) 400 mg PO ONETIME ONE Stop: 05/16/21 10:36 Last Admin: 05/16/21 10:51 Dose: 400 mg Documented by: Ibuprofen (Ibuprofen 400 Mg Tab) 400 mg PO Q12H PRN PRN Reason: Pain Last Admin: 05/18/21 13:58 Dose: 400 mg Documented by: Ketorolac Tromethamine (Ketorolac 30 Mg/Ml Sdv) 30 mg IVPUSH ONETIME ONE Stop: 05/18/21 14:11 Last Admin: 05/18/21 14:42 Dose: 30 mg Documented by: Omeprazole (Omeprazole 20 Mg Cap.Cr) 20 mg PO DAILY [facility] Last Admin: 05/17/21 14:06 Dose: Not Given Documented by: Ondansetron HCl (Ondansetron 4 Mg/2 Ml Sdv) 4 mg IVPUSH ONETIME ONE Stop: 05/16/21 10:26 Last Admin: 05/16/21 10:47 Dose: 4 mg Documented by: Polyethylene Glycol (Polyethylene Glycol 3350 Powder 17 Gm Packet) 17 gm PO ONETIME ONE Stop: 05/19/21 10:26 Last Admin: 05/19/21 11:46 Dose: 17 gm Documented by: Sodium Chloride (Sodium Chloride 0.9% 10 Ml Sdv) 250 ml IV STAT STA Stop: 05/16/21 10:28 Last Admin: 05/16/21 10:36 Dose: Not Given Documented by: - Exam Urinary Catheter Total Time: 2Days 12Hours General: Lethargic HEENT: Other (Dry lips) Lungs: Other (Patient is on CPAP, regular breath sounds difficult to distinguish from CPAP apparatus) Cardiovascular: No Murmurs, Bradycardia GI/Abdominal Exam: Normal Bowel Sounds, Soft, Non-Tender - Patient Data Lab Results Last 24 hrs: Laboratory Results - last 24 hr 05/23/21 05/23/21 05/23/21 Range/Units 05:58 05:58 14:45 WBC 7.30 (4.0-11.0) K/uL RBC 5.06 (4.30-5.90) M/uL Hgb 14.7 (12.0-16.0) g/dL Hct 43.3 (36.0-46.0) % MCV 85.6 (80.0-98.0) fL MCH 29.1 (27.0-32.0) pg MCHC 33.9 (31.0-37.0) g/dL RDW Std Deviation 40.5 (28.0-62.0) fl RDW Coeff of Mulu 13 (11.0-15.0) % Plt Count 306 (150-400) K/uL MPV 10.20 (7.40-12.00) fL Neut % (Auto) 80.7 H (48.0-80.0) % Lymph % (Auto) 9.5 L (16.0-40.0) % [place] % (Auto) 9.6 (0.0-15.0) % Eos % (Auto) 0.1 (0.0-7.0) % Baso % (Auto) 0.1 (0.0-1.5) % Neut # (Auto) 5.9 H (1.4-5.7) K/uL Lymph # (Auto) 0.7 (0.6-2.4) K/uL [place] # (Auto) 0.7 (0.0-0.8) K/uL Eos # (Auto) 0.0 (0.0-0.7) K/uL Baso # (Auto) 0.0 (0.0-0.1) K/uL Nucleated RBC % 0.0 /100WBC Nucleated RBCs # 0 K/uL ABG pH 7.45 (7.35-7.45) ABG pCO2 39 (35-45) mmHG ABG pO2 64 L (80-105) mmHG ABG HCO3 27 H (22-26) mEq/L ABG Total CO2 23.9 (23-27) mmol/L ABG Base Excess 3.1 H (-2.0-3.0) Sodium 140 (136-145) mmol/L Potassium 4.6 (3.5-5.1) mmol/L Chloride 103 (98-107) mmol/L Carbon Dioxide 28.4 (21.0-32.0) mmol/L BUN 20 H (7.0-18.0) mg/dL Creatinine 0.7 (0.6-1.0) mg/dL Est Cr Clr Drug Dosing 82.98 mL/min Estimated GFR (MDRD) > 60.0 ml/min Glucose 106 (74-106) mg/dL Calcium 8.0 L (8.5-10.1) mg/dL Total Bilirubin 0.9 (0.2-1.0) mg/dL AST 32 (15-37) IU/L ALT 55 (14-63) IU/L Alkaline Phosphatase 66 (46-116) U/L Total Protein 6.3 L (6.4-8.2) g/dL Albumin 2.8 L (3.4-5.0) g/dL Globulin 3.5 (2.6-4.0) g/dL Albumin/Globulin Ratio 0.8 L (0.9-1.6) Result Diagrams: 05/23/21 05:58 05/23/21 05:58 Sepsis Event Note - Evaluation Sepsis Screening Result: Possible Sepsis Risk - Focused Exam Vital Signs: Vital Signs Temp Resp BP Pulse Ox 05/23/21 16:00 27 H 97/52 L 89 L 05/23/21 15:00 28 H 129/64 91 L 05/23/21 14:00 26 H 90/53 L 89 L 05/23/21 13:00 17 123/75 05/23/21 12:00 97.1 F 30 H 96/57 L 88 L 05/23/21 11:00 26 H 115/71 89 L 05/23/21 10:00 25 H 119/68 91 L 05/23/21 09:00 96.9 F 19 86/47 L 82 L 05/23/21 08:00 9 L 108/55 L 86 L 05/23/21 07:00 18 111/68 90 L 05/23/21 06:00 15 127/62 88 L 05/23/21 05:00 25 H 145/71 H 90 L - Problem List & Annotations (1) Hypertension SNOMED Code(s): 67525040 Code(s): I10 - ESSENTIAL (PRIMARY) HYPERTENSION Status: Acute Current Visit: Yes (2) COVID-19 SNOMED Code(s): 665298063 Code(s): U07.1 - COVID-19 Status: Acute Current Visit: Yes (3) Hypoxia SNOMED Code(s): 021836800 Code(s): R09.02 - HYPOXEMIA Status: Acute Current Visit: Yes (4) Nausea SNOMED Code(s): 079274348 Code(s): R11.0 - NAUSEA Status: Acute Current Visit: Yes (5) Weakness SNOMED Code(s): 67336662 Code(s): R53.1 - WEAKNESS Status: Acute Current Visit: Yes (6) GERD (gastroesophageal reflux disease) SNOMED Code(s): 441824335 Code(s): K21.9 - GASTRO-ESOPHAGEAL REFLUX DISEASE WITHOUT ESOPHAGITIS Status: Acute Current Visit: Yes (7) Spinal stenosis SNOMED Code(s): 76863869 Code(s): M48.00 - SPINAL STENOSIS, SITE UNSPECIFIED Status: Acute Current Visit: Yes - Problem List Review Problem List Initiated/Reviewed/Updated: Yes - Plan Plan:: 1. Hypoxia secondary to COVID-19 pneumonia -Patient is severely short of breath, on CPAP with flow of 8, O2 saturation of 89-91%, FiO2 of 65, will continue supplying oxygen as needed -Will will continue Ativan 1 mg IV push every 4 hours as needed -We will continue the patient on dexamethasone 6 mg per oral route once a day -For shortness of breath, we will continue with Duoneb treatment -For cough, we will continue with Robitussin DM 10 mL per oral route every 4 hours 2. Pneumonia -Continue levofloxacin/dextrose 750 mg IV route every 24 hours -Daily CBC/CMP 3. Degenerative spinal stenosis -Continue the patient on ibuprofen 400 mg 3 times a day for oral route -She also has oxycodone 5 mg per oral route every 6 hours as needed on board <Haroldo Adams - Last Filed: 05/24/21 15:39> - Patient Data Vitals - Most Recent: Last Vital Signs Temp 36.7 C 05/24/21 12:00 Pulse 55 L 05/21/21 19:00 Resp 23 H 05/24/21 12:00 BP 114/67 05/24/21 12:00 Pulse Ox 92 L 05/24/21 12:00 I&O - Last 24 Hours: Intake & Output 05/24/21 05/24/21 05/24/21 06:59 14:59 22:59 Intake Total 850 Output Total 1150 Balance -300 Lab Results Last 24 Hours: Laboratory Results - last 24 hr 05/24/21 05/24/21 05/24/21 Range/Units 06:30 06:30 06:30 WBC 8.10 (4.0-11.0) K/uL RBC 5.08 (4.30-5.90) M/uL Hgb 14.9 (12.0-16.0) g/dL Hct 43.7 (36.0-46.0) % MCV 86.0 (80.0-98.0) fL MCH 29.3 (27.0-32.0) pg MCHC 34.1 (31.0-37.0) g/dL RDW Std Deviation 41.5 (28.0-62.0) fl RDW Coeff of Mulu 13 (11.0-15.0) % Plt Count 321 (150-400) K/uL MPV 10.20 (7.40-12.00) fL Neut % (Auto) 79.2 (48.0-80.0) % Lymph % (Auto) 9.6 L (16.0-40.0) % [place] % (Auto) 10.7 (0.0-15.0) % Eos % (Auto) 0.4 (0.0-7.0) % Baso % (Auto) 0.1 (0.0-1.5) % Neut # (Auto) 6.4 H (1.4-5.7) K/uL Lymph # (Auto) 0.8 (0.6-2.4) K/uL [place] # (Auto) 0.9 H (0.0-0.8) K/uL Eos # (Auto) 0.0 (0.0-0.7) K/uL Baso # (Auto) 0.0 (0.0-0.1) K/uL Nucleated RBC % 0.0 /100WBC Nucleated RBCs # 0 K/uL Sodium 139 (136-145) mmol/L Potassium 4.5 (3.5-5.1) mmol/L Chloride 103 (98-107) mmol/L Carbon Dioxide 27.7 (21.0-32.0) mmol/L BUN 18 (7.0-18.0) mg/dL Creatinine 0.7 (0.6-1.0) mg/dL Est Cr Clr Drug Dosing 82.98 mL/min Estimated GFR (MDRD) > 60.0 ml/min Glucose 91 (74-106) mg/dL Calcium 8.2 L (8.5-10.1) mg/dL Phosphorus 3.6 (2.6-4.7) mg/dL Magnesium 2.3 (1.8-2.4) mg/dL Total Bilirubin 1.1 H (0.2-1.0) mg/dL AST 27 (15-37) IU/L ALT 40 (14-63) IU/L Alkaline Phosphatase 63 (46-116) U/L Total Protein 6.4 (6.4-8.2) g/dL Albumin 2.8 L (3.4-5.0) g/dL Globulin 3.6 (2.6-4.0) g/dL Albumin/Globulin Ratio 0.8 L (0.9-1.6) Med Orders - Current: Current Medications Albuterol/Ipratropium (Albuterol/Ipratropium 4 Gm Inhalation Browder) 1 gm INH Q4HRRT [facility] Last Admin: 05/24/21 14:40 Dose: 1 puff Documented by: Albuterol/Ipratropium (Albuterol/Ipratropium 3.0-0.5 Mg/3 Ml Neb Soln) 3 ml NEB Q4HRRT PRN PRN Reason: Shortness of Breath Last Admin: 05/20/21 11:36 Dose: 3 ml Documented by: Dexamethasone (Dexamethasone 4 Mg Tab) 6 mg PO DAILY [facility] Last Admin: 05/24/21 08:19 Dose: 6 mg Documented by: Enoxaparin Sodium (Enoxaparin 40 Mg/0.4 Ml Syringe) 40 mg SUBCUT Q24H [facility] Last Admin: 05/24/21 14:41 Dose: 40 mg Documented by: Guaifenesin (Guaifenesin 100 Mg/5 Ml Soln 5 Ml Ud Cup) 100 mg PO Q4H PRN PRN Reason: Cough Pantoprazole Sodium 40 mg/ (Sodium Chloride) 10 mls @ 300 mls/hr IV Q24H [facility] Last Admin: 05/24/21 14:41 Dose: 300 mls/hr Documented by: Levofloxacin/Dextrose 750 mg/ (Premix) 150 mls @ 100 mls/hr IV Q24H [facility] Last Admin: 05/23/21 21:58 Dose: 100 mls/hr Documented by: Ibuprofen (Ibuprofen 400 Mg Tab) 400 mg PO Q8H PRN PRN Reason: Pain Last Admin: 05/19/21 18:09 Dose: 400 mg Documented by: Lorazepam (Lorazepam 2 Mg/Ml Sdv) 1 mg IVPUSH Q4H PRN PRN Reason: Agitation Last Admin: 05/23/21 00:58 Dose: 1 mg Documented by: Ondansetron HCl (Ondansetron 4 Mg/2 Ml Sdv) 4 mg IVPUSH Q4H PRN PRN Reason: Vomiting Last Admin: 05/17/21 12:03 Dose: 4 mg Documented by: Oxycodone HCl (Oxycodone 5 Mg Tab) 5 mg PO Q6H PRN PRN Reason: Pain Last Admin: 05/22/21 03:53 Dose: 5 mg Documented by: Polyethylene Glycol (Polyethylene Glycol 3350 Powder 17 Gm Packet) 17 gm PO BEDTIME [facility] Last Admin: 05/23/21 21:58 Dose: 17 gm Documented by: Polyethylene Glycol (Polyethylene Glycol 3350 Powder 17 Gm Packet) 17 gm PO BEDTIME [facility] Sodium Chloride (Sodium Chloride 0.9% 10 Ml Syringe) 10 ml FLUSH ASDIRECTED PRN PRN Reason: Keep Vein Open Last Admin: 05/16/21 10:51 Dose: 10 ml Documented by: Sodium Chloride (Sodium Chloride 0.9% 2.5 Ml Syringe) 2.5 ml FLUSH ASDIRECTED PRN PRN Reason: Keep Vein Open Last Admin: 05/16/21 10:51 Dose: 2.5 ml Documented by: Discontinued Medications Albuterol/Ipratropium (Albuterol/Ipratropium 4 Gm Inhalation [place]der) 1 gm INH Q4HRRT PRN PRN Reason: Dyspnea Last Admin: 05/18/21 11:29 Dose: 1 puff Documented by: Diltiazem HCl (Diltiazem 180 Mg Cap.Cd) 360 mg PO DAILY [facility] Last Admin: 05/21/21 08:04 Dose: 360 mg Documented by: Guaifenesin/Dextromethorphan (Guaifenesin/Dextromethorphan 100-10 Mg/5 Ml Soln 10 Ml Cup) 10 ml PO Q4H PRN PRN Reason: Cough Last Admin: 05/24/21 03:34 Dose: 10 ml Documented by: Sodium Chloride (Normal Saline) 1,000 mls @ 999 mls/hr IV .Bolus ONE Stop: 05/16/21 11:36 Last Admin: 05/16/21 10:49 Dose: 999 mls/hr Documented by: Remdesivir 200 mg/ Sodium (Chloride) 250 mls @ 250 mls/hr IV ONETIME ONE Stop: 05/16/21 15:59 Last Admin: 05/16/21 15:52 Dose: 250 mls/hr Documented by: Remdesivir 100 mg/ Sodium (Chloride) 100 mls @ 100 mls/hr IV Q24H [facility] Stop: 05/20/21 15:59 Last Admin: 05/20/21 14:39 Dose: 100 mls/hr Documented by: Levofloxacin/Dextrose 750 mg/ (Premix) 150 mls @ 100 mls/hr IV NOW ONE Stop: 05/21/21 02:59 Last Admin: 05/21/21 02:01 Dose: 100 mls/hr Documented by: Lactated Ringer's (Ringers, Lactated) 250 mls @ 999 mls/hr IV ONETIME ONE Stop: 05/23/21 14:15 Last Admin: 05/23/21 14:13 Dose: 999 mls/hr Documented by: Ibuprofen (Ibuprofen 400 Mg Tab) 400 mg PO ONETIME ONE Stop: 05/16/21 10:36 Last Admin: 05/16/21 10:51 Dose: 400 mg Documented by: Ibuprofen (Ibuprofen 400 Mg Tab) 400 mg PO Q12H PRN PRN Reason: Pain Last Admin: 05/18/21 13:58 Dose: 400 mg Documented by: Ketorolac Tromethamine (Ketorolac 30 Mg/Ml Sdv) 30 mg IVPUSH ONETIME ONE Stop: 05/18/21 14:11 Last Admin: 05/18/21 14:42 Dose: 30 mg Documented by: Omeprazole (Omeprazole 20 Mg Cap.Cr) 20 mg PO DAILY [facility] Last Admin: 05/17/21 14:06 Dose: Not Given Documented by: Ondansetron HCl (Ondansetron 4 Mg/2 Ml Sdv) 4 mg IVPUSH ONETIME ONE Stop: 05/16/21 10:26 Last Admin: 05/16/21 10:47 Dose: 4 mg Documented by: Polyethylene Glycol (Polyethylene Glycol 3350 Powder 17 Gm Packet) 17 gm PO ONETIME ONE Stop: 05/19/21 10:26 Last Admin: 05/19/21 11:46 Dose: 17 gm Documented by: Sodium Chloride (Sodium Chloride 0.9% 10 Ml Sdv) 250 ml IV STAT STA Stop: 05/16/21 10:28 Last Admin: 05/16/21 10:36 Dose: Not Given Documented by: - Patient Data Lab Results Last 24 hrs: Laboratory Results - last 24 hr 05/24/21 05/24/21 05/24/21 Range/Units 06:30 06:30 06:30 WBC 8.10 (4.0-11.0) K/uL RBC 5.08 (4.30-5.90) M/uL Hgb 14.9 (12.0-16.0) g/dL Hct 43.7 (36.0-46.0) % MCV 86.0 (80.0-98.0) fL MCH 29.3 (27.0-32.0) pg MCHC 34.1 (31.0-37.0) g/dL RDW Std Deviation 41.5 (28.0-62.0) fl RDW Coeff of Mulu 13 (11.0-15.0) % Plt Count 321 (150-400) K/uL MPV 10.20 (7.40-12.00) fL Neut % (Auto) 79.2 (48.0-80.0) % Lymph % (Auto) 9.6 L (16.0-40.0) % [place] % (Auto) 10.7 (0.0-15.0) % Eos % (Auto) 0.4 (0.0-7.0) % Baso % (Auto) 0.1 (0.0-1.5) % Neut # (Auto) 6.4 H (1.4-5.7) K/uL Lymph # (Auto) 0.8 (0.6-2.4) K/uL [place] # (Auto) 0.9 H (0.0-0.8) K/uL Eos # (Auto) 0.0 (0.0-0.7) K/uL Baso # (Auto) 0.0 (0.0-0.1) K/uL Nucleated RBC % 0.0 /100WBC Nucleated RBCs # 0 K/uL Sodium 139 (136-145) mmol/L Potassium 4.5 (3.5-5.1) mmol/L Chloride 103 (98-107) mmol/L Carbon Dioxide 27.7 (21.0-32.0) mmol/L BUN 18 (7.0-18.0) mg/dL Creatinine 0.7 (0.6-1.0) mg/dL Est Cr Clr Drug Dosing 82.98 mL/min Estimated GFR (MDRD) > 60.0 ml/min Glucose 91 (74-106) mg/dL Calcium 8.2 L (8.5-10.1) mg/dL Phosphorus 3.6 (2.6-4.7) mg/dL Magnesium 2.3 (1.8-2.4) mg/dL Total Bilirubin 1.1 H (0.2-1.0) mg/dL AST 27 (15-37) IU/L ALT 40 (14-63) IU/L Alkaline Phosphatase 63 (46-116) U/L Total Protein 6.4 (6.4-8.2) g/dL Albumin 2.8 L (3.4-5.0) g/dL Globulin 3.6 (2.6-4.0) g/dL Albumin/Globulin Ratio 0.8 L (0.9-1.6) Result Diagrams: 05/24/21 06:30 05/24/21 06:30 Sepsis Event Note - Focused Exam Vital Signs: Vital Signs Temp Resp BP Pulse Ox 05/24/21 12:00 36.7 C 23 H 114/67 92 L 05/24/21 11:00 19 106/61 90 L 05/24/21 10:00 13 94/56 L 92 L 05/24/21 09:00 36.6 C 22 H 98/57 L 92 L 05/24/21 08:00 24 H 91/59 L 89 L 05/24/21 07:00 21 H 99/55 L 92 L 05/24/21 06:00 20 92 L 05/24/21 05:00 17 92 L 05/24/21 04:00 36.4 C 20 94 L - Plan Plan:: I have seen and evaluated the patient and agree with the residents note unless specified in my note
[2021-05-23] MEDS: Polyethylene Glycol 3350 Powder 17 GM Packet PO SCH (21:58)
[2021-05-23] MEDS: Levofloxacin/Dextrose 5%-Water 750 MG in Premix Bag 1 BAG IV SCH (21:58)
[2021-05-24] MEDS: Albuterol/Ipratropium 4 GM Inhalation Spray INH SCH ×6 (01:36→22:43)
[2021-05-24] MEDS: guaiFENesin/Dextromethorphan 100-10 MG/5 ML Soln 10 ML Cup PO PRN (03:34)
[2021-05-24 07:44] LABS: BLOOD UREA NITROGEN,BUN 18 mg/dL (7.0-18.0); CARBON DIOXIDE,CO2 27.7 mmol/L (21.0-32.0); CHLORIDE,CL 103 mmol/L (98-107); GLUCOSE RANDOM 91 mg/dL (74-106); POTASSIUM,K 4.5 mmol/L (3.5-5.1); SODIUM,NA 139 mmol/L (136-145)
[2021-05-24] MEDS: Dexamethasone 4 MG Tab PO SCH (08:19)
[2021-05-24] MEDS ORDERED: guaiFENesin 100 MG/5 ML Soln 5 ML UD Cup PO PRN (12:00)
--- NOTE | 2021-05-24 12:24 | PCM.PN ---
<Seng Jonas - Last Filed: 05/24/21 12:42> - General Info Date of Service: 05/24/21 Subjective Update: Patient states concerns over her health this morning as she states significant shortness of breath and dizziness with any movements or ambulation efforts. Patient transition to heated high flow this morning from CPAP. Patient able to tolerate diet. Patient denies fever, chills, nausea, vomiting, diarrhea. - Review of Systems General: Reports: Fatigue. Denies: Fever, Chills Pulmonary: Reports: Shortness of Breath, Cough Cardiovascular: Reports: Dyspnea on Exertion. Denies: Chest Pain, Edema Gastrointestinal: Reports: Constipation. Denies: Abdominal Pain, Decreased Josie etite, Diarrhea, Nausea, Vomiting Neurological: Denies: Confusion, Dizziness, Headache Psychiatric: Denies: Confusion - Patient Data Vitals - Most Recent: Last Vital Signs Temp 97.8 F 05/24/21 09:00 Pulse 55 L 05/21/21 19:00 Resp 13 05/24/21 10:00 BP 94/56 L 05/24/21 10:00 Pulse Ox 92 L 05/24/21 10:00 Weight - Most Recent: 95.254 kg I&O - Last 24 Hours: Intake & Output 05/23/21 05/24/21 05/24/21 22:59 06:59 14:59 Intake Total 420 850 Output Total 450 1150 Balance -30 -300 Lab Results Last 24 Hours: Laboratory Results - last 24 hr 05/23/21 05/24/21 05/24/21 Range/Units 14:45 06:30 06:30 WBC 8.10 (4.0-11.0) K/uL RBC 5.08 (4.30-5.90) M/uL Hgb 14.9 (12.0-16.0) g/dL Hct 43.7 (36.0-46.0) % MCV 86.0 (80.0-98.0) fL MCH 29.3 (27.0-32.0) pg MCHC 34.1 (31.0-37.0) g/dL RDW Std Deviation 41.5 (28.0-62.0) fl RDW Coeff of Mulu 13 (11.0-15.0) % Plt Count 321 (150-400) K/uL MPV 10.20 (7.40-12.00) fL Neut % (Auto) 79.2 (48.0-80.0) % Lymph % (Auto) 9.6 L (16.0-40.0) % [place] % (Auto) 10.7 (0.0-15.0) % Eos % (Auto) 0.4 (0.0-7.0) % Baso % (Auto) 0.1 (0.0-1.5) % Neut # (Auto) 6.4 H (1.4-5.7) K/uL Lymph # (Auto) 0.8 (0.6-2.4) K/uL [place] # (Auto) 0.9 H (0.0-0.8) K/uL Eos # (Auto) 0.0 (0.0-0.7) K/uL Baso # (Auto) 0.0 (0.0-0.1) K/uL Nucleated RBC % 0.0 /100WBC Nucleated RBCs # 0 K/uL ABG pH 7.45 (7.35-7.45) ABG pCO2 39 (35-45) mmHG ABG pO2 64 L (80-105) mmHG ABG HCO3 27 H (22-26) mEq/L ABG Total CO2 23.9 (23-27) mmol/L ABG Base Excess 3.1 H (-2.0-3.0) Sodium 139 (136-145) mmol/L Potassium 4.5 (3.5-5.1) mmol/L Chloride 103 (98-107) mmol/L Carbon Dioxide 27.7 (21.0-32.0) mmol/L BUN 18 (7.0-18.0) mg/dL Creatinine 0.7 (0.6-1.0) mg/dL Est Cr Clr Drug Dosing 82.98 mL/min Estimated GFR (MDRD) > 60.0 ml/min Glucose 91 (74-106) mg/dL Calcium 8.2 L (8.5-10.1) mg/dL Total Bilirubin 1.1 H (0.2-1.0) mg/dL AST 27 (15-37) IU/L ALT 40 (14-63) IU/L Alkaline Phosphatase 63 (46-116) U/L Total Protein 6.4 (6.4-8.2) g/dL Albumin 2.8 L (3.4-5.0) g/dL Globulin 3.6 (2.6-4.0) g/dL Albumin/Globulin Ratio 0.8 L (0.9-1.6) Med Orders - Current: Current Medications Albuterol/Ipratropium (Albuterol/Ipratropium 4 Gm Inhalation [place]) 1 gm INH Q4HRRT [facility] Last Admin: 05/24/21 09:33 Dose: 1 puff Documented by: Albuterol/Ipratropium (Albuterol/Ipratropium 3.0-0.5 Mg/3 Ml Neb Soln) 3 ml NEB Q4HRRT PRN PRN Reason: Shortness of Breath Last Admin: 05/20/21 11:36 Dose: 3 ml Documented by: Dexamethasone (Dexamethasone 4 Mg Tab) 6 mg PO DAILY [facility] Last Admin: 05/24/21 08:19 Dose: 6 mg Documented by: Enoxaparin Sodium (Enoxaparin 40 Mg/0.4 Ml Syringe) 40 mg SUBCUT Q24H [facility] Last Admin: 05/23/21 14:12 Dose: 40 mg Documented by: Guaifenesin (Guaifenesin 100 Mg/5 Ml Soln 5 Ml Ud Cup) 100 mg PO Q4H PRN PRN Reason: Cough Pantoprazole Sodium 40 mg/ (Sodium Chloride) 10 mls @ 300 mls/hr IV Q24H [facility] Last Admin: 05/23/21 14:12 Dose: 300 mls/hr Documented by: Levofloxacin/Dextrose 750 mg/ (Premix) 150 mls @ 100 mls/hr IV Q24H [facility] Last Admin: 05/23/21 21:58 Dose: 100 mls/hr Documented by: Ibuprofen (Ibuprofen 400 Mg Tab) 400 mg PO Q8H PRN PRN Reason: Pain Last Admin: 05/19/21 18:09 Dose: 400 mg Documented by: Lorazepam (Lorazepam 2 Mg/Ml Sdv) 1 mg IVPUSH Q4H PRN PRN Reason: Agitation Last Admin: 05/23/21 00:58 Dose: 1 mg Documented by: Ondansetron HCl (Ondansetron 4 Mg/2 Ml Sdv) 4 mg IVPUSH Q4H PRN PRN Reason: Vomiting Last Admin: 05/17/21 12:03 Dose: 4 mg Documented by: Oxycodone HCl (Oxycodone 5 Mg Tab) 5 mg PO Q6H PRN PRN Reason: Pain Last Admin: 05/22/21 03:53 Dose: 5 mg Documented by: Polyethylene Glycol (Polyethylene Glycol 3350 Powder 17 Gm Packet) 17 gm PO BEDTIME BJ Last Admin: 05/23/21 21:58 Dose: 17 gm Documented by: Polyethylene Glycol (Polyethylene Glycol 3350 Powder 17 Gm Packet) 17 gm PO BEDTIME BJ Sodium Chloride (Sodium Chloride 0.9% 10 Ml Syringe) 10 ml FLUSH ASDIRECTED PRN PRN Reason: Keep Vein Open Last Admin: 05/16/21 10:51 Dose: 10 ml Documented by: Sodium Chloride (Sodium Chloride 0.9% 2.5 Ml Syringe) 2.5 ml FLUSH ASDIRECTED PRN PRN Reason: Keep Vein Open Last Admin: 05/16/21 10:51 Dose: 2.5 ml Documented by: Discontinued Medications Albuterol/Ipratropium (Albuterol/Ipratropium 4 Gm Inhalation [place]) 1 gm INH Q4HRRT PRN PRN Reason: Dyspnea Last Admin: 05/18/21 11:29 Dose: 1 puff Documented by: Diltiazem HCl (Diltiazem 180 Mg Cap.Cd) 360 mg PO DAILY [facility] Last Admin: 05/21/21 08:04 Dose: 360 mg Documented by: Guaifenesin/Dextromethorphan (Guaifenesin/Dextromethorphan 100-10 Mg/5 Ml Soln 10 Ml Cup) 10 ml PO Q4H PRN PRN Reason: Cough Last Admin: 05/24/21 03:34 Dose: 10 ml Documented by: Sodium Chloride (Normal Saline) 1,000 mls @ 999 mls/hr IV .Bolus ONE Stop: 05/16/21 11:36 Last Admin: 05/16/21 10:49 Dose: 999 mls/hr Documented by: Remdesivir 200 mg/ Sodium (Chloride) 250 mls @ 250 mls/hr IV ONETIME ONE Stop: 05/16/21 15:59 Last Admin: 05/16/21 15:52 Dose: 250 mls/hr Documented by: Remdesivir 100 mg/ Sodium (Chloride) 100 mls @ 100 mls/hr IV Q24H [facility]J Stop: 05/20/21 15:59 Last Admin: 05/20/21 14:39 Dose: 100 mls/hr Documented by: Levofloxacin/Dextrose 750 mg/ (Premix) 150 mls @ 100 mls/hr IV NOW ONE Stop: 05/21/21 02:59 Last Admin: 05/21/21 02:01 Dose: 100 mls/hr Documented by: Lactated Ringer's (Ringers, Lactated) 250 mls @ 999 mls/hr IV ONETIME ONE Stop: 05/23/21 14:15 Last Admin: 05/23/21 14:13 Dose: 999 mls/hr Documented by: Ibuprofen (Ibuprofen 400 Mg Tab) 400 mg PO ONETIME ONE Stop: 05/16/21 10:36 Last Admin: 05/16/21 10:51 Dose: 400 mg Documented by: Ibuprofen (Ibuprofen 400 Mg Tab) 400 mg PO Q12H PRN PRN Reason: Pain Last Admin: 05/18/21 13:58 Dose: 400 mg Documented by: Ketorolac Tromethamine (Ketorolac 30 Mg/Ml Sdv) 30 mg IVPUSH ONETIME ONE Stop: 05/18/21 14:11 Last Admin: 05/18/21 14:42 Dose: 30 mg Documented by: Omeprazole (Omeprazole 20 Mg Cap.Cr) 20 mg PO DAILY [facility] Last Admin: 05/17/21 14:06 Dose: Not Given Documented by: Ondansetron HCl (Ondansetron 4 Mg/2 Ml Sdv) 4 mg IVPUSH ONETIME ONE Stop: 05/16/21 10:26 Last Admin: 05/16/21 10:47 Dose: 4 mg Documented by: Polyethylene Glycol (Polyethylene Glycol 3350 Powder 17 Gm Packet) 17 gm PO ONETIME ONE Stop: 05/19/21 10:26 Last Admin: 05/19/21 11:46 Dose: 17 gm Documented by: Sodium Chloride (Sodium Chloride 0.9% 10 Ml Sdv) 250 ml IV STAT STA Stop: 05/16/21 10:28 Last Admin: 05/16/21 10:36 Dose: Not Given Documented by: - Exam Quality Assessment: Supplemental Oxygen Urinary Catheter Total Time: 3Days 8Hours General: Alert, Oriented Lungs: Normal Respiratory Effort (With heated high flow), Crackles (Right side, fine) Cardiovascular: Regular Rate, Regular Rhythm GI/Abdominal Exam: Soft, Non-Tender Extremities: No Pedal Edema Psy/Mental Status: Alert - Patient Data Lab Results Last 24 hrs: Laboratory Results - last 24 hr 05/23/21 05/24/21 05/24/21 Range/Units 14:45 06:30 06:30 WBC 8.10 (4.0-11.0) K/uL RBC 5.08 (4.30-5.90) M/uL Hgb 14.9 (12.0-16.0) g/dL Hct 43.7 (36.0-46.0) % MCV 86.0 (80.0-98.0) fL MCH 29.3 (27.0-32.0) pg MCHC 34.1 (31.0-37.0) g/dL RDW Std Deviation 41.5 (28.0-62.0) fl RDW Coeff of Mulu 13 (11.0-15.0) % Plt Count 321 (150-400) K/uL MPV 10.20 (7.40-12.00) fL Neut % (Auto) 79.2 (48.0-80.0) % Lymph % (Auto) 9.6 L (16.0-40.0) % [place] % (Auto) 10.7 (0.0-15.0) % Eos % (Auto) 0.4 (0.0-7.0) % Baso % (Auto) 0.1 (0.0-1.5) % Neut # (Auto) 6.4 H (1.4-5.7) K/uL Lymph # (Auto) 0.8 (0.6-2.4) K/uL [place] # (Auto) 0.9 H (0.0-0.8) K/uL Eos # (Auto) 0.0 (0.0-0.7) K/uL Baso # (Auto) 0.0 (0.0-0.1) K/uL Nucleated RBC % 0.0 /100WBC Nucleated RBCs # 0 K/uL ABG pH 7.45 (7.35-7.45) ABG pCO2 39 (35-45) mmHG ABG pO2 64 L (80-105) mmHG ABG HCO3 27 H (22-26) mEq/L ABG Total CO2 23.9 (23-27) mmol/L ABG Base Excess 3.1 H (-2.0-3.0) Sodium 139 (136-145) mmol/L Potassium 4.5 (3.5-5.1) mmol/L Chloride 103 (98-107) mmol/L Carbon Dioxide 27.7 (21.0-32.0) mmol/L BUN 18 (7.0-18.0) mg/dL Creatinine 0.7 (0.6-1.0) mg/dL Est Cr Clr Drug Dosing 82.98 mL/min Estimated GFR (MDRD) > 60.0 ml/min Glucose 91 (74-106) mg/dL Calcium 8.2 L (8.5-10.1) mg/dL Total Bilirubin 1.1 H (0.2-1.0) mg/dL AST 27 (15-37) IU/L ALT 40 (14-63) IU/L Alkaline Phosphatase 63 (46-116) U/L Total Protein 6.4 (6.4-8.2) g/dL Albumin 2.8 L (3.4-5.0) g/dL Globulin 3.6 (2.6-4.0) g/dL Albumin/Globulin Ratio 0.8 L (0.9-1.6) Result Diagrams: 05/24/21 06:30 05/24/21 06:30 Sepsis Event Note - Evaluation Sepsis Screening Result: No Definite Risk - Focused Exam Vital Signs: Vital Signs Temp Resp BP Pulse Ox 05/24/21 10:00 13 94/56 L 92 L 05/24/21 09:00 97.8 F 22 H 98/57 L 92 L 05/24/21 08:00 24 H 91/59 L 89 L 05/24/21 07:00 21 H 99/55 L 92 L 05/24/21 06:00 20 92 L 05/24/21 05:00 17 92 L 05/24/21 04:00 97.6 F 20 94 L 05/24/21 03:00 26 H 94/57 L 90 L 05/24/21 02:00 24 H 123/75 88 L 05/24/21 01:00 19 106/58 L 91 L - Problem List & Annotations (1) COVID-19 SNOMED Code(s): 718980935 Code(s): U07.1 - COVID-19 Status: Acute (2) GERD (gastroesophageal reflux disease) SNOMED Code(s): 910326026 Code(s): K21.9 - GASTRO-ESOPHAGEAL REFLUX DISEASE WITHOUT ESOPHAGITIS Status: Acute (3) Hypertension SNOMED Code(s): 33196193 Code(s): I10 - ESSENTIAL (PRIMARY) HYPERTENSION Status: Acute (4) Hypoxia SNOMED Code(s): 503119336 Code(s): R09.02 - HYPOXEMIA Status: Acute (5) Nausea SNOMED Code(s): 564721695 Code(s): R11.0 - NAUSEA Status: Acute (6) Spinal stenosis SNOMED Code(s): 72454033 Code(s): M48.00 - SPINAL STENOSIS, SITE UNSPECIFIED Status: Acute (7) Weakness SNOMED Code(s): 97843814 Code(s): R53.1 - WEAKNESS Status: Acute - Problem List Review Problem List Initiated/Reviewed/Updated: Yes - My Orders Last 24 Hours: My Active Orders 05/23/21 21:00 polyethylene glycoL 3350 [MiraLAX] 17 gm PO BEDTIME 05/24/21 12:00 guaiFENesin [Robitussin] 100 mg PO Q4H PRN 05/24/21 21:00 polyethylene glycoL 3350 [MiraLAX] 17 gm PO BEDTIME - Plan Plan:: Hypoxia secondary to COVID-19 pneumonia Patient currently on heated high flow 50 FiO2 75. Downgraded from CPAP today. Patient may need CPAP intermittently throughout the day if saturations are not maintained on heated high flow. dexamethasone 6 mg daily, duoneb prn, Robitussin Q4hr (pharmacy is currently out of DM formula. Patient has allergies to codeine, will hold AC robitussin) Resume DM once available. Levaquin 750 mg every 24, Lovenox 40 mg subq every 24 hours Degenerative spinal stenosis Ibuprofen 4 mg 3 times daily Oxycodone 5 mg every 6 hours as needed <Haroldo Adams - Last Filed: 06/07/21 15:34> - Patient Data Vitals - Most Recent: Last Vital Signs Temp 36.3 C 06/03/21 08:52 Pulse 92 06/03/21 08:52 Resp 18 06/03/21 08:52 BP 99/56 L 06/03/21 08:52 Pulse Ox 92 L 06/03/21 08:52 Med Orders - Current: Current Medications Discontinued Medications Albuterol/Ipratropium (Albuterol/Ipratropium 4 Gm Inhalation [place]) 1 gm INH Q4HRRT PRN PRN Reason: Dyspnea Last Admin: 05/18/21 11:29 Dose: 1 puff Documented by: Albuterol/Ipratropium (Albuterol/Ipratropium 4 Gm Inhalation [place]) 1 gm INH Q4HRRT [facility] Last Admin: 06/02/21 09:59 Dose: Not Given Documented by: Albuterol/Ipratropium (Albuterol/Ipratropium 3.0-0.5 Mg/3 Ml Neb Soln) 3 ml NEB Q4HRRT PRN PRN Reason: Shortness of Breath Last Admin: 05/20/21 11:36 Dose: 3 ml Documented by: Dexamethasone (Dexamethasone 4 Mg Tab) 6 mg PO DAILY [facility] Last Admin: 05/29/21 08:41 Dose: 6 mg Documented by: Diltiazem HCl (Diltiazem 180 Mg Cap.Cd) 360 mg PO DAILY [facility] Last Admin: 05/21/21 08:04 Dose: 360 mg Documented by: Enoxaparin Sodium (Enoxaparin 40 Mg/0.4 Ml Syringe) 40 mg SUBCUT Q24H [facility] Last Admin: 06/02/21 14:12 Dose: 40 mg Documented by: Guaifenesin (Guaifenesin 100 Mg/5 Ml Soln 5 Ml Ud Cup) 100 mg PO Q4H PRN PRN Reason: Cough Last Admin: 06/02/21 22:50 Dose: 100 mg Documented by: Guaifenesin/Dextromethorphan (Guaifenesin/Dextromethorphan 100-10 Mg/5 Ml Soln 10 Ml Cup) 10 ml PO Q4H PRN PRN Reason: Cough Last Admin: 05/24/21 03:34 Dose: 10 ml Documented by: Sodium Chloride (Normal Saline) 1,000 mls @ 999 mls/hr IV .Bolus ONE Stop: 05/16/21 11:36 Last Admin: 05/16/21 10:49 Dose: 999 mls/hr Documented by: Remdesivir 200 mg/ Sodium (Chloride) 250 mls @ 250 mls/hr IV ONETIME ONE Stop: 05/16/21 15:59 Last Admin: 05/16/21 15:52 Dose: 250 mls/hr Documented by: Remdesivir 100 mg/ Sodium (Chloride) 100 mls @ 100 mls/hr IV Q24H [facility] Stop: 05/20/21 15:59 Last Admin: 05/20/21 14:39 Dose: 100 mls/hr Documented by: Pantoprazole Sodium 40 mg/ (Sodium Chloride) 10 mls @ 300 mls/hr IV Q24H [facility] Last Admin: 06/02/21 14:14 Dose: 300 mls/hr Documented by: Levofloxacin/Dextrose 750 mg/ (Premix) 150 mls @ 100 mls/hr IV Q24H [facility] Last Admin: 05/28/21 21:18 Dose: 100 mls/hr Documented by: Levofloxacin/Dextrose 750 mg/ (Premix) 150 mls @ 100 mls/hr IV NOW ONE Stop: 05/21/21 02:59 Last Admin: 05/21/21 02:01 Dose: 100 mls/hr Documented by: Lactated Ringer's (Ringers, Lactated) 250 mls @ 999 mls/hr IV ONETIME ONE Stop: 05/23/21 14:15 Last Admin: 05/23/21 14:13 Dose: 999 mls/hr Documented by: Lactated Ringer's (Ringers, Lactated) 250 mls @ 999 mls/hr IV ONETIME ONE Stop: 05/26/21 13:21 Last Admin: 05/26/21 13:16 Dose: 999 mls/hr Documented by: Sodium Chloride (Normal Saline) 250 mls @ 999 mls/hr IV BOLUS [facility] Last Admin: 05/27/21 09:40 Dose: 999 mls/hr Documented by: Lactated Ringer's (Ringers, Lactated) 250 mls @ 999 mls/hr IV ONETIME ONE Stop: 05/28/21 13:43 Last Admin: 05/28/21 13:55 Dose: 999 mls/hr Documented by: Lactated Ringer's (Ringers, Lactated) 1,000 mls @ 250 mls/hr IV ONETIME ONE Stop: 05/29/21 13:44 Last Admin: 05/29/21 10:29 Dose: Not Given Documented by: Lactated Ringer's (Ringers, Lactated) 250 mls @ 250 mls/hr IV .BOLUS [facility]J Last Admin: 05/29/21 10:05 Dose: 250 mls/hr Documented by: Ibuprofen (Ibuprofen 400 Mg Tab) 400 mg PO ONETIME ONE Stop: 05/16/21 10:36 Last Admin: 05/16/21 10:51 Dose: 400 mg Documented by: Ibuprofen (Ibuprofen 400 Mg Tab) 400 mg PO Q12H PRN PRN Reason: Pain Last Admin: 05/18/21 13:58 Dose: 400 mg Documented by: Ibuprofen (Ibuprofen 400 Mg Tab) 400 mg PO Q8H PRN PRN Reason: Pain Last Admin: 06/03/21 04:24 Dose: 400 mg Documented by: Ketorolac Tromethamine (Ketorolac 30 Mg/Ml Sdv) 30 mg IVPUSH ONETIME ONE Stop: 05/18/21 14:11 Last Admin: 05/18/21 14:42 Dose: 30 mg Documented by: Loperamide HCl (Loperamide 2 Mg Cap) 2 mg PO ONETIME ONE Stop: 06/01/21 10:26 Last Admin: 06/01/21 11:42 Dose: Not Given Documented by: Lorazepam (Lorazepam 2 Mg/Ml Sdv) 1 mg IVPUSH Q4H PRN PRN Reason: Agitation Last Admin: 05/26/21 13:16 Dose: 1 mg Documented by: Magnesium Hydroxide (Magnesium Hydroxide 400 Mg/5 Ml Susp 30 Ml Cup) 30 ml PO ONETIME PRN PRN Reason: Constipation Last Admin: 05/28/21 13:59 Dose: 30 ml Documented by: Omeprazole (Omeprazole 20 Mg Cap.Cr) 20 mg PO DAILY [facility] Last Admin: 05/17/21 14:06 Dose: Not Given Documented by: Ondansetron HCl (Ondansetron 4 Mg/2 Ml Sdv) 4 mg IVPUSH ONETIME ONE Stop: 05/16/21 10:26 Last Admin: 05/16/21 10:47 Dose: 4 mg Documented by: Ondansetron HCl (Ondansetron 4 Mg/2 Ml Sdv) 4 mg IVPUSH Q4H PRN PRN Reason: Vomiting Last Admin: 05/27/21 10:38 Dose: 4 mg Documented by: Oxycodone HCl (Oxycodone 5 Mg Tab) 5 mg PO Q6H PRN PRN Reason: Pain Last Admin: 05/22/21 03:53 Dose: 5 mg Documented by: Polyethylene Glycol (Polyethylene Glycol 3350 Powder 17 Gm Packet) 17 gm PO ONETIME ONE Stop: 05/19/21 10:26 Last Admin: 05/19/21 11:46 Dose: 17 gm Documented by: Polyethylene Glycol (Polyethylene Glycol 3350 Powder 17 Gm Packet) 17 gm PO BEDTIME BJ Last Admin: 05/29/21 23:39 Dose: 17 gm Documented by: Polyethylene Glycol (Polyethylene Glycol 3350 Powder 17 Gm Packet) 17 gm PO BEDTIME BJ Sodium Chloride (Sodium Chloride 0.9% 10 Ml Syringe) 10 ml FLUSH ASDIRECTED PRN PRN Reason: Keep Vein Open Last Admin: 05/16/21 10:51 Dose: 10 ml Documented by: Sodium Chloride (Sodium Chloride 0.9% 2.5 Ml Syringe) 2.5 ml FLUSH ASDIRECTED PRN PRN Reason: Keep Vein Open Last Admin: 05/16/21 10:51 Dose: 2.5 ml Documented by: Sodium Chloride (Sodium Chloride 0.9% 10 Ml Sdv) 250 ml IV STAT STA Stop: 05/16/21 10:28 Last Admin: 05/16/21 10:36 Dose: Not Given Documented by: Sodium Chloride (Sodium Chloride 0.65% Nasal [place] 45 Ml Bottle) 0 ml GALINDO Q6H PRN PRN Reason: Congestion - Patient Data Result Diagrams: 06/03/21 05:55 06/03/21 05:55 - Problem List & Annotations (1) Acute respiratory failure with hypoxia SNOMED Code(s): 94544420, 341725236 Code(s): J96.01 - ACUTE RESPIRATORY FAILURE WITH HYPOXIA Status: Acute (2) COVID-19 SNOMED Code(s): 000960968 Code(s): U07.1 - COVID-19 Status: Acute (3) Constipation SNOMED Code(s): 86970052 Code(s): K59.00 - CONSTIPATION, UNSPECIFIED Status: Deleted (4) GERD (gastroesophageal reflux disease) SNOMED Code(s): 820566325 Code(s): K21.9 - GASTRO-ESOPHAGEAL REFLUX DISEASE WITHOUT ESOPHAGITIS Status: Acute (5) Hypertension SNOMED Code(s): 59238464 Code(s): I10 - ESSENTIAL (PRIMARY) HYPERTENSION Status: Deleted (6) Hypoxia SNOMED Code(s): 782046688 Code(s): R09.02 - HYPOXEMIA Status: Acute - Plan Plan:: I have seen and evaluated the patient and agree with the residents note unless specified in my note
[2021-05-24] MEDS: Pantoprazole 40 MG in Sodium Chloride 0.9% 10 ML IV SCH (14:41)
[2021-05-24] MEDS: Enoxaparin 40 MG/0.4 ML Syringe SUBCUT SCH (14:41)
[2021-05-24] MEDS: Polyethylene Glycol 3350 Powder 17 GM Packet PO SCH ×2 (20:22→21:00)
[2021-05-24] MEDS: Levofloxacin/Dextrose 5%-Water 750 MG in Premix Bag 1 BAG IV SCH (20:22)
[2021-05-24] MEDS ORDERED: Polyethylene Glycol 3350 Powder 17 GM Packet PO SCH (21:00)
[2021-05-25] MEDS: Albuterol/Ipratropium 4 GM Inhalation Spray INH SCH ×6 (01:28→22:25)
[2021-05-25] MEDS: guaiFENesin 100 MG/5 ML Soln 5 ML UD Cup PO PRN (07:07)
[2021-05-25 07:22] LABS: BLOOD UREA NITROGEN,BUN 18 mg/dL (7.0-18.0); CHLORIDE,CL 104 mmol/L (98-107); GLUCOSE RANDOM 87 mg/dL (74-106); POTASSIUM,K 4.2 mmol/L (3.5-5.1); SODIUM,NA 140 mmol/L (136-145)
[2021-05-25] MEDS: Dexamethasone 4 MG Tab PO SCH (09:16)
--- NOTE | 2021-05-25 14:46 | PCM.PN ---
- General Info Date of Service: 05/25/21 Subjective Update: The patient is a 61-year-old female, on day 10 of service, with a significant past medical history of degenerative spinal stenosis, GERD, and hypertension, who was admitted for hypoxia secondary to COVID-19 pneumonia. The patient finished her remdesivir course, however her oxygen demand fluctuated over the past couple of days from CPAP to heated high flow. The patient is currently on heated high flow, 55 L of oxygen, O2 saturation of over 92%, FiO2 of 75. This morning the patient was on CPAP and upon interview was agitated with her current oxygen requirement, she felt the pressure was too much, and as a result she was changed to HHF where now she is more comfortable. Upon further interview, the patient continues to complain of constipation and has not had a bowel movement since 05/17 even though being on MiraLAX to promote evacuation. The patient will have an enema today in hopes that a bowel movement will be passed. She is still being treated with antibiotics for pneumonia, more specifically levofloxacin/dextrose 750 mg via IV route. The patient addressed concerns of wanting to see her and hopes he could come visit her. We will try to set up a video call on the patient's phone with her today, and in a couple days a [id number] with proper precautions in place including full gowning and PPE protection. The patient has no other concerns at this time. - Review of Systems General: Reports: Fatigue. Denies: Fever, Chills, Night Sweats HEENT: Denies: Headaches, Sore Throat Pulmonary: Reports: Shortness of Breath, Cough Cardiovascular: Denies: Chest Pain, Palpitations Gastrointestinal: Reports: Constipation. Denies: Abdominal Pain Genitourinary: Denies: Dysuria - Patient Data Vitals - Most Recent: Last Vital Signs Temp 97.5 F 05/25/21 12:00 Pulse 55 L 05/21/21 19:00 Resp 26 H 05/25/21 14:00 BP 87/48 L 05/25/21 14:00 Pulse Ox 91 L 05/25/21 14:00 Weight - Most Recent: 202 lb 8 oz I&O - Last 24 Hours: Intake & Output 05/24/21 05/25/21 05/25/21 22:59 06:59 14:59 Intake Total 620 700 Output Total 550 700 Balance 70 0 Lab Results Last 24 Hours: Laboratory Results - last 24 hr 05/25/21 05/25/21 Range/Units 06:27 06:27 WBC 6.37 (4.0-11.0) K/uL RBC 5.19 (4.30-5.90) M/uL Hgb 15.0 (12.0-16.0) g/dL Hct 44.4 (36.0-46.0) % MCV 85.5 (80.0-98.0) fL MCH 28.9 (27.0-32.0) pg MCHC 33.8 (31.0-37.0) g/dL RDW Std Deviation 41.4 (28.0-62.0) fl RDW Coeff of Mulu 13 (11.0-15.0) % Plt Count 308 (150-400) K/uL MPV 10.20 (7.40-12.00) fL Neut % (Auto) 73.9 (48.0-80.0) % Lymph % (Auto) 15.1 L (16.0-40.0) % [place] % (Auto) 10.2 (0.0-15.0) % Eos % (Auto) 0.8 (0.0-7.0) % Baso % (Auto) 0.0 (0.0-1.5) % Neut # (Auto) 4.7 (1.4-5.7) K/uL Lymph # (Auto) 1.0 (0.6-2.4) K/uL [place] # (Auto) 0.7 (0.0-0.8) K/uL Eos # (Auto) 0.1 (0.0-0.7) K/uL Baso # (Auto) 0.0 (0.0-0.1) K/uL Nucleated RBC % 0.0 /100WBC Nucleated RBCs # 0 K/uL Sodium 140 (136-145) mmol/L Potassium 4.2 (3.5-5.1) mmol/L Chloride 104 (98-107) mmol/L Carbon Dioxide 28.0 (21.0-32.0) mmol/L BUN 18 (7.0-18.0) mg/dL Creatinine 0.8 (0.6-1.0) mg/dL Est Cr Clr Drug Dosing 72.61 mL/min Estimated GFR (MDRD) > 60.0 ml/min Glucose 87 (74-106) mg/dL Calcium 8.3 L (8.5-10.1) mg/dL Magnesium 2.2 (1.8-2.4) mg/dL Total Bilirubin 1.1 H (0.2-1.0) mg/dL AST 22 (15-37) IU/L ALT 41 (14-63) IU/L Alkaline Phosphatase 60 (46-116) U/L Total Protein 6.3 L (6.4-8.2) g/dL Albumin 2.7 L (3.4-5.0) g/dL Globulin 3.6 (2.6-4.0) g/dL Albumin/Globulin Ratio 0.8 L (0.9-1.6) Med Orders - Current: Current Medications Albuterol/Ipratropium (Albuterol/Ipratropium 4 Gm Inhalation [place]) 1 gm INH Q4HRRT [facility] Last Admin: 05/25/21 13:00 Dose: 1 puff Documented by: Albuterol/Ipratropium (Albuterol/Ipratropium 3.0-0.5 Mg/3 Ml Neb Soln) 3 ml NEB Q4HRRT PRN PRN Reason: Shortness of Breath Last Admin: 05/20/21 11:36 Dose: 3 ml Documented by: Dexamethasone (Dexamethasone 4 Mg Tab) 6 mg PO DAILY [facility] Last Admin: 05/25/21 09:16 Dose: 6 mg Documented by: Enoxaparin Sodium (Enoxaparin 40 Mg/0.4 Ml Syringe) 40 mg SUBCUT Q24H [facility] Last Admin: 05/24/21 14:41 Dose: 40 mg Documented by: Guaifenesin (Guaifenesin 100 Mg/5 Ml Soln 5 Ml Ud Cup) 100 mg PO Q4H PRN PRN Reason: Cough Last Admin: 05/25/21 07:07 Dose: 100 mg Documented by: Pantoprazole Sodium 40 mg/ (Sodium Chloride) 10 mls @ 300 mls/hr IV Q24H [facility] Last Admin: 05/24/21 14:41 Dose: 300 mls/hr Documented by: Levofloxacin/Dextrose 750 mg/ (Premix) 150 mls @ 100 mls/hr IV Q24H [facility] Last Admin: 05/24/21 20:22 Dose: 100 mls/hr Documented by: Ibuprofen (Ibuprofen 400 Mg Tab) 400 mg PO Q8H PRN PRN Reason: Pain Last Admin: 05/19/21 18:09 Dose: 400 mg Documented by: Lorazepam (Lorazepam 2 Mg/Ml Sdv) 1 mg IVPUSH Q4H PRN PRN Reason: Agitation Last Admin: 05/23/21 00:58 Dose: 1 mg Documented by: Ondansetron HCl (Ondansetron 4 Mg/2 Ml Sdv) 4 mg IVPUSH Q4H PRN PRN Reason: Vomiting Last Admin: 05/17/21 12:03 Dose: 4 mg Documented by: Oxycodone HCl (Oxycodone 5 Mg Tab) 5 mg PO Q6H PRN PRN Reason: Pain Last Admin: 05/22/21 03:53 Dose: 5 mg Documented by: Polyethylene Glycol (Polyethylene Glycol 3350 Powder 17 Gm Packet) 17 gm PO BEDTIME [facility] Last Admin: 05/24/21 21:00 Dose: Not Given Documented by: Sodium Chloride (Sodium Chloride 0.9% 10 Ml Syringe) 10 ml FLUSH ASDIRECTED PRN PRN Reason: Keep Vein Open Last Admin: 05/16/21 10:51 Dose: 10 ml Documented by: Sodium Chloride (Sodium Chloride 0.9% 2.5 Ml Syringe) 2.5 ml FLUSH ASDIRECTED PRN PRN Reason: Keep Vein Open Last Admin: 05/16/21 10:51 Dose: 2.5 ml Documented by: Discontinued Medications Albuterol/Ipratropium (Albuterol/Ipratropium 4 Gm Inhalation [place]) 1 gm INH Q4HRRT PRN PRN Reason: Dyspnea Last Admin: 05/18/21 11:29 Dose: 1 puff Documented by: Diltiazem HCl (Diltiazem 180 Mg Cap.Cd) 360 mg PO DAILY [facility] Last Admin: 05/21/21 08:04 Dose: 360 mg Documented by: Guaifenesin/Dextromethorphan (Guaifenesin/Dextromethorphan 100-10 Mg/5 Ml Soln 10 Ml Cup) 10 ml PO Q4H PRN PRN Reason: Cough Last Admin: 05/24/21 03:34 Dose: 10 ml Documented by: Sodium Chloride (Normal Saline) 1,000 mls @ 999 mls/hr IV .Bolus ONE Stop: 05/16/21 11:36 Last Admin: 05/16/21 10:49 Dose: 999 mls/hr Documented by: Remdesivir 200 mg/ Sodium (Chloride) 250 mls @ 250 mls/hr IV ONETIME ONE Stop: 05/16/21 15:59 Last Admin: 05/16/21 15:52 Dose: 250 mls/hr Documented by: Remdesivir 100 mg/ Sodium (Chloride) 100 mls @ 100 mls/hr IV Q24H BJ Stop: 05/20/21 15:59 Last Admin: 05/20/21 14:39 Dose: 100 mls/hr Documented by: Levofloxacin/Dextrose 750 mg/ (Premix) 150 mls @ 100 mls/hr IV NOW ONE Stop: 05/21/21 02:59 Last Admin: 05/21/21 02:01 Dose: 100 mls/hr Documented by: Lactated Ringer's (Ringers, Lactated) 250 mls @ 999 mls/hr IV ONETIME ONE Stop: 05/23/21 14:15 Last Admin: 05/23/21 14:13 Dose: 999 mls/hr Documented by: Ibuprofen (Ibuprofen 400 Mg Tab) 400 mg PO ONETIME ONE Stop: 05/16/21 10:36 Last Admin: 05/16/21 10:51 Dose: 400 mg Documented by: Ibuprofen (Ibuprofen 400 Mg Tab) 400 mg PO Q12H PRN PRN Reason: Pain Last Admin: 05/18/21 13:58 Dose: 400 mg Documented by: Ketorolac Tromethamine (Ketorolac 30 Mg/Ml Sdv) 30 mg IVPUSH ONETIME ONE Stop: 05/18/21 14:11 Last Admin: 05/18/21 14:42 Dose: 30 mg Documented by: Omeprazole (Omeprazole 20 Mg Cap.Cr) 20 mg PO DAILY [facility] Last Admin: 05/17/21 14:06 Dose: Not Given Documented by: Ondansetron HCl (Ondansetron 4 Mg/2 Ml Sdv) 4 mg IVPUSH ONETIME ONE Stop: 05/16/21 10:26 Last Admin: 05/16/21 10:47 Dose: 4 mg Documented by: Polyethylene Glycol (Polyethylene Glycol 3350 Powder 17 Gm Packet) 17 gm PO ONETIME ONE Stop: 05/19/21 10:26 Last Admin: 05/19/21 11:46 Dose: 17 gm Documented by: Polyethylene Glycol (Polyethylene Glycol 3350 Powder 17 Gm Packet) 17 gm PO BEDTIME [facility] Sodium Chloride (Sodium Chloride 0.9% 10 Ml Sdv) 250 ml IV STAT STA Stop: 05/16/21 10:28 Last Admin: 05/16/21 10:36 Dose: Not Given Documented by: - Exam Urinary Catheter Total Time: 4Days 10Hours General: Lethargic HEENT: Other (Dry mucous membranes) Neck: Trachea Midline Lungs: Decreased Breath Sounds Cardiovascular: Bradycardia GI/Abdominal Exam: Normal Bowel Sounds, Soft, Non-Tender - Patient Data Lab Results Last 24 hrs: Laboratory Results - last 24 hr 05/25/21 05/25/21 Range/Units 06:27 06:27 WBC 6.37 (4.0-11.0) K/uL RBC 5.19 (4.30-5.90) M/uL Hgb 15.0 (12.0-16.0) g/dL Hct 44.4 (36.0-46.0) % MCV 85.5 (80.0-98.0) fL MCH 28.9 (27.0-32.0) pg MCHC 33.8 (31.0-37.0) g/dL RDW Std Deviation 41.4 (28.0-62.0) fl RDW Coeff of Mulu 13 (11.0-15.0) % Plt Count 308 (150-400) K/uL MPV 10.20 (7.40-12.00) fL Neut % (Auto) 73.9 (48.0-80.0) % Lymph % (Auto) 15.1 L (16.0-40.0) % [place] % (Auto) 10.2 (0.0-15.0) % Eos % (Auto) 0.8 (0.0-7.0) % Baso % (Auto) 0.0 (0.0-1.5) % Neut # (Auto) 4.7 (1.4-5.7) K/uL Lymph # (Auto) 1.0 (0.6-2.4) K/uL [place] # (Auto) 0.7 (0.0-0.8) K/uL Eos # (Auto) 0.1 (0.0-0.7) K/uL Baso # (Auto) 0.0 (0.0-0.1) K/uL Nucleated RBC % 0.0 /100WBC Nucleated RBCs # 0 K/uL Sodium 140 (136-145) mmol/L Potassium 4.2 (3.5-5.1) mmol/L Chloride 104 (98-107) mmol/L Carbon Dioxide 28.0 (21.0-32.0) mmol/L BUN 18 (7.0-18.0) mg/dL Creatinine 0.8 (0.6-1.0) mg/dL Est Cr Clr Drug Dosing 72.61 mL/min Estimated GFR (MDRD) > 60.0 ml/min Glucose 87 (74-106) mg/dL Calcium 8.3 L (8.5-10.1) mg/dL Magnesium 2.2 (1.8-2.4) mg/dL Total Bilirubin 1.1 H (0.2-1.0) mg/dL AST 22 (15-37) IU/L ALT 41 (14-63) IU/L Alkaline Phosphatase 60 (46-116) U/L Total Protein 6.3 L (6.4-8.2) g/dL Albumin 2.7 L (3.4-5.0) g/dL Globulin 3.6 (2.6-4.0) g/dL Albumin/Globulin Ratio 0.8 L (0.9-1.6) Result Diagrams: 05/25/21 06:27 05/25/21 06:27 Sepsis Event Note - Evaluation Sepsis Screening Result: No Definite Risk - Focused Exam Vital Signs: Vital Signs Temp Resp BP Pulse Ox Pulse Ox 05/25/21 14:00 26 H 87/48 L 91 L 91 L 05/25/21 13:00 22 H 117/48 L 91 L 05/25/21 12:00 97.5 F 12 92/47 L 88 L 05/25/21 11:00 19 96/52 L 93 L 05/25/21 10:00 22 H 97/52 L 90 L 05/25/21 09:00 98 F 11 L 87/51 L 88 L 05/25/21 08:00 21 H 109/58 L 90 L 05/25/21 07:00 23 H 106/60 88 L 05/25/21 06:00 19 134/70 92 L 05/25/21 05:00 23 H 133/73 89 L 05/25/21 04:00 98.0 F 16 117/72 89 L 05/25/21 03:00 17 132/70 91 L - Problem List & Annotations (1) Hypertension SNOMED Code(s): 26321662 Code(s): I10 - ESSENTIAL (PRIMARY) HYPERTENSION Status: Acute Current Visit: Yes (2) COVID-19 SNOMED Code(s): 302068267 Code(s): U07.1 - COVID-19 Status: Acute Current Visit: Yes (3) Hypoxia SNOMED Code(s): 053613573 Code(s): R09.02 - HYPOXEMIA Status: Acute Current Visit: Yes (4) Nausea SNOMED Code(s): 794673229 Code(s): R11.0 - NAUSEA Status: Acute Current Visit: Yes (5) GERD (gastroesophageal reflux disease) SNOMED Code(s): 831590353 Code(s): K21.9 - GASTRO-ESOPHAGEAL REFLUX DISEASE WITHOUT ESOPHAGITIS Sta tus: Acute Current Visit: Yes (6) Spinal stenosis SNOMED Code(s): 36465710 Code(s): M48.00 - SPINAL STENOSIS, SITE UNSPECIFIED Status: Acute Current Visit: Yes (7) Constipation SNOMED Code(s): 39354385 Code(s): K59.00 - CONSTIPATION, UNSPECIFIED Status: Acute Current Visit: Yes - Problem List Review Problem List Initiated/Reviewed/Updated: Yes - My Orders Last 24 Hours: My Active Orders 05/25/21 14:06 Enema [RC] ONETIME 05/26/21 05:11 CBC WITH AUTO DIFF [HEME] AM CMP [COMPREHENSIVE METABOLIC PN,CMP] [CHEM] AM 05/27/21 05:11 CBC WITH AUTO DIFF [HEME] AM CMP [COMPREHENSIVE METABOLIC PN,CMP] [CHEM] AM 05/28/21 05:11 CBC WITH AUTO DIFF [HEME] AM CMP [COMPREHENSIVE METABOLIC PN,CMP] [CHEM] AM - Assessment Assessment:: 1. Hypoxia secondary to COVID-19 pneumonia -Patient is on heated high flow, 55 L, O2 saturation is over 92%, FiO2 of 75, will continue supplying oxygen as needed -Will continue Ativan 1 mg IV push every 4 hours as needed -Continue the patient on dexamethasone 6 mg per oral route once a day -For shortness of breath, we will continue with Duoneb treatment and Combivent -For cough, we will continue with Robitussin per oral route every 4 hours -For vomiting, Zofran 4 mg IV every 4 hours as needed is on board 2. Constipation -Despite having MiraLAX on board, the patient has not had a bowel movement since 05/17 -The patient will have an enema today in hopes of passing stool 3. Pneumonia -Continue levofloxacin/dextrose 750 mg IV route every 24 hours -Daily CBC/CMP 4. Degenerative spinal stenosis -Continue the patient on ibuprofen 400 mg 3 times a day for oral route -She also has oxycodone 5 mg per oral route every 6 hours as needed on board
[2021-05-25] MEDS: Pantoprazole 40 MG in Sodium Chloride 0.9% 10 ML IV SCH (15:44)
[2021-05-25] MEDS: Enoxaparin 40 MG/0.4 ML Syringe SUBCUT SCH (15:45)
[2021-05-25] MEDS: Levofloxacin/Dextrose 5%-Water 750 MG in Premix Bag 1 BAG IV SCH (20:11)
[2021-05-25] MEDS: Polyethylene Glycol 3350 Powder 17 GM Packet PO SCH (20:11)
[2021-05-26] MEDS: Albuterol/Ipratropium 4 GM Inhalation Spray INH SCH ×6 (01:55→21:17)
[2021-05-26 06:42] LABS: BLOOD UREA NITROGEN,BUN 19 mg/dL (7.0-18.0); CARBON DIOXIDE,CO2 26.7 mmol/L (21.0-32.0); CHLORIDE,CL 103 mmol/L (98-107); GLUCOSE RANDOM 87 mg/dL (74-106); POTASSIUM,K 4.2 mmol/L (3.5-5.1); SODIUM,NA 139 mmol/L (136-145)
[2021-05-26] MEDS: Dexamethasone 4 MG Tab PO SCH (08:34)
--- NOTE | 2021-05-26 10:41 | CR ---
Indication: Constipation Technique: Supine view abdomen was obtained Comparison: None available. Findings: There is a non-obstructive, non-specific bowel gas pattern. There is a mild to moderate amount of stool seen throughout the colon. There is prior cholecystectomy. There is no intraabdominal free air. The visualized osseus structures are grossly intact. Impression: Non-obstructive bowel gas pattern. Mild to moderate stool seen throughout the colon. Dictated by Austin Howard MD @ 05/26/2021 10:38:57 AM (Electronically Signed)
[2021-05-26] MEDS ORDERED: Lactated Ringers 250 ML IV ONE (13:06)
[2021-05-26] MEDS: LORazepam 2 MG/ML SDV IVPUSH PRN (13:16)
--- NOTE | 2021-05-26 14:44 | PCM.PN ---
- General Info Date of Service: 05/26/21 Subjective Update: The patient is a 61-year-old female, on day 10 of service, with a significant past medical history of degenerative spinal stenosis, GERD, and hypertension, who was admitted for hypoxia secondary to COVID-19 pneumonia. The patient is currently on heated high flow, 55 L of oxygen, O2 saturation of over 91%, FiO2 of 60. The patient is doing much better today and feels that her breathing has improved, she has less cough than usual. She still is complaining of constipation and has not had a bowel movement in 9 days. Saline enema was used yesterday in order to promote evacuation however it failed to produce a bowel movement. She had an x-ray of the abdomen done today which showed no bowel obstructions or abnormalities, however she does have mild to moderate amount of stool within her GI system. We will try a mineral oil enema today to promote passing of stool. She is still being treated with antibiotics for pneumonia, more specifically levofloxacin/dextrose 750 mg via IV route. She has no other concerns at this time. - Review of Systems General: Reports: Fatigue. Denies: Fever, Weakness HEENT: Denies: Headaches Pulmonary: Reports: Shortness of Breath, Cough Cardiovascular: Denies: Chest Pain, Palpitations Gastrointestinal: Reports: Constipation. Denies: Abdominal Pain Genitourinary: Denies: Dysuria - Patient Data Vitals - Most Recent: Last Vital Signs Temp 97.5 F 05/26/21 12:00 Pulse 55 L 05/21/21 19:00 Resp 20 05/26/21 14:00 BP 100/49 L 05/26/21 14:00 Pulse Ox 90 L 05/26/21 14:00 Weight - Most Recent: 203 lb 3.68 oz I&O - Last 24 Hours: Intake & Output 05/25/21 05/26/21 05/26/21 22:59 06:59 14:59 Intake Total 680 800 250 Output Total 900 1050 Balance -220 -250 250 Lab Results Last 24 Hours: Laboratory Results - last 24 hr 05/26/21 05/26/21 Range/Units 05:40 05:40 WBC 5.68 (4.0-11.0) K/uL RBC 5.23 (4.30-5.90) M/uL Hgb 15.3 (12.0-16.0) g/dL Hct 44.4 (36.0-46.0) % MCV 84.9 (80.0-98.0) fL MCH 29.3 (27.0-32.0) pg MCHC 34.5 (31.0-37.0) g/dL RDW Std Deviation 40.4 (28.0-62.0) fl RDW Coeff of [place]ulu 13 (11.0-15.0) % Plt Count 291 (150-400) K/uL MPV 10.00 (7.40-12.00) fL Neut % (Auto) 69.1 (48.0-80.0) % Lymph % (Auto) 19.4 (16.0-40.0) % [place] % (Auto) 9.9 (0.0-15.0) % Eos % (Auto) 1.4 (0.0-7.0) % Baso % (Auto) 0.2 (0.0-1.5) % Neut # (Auto) 3.9 (1.4-5.7) K/uL Lymph # (Auto) 1.1 (0.6-2.4) K/uL [place] # (Auto) 0.6 (0.0-0.8) K/uL Eos # (Auto) 0.1 (0.0-0.7) K/uL Baso # (Auto) 0.0 (0.0-0.1) K/uL Nucleated RBC % 0.0 /100WBC Nucleated RBCs # 0 K/uL Sodium 139 (136-145) mmol/L Potassium 4.2 (3.5-5.1) mmol/L Chloride 103 (98-107) mmol/L Carbon Dioxide 26.7 (21.0-32.0) mmol/L BUN 19 H (7.0-18.0) mg/dL Creatinine 0.8 (0.6-1.0) mg/dL Est Cr Clr Drug Dosing 72.61 mL/min Estimated GFR (MDRD) > 60.0 ml/min Glucose 87 (74-106) mg/dL Calcium 8.4 L (8.5-10.1) mg/dL Total Bilirubin 1.0 (0.2-1.0) mg/dL AST 16 (15-37) IU/L ALT 31 (14-63) IU/L Alkaline Phosphatase 60 (46-116) U/L Total Protein 6.1 L (6.4-8.2) g/dL Albumin 2.7 L (3.4-5.0) g/dL Globulin 3.4 (2.6-4.0) g/dL Albumin/Globulin Ratio 0.8 L (0.9-1.6) Med Orders - Current: Current Medications Albuterol/Ipratropium (Albuterol/Ipratropium 4 Gm Inhalation [place]) 1 gm INH Q4HRRT BJ Last Admin: 05/26/21 13:17 Dose: 1 puff Documented by: Albuterol/Ipratropium (Albuterol/Ipratropium 3.0-0.5 Mg/3 Ml Neb Soln) 3 ml NEB Q4HRRT PRN PRN Reason: Shortness of Breath Last Admin: 05/20/21 11:36 Dose: 3 ml Documented by: Dexamethasone (Dexamethasone 4 Mg Tab) 6 mg PO DAILY [facility] [place] Last Admin: 05/26/21 08:34 Dose: 6 mg Documented by: Enoxaparin Sodium (Enoxaparin 40 Mg/0.4 Ml Syringe) 40 mg SUBCUT Q24H BJ Last Admin: 05/25/21 15:45 Dose: 40 mg Documented by: Guaifenesin (Guaifenesin 100 Mg/5 Ml Soln 5 Ml Ud Cup) 100 mg PO Q4H PRN PRN Reason: Cough Last Admin: 05/25/21 07:07 Dose: 100 mg Documented by: Pantoprazole Sodium 40 mg/ (Sodium Chloride) 10 mls @ 300 mls/hr IV Q24H BJ Last Admin: 05/25/21 15:44 Dose: 300 mls/hr Documented by: Levofloxacin/Dextrose 750 mg/ (Premix) 150 mls @ 100 mls/hr IV Q24H [facility] [place] Last Admin: 05/25/21 20:11 Dose: 100 mls/hr Documented by: Ibuprofen (Ibuprofen 400 Mg Tab) 400 mg PO Q8H PRN PRN Reason: Pain Last Admin: 05/19/21 18:09 Dose: 400 mg Documented by: Lorazepam (Lorazepam 2 Mg/Ml Sdv) 1 mg IVPUSH Q4H PRN PRN Reason: Agitation Last Admin: 05/26/21 13:16 Dose: 1 mg Documented by: Ondansetron HCl (Ondansetron 4 Mg/2 Ml Sdv) 4 mg IVPUSH Q4H PRN PRN Reason: Vomiting Last Admin: 05/17/21 12:03 Dose: 4 mg Documented by: Oxycodone HCl (Oxycodone 5 Mg Tab) 5 mg PO Q6H PRN PRN Reason: Pain Last Admin: 05/22/21 03:53 Dose: 5 mg Documented by: Polyethylene Glycol (Polyethylene Glycol 3350 Powder 17 Gm Packet) 17 gm PO BEDTIME [facility] [place] Last Admin: 05/25/21 20:11 Dose: 17 gm Documented by: Sodium Chloride (Sodium Chloride 0.9% 10 Ml Syringe) 10 ml FLUSH ASDIRECTED PRN PRN Reason: Keep Vein Open Last Admin: 05/16/21 10:51 Dose: 10 ml Documented by: Sodium Chloride (Sodium Chloride 0.9% 2.5 Ml Syringe) 2.5 ml FLUSH ASDIRECTED PRN PRN Reason: Keep Vein Open Last Admin: 05/16/21 10:51 Dose: 2.5 ml Documented by: Discontinued Medications Albuterol/Ipratropium (Albuterol/Ipratropium 4 Gm Inhalation [place]) 1 gm INH Q4HRRT PRN PRN Reason: Dyspnea Last Admin: 05/18/21 11:29 Dose: 1 puff Documented by: Diltiazem HCl (Diltiazem 180 Mg Cap.Cd) 360 mg PO DAILY [facility] [place] Last Admin: 05/21/21 08:04 Dose: 360 mg Documented by: Guaifenesin/Dextromethorphan (Guaifenesin/Dextromethorphan 100-10 Mg/5 Ml Soln 10 Ml Cup) 10 ml PO Q4H PRN PRN Reason: Cough Last Admin: 05/24/21 03:34 Dose: 10 ml Documented by: Sodium Chloride (Normal Saline) 1,000 mls @ 999 mls/hr IV .Bolus ONE Stop: 05/16/21 11:36 Last Admin: 05/16/21 10:49 Dose: 999 mls/hr Documented by: Remdesivir 200 mg/ Sodium (Chloride) 250 mls @ 250 mls/hr IV ONETIME ONE Stop: 05/16/21 15:59 Last Admin: 05/16/21 15:52 Dose: 250 mls/hr Documented by: Remdesivir 100 mg/ Sodium (Chloride) 100 mls @ 100 mls/hr IV Q24H BJ Stop: 05/20/21 15:59 Last Admin: 05/20/21 14:39 Dose: 100 mls/hr Documented by: Levofloxacin/Dextrose 750 mg/ (Premix) 150 mls @ 100 mls/hr IV NOW ONE Stop: 05/21/21 02:59 Last Admin: 05/21/21 02:01 Dose: 100 mls/hr Documented by: Lactated Ringer's (Ringers, Lactated) 250 mls @ 999 mls/hr IV ONETIME ONE Stop: 05/23/21 14:15 Last Admin: 05/23/21 14:13 Dose: 999 mls/hr Documented by: Lactated Ringer's (Ringers, Lactated) 250 mls @ 999 mls/hr IV ONETIME ONE Stop: 05/26/21 13:21 Last Admin: 05/26/21 13:16 Dose: 999 mls/hr Documented by: Ibuprofen (Ibuprofen 400 Mg Tab) 400 mg PO ONETIME ONE Stop: 05/16/21 10:36 Last Admin: 05/16/21 10:51 Dose: 400 mg Documented by: Ibuprofen (Ibuprofen 400 Mg Tab) 400 mg PO Q12H PRN PRN Reason: Pain Last Admin: 05/18/21 13:58 Dose: 400 mg Documented by: Ketorolac Tromethamine (Ketorolac 30 Mg/Ml Sdv) 30 mg IVPUSH ONETIME ONE Stop: 05/18/21 14:11 Last Admin: 05/18/21 14:42 Dose: 30 mg Documented by: Omeprazole (Omeprazole 20 Mg Cap.Cr) 20 mg PO DAILY [facility] [place] Last Admin: 05/17/21 14:06 Dose: Not Given Documented by: Ondansetron HCl (Ondansetron 4 Mg/2 Ml Sdv) 4 mg IVPUSH ONETIME ONE Stop: 05/16/21 10:26 Last Admin: 05/16/21 10:47 Dose: 4 mg Documented by: Polyethylene Glycol (Polyethylene Glycol 3350 Powder 17 Gm Packet) 17 gm PO ONETIME ONE Stop: 05/19/21 10:26 Last Admin: 05/19/21 11:46 Dose: 17 gm Documented by: Polyethylene Glycol (Polyethylene Glycol 3350 Powder 17 Gm Packet) 17 gm PO BEDTIME BJ Sodium Chloride (Sodium Chloride 0.9% 10 Ml Sdv) 250 ml IV STAT STA Stop: 05/16/21 10:28 Last Admin: 05/16/21 10:36 Dose: Not Given Documented by: - Exam Urinary Catheter Total Time: 5Days 8Hours General: Alert, Oriented, Cooperative HEENT: Pupils Equal, Pupils Reactive, Mucous Membr. Moist/[place] Neck: Trachea Midline Lungs: Decreased Breath Sounds Cardiovascular: Bradycardia GI/Abdominal Exam: Normal Bowel Sounds, Non-Tender - Patient Data Lab Results Last 24 hrs: Laboratory Results - last 24 hr 05/26/21 05/26/21 Range/Units 05:40 05:40 WBC 5.68 (4.0-11.0) K/uL RBC 5.23 (4.30-5.90) M/uL Hgb 15.3 (12.0-16.0) g/dL Hct 44.4 (36.0-46.0) % MCV 84.9 (80.0-98.0) fL MCH 29.3 (27.0-32.0) pg MCHC 34.5 (31.0-37.0) g/dL RDW Std Deviation 40.4 (28.0-62.0) fl RDW Coeff of [place] 13 (11.0-15.0) % Plt Count 291 (150-400) K/uL MPV 10.00 (7.40-12.00) fL Neut % (Auto) 69.1 (48.0-80.0) % Lymph % (Auto) 19.4 (16.0-40.0) % [place] % (Auto) 9.9 (0.0-15.0) % Eos % (Auto) 1.4 (0.0-7.0) % Baso % (Auto) 0.2 (0.0-1.5) % Neut # (Auto) 3.9 (1.4-5.7) K/uL Lymph # (Auto) 1.1 (0.6-2.4) K/uL [place] # (Auto) 0.6 (0.0-0.8) K/uL Eos # (Auto) 0.1 (0.0-0.7) K/uL Baso # (Auto) 0.0 (0.0-0.1) K/uL Nucleated RBC % 0.0 /100WBC Nucleated RBCs # 0 K/uL Sodium 139 (136-145) mmol/L Potassium 4.2 (3.5-5.1) mmol/L Chloride 103 (98-107) mmol/L Carbon Dioxide 26.7 (21.0-32.0) mmol/L BUN 19 H (7.0-18.0) mg/dL Creatinine 0.8 (0.6-1.0) mg/dL Est Cr Clr Drug Dosing 72.61 mL/min Estimated GFR (MDRD) > 60.0 ml/min Glucose 87 (74-106) mg/dL Calcium 8.4 L (8.5-10.1) mg/dL Total Bilirubin 1.0 (0.2-1.0) mg/dL AST 16 (15-37) IU/L ALT 31 (14-63) IU/L Alkaline Phosphatase 60 (46-116) U/L Total Protein 6.1 L (6.4-8.2) g/dL Albumin 2.7 L (3.4-5.0) g/dL Globulin 3.4 (2.6-4.0) g/dL Albumin/Globulin Ratio 0.8 L (0.9-1.6) Result Diagrams: 05/26/21 05:40 05/26/21 05:40 Sepsis Event Note - Evaluation Sepsis Screening Result: No Definite Risk - Focused Exam Vital Signs: Vital Signs Temp Resp BP Pulse Ox 05/26/21 14:00 20 100/49 L 90 L 05/26/21 13:00 21 H 86/48 L 91 L 05/26/21 12:00 97.5 F 21 H 87/45 L 89 L 05/26/21 11:00 24 H 90/40 L 91 L 05/26/21 10:00 21 H 88/57 L 87 L 05/26/21 09:00 24 H 73/42 L 83 L 05/26/21 08:00 17 83/55 L 86 L 05/26/21 07:00 20 98/61 89 L 05/26/21 06:00 22 H 94/55 L 91 L 05/26/21 05:00 18 92/58 L 90 L 05/26/21 04:00 18 101/44 L 89 L 05/26/21 03:00 23 H 96/57 L 91 L - Problem List & Annotations (1) Hypertension SNOMED Code(s): 71970728 Code(s): I10 - ESSENTIAL (PRIMARY) HYPERTENSION Status: Acute Current Vis it: Yes (2) COVID-19 SNOMED Code(s): 438413770 Code(s): U07.1 - COVID-19 Status: Acute Current Visit: Yes (3) Hypoxia SNOMED Code(s): 137417036 Code(s): R09.02 - HYPOXEMIA Status: Acute Current Visit: Yes (4) Nausea SNOMED Code(s): 100583218 Code(s): R11.0 - NAUSEA Status: Acute Current Visit: Yes (5) GERD (gastroesophageal reflux disease) SNOMED Code(s): 496438505 Code(s): K21.9 - GASTRO-ESOPHAGEAL REFLUX DISEASE WITHOUT ESOPHAGITIS Status: Acute Current Visit: Yes (6) Spinal stenosis SNOMED Code(s): 95537280 Code(s): M48.00 - SPINAL STENOSIS, SITE UNSPECIFIED Status: Acute Current Visit: Yes (7) Constipation SNOMED Code(s): 58980359 Code(s): K59.00 - CONSTIPATION, UNSPECIFIED Status: Acute Current Visit: Yes - Problem List Review Problem List Initiated/Reviewed/Updated: Yes - My Orders Last 24 Hours: My Active Orders 05/25/21 14:06 Enema [RC] ONETIME 05/26/21 14:33 Communication Order [RC] ASDIRECTED 05/27/21 05:11 CBC WITH AUTO DIFF [HEME] AM CMP [COMPREHENSIVE METABOLIC PN,CMP] [CHEM] AM 05/28/21 05:11 CBC WITH AUTO DIFF [HEME] AM CMP [COMPREHENSIVE METABOLIC PN,CMP] [CHEM] AM - Assessment Assessment:: 1. Hypoxia secondary to COVID-19 pneumonia -Patient is on heated high flow, 55 L, O2 saturation is over 91%, FiO2 of 60, will continue supplying oxygen as needed -Will continue Ativan 1 mg IV push every 4 hours as needed -Continue the patient on dexamethasone 6 mg per oral route once a day -For shortness of breath, we will continue with Duoneb treatment and Combivent -For cough, we will continue with Robitussin per oral route every 4 hours 2. Constipation -We tried a saline enema yesterday which was unsuccessful, and MiraLAX has not produced a bowel movement. -An x-ray of the abdomen was done today which showed no bowel obstruction but did show moderate amount of stool, we will proceed with a mineral oil enema today. 3. Pneumonia -Continue levofloxacin/dextrose 750 mg IV route every 24 hours -Daily CBC/CMP 4. Degenerative spinal stenosis -Continue the patient on ibuprofen 400 mg 3 times a day for oral route -She also has oxycodone 5 mg per oral route every 6 hours as needed on board
[2021-05-26] MEDS: Enoxaparin 40 MG/0.4 ML Syringe SUBCUT SCH (15:03)
[2021-05-26] MEDS: Pantoprazole 40 MG in Sodium Chloride 0.9% 10 ML IV SCH (15:04)
[2021-05-26] MEDS: Levofloxacin/Dextrose 5%-Water 750 MG in Premix Bag 1 BAG IV SCH (21:17)
[2021-05-26] MEDS: Polyethylene Glycol 3350 Powder 17 GM Packet PO SCH (21:17)
[2021-05-27] MEDS: guaiFENesin 100 MG/5 ML Soln 5 ML UD Cup PO PRN ×2 (02:13→20:11)
[2021-05-27] MEDS: Albuterol/Ipratropium 4 GM Inhalation Spray INH SCH ×6 (02:13→21:51)
[2021-05-27] MEDS: Ibuprofen 400 MG Tab PO PRN (02:13)
[2021-05-27 07:30] LABS: BLOOD UREA NITROGEN,BUN 21 mg/dL (7.0-18.0); CARBON DIOXIDE,CO2 25.6 mmol/L (21.0-32.0); CHLORIDE,CL 106 mmol/L (98-107); GLUCOSE RANDOM 93 mg/dL (74-106); POTASSIUM,K 4.2 mmol/L (3.5-5.1); SODIUM,NA 142 mmol/L (136-145)
[2021-05-27] MEDS: Dexamethasone 4 MG Tab PO SCH (09:23)
[2021-05-27] MEDS ORDERED: Sodium Chloride 0.9% 250 ML IV SCH (09:45)
[2021-05-27] MEDS: Ondansetron 4 MG/2 ML SDV IVPUSH PRN (10:38)
--- NOTE | 2021-05-27 11:59 | PCM.PN ---
- General Info Date of Service: 05/27/21 Subjective Update: The patient is a 61-year-old female, on day 12 of service, with a significant past medical history of degenerative spinal stenosis, GERD, and hypertension, who was admitted for hypoxia secondary to COVID-19 pneumonia. The patient is currently on heated high flow, 50 L of oxygen, O2 saturation of 90- 93%, FiO2 of 50. The patient addressed concerns of wanting to see her but was told that she would have to wait a full 20 days since confirmed di agnosis of COVID-19 to have visitors. The patient is doing much better today and feels that her breathing has improved. The patient had soap enema done yesterday which produced pale hard stool, and will have repeat done today in order to promote evacuation. The patient is hypotensive. With respect to her dexamethasone regimen, I spoke with the eICU physician Dr. Silverio who recommended we continue the steroid dose because it will help with the patient's lowered blood pressures by keeping them elevated. She is still being treated with antibiotics for pneumonia, more specifically levofloxacin/dextrose 750 mg via IV route. She has no other concerns at this time. - Review of Systems General: Reports: Fatigue. Denies: Fever, Weakness, Malaise, Chills HEENT: Denies: Headaches Pulmonary: Reports: Shortness of Breath, Cough Cardiovascular: Denies: Chest Pain, Palpitations Gastrointestinal: Reports: Constipation. Denies: Abdominal Pain, Diarrhea Genitourinary: Denies: Dysuria - Patient Data Vitals - Most Recent: Last Vital Signs Temp 97.8 F 05/27/21 08:00 Pulse 55 L 05/21/21 19:00 Resp 21 H 05/27/21 11:00 BP 87/49 L 05/27/21 11:00 Pulse Ox 100 05/27/21 11:00 Weight - Most Recent: 204 lb 9.6 oz I&O - Last 24 Hours: Intake & Output 05/26/21 05/27/21 05/27/21 22:59 06:59 14:59 Intake Total 850 700 Output Total 1000 650 Balance -150 50 Lab Results Last 24 Hours: Laboratory Results - last 24 hr 05/27/21 05/27/21 Range/Units 05:00 05:00 WBC 6.78 (4.0-11.0) K/uL RBC 5.02 (4.30-5.90) M/uL Hgb 14.6 (12.0-16.0) g/dL Hct 42.9 (36.0-46.0) % MCV 85.5 (80.0-98.0) fL MCH 29.1 (27.0-32.0) pg MCHC 34.0 (31.0-37.0) g/dL RDW Std Deviation 40.7 (28.0-62.0) fl RDW Coeff of Mulu 13 (11.0-15.0) % Plt Count 290 (150-400) K/uL MPV 10.60 (7.40-12.00) fL Neut % (Auto) 71.9 (48.0-80.0) % Lymph % (Auto) 16.2 (16.0-40.0) % [place] % (Auto) 10.0 (0.0-15.0) % Eos % (Auto) 1.8 (0.0-7.0) % Baso % (Auto) 0.1 (0.0-1.5) % Neut # (Auto) 4.9 (1.4-5.7) K/uL Lymph # (Auto) 1.1 (0.6-2.4) K/uL [place] # (Auto) 0.7 (0.0-0.8) K/uL Eos # (Auto) 0.1 (0.0-0.7) K/uL Baso # (Auto) 0.0 (0.0-0.1) K/uL Nucleated RBC % 0.0 /100WBC Nucleated RBCs # 0 K/uL Sodium 142 (136-145) mmol/L Potassium 4.2 (3.5-5.1) mmol/L Chloride 106 (98-107) mmol/L Carbon Dioxide 25.6 (21.0-32.0) mmol/L BUN 21 H (7.0-18.0) mg/dL Creatinine 0.9 (0.6-1.0) mg/dL Est Cr Clr Drug Dosing 64.54 mL/min Estimated GFR (MDRD) > 60.0 ml/min Glucose 93 (74-106) mg/dL Calcium 8.0 L (8.5-10.1) mg/dL Total Bilirubin 0.8 (0.2-1.0) mg/dL AST 17 (15-37) IU/L ALT 30 (14-63) IU/L Alkaline Phosphatase 55 (46-116) U/L Total Protein 5.7 L (6.4-8.2) g/dL Albumin 2.6 L (3.4-5.0) g/dL Globulin 3.1 (2.6-4.0) g/dL Albumin/Globulin Ratio 0.8 L (0.9-1.6) Med Orders - Current: Current Medications Albuterol/Ipratropium (Albuterol/Ipratropium 4 Gm Inhalation [place]) 1 gm INH Q4HRRT [facility] Last Admin: 05/27/21 09:24 Dose: 1 puff Documented by: Albuterol/Ipratropium (Albuterol/Ipratropium 3.0-0.5 Mg/3 Ml Neb Soln) 3 ml NEB Q4HRRT PRN PRN Reason: Shortness of Breath Last Admin: 05/20/21 11:36 Dose: 3 ml Documented by: Dexamethasone (Dexamethasone 4 Mg Tab) 6 mg PO DAILY [facility] Last Admin: 05/27/21 09:23 Dose: 6 mg Documented by: Enoxaparin Sodium (Enoxaparin 40 Mg/0.4 Ml Syringe) 40 mg SUBCUT Q24H [facility] Last Admin: 05/26/21 15:03 Dose: 40 mg Documented by: Guaifenesin (Guaifenesin 100 Mg/5 Ml Soln 5 Ml Ud Cup) 100 mg PO Q4H PRN PRN Reason: Cough Last Admin: 05/27/21 02:13 Dose: 100 mg Documented by: Pantoprazole Sodium 40 mg/ (Sodium Chloride) 10 mls @ 300 mls/hr IV Q24H [facility] Last Admin: 05/26/21 15:04 Dose: 300 mls/hr Documented by: Levofloxacin/Dextrose 750 mg/ (Premix) 150 mls @ 100 mls/hr IV Q24H [facility] Last Admin: 05/26/21 21:17 Dose: 100 mls/hr Documented by: Sodium Chloride (Normal Saline) 250 mls @ 999 mls/hr IV BOLUS [facility] Last Admin: 05/27/21 09:40 Dose: 999 mls/hr Documented by: Ibuprofen (Ibuprofen 400 Mg Tab) 400 mg PO Q8H PRN PRN Reason: Pain Last Admin: 05/27/21 02:13 Dose: 400 mg Documented by: Lorazepam (Lorazepam 2 Mg/Ml Sdv) 1 mg IVPUSH Q4H PRN PRN Reason: Agitation Last Admin: 05/26/21 13:16 Dose: 1 mg Documented by: Ondansetron HCl (Ondansetron 4 Mg/2 Ml Sdv) 4 mg IVPUSH Q4H PRN PRN Reason: Vomiting Last Admin: 05/27/21 10:38 Dose: 4 mg Documented by: Oxycodone HCl (Oxycodone 5 Mg Tab) 5 mg PO Q6H PRN PRN Reason: Pain Last Admin: 05/22/21 03:53 Dose: 5 mg Documented by: Polyethylene Glycol (Polyethylene Glycol 3350 Powder 17 Gm Packet) 17 gm PO BEDTIME BJ Last Admin: 05/26/21 21:17 Dose: 17 gm Documented by: Sodium Chloride (Sodium Chloride 0.9% 10 Ml Syringe) 10 ml FLUSH ASDIRECTED PRN PRN Reason: Keep Vein Open Last Admin: 05/16/21 10:51 Dose: 10 ml Documented by: Sodium Chloride (Sodium Chloride 0.9% 2.5 Ml Syringe) 2.5 ml FLUSH ASDIRECTED PRN PRN Reason: Keep Vein Open Last Admin: 05/16/21 10:51 Dose: 2.5 ml Documented by: Discontinued Medications Albuterol/Ipratropium (Albuterol/Ipratropium 4 Gm Inhalation [place]) 1 gm INH Q4HRRT PRN PRN Reason: Dyspnea Last Admin: 05/18/21 11:29 Dose: 1 puff Documented by: Diltiazem HCl (Diltiazem 180 Mg Cap.Cd) 360 mg PO DAILY [facility] Last Admin: 05/21/21 08:04 Dose: 360 mg Documented by: Guaifenesin/Dextromethorphan (Guaifenesin/Dextromethorphan 100-10 Mg/5 Ml Soln 10 Ml Cup) 10 ml PO Q4H PRN PRN Reason: Cough Last Admin: 05/24/21 03:34 Dose: 10 ml Documented by: Sodium Chloride (Normal Saline) 1,000 mls @ 999 mls/hr IV .Bolus ONE Stop: 05/16/21 11:36 Last Admin: 05/16/21 10:49 Dose: 999 mls/hr Documented by: Remdesivir 200 mg/ Sodium (Chloride) 250 mls @ 250 mls/hr IV ONETIME ONE Stop: 05/16/21 15:59 Last Admin: 05/16/21 15:52 Dose: 250 mls/hr Documented by: Remdesivir 100 mg/ Sodium (Chloride) 100 mls @ 100 mls/hr IV Q24H [facility]J Stop: 05/20/21 15:59 Last Admin: 05/20/21 14:39 Dose: 100 mls/hr Documented by: Levofloxacin/Dextrose 750 mg/ (Premix) 150 mls @ 100 mls/hr IV NOW ONE Stop: 05/21/21 02:59 Last Admin: 05/21/21 02:01 Dose: 100 mls/hr Documented by: Lactated Ringer's (Ringers, Lactated) 250 mls @ 999 mls/hr IV ONETIME ONE Stop: 05/23/21 14:15 Last Admin: 05/23/21 14:13 Dose: 999 mls/hr Documented by: Lactated Ringer's (Ringers, Lactated) 250 mls @ 999 mls/hr IV ONETIME ONE Stop: 05/26/21 13:21 Last Admin: 05/26/21 13:16 Dose: 999 mls/hr Documented by: Ibuprofen (Ibuprofen 400 Mg Tab) 400 mg PO ONETIME ONE Stop: 05/16/21 10:36 Last Admin: 05/16/21 10:51 Dose: 400 mg Documented by: Ibuprofen (Ibuprofen 400 Mg Tab) 400 mg PO Q12H PRN PRN Reason: Pain Last Admin: 05/18/21 13:58 Dose: 400 mg Documented by: Ketorolac Tromethamine (Ketorolac 30 Mg/Ml Sdv) 30 mg IVPUSH ONETIME ONE Stop: 05/18/21 14:11 Last Admin: 05/18/21 14:42 Dose: 30 mg Documented by: Omeprazole (Omeprazole 20 Mg Cap.Cr) 20 mg PO DAILY [facility] Last Admin: 05/17/21 14:06 Dose: Not Given Documented by: Ondansetron HCl (Ondansetron 4 Mg/2 Ml Sdv) 4 mg IVPUSH ONETIME ONE Stop: 05/16/21 10:26 Last Admin: 05/16/21 10:47 Dose: 4 mg Documented by: Polyethylene Glycol (Polyethylene Glycol 3350 Powder 17 Gm Packet) 17 gm PO ONETIME ONE Stop: 05/19/21 10:26 Last Admin: 05/19/21 11:46 Dose: 17 gm Documented by: Polyethylene Glycol (Polyethylene Glycol 3350 Powder 17 Gm Packet) 17 gm PO BEDTIME BJ Sodium Chloride (Sodium Chloride 0.9% 10 Ml Sdv) 250 ml IV STAT STA Stop: 05/16/21 10:28 Last Admin: 05/16/21 10:36 Dose: Not Given Documented by: - Exam Urinary Catheter Total Time: 6Days 5Hours General: Alert, Oriented, Cooperative, Lethargic HEENT: Mucous Membr. Moist/[place] Neck: Trachea Midline Lungs: Clear to Auscultation Cardiovascular: Regular Rate, Regular Rhythm, No Murmurs GI/Abdominal Exam: Normal Bowel Sounds, Non-Tender - Patient Data Lab Results Last 24 hrs: Laboratory Results - last 24 hr 05/27/21 05/27/21 Range/Units 05:00 05:00 WBC 6.78 (4.0-11.0) K/uL RBC 5.02 (4.30-5.90) M/uL Hgb 14.6 (12.0-16.0) g/dL Hct 42.9 (36.0-46.0) % MCV 85.5 (80.0-98.0) fL MCH 29.1 (27.0-32.0) pg MCHC 34.0 (31.0-37.0) g/dL RDW Std Deviation 40.7 (28.0-62.0) fl RDW Coeff of Mulu 13 (11.0-15.0) % Plt Count 290 (150-400) K/uL MPV 10.60 (7.40-12.00) fL Neut % (Auto) 71.9 (48.0-80.0) % Lymph % (Auto) 16.2 (16.0-40.0) % [place] % (Auto) 10.0 (0.0-15.0) % Eos % (Auto) 1.8 (0.0-7.0) % Baso % (Auto) 0.1 (0.0-1.5) % Neut # (Auto) 4.9 (1.4-5.7) K/uL Lymph # (Auto) 1.1 (0.6-2.4) K/uL [place] # (Auto) 0.7 (0.0-0.8) K/uL Eos # (Auto) 0.1 (0.0-0.7) K/uL Baso # (Auto) 0.0 (0.0-0.1) K/uL Nucleated RBC % 0.0 /100WBC Nucleated RBCs # 0 K/uL Sodium 142 (136-145) mmol/L Potassium 4.2 (3.5-5.1) mmol/L Chloride 106 (98-107) mmol/L Carbon Dioxide 25.6 (21.0-32.0) mmol/L BUN 21 H (7.0-18.0) mg/dL Creatinine 0.9 (0.6-1.0) mg/dL Est Cr Clr Drug Dosing 64.54 mL/min Estimated GFR (MDRD) > 60.0 ml/min Glucose 93 (74-106) mg/dL Calcium 8.0 L (8.5-10.1) mg/dL Total Bilirubin 0.8 (0.2-1.0) mg/dL AST 17 (15-37) IU/L ALT 30 (14-63) IU/L Alkaline Phosphatase 55 (46-116) U/L Total Protein 5.7 L (6.4-8.2) g/dL Albumin 2.6 L (3.4-5.0) g/dL Globulin 3.1 (2.6-4.0) g/dL Albumin/Globulin Ratio 0.8 L (0.9-1.6) Result Diagrams: 05/27/21 05:00 05/27/21 05:00 Sepsis Event Note - Evaluation Sepsis Screening Result: No Definite Risk - Focused Exam Vital Signs: Vital Signs Temp Resp BP Pulse Ox Pulse Ox 05/27/21 11:00 21 H 87/49 L 100 05/27/21 10:00 22 H 99/51 L 94 L 05/27/21 09:46 88/46 L 05/27/21 09:25 85/43 L 05/27/21 09:20 80/48 L 05/27/21 09:00 23 H 85/43 L 93 L 05/27/21 08:00 97.8 F 22 H 94/50 L 88 L 05/27/21 07:00 20 92/52 L 92 L 05/27/21 06:00 16 91/56 L 94 L 05/27/21 05:39 93 L 05/27/21 05:00 97.3 F 20 96/57 L 93 L 05/27/21 04:00 20 92 L 05/27/21 03:00 19 126/62 94 L 05/27/21 02:00 21 H 90 L 05/27/21 01:00 18 107/49 L 90 L 05/27/21 00:00 98.2 F 23 H 106/52 L 91 L - Problem List & Annotations (1) Hypertension SNOMED Code(s): 62890245 Code(s): I10 - ESSENTIAL (PRIMARY) HYPERTENSION Status: Acute Current Visit: Yes (2) COVID-19 SNOMED Code(s): 604648290 Code(s): U07.1 - COVID-19 Status: Acute Current Visit: Yes (3) Hypoxia SNOMED Code(s): 300837036 Code(s): R09.02 - HYPOXEMIA Status: Acute Current Visit: Yes (4) Nausea SNOMED Code(s): 352585906 Code(s): R11.0 - NAUSEA Status: Acute Current Visit: Yes (5) GERD (gastroesophageal reflux disease) SNOMED Code(s): 707860472 Code(s): K21.9 - GASTRO-ESOPHAGEAL REFLUX DISEASE WITHOUT ESOPHAGITIS Sta tus: Acute Current Visit: Yes (6) Spinal stenosis SNOMED Code(s): 22227817 Code(s): M48.00 - SPINAL STENOSIS, SITE UNSPECIFIED Status: Acute Current Visit: Yes (7) Constipation SNOMED Code(s): 38046290 Code(s): K59.00 - CONSTIPATION, UNSPECIFIED Status: Acute Current Visit: Yes - Problem List Review Problem List Initiated/Reviewed/Updated: Yes - My Orders Last 24 Hours: My Active Orders 05/26/21 14:33 Communication Order [RC] ASDIRECTED 05/27/21 09:45 Sodium Chloride 0.9% [Normal Saline] 250 ml IV BOLUS 05/28/21 05:11 CBC WITH AUTO DIFF [HEME] AM CMP [COMPREHENSIVE METABOLIC PN,CMP] [CHEM] AM - Assessment Assessment:: 1. Hypoxia secondary to COVID-19 pneumonia -Patient is on heated high flow, 50 L, O2 saturation is 90-93%, FiO2 of 50, will continue supplying oxygen as needed -Will continue Ativan 1 mg IV push every 4 hours as needed -Continue the patient on dexamethasone 6 mg per oral route once a day, dexamethasone will be continued and will help with patient's hypotension as discussed with eICU physician Dr. Silverio who recommended we continue with steroid dosing in this patient despite it being over 10 days. -For shortness of breath, we will continue with Duoneb treatment and Combivent -For cough, we will continue with Robitussin per oral route every 4 hours 2. Constipation -We will do a repeat soap enema today in order to promote evacuation. 3. Pneumonia -Continue levofloxacin/dextrose 750 mg IV route every 24 hours, and daily CBC/CMP 4. Degenerative spinal stenosis -Continue the patient on ibuprofen 400 mg 3 times a day per oral route and o xycodone 5 mg per oral route every 6 hours as needed
[2021-05-27] MEDS: Pantoprazole 40 MG in Sodium Chloride 0.9% 10 ML IV SCH (14:36)
[2021-05-27] MEDS: Enoxaparin 40 MG/0.4 ML Syringe SUBCUT SCH (14:45)
--- NOTE | 2021-05-27 19:38 | PN ---
CHARU Physician - Brief Progress [id number]/05/2021 19:31[facility] Palomo Malena [place], CAROLA - SEB (ABDULAZIZ) - POLI STEVENS, COVID+Date of Service 05/27/2021 19:31HPI/ Events of Note Pt is comfortably sitting in bed talking/playing on cell phone. She is breathing fairl y comfortably on HHFNC with documented fio2 of 50% and flow 50 L. VS: 36.6C, 63, 123/55, 23, 90%Gen: Comfortable, NAD, appears well nourishedHeart: NSR with normal HR on telemetryLungs: Breathing fairly comfortably on HHFNC 50% fio2 and 50L flow with spo2 90%Neuro: Comfortably lying in bed, talking on phone, playing on phone at times, no apparent lateralizing deficits, A&O to her phone conversationASS ESSMENT:Acute hypoxic respiratory failureCommunity acquired pneumonia d/t [id number] via HFNNC , wean as toleratedMaintain spo2 >90% and po2 >60 mmHgDroplet isolation per protocolDuoNebDexamethaso neEmpiric Levaquin per bedside teamInterventions Major-Hypoxemia - evaluation and management, Infecti on - evaluation and management, Respiratory failure - evaluation and management
[2021-05-27] MEDS: Levofloxacin/Dextrose 5%-Water 750 MG in Premix Bag 1 BAG IV SCH (20:11)
[2021-05-27] MEDS: Polyethylene Glycol 3350 Powder 17 GM Packet PO SCH (20:11)
[2021-05-28] MEDS: Albuterol/Ipratropium 4 GM Inhalation Spray INH SCH ×6 (02:03→21:07)
[2021-05-28 07:40] LABS: BLOOD UREA NITROGEN,BUN 14 mg/dL (7.0-18.0); CARBON DIOXIDE,CO2 26.1 mmol/L (21.0-32.0); CHLORIDE,CL 105 mmol/L (98-107); GLUCOSE RANDOM 92 mg/dL (74-106); POTASSIUM,K 4.3 mmol/L (3.5-5.1); SODIUM,NA 142 mmol/L (136-145)
[2021-05-28] MEDS: Dexamethasone 4 MG Tab PO SCH (08:00)
[2021-05-28] MEDS ORDERED: Magnesium Hydroxide 400 MG/5 ML Susp 30 ML Cup PO PRN (13:19)
[2021-05-28] MEDS ORDERED: Lactated Ringers 250 ML IV ONE (13:28)
[2021-05-28] MEDS: Pantoprazole 40 MG in Sodium Chloride 0.9% 10 ML IV SCH (14:00)
[2021-05-28] MEDS: Enoxaparin 40 MG/0.4 ML Syringe SUBCUT SCH (14:01)
--- NOTE | 2021-05-28 17:34 | PCM.PN ---
<Gus Shell - Last Filed: 05/28/21 17:27> - General Info Date of Service: 05/28/21 Subjective Update: The patient is a 61-year-old female, on day 13 of service, with a significant past medical history of degenerative spinal stenosis, GERD, and hypertension, who was admitted for hypoxia secondary to COVID-19 pneumonia. The patient is currently on heated high flow, 45 L of oxygen, FiO2 of 55, and O2 saturation of 92%. Upon interview today, the patient feels much better, states that her shortness of breath has subsided, and that she has a slight cough. She is still complaining of constipation but admits that she is passing gas. She has had three enemas over the past three days done including one saline and two soaps. Today a mineral oil enema was attempted on the patient in order to promote a bowel movement, however it did not work. We will move forward by ordering milk of magnesia 30 mL per oral one time in hopes for evacuation to take place. The patient once again addressed concerns about wanting to see her [id number] instead of over her phone. It was reiterated to her that based on her COVID-19 positive status that visitors are not currently allowed. She has no other concerns at this time. - Review of Systems General: Reports: Fatigue. Denies: Fever, Weakness HEENT: Denies: Headaches Pulmonary: Reports: Cough. Denies: Shortness of Breath Cardiovascular: Denies: Chest Pain, Palpitations Gastrointestinal: Reports: Constipation. Denies: Abdominal Pain, Diarrhea Genitourinary: Denies: Dysuria - Patient Data Vitals - Most Recent: Last Vital Signs Temp 97.5 F 05/28/21 16:00 Pulse 55 L 05/21/21 19:00 Resp 17 05/28/21 16:28 BP 124/67 05/28/21 16:28 Pulse Ox 95 05/28/21 16:28 Weight - Most Recent: 92.805 kg I&O - Last 24 Hours: Intake & Output 05/28/21 05/28/21 05/28/21 06:59 14:59 22:59 Intake Total 1130 Output Total 1275 Balance -145 Lab Results Last 24 Hours: Laboratory Results - last 24 hr 05/28/21 05/28/21 Range/Units 05:25 05:25 WBC 6.34 (4.0-11.0) K/uL RBC 4.88 (4.30-5.90) M/uL Hgb 14.1 (12.0-16.0) g/dL Hct 42.2 (36.0-46.0) % MCV 86.5 (80.0-98.0) fL MCH 28.9 (27.0-32.0) pg MCHC 33.4 (31.0-37.0) g/dL RDW Std Deviation 41.8 (28.0-62.0) fl RDW Coeff of Mulu 13 (11.0-15.0) % Plt Count 267 (150-400) K/uL MPV 10.80 (7.40-12.00) fL Neut % (Auto) 73.7 (48.0-80.0) % Lymph % (Auto) 16.6 (16.0-40.0) % [place] % (Auto) 8.4 (0.0-15.0) % Eos % (Auto) 1.1 (0.0-7.0) % Baso % (Auto) 0.2 (0.0-1.5) % Neut # (Auto) 4.7 (1.4-5.7) K/uL Lymph # (Auto) 1.1 (0.6-2.4) K/uL [place] # (Auto) 0.5 (0.0-0.8) K/uL Eos # (Auto) 0.1 (0.0-0.7) K/uL Baso # (Auto) 0.0 (0.0-0.1) K/uL Nucleated RBC % 0.0 /100WBC Nucleated RBCs # 0 K/uL Sodium 142 (136-145) mmol/L Potassium 4.3 (3.5-5.1) mmol/L Chloride 105 (98-107) mmol/L Carbon Dioxide 26.1 (21.0-32.0) mmol/L BUN 14 (7.0-18.0) mg/dL Creatinine 0.8 (0.6-1.0) mg/dL Est Cr Clr Drug Dosing 72.61 mL/min Estimated GFR (MDRD) > 60.0 ml/min Glucose 92 (74-106) mg/dL Calcium 8.0 L (8.5-10.1) mg/dL Total Bilirubin 0.8 (0.2-1.0) mg/dL AST 14 L (15-37) IU/L ALT 27 (14-63) IU/L Alkaline Phosphatase 53 (46-116) U/L Total Protein 5.7 L (6.4-8.2) g/dL Albumin 2.5 L (3.4-5.0) g/dL Globulin 3.2 (2.6-4.0) g/dL Albumin/Globulin Ratio 0.8 L (0.9-1.6) Med Orders - Current: Current Medications Albuterol/Ipratropium (Albuterol/Ipratropium 4 Gm Inhalation [place]) 1 gm INH Q4HRRT [facility] Last Admin: 05/28/21 13:56 Dose: 1 puff Documented by: Albuterol/Ipratropium (Albuterol/Ipratropium 3.0-0.5 Mg/3 Ml Neb Soln) 3 ml NEB Q4HRRT PRN PRN Reason: Shortness of Breath Last Admin: 05/20/21 11:36 Dose: 3 ml Documented by: Dexamethasone (Dexamethasone 4 Mg Tab) 6 mg PO DAILY [facility] Last Admin: 05/28/21 08:00 Dose: 6 mg Documented by: Enoxaparin Sodium (Enoxaparin 40 Mg/0.4 Ml Syringe) 40 mg SUBCUT Q24H [facility] Last Admin: 05/28/21 14:01 Dose: 40 mg Documented by: Guaifenesin (Guaifenesin 100 Mg/5 Ml Soln 5 Ml Ud Cup) 100 mg PO Q4H PRN PRN Reason: Cough Last Admin: 05/27/21 20:11 Dose: 100 mg Documented by: Pantoprazole Sodium 40 mg/ (Sodium Chloride) 10 mls @ 300 mls/hr IV Q24H [facility] Last Admin: 05/28/21 14:00 Dose: 300 mls/hr Documented by: Levofloxacin/Dextrose 750 mg/ (Premix) 150 mls @ 100 mls/hr IV Q24H [facility] Last Admin: 05/27/21 20:11 Dose: 100 mls/hr Documented by: Sodium Chloride (Normal Saline) 250 mls @ 999 mls/hr IV BOLUS [facility] Last Admin: 05/27/21 09:40 Dose: 999 mls/hr Documented by: Ibuprofen (Ibuprofen 400 Mg Tab) 400 mg PO Q8H PRN PRN Reason: Pain Last Admin: 05/27/21 02:13 Dose: 400 mg Documented by: Lorazepam (Lorazepam 2 Mg/Ml Sdv) 1 mg IVPUSH Q4H PRN PRN Reason: Agitation Last Admin: 05/26/21 13:16 Dose: 1 mg Documented by: Magnesium Hydroxide (Magnesium Hydroxide 400 Mg/5 Ml Susp 30 Ml Cup) 30 ml PO ONETIME PRN PRN Reason: Constipation Last Admin: 05/28/21 13:59 Dose: 30 ml Documented by: Ondansetron HCl (Ondansetron 4 Mg/2 Ml Sdv) 4 mg IVPUSH Q4H PRN PRN Reason: Vomiting Last Admin: 05/27/21 10:38 Dose: 4 mg Documented by: Oxycodone HCl (Oxycodone 5 Mg Tab) 5 mg PO Q6H PRN PRN Reason: Pain Last Admin: 05/22/21 03:53 Dose: 5 mg Documented by: Polyethylene Glycol (Polyethylene Glycol 3350 Powder 17 Gm Packet) 17 gm PO BEDTIME BJ Last Admin: 05/27/21 20:11 Dose: 17 gm Documented by: Sodium Chloride (Sodium Chloride 0.9% 10 Ml Syringe) 10 ml FLUSH ASDIRECTED PRN PRN Reason: Keep Vein Open Last Admin: 05/16/21 10:51 Dose: 10 ml Documented by: Sodium Chloride (Sodium Chloride 0.9% 2.5 Ml Syringe) 2.5 ml FLUSH ASDIRECTED PRN PRN Reason: Keep Vein Open Last Admin: 05/16/21 10:51 Dose: 2.5 ml Documented by: Discontinued Medications Albuterol/Ipratropium (Albuterol/Ipratropium 4 Gm Inhalation [place]) 1 gm INH Q4HRRT PRN PRN Reason: Dyspnea Last Admin: 05/18/21 11:29 Dose: 1 puff Documented by: Diltiazem HCl (Diltiazem 180 Mg Cap.Cd) 360 mg PO DAILY BJ Last Admin: 05/21/21 08:04 Dose: 360 mg Documented by: Guaifenesin/Dextromethorphan (Guaifenesin/Dextromethorphan 100-10 Mg/5 Ml Soln 10 Ml Cup) 10 ml PO Q4H PRN PRN Reason: Cough Last Admin: 05/24/21 03:34 Dose: 10 ml Documented by: Sodium Chloride (Normal Saline) 1,000 mls @ 999 mls/hr IV .Bolus ONE Stop: 05/16/21 11:36 Last Admin: 05/16/21 10:49 Dose: 999 mls/hr Documented by: Remdesivir 200 mg/ Sodium (Chloride) 250 mls @ 250 mls/hr IV ONETIME ONE Stop: 05/16/21 15:59 Last Admin: 05/16/21 15:52 Dose: 250 mls/hr Documented by: Remdesivir 100 mg/ Sodium (Chloride) 100 mls @ 100 mls/hr IV Q24H BJ Stop: 05/20/21 15:59 Last Admin: 05/20/21 14:39 Dose: 100 mls/hr Documented by: Levofloxacin/Dextrose 750 mg/ (Premix) 150 mls @ 100 mls/hr IV NOW ONE Stop: 05/21/21 02:59 Last Admin: 05/21/21 02:01 Dose: 100 mls/hr Documented by: Lactated Ringer's (Ringers, Lactated) 250 mls @ 999 mls/hr IV ONETIME ONE Stop: 05/23/21 14:15 Last Admin: 05/23/21 14:13 Dose: 999 mls/hr Documented by: Lactated Ringer's (Ringers, Lactated) 250 mls @ 999 mls/hr IV ONETIME ONE Stop: 05/26/21 13:21 Last Admin: 05/26/21 13:16 Dose: 999 mls/hr Documented by: Lactated Ringer's (Ringers, Lactated) 250 mls @ 999 mls/hr IV ONETIME ONE Stop: 05/28/21 13:43 Last Admin: 05/28/21 13:55 Dose: 999 mls/hr Documented by: Ibuprofen (Ibuprofen 400 Mg Tab) 400 mg PO ONETIME ONE Stop: 05/16/21 10:36 Last Admin: 05/16/21 10:51 Dose: 400 mg Documented by: Ibuprofen (Ibuprofen 400 Mg Tab) 400 mg PO Q12H PRN PRN Reason: Pain Last Admin: 05/18/21 13:58 Dose: 400 mg Documented by: Ketorolac Tromethamine (Ketorolac 30 Mg/Ml Sdv) 30 mg IVPUSH ONETIME ONE Stop: 05/18/21 14:11 Last Admin: 05/18/21 14:42 Dose: 30 mg Documented by: Omeprazole (Omeprazole 20 Mg Cap.Cr) 20 mg PO DAILY BJ Last Admin: 05/17/21 14:06 Dose: Not Given Documented by: Ondansetron HCl (Ondansetron 4 Mg/2 Ml Sdv) 4 mg IVPUSH ONETIME ONE Stop: 05/16/21 10:26 Last Admin: 05/16/21 10:47 Dose: 4 mg Documented by: Polyethylene Glycol (Polyethylene Glycol 3350 Powder 17 Gm Packet) 17 gm PO ONETIME ONE Stop: 05/19/21 10:26 Last Admin: 05/19/21 11:46 Dose: 17 gm Documented by: Polyethylene Glycol (Polyethylene Glycol 3350 Powder 17 Gm Packet) 17 gm PO BEDTIME BJ Sodium Chloride (Sodium Chloride 0.9% 10 Ml Sdv) 250 ml IV STAT STA Stop: 05/16/21 10:28 Last Admin: 05/16/21 10:36 Dose: Not Given Documented by: - Exam Urinary Catheter Total Time: 7Days 12Hours General: Alert, Oriented, Cooperative HEENT: Mucous Membr. Moist/[place] Neck: Trachea Midline Lungs: Other (Patient is on heated high flow) Cardiovascular: Bradycardia GI/Abdominal Exam: Normal Bowel Sounds, Soft, Non-Tender - Patient Data Lab Results Last 24 hrs: Laboratory Results - last 24 hr 05/28/21 05/28/21 Range/Units 05:25 05:25 WBC 6.34 (4.0-11.0) K/uL RBC 4.88 (4.30-5.90) M/uL Hgb 14.1 (12.0-16.0) g/dL Hct 42.2 (36.0-46.0) % MCV 86.5 (80.0-98.0) fL MCH 28.9 (27.0-32.0) pg MCHC 33.4 (31.0-37.0) g/dL RDW Std Deviation 41.8 (28.0-62.0) fl RDW Coeff of [place]ulu 13 (11.0-15.0) % Plt Count 267 (150-400) K/uL MPV 10.80 (7.40-12.00) fL Neut % (Auto) 73.7 (48.0-80.0) % Lymph % (Auto) 16.6 (16.0-40.0) % [place] % (Auto) 8.4 (0.0-15.0) % Eos % (Auto) 1.1 (0.0-7.0) % Baso % (Auto) 0.2 (0.0-1.5) % Neut # (Auto) 4.7 (1.4-5.7) K/uL Lymph # (Auto) 1.1 (0.6-2.4) K/uL [place] # (Auto) 0.5 (0.0-0.8) K/uL Eos # (Auto) 0.1 (0.0-0.7) K/uL Baso # (Auto) 0.0 (0.0-0.1) K/uL Nucleated RBC % 0.0 /100WBC Nucleated RBCs # 0 K/uL Sodium 142 (136-145) mmol/L Potassium 4.3 (3.5-5.1) mmol/L Chloride 105 (98-107) mmol/L Carbon Dioxide 26.1 (21.0-32.0) mmol/L BUN 14 (7.0-18.0) mg/dL Creatinine 0.8 (0.6-1.0) mg/dL Est Cr Clr Drug Dosing 72.61 mL/min Estimated GFR (MDRD) > 60.0 ml/min Glucose 92 (74-106) mg/dL Calcium 8.0 L (8.5-10.1) mg/dL Total Bilirubin 0.8 (0.2-1.0) mg/dL AST 14 L (15-37) IU/L ALT 27 (14-63) IU/L Alkaline Phosphatase 53 (46-116) U/L Total Protein 5.7 L (6.4-8.2) g/dL Albumin 2.5 L (3.4-5.0) g/dL Globulin 3.2 (2.6-4.0) g/dL Albumin/Globulin Ratio 0.8 L (0.9-1.6) Result Diagrams: 05/28/21 05:25 05/28/21 05:25 Sepsis Event Note - Evaluation Sepsis Screening Result: No Definite Risk - Focused Exam Vital Signs: Vital Signs Temp Resp BP Pulse Ox Pulse Ox 05/28/21 16:28 17 124/67 95 05/28/21 16:00 97.5 F 25 H 101/61 94 L 05/28/21 15:00 29 H 87/45 L 90 L 05/28/21 14:42 23 H 99/59 L 94 L 05/28/21 14:37 25 H 103/49 L 92 L 05/28/21 14:30 23 H 91/49 L 100 05/28/21 14:28 22 H 73/52 L 05/28/21 14:00 17 80/43 L 88 L 05/28/21 13:00 20 85/52 L 92 L 05/28/21 12:00 10 L 100/53 L 88 L 05/28/21 11:00 96.9 F 18 84/55 L 89 L 05/28/21 10:00 13 84/38 L 91 L 05/28/21 09:27 20 92/51 L 95 05/28/21 09:00 18 88/51 L 88 L 05/28/21 08:00 96.7 F L 20 101/65 90 L 05/28/21 07:00 19 113/65 91 L 91 L - Problem List & Annotations (1) COVID-19 SNOMED Code(s): 143136358 Code(s): U07.1 - COVID-19 Status: Acute (2) Hypoxia SNOMED Code(s): 539019417 Code(s): R09.02 - HYPOXEMIA Status: Acute (3) GERD (gastroesophageal reflux disease) SNOMED Code(s): 250219943 Code(s): K21.9 - GASTRO-ESOPHAGEAL REFLUX DISEASE WITHOUT ESOPHAGITIS Status: Acute (4) Spinal stenosis SNOMED Code(s): 01472648 Code(s): M48.00 - SPINAL STENOSIS, SITE UNSPECIFIED Status: Acute (7) Hypertension SNOMED Code(s): 82425854 Code(s): I10 - ESSENTIAL (PRIMARY) HYPERTENSION Status: Acute (8) Nausea SNOMED Code(s): 983706923 Code(s): R11.0 - NAUSEA Status: Acute (9) Constipation SNOMED Code(s): 07540015 Code(s): K59.00 - CONSTIPATION, UNSPECIFIED Status: Acute - Problem List Review Problem List Initiated/Reviewed/Updated: Yes - My Orders Last 24 Hours: My Active Orders 05/28/21 11:07 Enema [RC] ONETIME - Assessment Assessment:: 1. Hypoxia secondary to COVID-19 pneumonia -Patient is on heated high flow, 45 L, O2 saturation is 92%, FiO2 of 55, will continue supplying oxygen as needed -Will continue Ativan 1 mg IV push every 4 hours as needed -Continue the patient on dexamethasone 6 mg per oral route once a day -For shortness of breath, we will continue with Duoneb treatment and Combivent -For cough, we will continue with Robitussin per oral route every 4 hours -For nausea, we will continue with Zofran 4 mg IV route as needed -Continue I-S in prone position 2. Constipation -A mineral oil enema was attempted but failed today, we have started milk of magnesia 30 mL per oral route. 3. Pneumonia -Continue levofloxacin/dextrose 750 mg IV route every 24 hours, and daily CBC/CMP 4. Degenerative spinal stenosis -Continue the patient on ibuprofen 400 mg 3 times a day per oral route and oxycodone 5 mg per oral route every 6 hours as needed <Haroldo Adams - Last Filed: 06/07/21 15:40> - Patient Data Vitals - Most Recent: Last Vital Signs Temp 36.3 C 06/03/21 08:52 Pulse 92 06/03/21 08:52 Resp 18 06/03/21 08:52 BP 99/56 L 06/03/21 08:52 Pulse Ox 92 L 06/03/21 08:52 Med Orders - Current: Current Medications Discontinued Medications Albuterol/Ipratropium (Albuterol/Ipratropium 4 Gm Inhalation [place]) 1 gm INH Q4HRRT PRN PRN Reason: Dyspnea Last Admin: 05/18/21 11:29 Dose: 1 puff Documented by: Albuterol/Ipratropium (Albuterol/Ipratropium 4 Gm Inhalation [place]) 1 gm INH Q4HRRT BJ Last Admin: 06/02/21 09:59 Dose: Not Given Documented by: Albuterol/Ipratropium (Albuterol/Ipratropium 3.0-0.5 Mg/3 Ml Neb Soln) 3 ml NEB Q4HRRT PRN PRN Reason: Shortness of Breath Last Admin: 05/20/21 11:36 Dose: 3 ml Documented by: Dexamethasone (Dexamethasone 4 Mg Tab) 6 mg PO DAILY [facility] Last Admin: 05/29/21 08:41 Dose: 6 mg Documented by: Diltiazem HCl (Diltiazem 180 Mg Cap.Cd) 360 mg PO DAILY [facility] Last Admin: 05/21/21 08:04 Dose: 360 mg Documented by: Enoxaparin Sodium (Enoxaparin 40 Mg/0.4 Ml Syringe) 40 mg SUBCUT Q24H [facility] Last Admin: 06/02/21 14:12 Dose: 40 mg Documented by: Guaifenesin (Guaifenesin 100 Mg/5 Ml Soln 5 Ml Ud Cup) 100 mg PO Q4H PRN PRN Reason: Cough Last Admin: 06/02/21 22:50 Dose: 100 mg Documented by: Guaifenesin/Dextromethorphan (Guaifenesin/Dextromethorphan 100-10 Mg/5 Ml Soln 10 Ml Cup) 10 ml PO Q4H PRN PRN Reason: Cough Last Admin: 05/24/21 03:34 Dose: 10 ml Documented by: Sodium Chloride (Normal Saline) 1,000 mls @ 999 mls/hr IV .Bolus ONE Stop: 05/16/21 11:36 Last Admin: 05/16/21 10:49 Dose: 999 mls/hr Documented by: Remdesivir 200 mg/ Sodium (Chloride) 250 mls @ 250 mls/hr IV ONETIME ONE Stop: 05/16/21 15:59 Last Admin: 05/16/21 15:52 Dose: 250 mls/hr Documented by: Remdesivir 100 mg/ Sodium (Chloride) 100 mls @ 100 mls/hr IV Q24H BJ Stop: 05/20/21 15:59 Last Admin: 05/20/21 14:39 Dose: 100 mls/hr Documented by: Pantoprazole Sodium 40 mg/ (Sodium Chloride) 10 mls @ 300 mls/hr IV Q24H [facility] Last Admin: 06/02/21 14:14 Dose: 300 mls/hr Documented by: Levofloxacin/Dextrose 750 mg/ (Premix) 150 mls @ 100 mls/hr IV Q24H [facility] Last Admin: 05/28/21 21:18 Dose: 100 mls/hr Documented by: Levofloxacin/Dextrose 750 mg/ (Premix) 150 mls @ 100 mls/hr IV NOW ONE Stop: 05/21/21 02:59 Last Admin: 05/21/21 02:01 Dose: 100 mls/hr Documented by: Lactated Ringer's (Ringers, Lactated) 250 mls @ 999 mls/hr IV ONETIME ONE Stop: 05/23/21 14:15 Last Admin: 05/23/21 14:13 Dose: 999 mls/hr Documented by: Lactated Ringer's (Ringers, Lactated) 250 mls @ 999 mls/hr IV ONETIME ONE Stop: 05/26/21 13:21 Last Admin: 05/26/21 13:16 Dose: 999 mls/hr Documented by: Sodium Chloride (Normal Saline) 250 mls @ 999 mls/hr IV BOLUS BJ Last Admin: 05/27/21 09:40 Dose: 999 mls/hr Documented by: Lactated Ringer's (Ringers, Lactated) 250 mls @ 999 mls/hr IV ONETIME ONE Stop: 05/28/21 13:43 Last Admin: 05/28/21 13:55 Dose: 999 mls/hr Documented by: Lactated Ringer's (Ringers, Lactated) 1,000 mls @ 250 mls/hr IV ONETIME ONE Stop: 05/29/21 13:44 Last Admin: 05/29/21 10:29 Dose: Not Given Documented by: Lactated Ringer's (Ringers, Lactated) 250 mls @ 250 mls/hr IV .BOLUS BJ Last Admin: 05/29/21 10:05 Dose: 250 mls/hr Documented by: Ibuprofen (Ibuprofen 400 Mg Tab) 400 mg PO ONETIME ONE Stop: 05/16/21 10:36 Last Admin: 05/16/21 10:51 Dose: 400 mg Documented by: Ibuprofen (Ibuprofen 400 Mg Tab) 400 mg PO Q12H PRN PRN Reason: Pain Last Admin: 05/18/21 13:58 Dose: 400 mg Documented by: Ibuprofen (Ibuprofen 400 Mg Tab) 400 mg PO Q8H PRN PRN Reason: Pain Last Admin: 06/03/21 04:24 Dose: 400 mg Documented by: Ketorolac Tromethamine (Ketorolac 30 Mg/Ml Sdv) 30 mg IVPUSH ONETIME ONE Stop: 05/18/21 14:11 Last Admin: 05/18/21 14:42 Dose: 30 mg Documented by: Loperamide HCl (Loperamide 2 Mg Cap) 2 mg PO ONETIME ONE Stop: 06/01/21 10:26 Last Admin: 06/01/21 11:42 Dose: Not Given Documented by: Lorazepam (Lorazepam 2 Mg/Ml Sdv) 1 mg IVPUSH Q4H PRN PRN Reason: Agitation Last Admin: 05/26/21 13:16 Dose: 1 mg Documented by: Magnesium Hydroxide (Magnesium Hydroxide 400 Mg/5 Ml Susp 30 Ml Cup) 30 ml PO ONETIME PRN PRN Reason: Constipation Last Admin: 05/28/21 13:59 Dose: 30 ml Documented by: Omeprazole (Omeprazole 20 Mg Cap.Cr) 20 mg PO DAILY BJ Last Admin: 05/17/21 14:06 Dose: Not Given Documented by: Ondansetron HCl (Ondansetron 4 Mg/2 Ml Sdv) 4 mg IVPUSH ONETIME ONE Stop: 05/16/21 10:26 Last Admin: 05/16/21 10:47 Dose: 4 mg Documented by: Ondansetron HCl (Ondansetron 4 Mg/2 Ml Sdv) 4 mg IVPUSH Q4H PRN PRN Reason: Vomiting Last Admin: 05/27/21 10:38 Dose: 4 mg Documented by: Oxycodone HCl (Oxycodone 5 Mg Tab) 5 mg PO Q6H PRN PRN Reason: Pain Last Admin: 05/22/21 03:53 Dose: 5 mg Documented by: Polyethylene Glycol (Polyethylene Glycol 3350 Powder 17 Gm Packet) 17 gm PO ONETIME ONE Stop: 05/19/21 10:26 Last Admin: 05/19/21 11:46 Dose: 17 gm Documented by: Polyethylene Glycol (Polyethylene Glycol 3350 Powder 17 Gm Packet) 17 gm PO BEDTIME BJ Last Admin: 05/29/21 23:39 Dose: 17 gm Documented by: Polyethylene Glycol (Polyethylene Glycol 3350 Powder 17 Gm Packet) 17 gm PO BEDTIME BJ Sodium Chloride (Sodium Chloride 0.9% 10 Ml Syringe) 10 ml FLUSH ASDIRECTED PRN PRN Reason: Keep Vein Open Last Admin: 05/16/21 10:51 Dose: 10 ml Documented by: Sodium Chloride (Sodium Chloride 0.9% 2.5 Ml Syringe) 2.5 ml FLUSH ASDIRECTED PRN PRN Reason: Keep Vein Open Last Admin: 05/16/21 10:51 Dose: 2.5 ml Documented by: Sodium Chloride (Sodium Chloride 0.9% 10 Ml Sdv) 250 ml IV STAT STA Stop: 05/16/21 10:28 Last Admin: 05/16/21 10:36 Dose: Not Given Documented by: Sodium Chloride (Sodium Chloride 0.65% Nasal [place] 45 Ml Bottle) 0 ml GALINDO Q6H PRN PRN Reason: Congestion - Patient Data Result Diagrams: 06/03/21 05:55 06/03/21 05:55 - Problem List & Annotations (1) Acute respiratory failure with hypoxia SNOMED Code(s): 33883182, 171458859 Code(s): J96.01 - ACUTE RESPIRATORY FAILURE WITH HYPOXIA Status: Acute (2) COVID-19 SNOMED Code(s): 623309896 Code(s): U07.1 - COVID-19 Status: Acute (3) Constipation SNOMED Code(s): 18222165 Code(s): K59.00 - CONSTIPATION, UNSPECIFIED Status: Deleted (4) GERD (gastroesophageal reflux disease) SNOMED Code(s): 851078989 Code(s): K21.9 - GASTRO-ESOPHAGEAL REFLUX DISEASE WITHOUT ESOPHAGITIS Status: Acute (5) Hypertension SNOMED Code(s): 47880723 Code(s): I10 - ESSENTIAL (PRIMARY) HYPERTENSION Status: Deleted (6) Hypoxia SNOMED Code(s): 061571650 Code(s): R09.02 - HYPOXEMIA Status: Acute - Assessment Assessment:: I have seen and evaluated the patient and agree with the residents note unless specified in my note
[2021-05-28] MEDS ORDERED: Sodium Chloride 0.65% Nasal Spray 45 ML Bottle NAS PRN (17:59)
[2021-05-28] MEDS: Levofloxacin/Dextrose 5%-Water 750 MG in Premix Bag 1 BAG IV SCH (21:18)
[2021-05-28] MEDS: Polyethylene Glycol 3350 Powder 17 GM Packet PO SCH (21:43)
[2021-05-28] MEDS: guaiFENesin 100 MG/5 ML Soln 5 ML UD Cup PO PRN (22:18)
[2021-05-29] MEDS: Albuterol/Ipratropium 4 GM Inhalation Spray INH SCH ×6 (02:35→17:34)
[2021-05-29 06:21] LABS: BLOOD UREA NITROGEN,BUN 14 mg/dL (7.0-18.0); CARBON DIOXIDE,CO2 31.1 mmol/L (21.0-32.0); CHLORIDE,CL 104 mmol/L (98-107); GLUCOSE RANDOM 87 mg/dL (74-106); POTASSIUM,K 4.2 mmol/L (3.5-5.1); SODIUM,NA 142 mmol/L (136-145)
[2021-05-29] MEDS: Dexamethasone 4 MG Tab PO SCH (08:41)
--- NOTE | 2021-05-29 09:05 | PN ---
THC Physician - Brief Progress [id number]/07/2021 09:02[facility] [place], [place] - SEB (ABDULAZIZ) - POLI STEVENS COVID+Date of Service 05/29/2021 09:02HPI/ Events of Note eICU progress noteActive problems:1. Acute hypoxemic respiratory failure2. Severe CO VID-19 pneumoniaLast 24-hour events:Patient's condition is gradually improving oxygen requirements do wn to 6 L oxygen nasal cannula.Vitals:Afebrile, BP 140/65, P 82, RR 19, SPO2 94% on 6 L oxygen nasal cannulaChart, labs and images reviewedCase discussed with Dr. Diazently on dexamethasone, bronchod ilators, antibiotics, DVT prophylaxisPlans to [facility] floorThank you for allowing us to p articipate in the care of your patient.Interventions Major-Respiratory failure - evaluation and manag ement
[2021-05-29] MEDS ORDERED: Lactated Ringers 1,000 ML IV ONE (09:45)
[2021-05-29] MEDS ORDERED: Lactated Ringers 250 ML IV SCH (10:00)
--- NOTE | 2021-05-29 11:27 | PCM.PN ---
<Gus Shell - Last Filed: 05/29/21 11:16> - General Info Date of Service: 05/29/21 Subjective Update: The patient is a 61-year-old female, on day 14 of service, with a significant past medical history of degenerative spinal stenosis, GERD, and hypertension, who was admitted for hypoxia secondary to COVID-19 pneumonia. The patient is currently on nasal cannula, the patient was on 6 L this morning and improved to 4 L, and is currently saturating over 90%. Upon interview today, the patient feels much better, she feels her breathing is less labored and her cough has subsided, but she is complaining of dizziness upon standing up. Her blood pressures were on the lower side and as a result we will give her 1 bolus of lactated Ringer's 250 mL an hour; she feels prior lactated Ringer boluses have helped with her dizziness on previous occasions throughout this hospital admission. The patient is stable enough to be transferred from the ICU to the medical floor and we hope to accomplish this today. I spoke with [facility] physician Dr. Crouch in regards to this patient's case who recommended that we continue the patient on IV antibiotics for her pneumonia. She has no other conc erns at this time. - Review of Systems General: Denies: Fever, Weakness, Fatigue HEENT: Denies: Headaches Pulmonary: Reports: Shortness of Breath. Denies: Cough Cardiovascular: Denies: Chest Pain, Palpitations, Dyspnea on Exertion Gastrointestinal: Reports: Constipation. Denies: Abdominal Pain, Diarrhea Genitourinary: Denies: Dysuria Neurological: Reports: Dizziness - Patient Data Vitals - Most Recent: Last Vital Signs Temp 97.1 F 05/29/21 08:00 Pulse 55 L 05/21/21 19:00 Resp 21 H 05/29/21 08:00 BP 93/61 05/29/21 08:00 Pulse Ox 91 L 05/29/21 08:00 Weight - Most Recent: 92.986 kg I&O - Last 24 Hours: Intake & Output 05/28/21 05/29/21 05/29/21 22:59 06:59 14:59 Intake Total 1130 1800 Output Total 1275 1600 Balance -145 200 Lab Results Last 24 Hours: Laboratory Results - last 24 hr 05/29/21 05/29/21 Range/Units 04:57 04:57 WBC 7.21 (4.0-11.0) K/uL RBC 4.97 (4.30-5.90) M/uL Hgb 14.2 (12.0-16.0) g/dL Hct 43.2 (36.0-46.0) % MCV 86.9 (80.0-98.0) fL MCH 28.6 (27.0-32.0) pg MCHC 32.9 (31.0-37.0) g/dL RDW Std Deviation 42.2 (28.0-62.0) fl RDW Coeff of Mulu 13 (11.0-15.0) % Plt Count 258 (150-400) K/uL MPV 10.60 (7.40-12.00) fL Neut % (Auto) 73.9 (48.0-80.0) % Lymph % (Auto) 17.2 (16.0-40.0) % [place] % (Auto) 7.4 (0.0-15.0) % Eos % (Auto) 1.4 (0.0-7.0) % Baso % (Auto) 0.1 (0.0-1.5) % Neut # (Auto) 5.3 (1.4-5.7) K/uL Lymph # (Auto) 1.2 (0.6-2.4) K/uL [place] # (Auto) 0.5 (0.0-0.8) K/uL Eos # (Auto) 0.1 (0.0-0.7) K/uL Baso # (Auto) 0.0 (0.0-0.1) K/uL Nucleated RBC % 0.0 /100WBC Nucleated RBCs # 0 K/uL Sodium 142 (136-145) mmol/L Potassium 4.2 (3.5-5.1) mmol/L Chloride 104 (98-107) mmol/L Carbon Dioxide 31.1 (21.0-32.0) mmol/L BUN 14 (7.0-18.0) mg/dL Creatinine 0.8 (0.6-1.0) mg/dL Est Cr Clr Drug Dosing 72.61 mL/min Estimated GFR (MDRD) > 60.0 ml/min Glucose 87 (74-106) mg/dL Calcium 7.9 L (8.5-10.1) mg/dL Total Bilirubin 0.7 (0.2-1.0) mg/dL AST 12 L (15-37) IU/L ALT 24 (14-63) IU/L Alkaline Phosphatase 54 (46-116) U/L Total Protein 5.8 L (6.4-8.2) g/dL Albumin 2.6 L (3.4-5.0) g/dL Globulin 3.2 (2.6-4.0) g/dL Albumin/Globulin Ratio 0.8 L (0.9-1.6) Med Orders - Current: Current Medications Albuterol/Ipratropium (Albuterol/Ipratropium 4 Gm Inhalation [place]) 1 gm INH Q4HRRT [facility] Last Admin: 05/29/21 11:00 Dose: 1 puff Documented by: Albuterol/Ipratropium (Albuterol/Ipratropium 3.0-0.5 Mg/3 Ml Neb Soln) 3 ml NEB Q4HRRT PRN PRN Reason: Shortness of Breath Last Admin: 05/20/21 11:36 Dose: 3 ml Documented by: Enoxaparin Sodium (Enoxaparin 40 Mg/0.4 Ml Syringe) 40 mg SUBCUT Q24H [facility] Last Admin: 05/28/21 14:01 Dose: 40 mg Documented by: Guaifenesin (Guaifenesin 100 Mg/5 Ml Soln 5 Ml Ud Cup) 100 mg PO Q4H PRN PRN Reason: Cough Last Admin: 05/28/21 22:18 Dose: 100 mg Documented by: Pantoprazole Sodium 40 mg/ (Sodium Chloride) 10 mls @ 300 mls/hr IV Q24H [facility] Last Admin: 05/28/21 14:00 Dose: 300 mls/hr Documented by: Levofloxacin/Dextrose 750 mg/ (Premix) 150 mls @ 100 mls/hr IV Q24H [facility] Last Admin: 05/28/21 21:18 Dose: 100 mls/hr Documented by: Sodium Chloride (Normal Saline) 250 mls @ 999 mls/hr IV BOLUS [facility] Last Admin: 05/27/21 09:40 Dose: 999 mls/hr Documented by: Lactated Ringer's (Ringers, Lactated) 250 mls @ 250 mls/hr IV .BOLUS [facility] Last Admin: 05/29/21 10:05 Dose: 250 mls/hr Documented by: Ibuprofen (Ibuprofen 400 Mg Tab) 400 mg PO Q8H PRN PRN Reason: Pain Last Admin: 05/27/21 02:13 Dose: 400 mg Documented by: Lorazepam (Lorazepam 2 Mg/Ml Sdv) 1 mg IVPUSH Q4H PRN PRN Reason: Agitation Last Admin: 05/26/21 13:16 Dose: 1 mg Documented by: Magnesium Hydroxide (Magnesium Hydroxide 400 Mg/5 Ml Susp 30 Ml Cup) 30 ml PO ONETIME PRN PRN Reason: Constipation Last Admin: 05/28/21 13:59 Dose: 30 ml Documented by: Ondansetron HCl (Ondansetron 4 Mg/2 Ml Sdv) 4 mg IVPUSH Q4H PRN PRN Reason: Vomiting Last Admin: 05/27/21 10:38 Dose: 4 mg Documented by: Oxycodone HCl (Oxycodone 5 Mg Tab) 5 mg PO Q6H PRN PRN Reason: Pain Last Admin: 05/22/21 03:53 Dose: 5 mg Documented by: Polyethylene Glycol (Polyethylene Glycol 3350 Powder 17 Gm Packet) 17 gm PO BEDTIME [facility] Last Admin: 05/28/21 21:43 Dose: Not Given Documented by: Sodium Chloride (Sodium Chloride 0.9% 10 Ml Syringe) 10 ml FLUSH ASDIRECTED PRN PRN Reason: Keep Vein Open Last Admin: 05/16/21 10:51 Dose: 10 ml Documented by: Sodium Chloride (Sodium Chloride 0.9% 2.5 Ml Syringe) 2.5 ml FLUSH ASDIRECTED PRN PRN Reason: Keep Vein Open Last Admin: 05/16/21 10:51 Dose: 2.5 ml Documented by: Sodium Chloride (Sodium Chloride 0.65% Nasal [place] 45 Ml Bottle) 0 ml GALINDO Q6H PRN PRN Reason: Congestion Discontinued Medications Albuterol/Ipratropium (Albuterol/Ipratropium 4 Gm Inhalation [place]) 1 gm INH Q4HRRT PRN PRN Reason: Dyspnea Last Admin: 05/18/21 11:29 Dose: 1 puff Documented by: Dexamethasone (Dexamethasone 4 Mg Tab) 6 mg PO DAILY [facility] Last Admin: 05/29/21 08:41 Dose: 6 mg Documented by: Diltiazem HCl (Diltiazem 180 Mg Cap.Cd) 360 mg PO DAILY [facility] Last Admin: 05/21/21 08:04 Dose: 360 mg Documented by: Guaifenesin/Dextromethorphan (Guaifenesin/Dextromethorphan 100-10 Mg/5 Ml Soln 10 Ml Cup) 10 ml PO Q4H PRN PRN Reason: Cough Last Admin: 05/24/21 03:34 Dose: 10 ml Documented by: Sodium Chloride (Normal Saline) 1,000 mls @ 999 mls/hr IV .Bolus ONE Stop: 05/16/21 11:36 Last Admin: 05/16/21 10:49 Dose: 999 mls/hr Documented by: Remdesivir 200 mg/ Sodium (Chloride) 250 mls @ 250 mls/hr IV ONETIME ONE Stop: 05/16/21 15:59 Last Admin: 05/16/21 15:52 Dose: 250 mls/hr Documented by: Remdesivir 100 mg/ Sodium (Chloride) 100 mls @ 100 mls/hr IV Q24H [facility] Stop: 05/20/21 15:59 Last Admin: 05/20/21 14:39 Dose: 100 mls/hr Documented by: Levofloxacin/Dextrose 750 mg/ (Premix) 150 mls @ 100 mls/hr IV NOW ONE Stop: 05/21/21 02:59 Last Admin: 05/21/21 02:01 Dose: 100 mls/hr Documented by: Lactated Ringer's (Ringers, Lactated) 250 mls @ 999 mls/hr IV ONETIME ONE Stop: 05/23/21 14:15 Last Admin: 05/23/21 14:13 Dose: 999 mls/hr Documented by: Lactated Ringer's (Ringers, Lactated) 250 mls @ 999 mls/hr IV ONETIME ONE Stop: 05/26/21 13:21 Last Admin: 05/26/21 13:16 Dose: 999 mls/hr Documented by: Lactated Ringer's (Ringers, Lactated) 250 mls @ 999 mls/hr IV ONETIME ONE Stop: 05/28/21 13:43 Last Admin: 05/28/21 13:55 Dose: 999 mls/hr Documented by: Lactated Ringer's (Ringers, Lactated) 1,000 mls @ 250 mls/hr IV ONETIME ONE Stop: 05/29/21 13:44 Last Admin: 05/29/21 10:29 Dose: Not Given Documented by: Ibuprofen (Ibuprofen 400 Mg Tab) 400 mg PO ONETIME ONE Stop: 05/16/21 10:36 Last Admin: 05/16/21 10:51 Dose: 400 mg Documented by: Ibuprofen (Ibuprofen 400 Mg Tab) 400 mg PO Q12H PRN PRN Reason: Pain Last Admin: 05/18/21 13:58 Dose: 400 mg Documented by: Ketorolac Tromethamine (Ketorolac 30 Mg/Ml Sdv) 30 mg IVPUSH ONETIME ONE Stop: 05/18/21 14:11 Last Admin: 05/18/21 14:42 Dose: 30 mg Documented by: Omeprazole (Omeprazole 20 Mg Cap.Cr) 20 mg PO DAILY [facility] Last Admin: 05/17/21 14:06 Dose: Not Given Documented by: Ondansetron HCl (Ondansetron 4 Mg/2 Ml Sdv) 4 mg IVPUSH ONETIME ONE Stop: 05/16/21 10:26 Last Admin: 05/16/21 10:47 Dose: 4 mg Documented by: Polyethylene Glycol (Polyethylene Glycol 3350 Powder 17 Gm Packet) 17 gm PO ONETIME ONE Stop: 05/19/21 10:26 Last Admin: 05/19/21 11:46 Dose: 17 gm Documented by: Polyethylene Glycol (Polyethylene Glycol 3350 Powder 17 Gm Packet) 17 gm PO BEDTIME [facility] Sodium Chloride (Sodium Chloride 0.9% 10 Ml Sdv) 250 ml IV STAT STA Stop: 05/16/21 10:28 Last Admin: 05/16/21 10:36 Dose: Not Given Documented by: - Exam Urinary Catheter Total Time: 7Days 13Hours General: Alert, Oriented, Cooperative HEENT: Mucous Membr. Moist/[place] Neck: Trachea Midline Lungs: Clear to Auscultation, Normal Respiratory Effort Cardiovascular: Bradycardia GI/Abdominal Exam: Normal Bowel Sounds, Soft, Non-Tender - Patient Data Lab Results Last 24 hrs: Laboratory Results - last 24 hr 05/29/21 05/29/21 Range/Units 04:57 04:57 WBC 7.21 (4.0-11.0) K/uL RBC 4.97 (4.30-5.90) M/uL Hgb 14.2 (12.0-16.0) g/dL Hct 43.2 (36.0-46.0) % MCV 86.9 (80.0-98.0) fL MCH 28.6 (27.0-32.0) pg MCHC 32.9 (31.0-37.0) g/dL RDW Std Deviation 42.2 (28.0-62.0) fl RDW Coeff of Mulu 13 (11.0-15.0) % Plt Count 258 (150-400) K/uL MPV 10.60 (7.40-12.00) fL Neut % (Auto) 73.9 (48.0-80.0) % Lymph % (Auto) 17.2 (16.0-40.0) % [place] % (Auto) 7.4 (0.0-15.0) % Eos % (Auto) 1.4 (0.0-7.0) % Baso % (Auto) 0.1 (0.0-1.5) % Neut # (Auto) 5.3 (1.4-5.7) K/uL Lymph # (Auto) 1.2 (0.6-2.4) K/uL [place] # (Auto) 0.5 (0.0-0.8) K/uL Eos # (Auto) 0.1 (0.0-0.7) K/uL Baso # (Auto) 0.0 (0.0-0.1) K/uL Nucleated RBC % 0.0 /100WBC Nucleated RBCs # 0 K/uL Sodium 142 (136-145) mmol/L Potassium 4.2 (3.5-5.1) mmol/L Chloride 104 (98-107) mmol/L Carbon Dioxide 31.1 (21.0-32.0) mmol/L BUN 14 (7.0-18.0) mg/dL Creatinine 0.8 (0.6-1.0) mg/dL Est Cr Clr Drug Dosing 72.61 mL/min Estimated GFR (MDRD) > 60.0 ml/min Glucose 87 (74-106) mg/dL Calcium 7.9 L (8.5-10.1) mg/dL Total Bilirubin 0.7 (0.2-1.0) mg/dL AST 12 L (15-37) IU/L ALT 24 (14-63) IU/L Alkaline Phosphatase 54 (46-116) U/L Total Protein 5.8 L (6.4-8.2) g/dL Albumin 2.6 L (3.4-5.0) g/dL Globulin 3.2 (2.6-4.0) g/dL Albumin/Globulin Ratio 0.8 L (0.9-1.6) Result Diagrams: 05/29/21 04:57 05/29/21 04:57 Sepsis Event Note - Evaluation Sepsis Screening Result: No Definite Risk - Focused Exam Vital Signs: Vital Signs Temp Resp BP Pulse Ox 05/29/21 08:00 97.1 F 21 H 93/61 91 L 05/29/21 07:00 18 115/62 92 L 05/29/21 06:00 17 157/78 H 95 05/29/21 05:00 17 111/59 L 91 L 05/29/21 04:00 97.8 F 17 140/64 90 L 05/29/21 03:00 17 110/46 L 94 L 05/29/21 02:00 21 H 100/54 L 85 L 05/29/21 01:00 18 122/59 L 89 L 05/29/21 00:00 97.3 F 18 118/57 L 88 L - Problem List & Annotations (1) COVID-19 SNOMED Code(s): 768230443 Code(s): U07.1 - COVID-19 Status: Acute (2) Hypoxia SNOMED Code(s): 986974659 Code(s): R09.02 - HYPOXEMIA Status: Acute (3) GERD (gastroesophageal reflux disease) SNOMED Code(s): 978484489 Code(s): K21.9 - GASTRO-ESOPHAGEAL REFLUX DISEASE WITHOUT ESOPHAGITIS Status: Acute (4) Spinal stenosis SNOMED Code(s): 41242708 Code(s): M48.00 - SPINAL STENOSIS, SITE UNSPECIFIED Status: Acute (7) Hypertension SNOMED Code(s): 56482513 Code(s): I10 - ESSENTIAL (PRIMARY) HYPERTENSION Status: Acute (8) Nausea SNOMED Code(s): 853446303 Code(s): R11.0 - NAUSEA Status: Acute (9) Constipation SNOMED Code(s): 48217793 Code(s): K59.00 - CONSTIPATION, UNSPECIFIED Status: Acute - Problem List Review Problem List Initiated/Reviewed/Updated: Yes - My Orders Last 24 Hours: My Active Orders 05/28/21 11:07 Enema [RC] ONETIME 05/29/21 10:00 Lactated Ringers [Ringers, Lactated] 250 ml IV .BOLUS 05/30/21 05:11 CBC WITH AUTO DIFF [HEME] AM CMP [COMPREHENSIVE METABOLIC PN,CMP] [CHEM] AM 05/31/21 05:11 CBC WITH AUTO DIFF [HEME] AM CMP [COMPREHENSIVE METABOLIC PN,CMP] [CHEM] AM 06/01/21 05:11 CBC WITH AUTO DIFF [HEME] AM CMP [COMPREHENSIVE METABOLIC PN,CMP] [CHEM] AM 06/02/21 05:11 CBC WITH AUTO DIFF [HEME] AM CMP [COMPREHENSIVE METABOLIC PN,CMP] [CHEM] AM - Assessment Assessment:: 1. Hypoxia secondary to COVID-19 pneumonia -Patient is on NC, currently on 4 L saturating above 90%, will continue s upplying oxygen as needed -Patient's oxygen demand has decreased and as a result she will be transferred from the ICU to the medical floor -Will continue Ativan 1 mg IV push every 4 hours as needed -Continue the patient on dexamethasone 6 mg per oral route once a day -For shortness of breath, we will continue with Duoneb treatment and Combivent -For cough, we will continue with Robitussin per oral route every 4 hours -Continue I-S in prone position 2. Orthostatic hypotension secondary to deconditioning -The patient suffers from hypertension at home but while in hospital her blood pressures have been on the lower side, as a result we have held her medications -The patient has been complaining of dizziness throughout her hospital course due to deconditioning and as a result we have been giving her lactated Ringer boluses 250 mL as needed, she will receive one 250 mL lactated Ringer's bolus today -Physical therapy came to work with the patient today, will work with her twice a day moving forward for her deconditioning and to increase her strength 3. Constipation -We will continue the patient on milk of magnesia 30 mL per oral route. 4. Pneumonia -Continue levofloxacin/dextrose 750 mg IV route Q 24 hours, am CBC/CMP 5. Degenerative spinal stenosis -Continue the patient on ibuprofen 400 mg 3 times a day PO and oxycodone 5 mg per PO every 6 hours as needed <Haroldo Adams - Last Filed: 06/07/21 15:46> - Patient Data Vitals - Most Recent: Last Vital Signs Temp 36.3 C 06/03/21 08:52 Pulse 92 06/03/21 08:52 Resp 18 06/03/21 08:52 BP 99/56 L 06/03/21 08:52 Pulse Ox 92 L 06/03/21 08:52 Med Orders - Current: Current Medications Discontinued Medications Albuterol/Ipratropium (Albuterol/Ipratropium 4 Gm Inhalation [place]) 1 gm INH Q4HRRT PRN PRN Reason: Dyspnea Last Admin: 05/18/21 11:29 Dose: 1 puff Documented by: Albuterol/Ipratropium (Albuterol/Ipratropium 4 Gm Inhalation [place]) 1 gm INH Q4HRRT [facility] Last Admin: 06/02/21 09:59 Dose: Not Given Documented by: Albuterol/Ipratropium (Albuterol/Ipratropium 3.0-0.5 Mg/3 Ml Neb Soln) 3 ml NEB Q4HRRT PRN PRN Reason: Shortness of Breath Last Admin: 05/20/21 11:36 Dose: 3 ml Documented by: Dexamethasone (Dexamethasone 4 Mg Tab) 6 mg PO DAILY [facility] Last Admin: 05/29/21 08:41 Dose: 6 mg Documented by: Diltiazem HCl (Diltiazem 180 Mg Cap.Cd) 360 mg PO DAILY [facility] Last Admin: 05/21/21 08:04 Dose: 360 mg Documented by: Enoxaparin Sodium (Enoxaparin 40 Mg/0.4 Ml Syringe) 40 mg SUBCUT Q24H [facility] Last Admin: 06/02/21 14:12 Dose: 40 mg Documented by: Guaifenesin (Guaifenesin 100 Mg/5 Ml Soln 5 Ml Ud Cup) 100 mg PO Q4H PRN PRN Reason: Cough Last Admin: 06/02/21 22:50 Dose: 100 mg Documented by: Guaifenesin/Dextromethorphan (Guaifenesin/Dextromethorphan 100-10 Mg/5 Ml Soln 10 Ml Cup) 10 ml PO Q4H PRN PRN Reason: Cough Last Admin: 05/24/21 03:34 Dose: 10 ml Documented by: Sodium Chloride (Normal Saline) 1,000 mls @ 999 mls/hr IV .Bolus ONE Stop: 05/16/21 11:36 Last Admin: 05/16/21 10:49 Dose: 999 mls/hr Documented by: Remdesivir 200 mg/ Sodium (Chloride) 250 mls @ 250 mls/hr IV ONETIME ONE Stop: 05/16/21 15:59 Last Admin: 05/16/21 15:52 Dose: 250 mls/hr Documented by: Remdesivir 100 mg/ Sodium (Chloride) 100 mls @ 100 mls/hr IV Q24H [facility] Stop: 05/20/21 15:59 Last Admin: 05/20/21 14:39 Dose: 100 mls/hr Documented by: Pantoprazole Sodium 40 mg/ (Sodium Chloride) 10 mls @ 300 mls/hr IV Q24H [facility] Last Admin: 06/02/21 14:14 Dose: 300 mls/hr Documented by: Levofloxacin/Dextrose 750 mg/ (Premix) 150 mls @ 100 mls/hr IV Q24H [facility] Last Admin: 05/28/21 21:18 Dose: 100 mls/hr Documented by: Levofloxacin/Dextrose 750 mg/ (Premix) 150 mls @ 100 mls/hr IV NOW ONE Stop: 05/21/21 02:59 Last Admin: 05/21/21 02:01 Dose: 100 mls/hr Documented by: Lactated Ringer's (Ringers, Lactated) 250 mls @ 999 mls/hr IV ONETIME ONE Stop: 05/23/21 14:15 Last Admin: 05/23/21 14:13 Dose: 999 mls/hr Documented by: Lactated Ringer's (Ringers, Lactated) 250 mls @ 999 mls/hr IV ONETIME ONE Stop: 05/26/21 13:21 Last Admin: 05/26/21 13:16 Dose: 999 mls/hr Documented by: Sodium Chloride (Normal Saline) 250 mls @ 999 mls/hr IV BOLUS [facility] Last Admin: 05/27/21 09:40 Dose: 999 mls/hr Documented by: Lactated Ringer's (Ringers, Lactated) 250 mls @ 999 mls/hr IV ONETIME ONE Stop: 05/28/21 13:43 Last Admin: 05/28/21 13:55 Dose: 999 mls/hr Documented by: Lactated Ringer's (Ringers, Lactated) 1,000 mls @ 250 mls/hr IV ONETIME ONE Stop: 05/29/21 13:44 Last Admin: 05/29/21 10:29 Dose: Not Given Documented by: Lactated Ringer's (Ringers, Lactated) 250 mls @ 250 mls/hr IV .BOLUS [facility] Last Admin: 05/29/21 10:05 Dose: 250 mls/hr Documented by: Ibuprofen (Ibuprofen 400 Mg Tab) 400 mg PO ONETIME ONE Stop: 05/16/21 10:36 Last Admin: 05/16/21 10:51 Dose: 400 mg Documented by: Ibuprofen (Ibuprofen 400 Mg Tab) 400 mg PO Q12H PRN PRN Reason: Pain Last Admin: 05/18/21 13:58 Dose: 400 mg Documented by: Ibuprofen (Ibuprofen 400 Mg Tab) 400 mg PO Q8H PRN PRN Reason: Pain Last Admin: 06/03/21 04:24 Dose: 400 mg Documented by: Ketorolac Tromethamine (Ketorolac 30 Mg/Ml Sdv) 30 mg IVPUSH ONETIME ONE Stop: 05/18/21 14:11 Last Admin: 05/18/21 14:42 Dose: 30 mg Documented by: Loperamide HCl (Loperamide 2 Mg Cap) 2 mg PO ONETIME ONE Stop: 06/01/21 10:26 Last Admin: 06/01/21 11:42 Dose: Not Given Documented by: Lorazepam (Lorazepam 2 Mg/Ml Sdv) 1 mg IVPUSH Q4H PRN PRN Reason: Agitation Last Admin: 05/26/21 13:16 Dose: 1 mg Documented by: Magnesium Hydroxide (Magnesium Hydroxide 400 Mg/5 Ml Susp 30 Ml Cup) 30 ml PO ONETIME PRN PRN Reason: Constipation Last Admin: 05/28/21 13:59 Dose: 30 ml Documented by: Omeprazole (Omeprazole 20 Mg Cap.Cr) 20 mg PO DAILY [facility] Last Admin: 05/17/21 14:06 Dose: Not Given Documented by: Ondansetron HCl (Ondansetron 4 Mg/2 Ml Sdv) 4 mg IVPUSH ONETIME ONE Stop: 05/16/21 10:26 Last Admin: 05/16/21 10:47 Dose: 4 mg Documented by: Ondansetron HCl (Ondansetron 4 Mg/2 Ml Sdv) 4 mg IVPUSH Q4H PRN PRN Reason: Vomiting Last Admin: 05/27/21 10:38 Dose: 4 mg Documented by: Oxycodone HCl (Oxycodone 5 Mg Tab) 5 mg PO Q6H PRN PRN Reason: Pain Last Admin: 05/22/21 03:53 Dose: 5 mg Documented by: Polyethylene Glycol (Polyethylene Glycol 3350 Powder 17 Gm Packet) 17 gm PO ONETIME ONE Stop: 05/19/21 10:26 Last Admin: 05/19/21 11:46 Dose: 17 gm Documented by: Polyethylene Glycol (Polyethylene Glycol 3350 Powder 17 Gm Packet) 17 gm PO BEDTIME [facility] Last Admin: 05/29/21 23:39 Dose: 17 gm Documented by: Polyethylene Glycol (Polyethylene Glycol 3350 Powder 17 Gm Packet) 17 gm PO BEDTIME [facility] Sodium Chloride (Sodium Chloride 0.9% 10 Ml Syringe) 10 ml FLUSH ASDIRECTED PRN PRN Reason: Keep Vein Open Last Admin: 05/16/21 10:51 Dose: 10 ml Documented by: Sodium Chloride (Sodium Chloride 0.9% 2.5 Ml Syringe) 2.5 ml FLUSH ASDIRECTED PRN PRN Reason: Keep Vein Open Last Admin: 05/16/21 10:51 Dose: 2.5 ml Documented by: Sodium Chloride (Sodium Chloride 0.9% 10 Ml Sdv) 250 ml IV STAT STA Stop: 05/16/21 10:28 Last Admin: 05/16/21 10:36 Dose: Not Given Documented by: Sodium Chloride (Sodium Chloride 0.65% Nasal [place] 45 Ml Bottle) 0 ml GALINDO Q6H PRN PRN Reason: Congestion - Patient Data Result Diagrams: 06/03/21 05:55 06/03/21 05:55 - Problem List & Annotations (1) Acute respiratory failure with hypoxia SNOMED Code(s): 51638562, 363156246 Code(s): J96.01 - ACUTE RESPIRATORY FAILURE WITH HYPOXIA Status: Acute (2) COVID-19 SNOMED Code(s): 887750636 Code(s): U07.1 - COVID-19 Status: Acute (3) Constipation SNOMED Code(s): 77518597 Code(s): K59.00 - CONSTIPATION, UNSPECIFIED Status: Deleted (4) GERD (gastroesophageal reflux disease) SNOMED Code(s): 084720342 Code(s): K21.9 - GASTRO-ESOPHAGEAL REFLUX DISEASE WITHOUT ESOPHAGITIS Status: Acute (5) Hypertension SNOMED Code(s): 17437658 Code(s): I10 - ESSENTIAL (PRIMARY) HYPERTENSION Status: Deleted (6) Hypoxia SNOMED Code(s): 787727209 Code(s): R09.02 - HYPOXEMIA Status: Acute - Assessment Assessment:: I have seen and evaluated the patient and agree with the residents note unless specified in my note
[2021-05-29] MEDS: Pantoprazole 40 MG in Sodium Chloride 0.9% 10 ML IV SCH (15:59)
[2021-05-29] MEDS: Enoxaparin 40 MG/0.4 ML Syringe SUBCUT SCH (16:02)
[2021-05-29] MEDS: guaiFENesin 100 MG/5 ML Soln 5 ML UD Cup PO PRN (20:28)
[2021-05-29] MEDS: Polyethylene Glycol 3350 Powder 17 GM Packet PO SCH (23:39)
[2021-05-30] MEDS: Albuterol/Ipratropium 4 GM Inhalation Spray INH SCH ×7 (00:14→22:06)
[2021-05-30 07:12] LABS: BLOOD UREA NITROGEN,BUN 13 mg/dL (7.0-18.0); CARBON DIOXIDE,CO2 28.1 mmol/L (21.0-32.0); CHLORIDE,CL 106 mmol/L (98-107); GLUCOSE RANDOM 92 mg/dL (74-106); POTASSIUM,K 3.9 mmol/L (3.5-5.1); SODIUM,NA 142 mmol/L (136-145)
--- NOTE | 2021-05-30 13:10 | PCM.PN ---
<Gus Shell - Last Filed: 05/30/21 13:04> - General Info Date of Service: 05/30/21 Subjective Update: The patient is a 61-year-old female, on day 15 of service, with a significant past medical history of degenerative spinal stenosis, GERD, and hypertension, who was admitted for hypoxia secondary to COVID-19 pneumonia. The patient is currently on nasal cannula, 4 L of oxygen, and is currently saturating at 92%. Upon interview today, the patient admits that she is eating, drinking, and has no issues with urination and/or defecation. Her constipation has resolved. Her blood pressures have also normalized. She is currently working with physical therapy for deconditioning, with PT goals being for her to stand for 10 minutes without dizziness and ambulate 50 feet without any issues. According to PT her strength is preserved. We will stop MiraLAX as the patient is having regular bowel movements. Once the patient's oxygen demand is at 2 L, she will be discharged on home oxygen. We anticipate this to happen in the next couple of days. She has no other concerns at this time. - Review of Systems General: Reports: Weakness. Denies: Fever HEENT: Denies: Headaches Pulmonary: Reports: Shortness of Breath. Denies: Cough Cardiovascular: Denies: Chest Pain, Palpitations Gastrointestinal: Denies: Abdominal Pain, Constipation, Diarrhea Genitourinary: Denies: Dysuria - Patient Data Vitals - Most Recent: Last Vital Signs Temp 98.1 F 05/30/21 04:00 Pulse 78 05/30/21 08:00 Resp 20 05/30/21 08:00 BP 83/53 L 05/30/21 08:00 Pulse Ox 89 L 05/30/21 08:00 Weight - Most Recent: 91.671 kg I&O - Last 24 Hours: Intake & Output 05/29/21 05/30/21 05/30/21 22:59 06:59 14:59 Intake Total 800 Output Total 300 Balance 800 -300 Lab Results Last 24 Hours: Laboratory Results - last 24 hr 05/30/21 05/30/21 Range/Units 06:18 06:18 WBC 6.60 (4.0-11.0) K/uL RBC 4.80 (4.30-5.90) M/uL Hgb 13.9 (12.0-16.0) g/dL Hct 41.6 (36.0-46.0) % MCV 86.7 (80.0-98.0) fL MCH 29.0 (27.0-32.0) pg MCHC 33.4 (31.0-37.0) g/dL RDW Std Deviation 42.1 (28.0-62.0) fl RDW Coeff of Mulu 13 (11.0-15.0) % Plt Count 235 (150-400) K/uL MPV 10.60 (7.40-12.00) fL Neut % (Auto) 72.5 (48.0-80.0) % Lymph % (Auto) 17.6 (16.0-40.0) % [place] % (Auto) 8.2 (0.0-15.0) % Eos % (Auto) 1.5 (0.0-7.0) % Baso % (Auto) 0.2 (0.0-1.5) % Neut # (Auto) 4.8 (1.4-5.7) K/uL Lymph # (Auto) 1.2 (0.6-2.4) K/uL [place] # (Auto) 0.5 (0.0-0.8) K/uL Eos # (Auto) 0.1 (0.0-0.7) K/uL Baso # (Auto) 0.0 (0.0-0.1) K/uL Nucleated RBC % 0.0 /100WBC Nucleated RBCs # 0 K/uL Sodium 142 (136-145) mmol/L Potassium 3.9 (3.5-5.1) mmol/L Chloride 106 (98-107) mmol/L Carbon Dioxide 28.1 (21.0-32.0) mmol/L BUN 13 (7.0-18.0) mg/dL Creatinine 0.7 (0.6-1.0) mg/dL Est Cr Clr Drug Dosing 82.98 mL/min Estimated GFR (MDRD) > 60.0 ml/min Glucose 92 (74-106) mg/dL Calcium 7.9 L (8.5-10.1) mg/dL Total Bilirubin 0.7 (0.2-1.0) mg/dL AST 14 L (15-37) IU/L ALT 26 (14-63) IU/L Alkaline Phosphatase 51 (46-116) U/L Total Protein 5.6 L (6.4-8.2) g/dL Albumin 2.6 L (3.4-5.0) g/dL Globulin 3.0 (2.6-4.0) g/dL Albumin/Globulin Ratio 0.9 (0.9-1.6) Med Orders - Current: Current Medications Albuterol/Ipratropium (Albuterol/Ipratropium 4 Gm Inhalation [place]) 1 gm INH Q4HRRT [facility] Last Admin: 05/30/21 10:32 Dose: 1 puff Documented by: Albuterol/Ipratropium (Albuterol/Ipratropium 3.0-0.5 Mg/3 Ml Neb Soln) 3 ml NEB Q4HRRT PRN PRN Reason: Shortness of Breath Last Admin: 05/20/21 11:36 Dose: 3 ml Documented by: Enoxaparin Sodium (Enoxaparin 40 Mg/0.4 Ml Syringe) 40 mg SUBCUT Q24H [facility] Last Admin: 05/29/21 16:02 Dose: 40 mg Documented by: Guaifenesin (Guaifenesin 100 Mg/5 Ml Soln 5 Ml Ud Cup) 100 mg PO Q4H PRN PRN Reason: Cough Last Admin: 05/29/21 20:28 Dose: 100 mg Documented by: Pantoprazole Sodium 40 mg/ (Sodium Chloride) 10 mls @ 300 mls/hr IV Q24H [facility] Last Admin: 05/29/21 15:59 Dose: 300 mls/hr Documented by: Sodium Chloride (Normal Saline) 250 mls @ 999 mls/hr IV BOLUS [facility] Last Admin: 05/27/21 09:40 Dose: 999 mls/hr Documented by: Lactated Ringer's (Ringers, Lactated) 250 mls @ 250 mls/hr IV .BOLUS [facility] Last Admin: 05/29/21 10:05 Dose: 250 mls/hr Documented by: Ibuprofen (Ibuprofen 400 Mg Tab) 400 mg PO Q8H PRN PRN Reason: Pain Last Admin: 05/27/21 02:13 Dose: 400 mg Documented by: Lorazepam (Lorazepam 2 Mg/Ml Sdv) 1 mg IVPUSH Q4H PRN PRN Reason: Agitation Last Admin: 05/26/21 13:16 Dose: 1 mg Documented by: Magnesium Hydroxide (Magnesium Hydroxide 400 Mg/5 Ml Susp 30 Ml Cup) 30 ml PO ONETIME PRN PRN Reason: Constipation Last Admin: 05/28/21 13:59 Dose: 30 ml Documented by: Ondansetron HCl (Ondansetron 4 Mg/2 Ml Sdv) 4 mg IVPUSH Q4H PRN PRN Reason: Vomiting Last Admin: 05/27/21 10:38 Dose: 4 mg Documented by: Oxycodone HCl (Oxycodone 5 Mg Tab) 5 mg PO Q6H PRN PRN Reason: Pain Last Admin: 05/22/21 03:53 Dose: 5 mg Documented by: Sodium Chloride (Sodium Chloride 0.9% 10 Ml Syringe) 10 ml FLUSH ASDIRECTED PRN PRN Reason: Keep Vein Open Last Admin: 05/16/21 10:51 Dose: 10 ml Documented by: Sodium Chloride (Sodium Chloride 0.9% 2.5 Ml Syringe) 2.5 ml FLUSH ASDIRECTED PRN PRN Reason: Keep Vein Open Last Admin: 05/16/21 10:51 Dose: 2.5 ml Documented by: Sodium Chloride (Sodium Chloride 0.65% Nasal [place] 45 Ml Bottle) 0 ml GALINDO Q6H PRN PRN Reason: Congestion Discontinued Medications Albuterol/Ipratropium (Albuterol/Ipratropium 4 Gm Inhalation [place]) 1 gm INH Q4HRRT PRN PRN Reason: Dyspnea Last Admin: 05/18/21 11:29 Dose: 1 puff Documented by: Dexamethasone (Dexamethasone 4 Mg Tab) 6 mg PO DAILY [facility] Last Admin: 05/29/21 08:41 Dose: 6 mg Documented by: Diltiazem HCl (Diltiazem 180 Mg Cap.Cd) 360 mg PO DAILY [facility] Last Admin: 05/21/21 08:04 Dose: 360 mg Documented by: Guaifenesin/Dextromethorphan (Guaifenesin/Dextromethorphan 100-10 Mg/5 Ml Soln 10 Ml Cup) 10 ml PO Q4H PRN PRN Reason: Cough Last Admin: 05/24/21 03:34 Dose: 10 ml Documented by: Sodium Chloride (Normal Saline) 1,000 mls @ 999 mls/hr IV .Bolus ONE Stop: 05/16/21 11:36 Last Admin: 05/16/21 10:49 Dose: 999 mls/hr Documented by: Remdesivir 200 mg/ Sodium (Chloride) 250 mls @ 250 mls/hr IV ONETIME ONE Stop: 05/16/21 15:59 Last Admin: 05/16/21 15:52 Dose: 250 mls/hr Documented by: Remdesivir 100 mg/ Sodium (Chloride) 100 mls @ 100 mls/hr IV Q24H [facility] Stop: 05/20/21 15:59 Last Admin: 05/20/21 14:39 Dose: 100 mls/hr Documented by: Levofloxacin/Dextrose 750 mg/ (Premix) 150 mls @ 100 mls/hr IV Q24H [facility] Last Admin: 05/28/21 21:18 Dose: 100 mls/hr Documented by: Levofloxacin/Dextrose 750 mg/ (Premix) 150 mls @ 100 mls/hr IV NOW ONE Stop: 05/21/21 02:59 Last Admin: 05/21/21 02:01 Dose: 100 mls/hr Documented by: Lactated Ringer's (Ringers, Lactated) 250 mls @ 999 mls/hr IV ONETIME ONE Stop: 05/23/21 14:15 Last Admin: 05/23/21 14:13 Dose: 999 mls/hr Documented by: Lactated Ringer's (Ringers, Lactated) 250 mls @ 999 mls/hr IV ONETIME ONE Stop: 05/26/21 13:21 Last Admin: 05/26/21 13:16 Dose: 999 mls/hr Documented by: Lactated Ringer's (Ringers, Lactated) 250 mls @ 999 mls/hr IV ONETIME ONE Stop: 05/28/21 13:43 Last Admin: 05/28/21 13:55 Dose: 999 mls/hr Documented by: Lactated Ringer's (Ringers, Lactated) 1,000 mls @ 250 mls/hr IV ONETIME ONE Stop: 05/29/21 13:44 Last Admin: 05/29/21 10:29 Dose: Not Given Documented by: Ibuprofen (Ibuprofen 400 Mg Tab) 400 mg PO ONETIME ONE Stop: 05/16/21 10:36 Last Admin: 05/16/21 10:51 Dose: 400 mg Documented by: Ibuprofen (Ibuprofen 400 Mg Tab) 400 mg PO Q12H PRN PRN Reason: Pain Last Admin: 05/18/21 13:58 Dose: 400 mg Documented by: Ketorolac Tromethamine (Ketorolac 30 Mg/Ml Sdv) 30 mg IVPUSH ONETIME ONE Stop: 05/18/21 14:11 Last Admin: 05/18/21 14:42 Dose: 30 mg Documented by: Omeprazole (Omeprazole 20 Mg Cap.Cr) 20 mg PO DAILY [facility] Last Admin: 05/17/21 14:06 Dose: Not Given Documented by: Ondansetron HCl (Ondansetron 4 Mg/2 Ml Sdv) 4 mg IVPUSH ONETIME ONE Stop: 05/16/21 10:26 Last Admin: 05/16/21 10:47 Dose: 4 mg Documented by: Polyethylene Glycol (Polyethylene Glycol 3350 Powder 17 Gm Packet) 17 gm PO ONETIME ONE Stop: 05/19/21 10:26 Last Admin: 05/19/21 11:46 Dose: 17 gm Documented by: Polyethylene Glycol (Polyethylene Glycol 3350 Powder 17 Gm Packet) 17 gm PO BEDTIME [facility] Last Admin: 05/29/21 23:39 Dose: 17 gm Documented by: Polyethylene Glycol (Polyethylene Glycol 3350 Powder 17 Gm Packet) 17 gm PO BEDTIME [facility] Sodium Chloride (Sodium Chloride 0.9% 10 Ml Sdv) 250 ml IV STAT STA Stop: 05/16/21 10:28 Last Admin: 05/16/21 10:36 Dose: Not Given Documented by: - Exam Urinary Catheter Total Time: 7Days 13Hours General: Alert, Oriented, Cooperative HEENT: Mucous Membr. Moist/[place] Neck: Trachea Midline Lungs: Clear to Auscultation, Normal Respiratory Effort Cardiovascular: Bradycardia GI/Abdominal Exam: Normal Bowel Sounds, Soft, Non-Tender, No Organomegaly - Patient Data Lab Results Last 24 hrs: Laboratory Results - last 24 hr 05/30/21 05/30/21 Range/Units 06:18 06:18 WBC 6.60 (4.0-11.0) K/uL RBC 4.80 (4.30-5.90) M/uL Hgb 13.9 (12.0-16.0) g/dL Hct 41.6 (36.0-46.0) % MCV 86.7 (80.0-98.0) fL MCH 29.0 (27.0-32.0) pg MCHC 33.4 (31.0-37.0) g/dL RDW Std Deviation 42.1 (28.0-62.0) fl RDW Coeff of [place]ulu 13 (11.0-15.0) % Plt Count 235 (150-400) K/uL MPV 10.60 (7.40-12.00) fL Neut % (Auto) 72.5 (48.0-80.0) % Lymph % (Auto) 17.6 (16.0-40.0) % [place] % (Auto) 8.2 (0.0-15.0) % Eos % (Auto) 1.5 (0.0-7.0) % Baso % (Auto) 0.2 (0.0-1.5) % Neut # (Auto) 4.8 (1.4-5.7) K/uL Lymph # (Auto) 1.2 (0.6-2.4) K/uL [place] # (Auto) 0.5 (0.0-0.8) K/uL Eos # (Auto) 0.1 (0.0-0.7) K/uL Baso # (Auto) 0.0 (0.0-0.1) K/uL Nucleated RBC % 0.0 /100WBC Nucleated RBCs # 0 K/uL Sodium 142 (136-145) mmol/L Potassium 3.9 (3.5-5.1) mmol/L Chloride 106 (98-107) mmol/L Carbon Dioxide 28.1 (21.0-32.0) mmol/L BUN 13 (7.0-18.0) mg/dL Creatinine 0.7 (0.6-1.0) mg/dL Est Cr Clr Drug Dosing 82.98 mL/min Estimated GFR (MDRD) > 60.0 ml/min Glucose 92 (74-106) mg/dL Calcium 7.9 L (8.5-10.1) mg/dL Total Bilirubin 0.7 (0.2-1.0) mg/dL AST 14 L (15-37) IU/L ALT 26 (14-63) IU/L Alkaline Phosphatase 51 (46-116) U/L Total Protein 5.6 L (6.4-8.2) g/dL Albumin 2.6 L (3.4-5.0) g/dL Globulin 3.0 (2.6-4.0) g/dL Albumin/Globulin Ratio 0.9 (0.9-1.6) Result Diagrams: 05/30/21 06:18 05/30/21 06:18 Sepsis Event Note - Evaluation Sepsis Screening Result: No Definite Risk - Focused Exam Vital Signs: Vital Signs Temp Pulse Resp BP Pulse Ox 05/30/21 08:00 78 20 83/53 L 89 L 05/30/21 04:00 98.1 F 58 L 17 125/62 92 L - Problem List & Annotations (1) COVID-19 SNOMED Code(s): 083157901 Code(s): U07.1 - COVID-19 Status: Acute (2) Hypoxia SNOMED Code(s): 302915572 Code(s): R09.02 - HYPOXEMIA Status: Acute (3) GERD (gastroesophageal reflux disease) SNOMED Code(s): 992687617 Code(s): K21.9 - GASTRO-ESOPHAGEAL REFLUX DISEASE WITHOUT ESOPHAGITIS Status: Acute (4) Spinal stenosis SNOMED Code(s): 32693349 Code(s): M48.00 - SPINAL STENOSIS, SITE UNSPECIFIED Status: Acute (7) Hypertension SNOMED Code(s): 97387910 Code(s): I10 - ESSENTIAL (PRIMARY) HYPERTENSION Status: Acute (8) Nausea SNOMED Code(s): 929252813 Code(s): R11.0 - NAUSEA Status: Acute (9) Constipation SNOMED Code(s): 91636380 Code(s): K59.00 - CONSTIPATION, UNSPECIFIED Status: Acute - Problem List Review Problem List Initiated/Reviewed/Updated: Yes - My Orders Last 24 Hours: My Active Orders 05/31/21 05:11 CBC WITH AUTO DIFF [HEME] AM CMP [COMPREHENSIVE METABOLIC PN,CMP] [CHEM] AM 06/01/21 05:11 CBC WITH AUTO DIFF [HEME] AM CMP [COMPREHENSIVE METABOLIC PN,CMP] [CHEM] AM 06/02/21 05:11 CBC WITH AUTO DIFF [HEME] AM CMP [COMPREHENSIVE METABOLIC PN,CMP] [CHEM] AM - Assessment Assessment:: 1. Hypoxia secondary to COVID-19 pneumonia -Patient is on NC, currently on 4 L saturating at 92%, will continue supplying oxygen as needed -For shortness of breath, we will continue with Duoneb treatment and Combivent -For cough, we will continue with Robitussin per oral route every 4 hours -Continue I-S in prone position 2. Orthostatic hypotension secondary to deconditioning -The patient's orthostatic hypotension has resolved, and her blood pressures are in the normal range -We will continue with PT for deconditioning 3. Constipation -Resolved 4. Pneumonia -Resolved, antibiotics have been discontinued 5. Degenerative spinal stenosis -Continue the patient on ibuprofen 400 mg 3 times a day PO and oxycodone 5 mg per PO every 6 hours as needed <Haroldo Adams - Last Filed: 06/07/21 15:51> - Patient Data Vitals - Most Recent: Last Vital Signs Temp 36.3 C 06/03/21 08:52 Pulse 92 06/03/21 08:52 Resp 18 06/03/21 08:52 BP 99/56 L 06/03/21 08:52 Pulse Ox 92 L 06/03/21 08:52 Med Orders - Current: Current Medications Discontinued Medications Albuterol/Ipratropium (Albuterol/Ipratropium 4 Gm Inhalation [place]) 1 gm INH Q4HRRT PRN PRN Reason: Dyspnea Last Admin: 05/18/21 11:29 Dose: 1 puff Documented by: Albuterol/Ipratropium (Albuterol/Ipratropium 4 Gm Inhalation [place]) 1 gm INH Q4HRRT [facility] Last Admin: 06/02/21 09:59 Dose: Not Given Documented by: Albuterol/Ipratropium (Albuterol/Ipratropium 3.0-0.5 Mg/3 Ml Neb Soln) 3 ml NEB Q4HRRT PRN PRN Reason: Shortness of Breath Last Admin: 05/20/21 11:36 Dose: 3 ml Documented by: Dexamethasone (Dexamethasone 4 Mg Tab) 6 mg PO DAILY [facility] Last Admin: 05/29/21 08:41 Dose: 6 mg Documented by: Diltiazem HCl (Diltiazem 180 Mg Cap.Cd) 360 mg PO DAILY [facility] Last Admin: 05/21/21 08:04 Dose: 360 mg Documented by: Enoxaparin Sodium (Enoxaparin 40 Mg/0.4 Ml Syringe) 40 mg SUBCUT Q24H [facility] Last Admin: 06/02/21 14:12 Dose: 40 mg Documented by: Guaifenesin (Guaifenesin 100 Mg/5 Ml Soln 5 Ml Ud Cup) 100 mg PO Q4H PRN PRN Reason: Cough Last Admin: 06/02/21 22:50 Dose: 100 mg Documented by: Guaifenesin/Dextromethorphan (Guaifenesin/Dextromethorphan 100-10 Mg/5 Ml Soln 10 Ml Cup) 10 ml PO Q4H PRN PRN Reason: Cough Last Admin: 05/24/21 03:34 Dose: 10 ml Documented by: Sodium Chloride (Normal Saline) 1,000 mls @ 999 mls/hr IV .Bolus ONE Stop: 05/16/21 11:36 Last Admin: 05/16/21 10:49 Dose: 999 mls/hr Documented by: Remdesivir 200 mg/ Sodium (Chloride) 250 mls @ 250 mls/hr IV ONETIME ONE Stop: 05/16/21 15:59 Last Admin: 05/16/21 15:52 Dose: 250 mls/hr Documented by: Remdesivir 100 mg/ Sodium (Chloride) 100 mls @ 100 mls/hr IV Q24H [facility] Stop: 05/20/21 15:59 Last Admin: 05/20/21 14:39 Dose: 100 mls/hr Documented by: Pantoprazole Sodium 40 mg/ (Sodium Chloride) 10 mls @ 300 mls/hr IV Q24H [facility] Last Admin: 06/02/21 14:14 Dose: 300 mls/hr Documented by: Levofloxacin/Dextrose 750 mg/ (Premix) 150 mls @ 100 mls/hr IV Q24H [facility] Last Admin: 05/28/21 21:18 Dose: 100 mls/hr Documented by: Levofloxacin/Dextrose 750 mg/ (Premix) 150 mls @ 100 mls/hr IV NOW ONE Stop: 05/21/21 02:59 Last Admin: 05/21/21 02:01 Dose: 100 mls/hr Documented by: Lactated Ringer's (Ringers, Lactated) 250 mls @ 999 mls/hr IV ONETIME ONE Stop: 05/23/21 14:15 Last Admin: 05/23/21 14:13 Dose: 999 mls/hr Documented by: Lactated Ringer's (Ringers, Lactated) 250 mls @ 999 mls/hr IV ONETIME ONE Stop: 05/26/21 13:21 Last Admin: 05/26/21 13:16 Dose: 999 mls/hr Documented by: Sodium Chloride (Normal Saline) 250 mls @ 999 mls/hr IV BOLUS [facility] Last Admin: 05/27/21 09:40 Dose: 999 mls/hr Documented by: Lactated Ringer's (Ringers, Lactated) 250 mls @ 999 mls/hr IV ONETIME ONE Stop: 05/28/21 13:43 Last Admin: 05/28/21 13:55 Dose: 999 mls/hr Documented by: Lactated Ringer's (Ringers, Lactated) 1,000 mls @ 250 mls/hr IV ONETIME ONE Stop: 05/29/21 13:44 Last Admin: 05/29/21 10:29 Dose: Not Given Documented by: Lactated Ringer's (Ringers, Lactated) 250 mls @ 250 mls/hr IV .BOLUS [facility] Last Admin: 05/29/21 10:05 Dose: 250 mls/hr Documented by: Ibuprofen (Ibuprofen 400 Mg Tab) 400 mg PO ONETIME ONE Stop: 05/16/21 10:36 Last Admin: 05/16/21 10:51 Dose: 400 mg Documented by: Ibuprofen (Ibuprofen 400 Mg Tab) 400 mg PO Q12H PRN PRN Reason: Pain Last Admin: 05/18/21 13:58 Dose: 400 mg Documented by: Ibuprofen (Ibuprofen 400 Mg Tab) 400 mg PO Q8H PRN PRN Reason: Pain Last Admin: 06/03/21 04:24 Dose: 400 mg Documented by: Ketorolac Tromethamine (Ketorolac 30 Mg/Ml Sdv) 30 mg IVPUSH ONETIME ONE Stop: 05/18/21 14:11 Last Admin: 05/18/21 14:42 Dose: 30 mg Documented by: Loperamide HCl (Loperamide 2 Mg Cap) 2 mg PO ONETIME ONE Stop: 06/01/21 10:26 Last Admin: 06/01/21 11:42 Dose: Not Given Documented by: Lorazepam (Lorazepam 2 Mg/Ml Sdv) 1 mg IVPUSH Q4H PRN PRN Reason: Agitation Last Admin: 05/26/21 13:16 Dose: 1 mg Documented by: Magnesium Hydroxide (Magnesium Hydroxide 400 Mg/5 Ml Susp 30 Ml Cup) 30 ml PO ONETIME PRN PRN Reason: Constipation Last Admin: 05/28/21 13:59 Dose: 30 ml Documented by: Omeprazole (Omeprazole 20 Mg Cap.Cr) 20 mg PO DAILY [facility] Last Admin: 05/17/21 14:06 Dose: Not Given Documented by: Ondansetron HCl (Ondansetron 4 Mg/2 Ml Sdv) 4 mg IVPUSH ONETIME ONE Stop: 05/16/21 10:26 Last Admin: 05/16/21 10:47 Dose: 4 mg Documented by: Ondansetron HCl (Ondansetron 4 Mg/2 Ml Sdv) 4 mg IVPUSH Q4H PRN PRN Reason: Vomiting Last Admin: 05/27/21 10:38 Dose: 4 mg Documented by: Oxycodone HCl (Oxycodone 5 Mg Tab) 5 mg PO Q6H PRN PRN Reason: Pain Last Admin: 05/22/21 03:53 Dose: 5 mg Documented by: Polyethylene Glycol (Polyethylene Glycol 3350 Powder 17 Gm Packet) 17 gm PO ONETIME ONE Stop: 05/19/21 10:26 Last Admin: 05/19/21 11:46 Dose: 17 gm Documented by: Polyethylene Glycol (Polyethylene Glycol 3350 Powder 17 Gm Packet) 17 gm PO BEDTIME [facility] Last Admin: 05/29/21 23:39 Dose: 17 gm Documented by: Polyethylene Glycol (Polyethylene Glycol 3350 Powder 17 Gm Packet) 17 gm PO BEDTIME [facility] Sodium Chloride (Sodium Chloride 0.9% 10 Ml Syringe) 10 ml FLUSH ASDIRECTED PRN PRN Reason: Keep Vein Open Last Admin: 05/16/21 10:51 Dose: 10 ml Documented by: Sodium Chloride (Sodium Chloride 0.9% 2.5 Ml Syringe) 2.5 ml FLUSH ASDIRECTED PRN PRN Reason: Keep Vein Open Last Admin: 05/16/21 10:51 Dose: 2.5 ml Documented by: Sodium Chloride (Sodium Chloride 0.9% 10 Ml Sdv) 250 ml IV STAT STA Stop: 05/16/21 10:28 Last Admin: 05/16/21 10:36 Dose: Not Given Documented by: Sodium Chloride (Sodium Chloride 0.65% Nasal [place] 45 Ml Bottle) 0 ml GALINDO Q6H PRN PRN Reason: Congestion - Patient Data Result Diagrams: 06/03/21 05:55 06/03/21 05:55 - Problem List & Annotations (1) Acute respiratory failure with hypoxia SNOMED Code(s): 38372814, 633999259 Code(s): J96.01 - ACUTE RESPIRATORY FAILURE WITH HYPOXIA Status: Acute (2) COVID-19 SNOMED Code(s): 865698684 Code(s): U07.1 - COVID-19 Status: Acute (3) Constipation SNOMED Code(s): 53885269 Code(s): K59.00 - CONSTIPATION, UNSPECIFIED Status: Deleted (4) GERD (gastroesophageal reflux disease) SNOMED Code(s): 171146260 Code(s): K21.9 - GASTRO-ESOPHAGEAL REFLUX DISEASE WITHOUT ESOPHAGITIS Status: Acute (5) Hypertension SNOMED Code(s): 92852996 Code(s): I10 - ESSENTIAL (PRIMARY) HYPERTENSION Status: Deleted (6) Hypoxia SNOMED Code(s): 786047031 Code(s): R09.02 - HYPOXEMIA Status: Acute - Assessment Assessment:: I have seen and evaluated the patient and agree with the residents note unless specified in my note
[2021-05-30] MEDS: Pantoprazole 40 MG in Sodium Chloride 0.9% 10 ML IV SCH (15:46)
[2021-05-30] MEDS: Enoxaparin 40 MG/0.4 ML Syringe SUBCUT SCH (15:46)
[2021-05-30] MEDS: guaiFENesin 100 MG/5 ML Soln 5 ML UD Cup PO PRN ×2 (15:47→22:07)
[2021-05-31] MEDS: Albuterol/Ipratropium 4 GM Inhalation Spray INH SCH ×6 (01:37→21:48)
[2021-05-31] MEDS: guaiFENesin 100 MG/5 ML Soln 5 ML UD Cup PO PRN ×2 (02:03→21:47)
[2021-05-31] MEDS: Ibuprofen 400 MG Tab PO PRN (02:03)
[2021-05-31 07:19] LABS: BLOOD UREA NITROGEN,BUN 17 mg/dL (7.0-18.0); CARBON DIOXIDE,CO2 29.6 mmol/L (21.0-32.0); CHLORIDE,CL 105 mmol/L (98-107); GLUCOSE RANDOM 93 mg/dL (74-106); POTASSIUM,K 4.1 mmol/L (3.5-5.1); SODIUM,NA 141 mmol/L (136-145)
[2021-05-31] MEDS: Pantoprazole 40 MG in Sodium Chloride 0.9% 10 ML IV SCH (15:00)
[2021-05-31] MEDS: Enoxaparin 40 MG/0.4 ML Syringe SUBCUT SCH (15:03)
--- NOTE | 2021-05-31 17:40 | PCM.PN ---
- General Info Date of Service: 05/31/21 Admission Dx/Problem (Free Text): Admission Diagnosis/Problem Admission Diagnosis/Problem Hypoxia Subjective Update: The patient is a 61-year-old female, on day 15 of service, with a significant past medical history of degenerative spinal stenosis, GERD, and hypertension, who was admitted for hypoxia secondary to COVID-19 pneumonia. The patient is currently on nasal cannula, 4 L of oxygen, and is currently saturat ing at 92%. Patient states that she feels much better, breathing has gotten a lot better and her pleuritic chest pain has also resolved. Blood pressure still on the softer side, patient states that physical therapy has helping, patient was educated about orthostatic hypotension and that she should get out of bed slowly without certain movements till her blood pressure gets back to normal. Functional Status: Reports: Tolerating Diet, Ambulating, Urinating - Review of Systems General: Reports: Weakness, Malaise. Denies: Fever, Fatigue, Chills Pulmonary: Reports: Shortness of Breath. Denies: Pleuritic Chest Pain Gastrointestinal: Denies: Abdominal Pain, Constipation, Decreased Appetite Genitourinary: Denies: Dysuria, Frequency, Burning Musculoskeletal: Denies: Neck Pain, Shoulder Pain, Arm Pain, Hand Pain Skin: Denies: Cyanosis, Jaundice, Mottled, Pallor Neurological: Denies: Confusion, Dizziness, Headache - Patient Data Vitals - Most Recent: Last Vital Signs Temp 36.3 C 05/31/21 16:00 Pulse 73 05/31/21 16:00 Resp 16 05/31/21 16:00 BP 124/70 05/31/21 16:00 Pulse Ox 94 L 05/31/21 16:00 Weight - Most Recent: 92.034 kg I&O - Last 24 Hours: Intake & Output 05/31/21 05/31/21 05/31/21 06:59 14:59 22:59 Intake Total 1060 980 Output Total 550 Balance 510 980 Lab Results Last 24 Hours: Laboratory Results - last 24 hr 05/31/21 05/31/21 Range/Units 06:20 06:20 WBC 6.93 (4.0-11.0) K/uL RBC 4.72 (4.30-5.90) M/uL Hgb 13.5 (12.0-16.0) g/dL Hct 41.1 (36.0-46.0) % MCV 87.1 (80.0-98.0) fL MCH 28.6 (27.0-32.0) pg MCHC 32.8 (31.0-37.0) g/dL RDW Std Deviation 43.7 (28.0-62.0) fl RDW Coeff of Mulu 14 (11.0-15.0) % Plt Count 217 (150-400) K/uL MPV 10.20 (7.40-12.00) fL Neut % (Auto) 68.3 (48.0-80.0) % Lymph % (Auto) 19.2 (16.0-40.0) % [place] % (Auto) 8.9 (0.0-15.0) % Eos % (Auto) 3.2 (0.0-7.0) % Baso % (Auto) 0.4 (0.0-1.5) % Neut # (Auto) 4.7 (1.4-5.7) K/uL Lymph # (Auto) 1.3 (0.6-2.4) K/uL [place] # (Auto) 0.6 (0.0-0.8) K/uL Eos # (Auto) 0.2 (0.0-0.7) K/uL Baso # (Auto) 0.0 (0.0-0.1) K/uL Nucleated RBC % 0.0 /100WBC Nucleated RBCs # 0 K/uL Sodium 141 (136-145) mmol/L Potassium 4.1 (3.5-5.1) mmol/L Chloride 105 (98-107) mmol/L Carbon Dioxide 29.6 (21.0-32.0) mmol/L BUN 17 (7.0-18.0) mg/dL Creatinine 0.8 (0.6-1.0) mg/dL Est Cr Clr Drug Dosing 72.61 mL/min Estimated GFR (MDRD) > 60.0 ml/min Glucose 93 (74-106) mg/dL Calcium 7.6 L (8.5-10.1) mg/dL Total Bilirubin 0.8 (0.2-1.0) mg/dL AST 14 L (15-37) IU/L ALT 19 (14-63) IU/L Alkaline Phosphatase 51 (46-116) U/L Total Protein 5.2 L (6.4-8.2) g/dL Albumin 2.5 L (3.4-5.0) g/dL Globulin 2.7 (2.6-4.0) g/dL Albumin/Globulin Ratio 0.9 (0.9-1.6) Med Orders - Current: Current Medications Albuterol/Ipratropium (Albuterol/Ipratropium 4 Gm Inhalation [place]) 1 gm INH Q4HRRT BJ Last Admin: 05/31/21 17:17 Dose: 1 puff Documented by: Albuterol/Ipratropium (Albuterol/Ipratropium 3.0-0.5 Mg/3 Ml Neb Soln) 3 ml NEB Q4HRRT PRN PRN Reason: Shortness of Breath Last Admin: 05/20/21 11:36 Dose: 3 ml Documented by: Enoxaparin Sodium (Enoxaparin 40 Mg/0.4 Ml Syringe) 40 mg SUBCUT Q24H [facility] Last Admin: 05/31/21 15:03 Dose: 40 mg Documented by: Guaifenesin (Guaifenesin 100 Mg/5 Ml Soln 5 Ml Ud Cup) 100 mg PO Q4H PRN PRN Reason: Cough Last Admin: 05/31/21 02:03 Dose: 100 mg Documented by: Pantoprazole Sodium 40 mg/ (Sodium Chloride) 10 mls @ 300 mls/hr IV Q24H BJ Last Admin: 05/31/21 15:00 Dose: 300 mls/hr Documented by: Ibuprofen (Ibuprofen 400 Mg Tab) 400 mg PO Q8H PRN PRN Reason: Pain Last Admin: 05/31/21 02:03 Dose: 400 mg Documented by: Lorazepam (Lorazepam 2 Mg/Ml Sdv) 1 mg IVPUSH Q4H PRN PRN Reason: Agitation Last Admin: 05/26/21 13:16 Dose: 1 mg Documented by: Magnesium Hydroxide (Magnesium Hydroxide 400 Mg/5 Ml Susp 30 Ml Cup) 30 ml PO ONETIME PRN PRN Reason: Constipation Last Admin: 05/28/21 13:59 Dose: 30 ml Documented by: Ondansetron HCl (Ondansetron 4 Mg/2 Ml Sdv) 4 mg IVPUSH Q4H PRN PRN Reason: Vomiting Last Admin: 05/27/21 10:38 Dose: 4 mg Documented by: Oxycodone HCl (Oxycodone 5 Mg Tab) 5 mg PO Q6H PRN PRN Reason: Pain Last Admin: 05/22/21 03:53 Dose: 5 mg Documented by: Sodium Chloride (Sodium Chloride 0.9% 10 Ml Syringe) 10 ml FLUSH ASDIRECTED PRN PRN Reason: Keep Vein Open Last Admin: 05/16/21 10:51 Dose: 10 ml Documented by: Sodium Chloride (Sodium Chloride 0.9% 2.5 Ml Syringe) 2.5 ml FLUSH ASDIRECTED PRN PRN Reason: Keep Vein Open Last Admin: 05/16/21 10:51 Dose: 2.5 ml Documented by: Sodium Chloride (Sodium Chloride 0.65% Nasal [place] 45 Ml Bottle) 0 ml GALINDO Q6H PRN PRN Reason: Congestion Discontinued Medications Albuterol/Ipratropium (Albuterol/Ipratropium 4 Gm Inhalation [place]) 1 gm INH Q4HRRT PRN PRN Reason: Dyspnea Last Admin: 05/18/21 11:29 Dose: 1 puff Documented by: Dexamethasone (Dexamethasone 4 Mg Tab) 6 mg PO DAILY [facility] Last Admin: 05/29/21 08:41 Dose: 6 mg Documented by: Diltiazem HCl (Diltiazem 180 Mg Cap.Cd) 360 mg PO DAILY [facility] Last Admin: 05/21/21 08:04 Dose: 360 mg Documented by: Guaifenesin/Dextromethorphan (Guaifenesin/Dextromethorphan 100-10 Mg/5 Ml Soln 10 Ml Cup) 10 ml PO Q4H PRN PRN Reason: Cough Last Admin: 05/24/21 03:34 Dose: 10 ml Documented by: Sodium Chloride (Normal Saline) 1,000 mls @ 999 mls/hr IV .Bolus ONE Stop: 05/16/21 11:36 Last Admin: 05/16/21 10:49 Dose: 999 mls/hr Documented by: Remdesivir 200 mg/ Sodium (Chloride) 250 mls @ 250 mls/hr IV ONETIME ONE Stop: 05/16/21 15:59 Last Admin: 05/16/21 15:52 Dose: 250 mls/hr Documented by: Remdesivir 100 mg/ Sodium (Chloride) 100 mls @ 100 mls/hr IV Q24H BJ Stop: 05/20/21 15:59 Last Admin: 05/20/21 14:39 Dose: 100 mls/hr Documented by: Levofloxacin/Dextrose 750 mg/ (Premix) 150 mls @ 100 mls/hr IV Q24H BJ Last Admin: 05/28/21 21:18 Dose: 100 mls/hr Documented by: Levofloxacin/Dextrose 750 mg/ (Premix) 150 mls @ 100 mls/hr IV NOW ONE Stop: 05/21/21 02:59 Last Admin: 05/21/21 02:01 Dose: 100 mls/hr Documented by: Lactated Ringer's (Ringers, Lactated) 250 mls @ 999 mls/hr IV ONETIME ONE Stop: 05/23/21 14:15 Last Admin: 05/23/21 14:13 Dose: 999 mls/hr Documented by: Lactated Ringer's (Ringers, Lactated) 250 mls @ 999 mls/hr IV ONETIME ONE Stop: 05/26/21 13:21 Last Admin: 05/26/21 13:16 Dose: 999 mls/hr Documented by: Sodium Chloride (Normal Saline) 250 mls @ 999 mls/hr IV BOLUS [facility] Last Admin: 05/27/21 09:40 Dose: 999 mls/hr Documented by: Lactated Ringer's (Ringers, Lactated) 250 mls @ 999 mls/hr IV ONETIME ONE Stop: 05/28/21 13:43 Last Admin: 05/28/21 13:55 Dose: 999 mls/hr Documented by: Lactated Ringer's (Ringers, Lactated) 1,000 mls @ 250 mls/hr IV ONETIME ONE Stop: 05/29/21 13:44 Last Admin: 05/29/21 10:29 Dose: Not Given Documented by: Lactated Ringer's (Ringers, Lactated) 250 mls @ 250 mls/hr IV .BOLUS [facility] Last Admin: 05/29/21 10:05 Dose: 250 mls/hr Documented by: Ibuprofen (Ibuprofen 400 Mg Tab) 400 mg PO ONETIME ONE Stop: 05/16/21 10:36 Last Admin: 05/16/21 10:51 Dose: 400 mg Documented by: Ibuprofen (Ibuprofen 400 Mg Tab) 400 mg PO Q12H PRN PRN Reason: Pain Last Admin: 05/18/21 13:58 Dose: 400 mg Documented by: Ketorolac Tromethamine (Ketorolac 30 Mg/Ml Sdv) 30 mg IVPUSH ONETIME ONE Stop: 05/18/21 14:11 Last Admin: 05/18/21 14:42 Dose: 30 mg Documented by: Omeprazole (Omeprazole 20 Mg Cap.Cr) 20 mg PO DAILY BJ Last Admin: 05/17/21 14:06 Dose: Not Given Documented by: Ondansetron HCl (Ondansetron 4 Mg/2 Ml Sdv) 4 mg IVPUSH ONETIME ONE Stop: 05/16/21 10:26 Last Admin: 05/16/21 10:47 Dose: 4 mg Documented by: Polyethylene Glycol (Polyethylene Glycol 3350 Powder 17 Gm Packet) 17 gm PO ONETIME ONE Stop: 05/19/21 10:26 Last Admin: 05/19/21 11:46 Dose: 17 gm Documented by: Polyethylene Glycol (Polyethylene Glycol 3350 Powder 17 Gm Packet) 17 gm PO BEDTIME BJ Last Admin: 05/29/21 23:39 Dose: 17 gm Documented by: Polyethylene Glycol (Polyethylene Glycol 3350 Powder 17 Gm Packet) 17 gm PO BEDTIME BJ Sodium Chloride (Sodium Chloride 0.9% 10 Ml Sdv) 250 ml IV STAT STA Stop: 05/16/21 10:28 Last Admin: 05/16/21 10:36 Dose: Not Given Documented by: - Exam Quality Assessment: Supplemental Oxygen Urinary Catheter Total Time: 7Days 13Hours Neck: Supple Lungs: Normal Respiratory Effort, Decreased Breath Sounds, Rales. No: Crackles Cardiovascular: Regular Rate, Regular Rhythm GI/Abdominal Exam: Normal Bowel Sounds, Soft, Non-Tender - Patient Data Lab Results Last 24 hrs: Laboratory Results - last 24 hr 05/31/21 05/31/21 Range/Units 06:20 06:20 WBC 6.93 (4.0-11.0) K/uL RBC 4.72 (4.30-5.90) M/uL Hgb 13.5 (12.0-16.0) g/dL Hct 41.1 (36.0-46.0) % MCV 87.1 (80.0-98.0) fL MCH 28.6 (27.0-32.0) pg MCHC 32.8 (31.0-37.0) g/dL RDW Std Deviation 43.7 (28.0-62.0) fl RDW Coeff of [place] 14 (11.0-15.0) % Plt Count 217 (150-400) K/uL MPV 10.20 (7.40-12.00) fL Neut % (Auto) 68.3 (48.0-80.0) % Lymph % (Auto) 19.2 (16.0-40.0) % [place] % (Auto) 8.9 (0.0-15.0) % Eos % (Auto) 3.2 (0.0-7.0) % Baso % (Auto) 0.4 (0.0-1.5) % Neut # (Auto) 4.7 (1.4-5.7) K/uL Lymph # (Auto) 1.3 (0.6-2.4) K/uL [place] # (Auto) 0.6 (0.0-0.8) K/uL Eos # (Auto) 0.2 (0.0-0.7) K/uL Baso # (Auto) 0.0 (0.0-0.1) K/uL Nucleated RBC % 0.0 /100WBC Nucleated RBCs # 0 K/uL Sodium 141 (136-145) mmol/L Potassium 4.1 (3.5-5.1) mmol/L Chloride 105 (98-107) mmol/L Carbon Dioxide 29.6 (21.0-32.0) mmol/L BUN 17 (7.0-18.0) mg/dL Creatinine 0.8 (0.6-1.0) mg/dL Est Cr Clr Drug Dosing 72.61 mL/min Estimated GFR (MDRD) > 60.0 ml/min Glucose 93 (74-106) mg/dL Calcium 7.6 L (8.5-10.1) mg/dL Total Bilirubin 0.8 (0.2-1.0) mg/dL AST 14 L (15-37) IU/L ALT 19 (14-63) IU/L Alkaline Phosphatase 51 (46-116) U/L Total Protein 5.2 L (6.4-8.2) g/dL Albumin 2.5 L (3.4-5.0) g/dL Globulin 2.7 (2.6-4.0) g/dL Albumin/Globulin Ratio 0.9 (0.9-1.6) Result Diagrams: 05/31/21 06:20 05/31/21 06:20 Sepsis Event Note - Evaluation Sepsis Screening Result: No Definite Risk - Focused Exam Vital Signs: Vital Signs Temp Pulse Resp BP Pulse Ox 05/31/21 16:00 36.3 C 73 16 124/70 94 L 05/31/21 11:00 36.4 C 76 15 106/67 93 L 05/31/21 07:57 36.3 C 76 16 89/53 L 91 L - Problem List & Annotations (1) Acute respiratory failure with hypoxia SNOMED Code(s): 32703588, 208148541 Code(s): J96.01 - ACUTE RESPIRATORY FAILURE WITH HYPOXIA Status: Acute Current Visit: Yes (2) COVID-19 SNOMED Code(s): 764735788 Code(s): U07.1 - COVID-19 Status: Acute Current Visit: Yes (3) Constipation SNOMED Code(s): 19058425 Code(s): K59.00 - CONSTIPATION, UNSPECIFIED Status: Acute Current Visit: Yes (4) GERD (gastroesophageal reflux disease) SNOMED Code(s): 491012903 Code(s): K21.9 - GASTRO-ESOPHAGEAL REFLUX DISEASE WITHOUT ESOPHAGITIS Status: Acute Current Visit: Yes (5) Hypertension SNOMED Code(s): 21134990 Code(s): I10 - ESSENTIAL (PRIMARY) HYPERTENSION Status: Acute Current Visit: Yes (6) Hypoxia SNOMED Code(s): 725112475 Code(s): R09.02 - HYPOXEMIA Status: Acute Current Visit: Yes - Problem List Review Problem List Initiated/Reviewed/Updated: Yes - Assessment Assessment:: 1. Hypoxia secondary to COVID-19 pneumonia -Patient is on NC, currently on 4 L saturating at 92%, will continue supplying oxygen as needed -For shortness of breath, we will continue with Duoneb treatment and Combivent -For cough, we will continue with Robitussin per oral route every 4 hours -Continue I-S in prone position 2. Orthostatic hypotension secondary to deconditioning -The patient's orthostatic hypotension has resolved, and her blood pressures are in the normal range -We will continue with PT for deconditioning 3. Constipation -Resolved 4. Pneumonia -Resolved, antibiotics have been discontinued 5. Degenerative spinal stenosis -Continue the patient on ibuprofen 400 mg 3 times a day PO and oxycodone 5 mg per PO every 6 hours as needed
[2021-06-01] MEDS: Albuterol/Ipratropium 4 GM Inhalation Spray INH SCH ×6 (02:15→22:20)
[2021-06-01] MEDS: guaiFENesin 100 MG/5 ML Soln 5 ML UD Cup PO PRN ×2 (02:17→22:20)
[2021-06-01 07:07] LABS: BLOOD UREA NITROGEN,BUN 11 mg/dL (7.0-18.0); CARBON DIOXIDE,CO2 29.1 mmol/L (21.0-32.0); CHLORIDE,CL 104 mmol/L (98-107); GLUCOSE RANDOM 95 mg/dL (74-106); POTASSIUM,K 4.3 mmol/L (3.5-5.1); SODIUM,NA 141 mmol/L (136-145)
--- NOTE | 2021-06-01 10:21 | PCM.PN ---
<Gus Shell - Last Filed: 06/01/21 10:26> - General Info Date of Service: 06/01/21 Subjective Update: The patient is a 61-year-old female, on day 17 of service, with a significant past medical history of degenerative spinal stenosis, GERD, and hypertension, who was admitted for hypoxia secondary to COVID-19 pneumonia. The patient is currently on nasal cannula, 4 L of oxygen, and is saturating at 91%. The patient states that her shortness of breath and cough has resolved. She is complaining of new onset diarrhea which is nonbloody, and has had two episodes without any fever or abdominal pain. She admits that she feels stronger through working with physical therapy and that her strength is almost back to normal. She is ambulating without any issues. She is tolerating her diet well and does not feel nauseous. However, she is hypotensive today with a reading of 92/53 mm Hg but does not feel weak or dizzy. She has been educated on the process of orthostatic hypotension and maneuvers to get up out of bed or from sitting position safely. She has no other complaints at this time. - Review of Systems General: Reports: Other (Strength is almost back to normal with respect to ambulation). Denies: Fever, Weakness, Fatigue HEENT: Denies: Headaches, Sore Throat Pulmonary: Denies: Shortness of Breath, Cough Cardiovascular: Denies: Chest Pain, Palpitations, Dyspnea on Exertion Gastrointestinal: Reports: Diarrhea. Denies: Abdominal Pain, Nausea, Vomiting Genitourinary: Denies: Dysuria - Patient Data Vitals - Most Recent: Last Vital Signs Temp 98.2 F 06/01/21 08:00 Pulse 72 06/01/21 08:00 Resp 18 06/01/21 08:00 BP 97/57 L 06/01/21 08:00 Pulse Ox 91 L 06/01/21 08:00 Weight - Most Recent: 92.034 kg I&O - Last 24 Hours: Intake & Output 05/31/21 06/01/21 06/01/21 22:59 06:59 14:59 Intake Total 980 600 Output Total 0 Balance 980 600 Lab Results Last 24 Hours: Laboratory Results - last 24 hr 06/01/21 06/01/21 Range/Units 06:20 06:20 WBC 7.42 (4.0-11.0) K/uL RBC 4.74 (4.30-5.90) M/uL Hgb 13.8 (12.0-16.0) g/dL Hct 41.6 (36.0-46.0) % MCV 87.8 (80.0-98.0) fL MCH 29.1 (27.0-32.0) pg MCHC 33.2 (31.0-37.0) g/dL RDW Std Deviation 44.4 (28.0-62.0) fl RDW Coeff of Mulu 14 (11.0-15.0) % Plt Count 203 (150-400) K/uL MPV 10.70 (7.40-12.00) fL Neut % (Auto) 67.4 (48.0-80.0) % Lymph % (Auto) 18.5 (16.0-40.0) % [place] % (Auto) 9.8 (0.0-15.0) % Eos % (Auto) 4.0 (0.0-7.0) % Baso % (Auto) 0.3 (0.0-1.5) % Neut # (Auto) 5.0 (1.4-5.7) K/uL Lymph # (Auto) 1.4 (0.6-2.4) K/uL [place] # (Auto) 0.7 (0.0-0.8) K/uL Eos # (Auto) 0.3 (0.0-0.7) K/uL Baso # (Auto) 0.0 (0.0-0.1) K/uL Nucleated RBC % 0.0 /100WBC Nucleated RBCs # 0 K/uL Sodium 141 (136-145) mmol/L Potassium 4.3 (3.5-5.1) mmol/L Chloride 104 (98-107) mmol/L Carbon Dioxide 29.1 (21.0-32.0) mmol/L BUN 11 (7.0-18.0) mg/dL Creatinine 0.7 (0.6-1.0) mg/dL Est Cr Clr Drug Dosing 82.98 mL/min Estimated GFR (MDRD) > 60.0 ml/min Glucose 95 (74-106) mg/dL Calcium 8.1 L (8.5-10.1) mg/dL Total Bilirubin 0.9 (0.2-1.0) mg/dL AST 15 (15-37) IU/L ALT 18 (14-63) IU/L Alkaline Phosphatase 53 (46-116) U/L Total Protein 5.5 L (6.4-8.2) g/dL Albumin 2.4 L (3.4-5.0) g/dL Globulin 3.1 (2.6-4.0) g/dL Albumin/Globulin Ratio 0.8 L (0.9-1.6) Med Orders - Current: Current Medications Albuterol/Ipratropium (Albuterol/Ipratropium 4 Gm Inhalation [place]) 1 gm INH Q4HRRT BJ Last Admin: 06/01/21 09:46 Dose: 1 puff Documented by: Albuterol/Ipratropium (Albuterol/Ipratropium 3.0-0.5 Mg/3 Ml Neb Soln) 3 ml NEB Q4HRRT PRN PRN Reason: Shortness of Breath Last Admin: 05/20/21 11:36 Dose: 3 ml Documented by: Enoxaparin Sodium (Enoxaparin 40 Mg/0.4 Ml Syringe) 40 mg SUBCUT Q24H BJ Last Admin: 05/31/21 15:03 Dose: 40 mg Documented by: Guaifenesin (Guaifenesin 100 Mg/5 Ml Soln 5 Ml Ud Cup) 100 mg PO Q4H PRN PRN Reason: Cough Last Admin: 06/01/21 02:17 Dose: 100 mg Documented by: Pantoprazole Sodium 40 mg/ (Sodium Chloride) 10 mls @ 300 mls/hr IV Q24H BJ Last Admin: 05/31/21 15:00 Dose: 300 mls/hr Documented by: Ibuprofen (Ibuprofen 400 Mg Tab) 400 mg PO Q8H PRN PRN Reason: Pain Last Admin: 05/31/21 02:03 Dose: 400 mg Documented by: Lorazepam (Lorazepam 2 Mg/Ml Sdv) 1 mg IVPUSH Q4H PRN PRN Reason: Agitation Last Admin: 05/26/21 13:16 Dose: 1 mg Documented by: Magnesium Hydroxide (Magnesium Hydroxide 400 Mg/5 Ml Susp 30 Ml Cup) 30 ml PO ONETIME PRN PRN Reason: Constipation Last Admin: 05/28/21 13:59 Dose: 30 ml Documented by: Ondansetron HCl (Ondansetron 4 Mg/2 Ml Sdv) 4 mg IVPUSH Q4H PRN PRN Reason: Vomiting Last Admin: 05/27/21 10:38 Dose: 4 mg Documented by: Oxycodone HCl (Oxycodone 5 Mg Tab) 5 mg PO Q6H PRN PRN Reason: Pain Last Admin: 05/22/21 03:53 Dose: 5 mg Documented by: Sodium Chloride (Sodium Chloride 0.9% 10 Ml Syringe) 10 ml FLUSH ASDIRECTED PRN PRN Reason: Keep Vein Open Last Admin: 05/16/21 10:51 Dose: 10 ml Documented by: Sodium Chloride (Sodium Chloride 0.9% 2.5 Ml Syringe) 2.5 ml FLUSH ASDIRECTED PRN PRN Reason: Keep Vein Open Last Admin: 05/16/21 10:51 Dose: 2.5 ml Documented by: Sodium Chloride (Sodium Chloride 0.65% Nasal [place] 45 Ml Bottle) 0 ml GALINDO Q6H PRN PRN Reason: Congestion Discontinued Medications Albuterol/Ipratropium (Albuterol/Ipratropium 4 Gm Inhalation [place]) 1 gm INH Q4HRRT PRN PRN Reason: Dyspnea Last Admin: 05/18/21 11:29 Dose: 1 puff Documented by: Dexamethasone (Dexamethasone 4 Mg Tab) 6 mg PO DAILY [facility] Last Admin: 05/29/21 08:41 Dose: 6 mg Documented by: Diltiazem HCl (Diltiazem 180 Mg Cap.Cd) 360 mg PO DAILY [facility] Last Admin: 05/21/21 08:04 Dose: 360 mg Documented by: Guaifenesin/Dextromethorphan (Guaifenesin/Dextromethorphan 100-10 Mg/5 Ml Soln 10 Ml Cup) 10 ml PO Q4H PRN PRN Reason: Cough Last Admin: 05/24/21 03:34 Dose: 10 ml Documented by: Sodium Chloride (Normal Saline) 1,000 mls @ 999 mls/hr IV .Bolus ONE Stop: 05/16/21 11:36 Last Admin: 05/16/21 10:49 Dose: 999 mls/hr Documented by: Remdesivir 200 mg/ Sodium (Chloride) 250 mls @ 250 mls/hr IV ONETIME ONE Stop: 05/16/21 15:59 Last Admin: 05/16/21 15:52 Dose: 250 mls/hr Documented by: Remdesivir 100 mg/ Sodium (Chloride) 100 mls @ 100 mls/hr IV Q24H [facility] Stop: 05/20/21 15:59 Last Admin: 05/20/21 14:39 Dose: 100 mls/hr Documented by: Levofloxacin/Dextrose 750 mg/ (Premix) 150 mls @ 100 mls/hr IV Q24H [facility] Last Admin: 05/28/21 21:18 Dose: 100 mls/hr Documented by: Levofloxacin/Dextrose 750 mg/ (Premix) 150 mls @ 100 mls/hr IV NOW ONE Stop: 05/21/21 02:59 Last Admin: 05/21/21 02:01 Dose: 100 mls/hr Documented by: Lactated Ringer's (Ringers, Lactated) 250 mls @ 999 mls/hr IV ONETIME ONE Stop: 05/23/21 14:15 Last Admin: 05/23/21 14:13 Dose: 999 mls/hr Documented by: Lactated Ringer's (Ringers, Lactated) 250 mls @ 999 mls/hr IV ONETIME ONE Stop: 05/26/21 13:21 Last Admin: 05/26/21 13:16 Dose: 999 mls/hr Documented by: Sodium Chloride (Normal Saline) 250 mls @ 999 mls/hr IV BOLUS [facility] Last Admin: 05/27/21 09:40 Dose: 999 mls/hr Documented by: Lactated Ringer's (Ringers, Lactated) 250 mls @ 999 mls/hr IV ONETIME ONE Stop: 05/28/21 13:43 Last Admin: 05/28/21 13:55 Dose: 999 mls/hr Documented by: Lactated Ringer's (Ringers, Lactated) 1,000 mls @ 250 mls/hr IV ONETIME ONE Stop: 05/29/21 13:44 Last Admin: 05/29/21 10:29 Dose: Not Given Documented by: Lactated Ringer's (Ringers, Lactated) 250 mls @ 250 mls/hr IV .BOLUS [facility] Last Admin: 05/29/21 10:05 Dose: 250 mls/hr Documented by: Ibuprofen (Ibuprofen 400 Mg Tab) 400 mg PO ONETIME ONE Stop: 05/16/21 10:36 Last Admin: 05/16/21 10:51 Dose: 400 mg Documented by: Ibuprofen (Ibuprofen 400 Mg Tab) 400 mg PO Q12H PRN PRN Reason: Pain Last Admin: 05/18/21 13:58 Dose: 400 mg Documented by: Ketorolac Tromethamine (Ketorolac 30 Mg/Ml Sdv) 30 mg IVPUSH ONETIME ONE Stop: 05/18/21 14:11 Last Admin: 05/18/21 14:42 Dose: 30 mg Documented by: Omeprazole (Omeprazole 20 Mg Cap.Cr) 20 mg PO DAILY BJ Last Admin: 05/17/21 14:06 Dose: Not Given Documented by: Ondansetron HCl (Ondansetron 4 Mg/2 Ml Sdv) 4 mg IVPUSH ONETIME ONE Stop: 05/16/21 10:26 Last Admin: 05/16/21 10:47 Dose: 4 mg Documented by: Polyethylene Glycol (Polyethylene Glycol 3350 Powder 17 Gm Packet) 17 gm PO ONETIME ONE Stop: 05/19/21 10:26 Last Admin: 05/19/21 11:46 Dose: 17 gm Documented by: Polyethylene Glycol (Polyethylene Glycol 3350 Powder 17 Gm Packet) 17 gm PO BEDTIME BJ Last Admin: 05/29/21 23:39 Dose: 17 gm Documented by: Polyethylene Glycol (Polyethylene Glycol 3350 Powder 17 Gm Packet) 17 gm PO BEDTIME BJ Sodium Chloride (Sodium Chloride 0.9% 10 Ml Sdv) 250 ml IV STAT STA Stop: 05/16/21 10:28 Last Admin: 05/16/21 10:36 Dose: Not Given Documented by: - Exam Urinary Catheter Total Time: 7Days 13Hours General: Alert, Oriented, Cooperative HEENT: Mucous Membr. Moist/[place] Neck: Trachea Midline Lungs: Clear to Auscultation, Normal Respiratory Effort Cardiovascular: Regular Rate, Regular Rhythm, No Murmurs GI/Abdominal Exam: Normal Bowel Sounds, Soft, Non-Tender - Patient Data Lab Results Last 24 hrs: Laboratory Results - last 24 hr 06/01/21 06/01/21 Range/Units 06:20 06:20 WBC 7.42 (4.0-11.0) K/uL RBC 4.74 (4.30-5.90) M/uL Hgb 13.8 (12.0-16.0) g/dL Hct 41.6 (36.0-46.0) % MCV 87.8 (80.0-98.0) fL MCH 29.1 (27.0-32.0) pg MCHC 33.2 (31.0-37.0) g/dL RDW Std Deviation 44.4 (28.0-62.0) fl RDW Coeff of Mulu 14 (11.0-15.0) % Plt Count 203 (150-400) K/uL MPV 10.70 (7.40-12.00) fL Neut % (Auto) 67.4 (48.0-80.0) % Lymph % (Auto) 18.5 (16.0-40.0) % [place] % (Auto) 9.8 (0.0-15.0) % Eos % (Auto) 4.0 (0.0-7.0) % Baso % (Auto) 0.3 (0.0-1.5) % Neut # (Auto) 5.0 (1.4-5.7) K/uL Lymph # (Auto) 1.4 (0.6-2.4) K/uL [place] # (Auto) 0.7 (0.0-0.8) K/uL Eos # (Auto) 0.3 (0.0-0.7) K/uL Baso # (Auto) 0.0 (0.0-0.1) K/uL Nucleated RBC % 0.0 /100WBC Nucleated RBCs # 0 K/uL Sodium 141 (136-145) mmol/L Potassium 4.3 (3.5-5.1) mmol/L Chloride 104 (98-107) mmol/L Carbon Dioxide 29.1 (21.0-32.0) mmol/L BUN 11 (7.0-18.0) mg/dL Creatinine 0.7 (0.6-1.0) mg/dL Est Cr Clr Drug Dosing 82.98 mL/min Estimated GFR (MDRD) > 60.0 ml/min Glucose 95 (74-106) mg/dL Calcium 8.1 L (8.5-10.1) mg/dL Total Bilirubin 0.9 (0.2-1.0) mg/dL AST 15 (15-37) IU/L ALT 18 (14-63) IU/L Alkaline Phosphatase 53 (46-116) U/L Total Protein 5.5 L (6.4-8.2) g/dL Albumin 2.4 L (3.4-5.0) g/dL Globulin 3.1 (2.6-4.0) g/dL Albumin/Globulin Ratio 0.8 L (0.9-1.6) Result Diagrams: 06/01/21 06:20 06/01/21 06:20 Sepsis Event Note - Evaluation Sepsis Screening Result: No Definite Risk - Focused Exam Vital Signs: Vital Signs Temp Pulse Resp BP Pulse Ox 06/01/21 08:00 98.2 F 72 18 97/57 L 91 L 06/01/21 04:00 97.8 F 74 18 92/53 L 91 L 05/31/21 23:32 98.4 F 84 16 101/61 90 L - Problem List & Annotations (1) COVID-19 SNOMED Code(s): 796995769 Code(s): U07.1 - COVID-19 Status: Acute (2) Hypoxia SNOMED Code(s): 302416057 Code(s): R09.02 - HYPOXEMIA Status: Acute (3) GERD (gastroesophageal reflux disease) SNOMED Code(s): 229061407 Code(s): K21.9 - GASTRO-ESOPHAGEAL REFLUX DISEASE WITHOUT ESOPHAGITIS Status: Acute (4) Spinal stenosis SNOMED Code(s): 75662103 Code(s): M48.00 - SPINAL STENOSIS, SITE UNSPECIFIED Status: Acute (5) Hypotension SNOMED Code(s): 73861397 Code(s): I95.9 - HYPOTENSION, UNSPECIFIED Status: Acute (6) Physical deconditioning SNOMED Code(s): 50401609761710 Code(s): R53.81 - OTHER MALAISE Status: Acute (7) Diarrhea SNOMED Code(s): 24037830 Code(s): R19.7 - DIARRHEA, UNSPECIFIED Status: Acute - Problem List Review Problem List Initiated/Reviewed/Updated: Yes - My Orders Last 24 Hours: My Active Orders 06/02/21 05:11 CBC WITH AUTO DIFF [HEME] AM CMP [COMPREHENSIVE METABOLIC PN,CMP] [CHEM] AM - Assessment Assessment:: 1. Hypoxia secondary to COVID-19 pneumonia -Patient is on NC, currently on 4 L saturating at 91%, will continue wean oxygen as appropriate -For SOB, we will continue with Duoneb treatment and Combivent -For cough, we will continue with Robitussin per oral route -Continue I-S in prone position 2. Orthostatic hypotension -Before the patient was admitted she was suffering from hypertension at home, but currently is hypotensive. We will continue to hold her blood pressure medications. -We will continue to monitor her vitals and treat her accordingly. 3. Physical deconditioning -Physical therapy is working with this patient in order to build up her strength before discharge. 4. Diarrhea -The patient will be given a one-time dose of Imodium 2 mg per oral route. Continue to monitor. 5. Degenerative spinal stenosis -Continue the patient on ibuprofen 400 mg TID PO and oxycodone 5 mg per PO Q6H PRN <Haroldo Adams - Last Filed: 06/07/21 15:53> - Patient Data Vitals - Most Recent: Last Vital Signs Temp 36.3 C 06/03/21 08:52 Pulse 92 06/03/21 08:52 Resp 18 06/03/21 08:52 BP 99/56 L 06/03/21 08:52 Pulse Ox 92 L 06/03/21 08:52 Med Orders - Current: Current Medications Discontinued Medications Albuterol/Ipratropium (Albuterol/Ipratropium 4 Gm Inhalation [place]) 1 gm INH Q4HRRT PRN PRN Reason: Dyspnea Last Admin: 05/18/21 11:29 Dose: 1 puff Documented by: Albuterol/Ipratropium (Albuterol/Ipratropium 4 Gm Inhalation [place]) 1 gm INH Q4HRRT BJ Last Admin: 06/02/21 09:59 Dose: Not Given Documented by: Albuterol/Ipratropium (Albuterol/Ipratropium 3.0-0.5 Mg/3 Ml Neb Soln) 3 ml NEB Q4HRRT PRN PRN Reason: Shortness of Breath Last Admin: 05/20/21 11:36 Dose: 3 ml Documented by: Dexamethasone (Dexamethasone 4 Mg Tab) 6 mg PO DAILY BJ Last Admin: 05/29/21 08:41 Dose: 6 mg Documented by: Diltiazem HCl (Diltiazem 180 Mg Cap.Cd) 360 mg PO DAILY [facility] Last Admin: 05/21/21 08:04 Dose: 360 mg Documented by: Enoxaparin Sodium (Enoxaparin 40 Mg/0.4 Ml Syringe) 40 mg SUBCUT Q24H [facility] Last Admin: 06/02/21 14:12 Dose: 40 mg Documented by: Guaifenesin (Guaifenesin 100 Mg/5 Ml Soln 5 Ml Ud Cup) 100 mg PO Q4H PRN PRN Reason: Cough Last Admin: 06/02/21 22:50 Dose: 100 mg Documented by: Guaifenesin/Dextromethorphan (Guaifenesin/Dextromethorphan 100-10 Mg/5 Ml Soln 10 Ml Cup) 10 ml PO Q4H PRN PRN Reason: Cough Last Admin: 05/24/21 03:34 Dose: 10 ml Documented by: Sodium Chloride (Normal Saline) 1,000 mls @ 999 mls/hr IV .Bolus ONE Stop: 05/16/21 11:36 Last Admin: 05/16/21 10:49 Dose: 999 mls/hr Documented by: Remdesivir 200 mg/ Sodium (Chloride) 250 mls @ 250 mls/hr IV ONETIME ONE Stop: 05/16/21 15:59 Last Admin: 05/16/21 15:52 Dose: 250 mls/hr Documented by: Remdesivir 100 mg/ Sodium (Chloride) 100 mls @ 100 mls/hr IV Q24H BJ Stop: 05/20/21 15:59 Last Admin: 05/20/21 14:39 Dose: 100 mls/hr Documented by: Pantoprazole Sodium 40 mg/ (Sodium Chloride) 10 mls @ 300 mls/hr IV Q24H [facility] Last Admin: 06/02/21 14:14 Dose: 300 mls/hr Documented by: Levofloxacin/Dextrose 750 mg/ (Premix) 150 mls @ 100 mls/hr IV Q24H [facility] Last Admin: 05/28/21 21:18 Dose: 100 mls/hr Documented by: Levofloxacin/Dextrose 750 mg/ (Premix) 150 mls @ 100 mls/hr IV NOW ONE Stop: 05/21/21 02:59 Last Admin: 05/21/21 02:01 Dose: 100 mls/hr Documented by: Lactated Ringer's (Ringers, Lactated) 250 mls @ 999 mls/hr IV ONETIME ONE Stop: 05/23/21 14:15 Last Admin: 05/23/21 14:13 Dose: 999 mls/hr Documented by: Lactated Ringer's (Ringers, Lactated) 250 mls @ 999 mls/hr IV ONETIME ONE Stop: 05/26/21 13:21 Last Admin: 05/26/21 13:16 Dose: 999 mls/hr Documented by: Sodium Chloride (Normal Saline) 250 mls @ 999 mls/hr IV BOLUS [facility]J Last Admin: 05/27/21 09:40 Dose: 999 mls/hr Documented by: Lactated Ringer's (Ringers, Lactated) 250 mls @ 999 mls/hr IV ONETIME ONE Stop: 05/28/21 13:43 Last Admin: 05/28/21 13:55 Dose: 999 mls/hr Documented by: Lactated Ringer's (Ringers, Lactated) 1,000 mls @ 250 mls/hr IV ONETIME ONE Stop: 05/29/21 13:44 Last Admin: 05/29/21 10:29 Dose: Not Given Documented by: Lactated Ringer's (Ringers, Lactated) 250 mls @ 250 mls/hr IV .BOLUS BJ Last Admin: 05/29/21 10:05 Dose: 250 mls/hr Documented by: Ibuprofen (Ibuprofen 400 Mg Tab) 400 mg PO ONETIME ONE Stop: 05/16/21 10:36 Last Admin: 05/16/21 10:51 Dose: 400 mg Documented by: Ibuprofen (Ibuprofen 400 Mg Tab) 400 mg PO Q12H PRN PRN Reason: Pain Last Admin: 05/18/21 13:58 Dose: 400 mg Documented by: Ibuprofen (Ibuprofen 400 Mg Tab) 400 mg PO Q8H PRN PRN Reason: Pain Last Admin: 06/03/21 04:24 Dose: 400 mg Documented by: Ketorolac Tromethamine (Ketorolac 30 Mg/Ml Sdv) 30 mg IVPUSH ONETIME ONE Stop: 05/18/21 14:11 Last Admin: 05/18/21 14:42 Dose: 30 mg Documented by: Loperamide HCl (Loperamide 2 Mg Cap) 2 mg PO ONETIME ONE Stop: 06/01/21 10:26 Last Admin: 06/01/21 11:42 Dose: Not Given Documented by: Lorazepam (Lorazepam 2 Mg/Ml Sdv) 1 mg IVPUSH Q4H PRN PRN Reason: Agitation Last Admin: 05/26/21 13:16 Dose: 1 mg Documented by: Magnesium Hydroxide (Magnesium Hydroxide 400 Mg/5 Ml Susp 30 Ml Cup) 30 ml PO ONETIME PRN PRN Reason: Constipation Last Admin: 05/28/21 13:59 Dose: 30 ml Documented by: Omeprazole (Omeprazole 20 Mg Cap.Cr) 20 mg PO DAILY BJ Last Admin: 05/17/21 14:06 Dose: Not Given Documented by: Ondansetron HCl (Ondansetron 4 Mg/2 Ml Sdv) 4 mg IVPUSH ONETIME ONE Stop: 05/16/21 10:26 Last Admin: 05/16/21 10:47 Dose: 4 mg Documented by: Ondansetron HCl (Ondansetron 4 Mg/2 Ml Sdv) 4 mg IVPUSH Q4H PRN PRN Reason: Vomiting Last Admin: 05/27/21 10:38 Dose: 4 mg Documented by: Oxycodone HCl (Oxycodone 5 Mg Tab) 5 mg PO Q6H PRN PRN Reason: Pain Last Admin: 05/22/21 03:53 Dose: 5 mg Documented by: Polyethylene Glycol (Polyethylene Glycol 3350 Powder 17 Gm Packet) 17 gm PO ON ETIME ONE Stop: 05/19/21 10:26 Last Admin: 05/19/21 11:46 Dose: 17 gm Documented by: Polyethylene Glycol (Polyethylene Glycol 3350 Powder 17 Gm Packet) 17 gm PO BEDTIME BJ Last Admin: 05/29/21 23:39 Dose: 17 gm Documented by: Polyethylene Glycol (Polyethylene Glycol 3350 Powder 17 Gm Packet) 17 gm PO BEDTIME BJ Sodium Chloride (Sodium Chloride 0.9% 10 Ml Syringe) 10 ml FLUSH ASDIRECTED PRN PRN Reason: Keep Vein Open Last Admin: 05/16/21 10:51 Dose: 10 ml Documented by: Sodium Chloride (Sodium Chloride 0.9% 2.5 Ml Syringe) 2.5 ml FLUSH ASDIRECTED PRN PRN Reason: Keep Vein Open Last Admin: 05/16/21 10:51 Dose: 2.5 ml Documented by: Sodium Chloride (Sodium Chloride 0.9% 10 Ml Sdv) 250 ml IV STAT STA Stop: 05/16/21 10:28 Last Admin: 05/16/21 10:36 Dose: Not Given Documented by: Sodium Chloride (Sodium Chloride 0.65% Nasal [place] 45 Ml Bottle) 0 ml GALINDO Q6H PRN PRN Reason: Congestion - Patient Data Result Diagrams: 06/03/21 05:55 06/03/21 05:55 - Problem List & Annotations (1) Acute respiratory failure with hypoxia SNOMED Code(s): 70725032, 610643510 Code(s): J96.01 - ACUTE RESPIRATORY FAILURE WITH HYPOXIA Status: Acute (2) COVID-19 SNOMED Code(s): 402223494 Code(s): U07.1 - COVID-19 Status: Acute (3) Constipation SNOMED Code(s): 91030766 Code(s): K59.00 - CONSTIPATION, UNSPECIFIED Status: Deleted (4) GERD (gastroesophageal reflux disease) SNOMED Code(s): 666800472 Code(s): K21.9 - GASTRO-ESOPHAGEAL REFLUX DISEASE WITHOUT ESOPHAGITIS Status: Acute (5) Hypertension SNOMED Code(s): 12471877 Code(s): I10 - ESSENTIAL (PRIMARY) HYPERTENSION Status: Deleted (6) Hypoxia SNOMED Code(s): 938027150 Code(s): R09.02 - HYPOXEMIA Status: Acute - Assessment Assessment:: I have seen and evaluated the patient and agree with the residents note unless specified in my note
[2021-06-01] MEDS ORDERED: Loperamide 2 MG Cap PO ONE (10:25)
[2021-06-01] MEDS: Pantoprazole 40 MG in Sodium Chloride 0.9% 10 ML IV SCH (15:52)
[2021-06-01] MEDS: Enoxaparin 40 MG/0.4 ML Syringe SUBCUT SCH (15:53)
[2021-06-02] MEDS: Albuterol/Ipratropium 4 GM Inhalation Spray INH SCH ×3 (02:27→09:59)
[2021-06-02 06:53] LABS: BLOOD UREA NITROGEN,BUN 8 mg/dL (7.0-18.0); CARBON DIOXIDE,CO2 29.1 mmol/L (21.0-32.0); CHLORIDE,CL 105 mmol/L (98-107); GLUCOSE RANDOM 98 mg/dL (74-106); POTASSIUM,K 4.3 mmol/L (3.5-5.1); SODIUM,NA 142 mmol/L (136-145)
[2021-06-02] MEDS: Enoxaparin 40 MG/0.4 ML Syringe SUBCUT SCH (14:12)
[2021-06-02] MEDS: Pantoprazole 40 MG in Sodium Chloride 0.9% 10 ML IV SCH (14:14)
--- NOTE | 2021-06-02 15:06 | PCM.PN ---
- General Info Date of Service: 06/02/21 Subjective Update: The patient is a 61-year-old female, on day 18 of service, with a significant past medical history of degenerative spinal stenosis, GERD, and hypertension, who was admitted for hypoxia secondary to COVID-19 pneumonia. The patient is currently on nasal cannula, 3.5 L of oxygen, and is saturating at 91%. The patient states that her shortness of breath and cough have resolved. She is ambulating without any issues. She is tolerating her diet well and does not feel nauseous. Physical therapy saw the patient today and have cleared her for discharge tomorrow; they worked with her today with respect to ambulating and checking her pulse ox and found that she is ready to go, we are just waiting for her blood pressures to normalize because they are currently on the lower side. She has no complaints at this time. - Review of Systems General: Denies: Fever, Weakness, Fatigue Pulmonary: Denies: Shortness of Breath, Cough Cardiovascular: Denies: Chest Pain, Palpitations, Dyspnea on Exertion Gastrointestinal: Denies: Abdominal Pain, Constipation, Diarrhea Genitourinary: Denies: Dysuria - Patient Data Vitals - Most Recent: Last Vital Signs Temp 97.8 F 06/02/21 14:10 Pulse 65 06/02/21 14:10 Resp 18 06/02/21 14:10 BP 99/62 06/02/21 14:10 Pulse Ox 93 L 06/02/21 14:10 Weight - Most Recent: 202 lb I&O - Last 24 Hours: Intake & Output 06/01/21 06/02/21 06/02/21 22:59 06:59 14:59 Intake Total 1480 900 Output Total 0 Balance 1480 900 Lab Results Last 24 Hours: Laboratory Results - last 24 hr 06/02/21 06/02/21 Range/Units 06:05 06:05 WBC 6.66 (4.0-11.0) K/uL RBC 4.55 (4.30-5.90) M/uL Hgb 13.3 (12.0-16.0) g/dL Hct 40.7 (36.0-46.0) % MCV 89.5 (80.0-98.0) fL MCH 29.2 (27.0-32.0) pg MCHC 32.7 (31.0-37.0) g/dL RDW Std Deviation 43.7 (28.0-62.0) fl RDW Coeff of Mulu 14 (11.0-15.0) % Plt Count 179 (150-400) K/uL MPV 10.60 (7.40-12.00) fL Neut % (Auto) 69.7 (48.0-80.0) % Lymph % (Auto) 16.2 (16.0-40.0) % [place] % (Auto) 8.7 (0.0-15.0) % Eos % (Auto) 5.1 (0.0-7.0) % Baso % (Auto) 0.3 (0.0-1.5) % Neut # (Auto) 4.6 (1.4-5.7) K/uL Lymph # (Auto) 1.1 (0.6-2.4) K/uL [place] # (Auto) 0.6 (0.0-0.8) K/uL Eos # (Auto) 0.3 (0.0-0.7) K/uL Baso # (Auto) 0.0 (0.0-0.1) K/uL Sodium 142 (136-145) mmol/L Potassium 4.3 (3.5-5.1) mmol/L Chloride 105 (98-107) mmol/L Carbon Dioxide 29.1 (21.0-32.0) mmol/L BUN 8 (7.0-18.0) mg/dL Creatinine 0.8 (0.6-1.0) mg/dL Est Cr Clr Drug Dosing 72.61 mL/min Estimated GFR (MDRD) > 60.0 ml/min Glucose 98 (74-106) mg/dL Calcium 7.7 L (8.5-10.1) mg/dL Total Bilirubin 0.7 (0.2-1.0) mg/dL AST 14 L (15-37) IU/L ALT 16 (14-63) IU/L Alkaline Phosphatase 50 (46-116) U/L Total Protein 5.3 L (6.4-8.2) g/dL Albumin 2.3 L (3.4-5.0) g/dL Globulin 3.0 (2.6-4.0) g/dL Albumin/Globulin Ratio 0.8 L (0.9-1.6) Med Orders - Current: Current Medications Albuterol/Ipratropium (Albuterol/Ipratropium 3.0-0.5 Mg/3 Ml Neb Soln) 3 ml NEB Q4HRRT PRN PRN Reason: Shortness of Breath Last Admin: 05/20/21 11:36 Dose: 3 ml Documented by: Enoxaparin Sodium (Enoxaparin 40 Mg/0.4 Ml Syringe) 40 mg SUBCUT Q24H BJ Last Admin: 06/02/21 14:12 Dose: 40 mg Documented by: Guaifenesin (Guaifenesin 100 Mg/5 Ml Soln 5 Ml Ud Cup) 100 mg PO Q4H PRN PRN Reason: Cough Last Admin: 06/01/21 22:20 Dose: 100 mg Documented by: Pantoprazole Sodium 40 mg/ (Sodium Chloride) 10 mls @ 300 mls/hr IV Q24H BJ Last Admin: 06/02/21 14:14 Dose: 300 mls/hr Documented by: Ibuprofen (Ibuprofen 400 Mg Tab) 400 mg PO Q8H PRN PRN Reason: Pain Last Admin: 05/31/21 02:03 Dose: 400 mg Documented by: Lorazepam (Lorazepam 2 Mg/Ml Sdv) 1 mg IVPUSH Q4H PRN PRN Reason: Agitation Last Admin: 05/26/21 13:16 Dose: 1 mg Documented by: Magnesium Hydroxide (Magnesium Hydroxide 400 Mg/5 Ml Susp 30 Ml Cup) 30 ml PO ONETIME PRN PRN Reason: Constipation Last Admin: 05/28/21 13:59 Dose: 30 ml Documented by: Ondansetron HCl (Ondansetron 4 Mg/2 Ml Sdv) 4 mg IVPUSH Q4H PRN PRN Reason: Vomiting Last Admin: 05/27/21 10:38 Dose: 4 mg Documented by: Oxycodone HCl (Oxycodone 5 Mg Tab) 5 mg PO Q6H PRN PRN Reason: Pain Last Admin: 05/22/21 03:53 Dose: 5 mg Documented by: Sodium Chloride (Sodium Chloride 0.9% 10 Ml Syringe) 10 ml FLUSH ASDIRECTED PRN PRN Reason: Keep Vein Open Last Admin: 05/16/21 10:51 Dose: 10 ml Documented by: Sodium Chloride (Sodium Chloride 0.9% 2.5 Ml Syringe) 2.5 ml FLUSH ASDIRECTED PRN PRN Reason: Keep Vein Open Last Admin: 05/16/21 10:51 Dose: 2.5 ml Documented by: Sodium Chloride (Sodium Chloride 0.65% Nasal [place] 45 Ml Bottle) 0 ml GALINDO Q6H PRN PRN Reason: Congestion Discontinued Medications Albuterol/Ipratropium (Albuterol/Ipratropium 4 Gm Inhalation Crowell) 1 gm INH Q4HRRT PRN PRN Reason: Dyspnea Last Admin: 05/18/21 11:29 Dose: 1 puff Documented by: Albuterol/Ipratropium (Albuterol/Ipratropium 4 Gm Inhalation Crowell) 1 gm INH Q4HRRT [facility] Last Admin: 06/02/21 09:59 Dose: Not Given Documented by: Dexamethasone (Dexamethasone 4 Mg Tab) 6 mg PO DAILY [facility] Last Admin: 05/29/21 08:41 Dose: 6 mg Documented by: Diltiazem HCl (Diltiazem 180 Mg Cap.Cd) 360 mg PO DAILY [facility] Last Admin: 05/21/21 08:04 Dose: 360 mg Documented by: Guaifenesin/Dextromethorphan (Guaifenesin/Dextromethorphan 100-10 Mg/5 Ml Soln 10 Ml Cup) 10 ml PO Q4H PRN PRN Reason: Cough Last Admin: 05/24/21 03:34 Dose: 10 ml Documented by: Sodium Chloride (Normal Saline) 1,000 mls @ 999 mls/hr IV .Bolus ONE Stop: 05/16/21 11:36 Last Admin: 05/16/21 10:49 Dose: 999 mls/hr Documented by: Remdesivir 200 mg/ Sodium (Chloride) 250 mls @ 250 mls/hr IV ONETIME ONE Stop: 05/16/21 15:59 Last Admin: 05/16/21 15:52 Dose: 250 mls/hr Documented by: Remdesivir 100 mg/ Sodium (Chloride) 100 mls @ 100 mls/hr IV Q24H [facility] Stop: 05/20/21 15:59 Last Admin: 05/20/21 14:39 Dose: 100 mls/hr Documented by: Levofloxacin/Dextrose 750 mg/ (Premix) 150 mls @ 100 mls/hr IV Q24H [facility] Last Admin: 05/28/21 21:18 Dose: 100 mls/hr Documented by: Levofloxacin/Dextrose 750 mg/ (Premix) 150 mls @ 100 mls/hr IV NOW ONE Stop: 05/21/21 02:59 Last Admin: 05/21/21 02:01 Dose: 100 mls/hr Documented by: Lactated Ringer's (Ringers, Lactated) 250 mls @ 999 mls/hr IV ONETIME ONE Stop: 05/23/21 14:15 Last Admin: 05/23/21 14:13 Dose: 999 mls/hr Documented by: Lactated Ringer's (Ringers, Lactated) 250 mls @ 999 mls/hr IV ONETIME ONE Stop: 05/26/21 13:21 Last Admin: 05/26/21 13:16 Dose: 999 mls/hr Documented by: Sodium Chloride (Normal Saline) 250 mls @ 999 mls/hr IV BOLUS [facility] Last Admin: 05/27/21 09:40 Dose: 999 mls/hr Documented by: Lactated Ringer's (Ringers, Lactated) 250 mls @ 999 mls/hr IV ONETIME ONE Stop: 05/28/21 13:43 Last Admin: 05/28/21 13:55 Dose: 999 mls/hr Documented by: Lactated Ringer's (Ringers, Lactated) 1,000 mls @ 250 mls/hr IV ONETIME ONE Stop: 05/29/21 13:44 Last Admin: 05/29/21 10:29 Dose: Not Given Documented by: Lactated Ringer's (Ringers, Lactated) 250 mls @ 250 mls/hr IV .BOLUS [facility] Last Admin: 05/29/21 10:05 Dose: 250 mls/hr Documented by: Ibuprofen (Ibuprofen 400 Mg Tab) 400 mg PO ONETIME ONE Stop: 05/16/21 10:36 Last Admin: 05/16/21 10:51 Dose: 400 mg Documented by: Ibuprofen (Ibuprofen 400 Mg Tab) 400 mg PO Q12H PRN PRN Reason: Pain Last Admin: 05/18/21 13:58 Dose: 400 mg Documented by: Ketorolac Tromethamine (Ketorolac 30 Mg/Ml Sdv) 30 mg IVPUSH ONETIME ONE Stop: 05/18/21 14:11 Last Admin: 05/18/21 14:42 Dose: 30 mg Documented by: Loperamide HCl (Loperamide 2 Mg Cap) 2 mg PO ONETIME ONE Stop: 06/01/21 10:26 Last Admin: 06/01/21 11:42 Dose: Not Given Documented by: Omeprazole (Omeprazole 20 Mg Cap.Cr) 20 mg PO DAILY BJ Last Admin: 05/17/21 14:06 Dose: Not Given Documented by: Ondansetron HCl (Ondansetron 4 Mg/2 Ml Sdv) 4 mg IVPUSH ONETIME ONE Stop: 05/16/21 10:26 Last Admin: 05/16/21 10:47 Dose: 4 mg Documented by: Polyethylene Glycol (Polyethylene Glycol 3350 Powder 17 Gm Packet) 17 gm PO O NETIME ONE Stop: 05/19/21 10:26 Last Admin: 05/19/21 11:46 Dose: 17 gm Documented by: Polyethylene Glycol (Polyethylene Glycol 3350 Powder 17 Gm Packet) 17 gm PO BEDTIME BJ Last Admin: 05/29/21 23:39 Dose: 17 gm Documented by: Polyethylene Glycol (Polyethylene Glycol 3350 Powder 17 Gm Packet) 17 gm PO BEDTIME BJ Sodium Chloride (Sodium Chloride 0.9% 10 Ml Sdv) 250 ml IV STAT STA Stop: 05/16/21 10:28 Last Admin: 05/16/21 10:36 Dose: Not Given Documented by: - Exam Urinary Catheter Total Time: 7Days 13Hours General: Alert, Oriented, Cooperative HEENT: Mucous Membr. Moist/[place]: Trachea Midline Lungs: Clear to Auscultation, Normal Respiratory Effort Cardiovascular: Regular Rate, Regular Rhythm GI/Abdominal Exam: Normal Bowel Sounds, Soft, Non-Tender - Patient Data Lab Results Last 24 hrs: Laboratory Results - last 24 hr 06/02/21 06/02/21 Range/Units 06:05 06:05 WBC 6.66 (4.0-11.0) K/uL RBC 4.55 (4.30-5.90) M/uL Hgb 13.3 (12.0-16.0) g/dL Hct 40.7 (36.0-46.0) % MCV 89.5 (80.0-98.0) fL MCH 29.2 (27.0-32.0) pg MCHC 32.7 (31.0-37.0) g/dL RDW Std Deviation 43.7 (28.0-62.0) fl RDW Coeff of Mulu 14 (11.0-15.0) % Plt Count 179 (150-400) K/uL MPV 10.60 (7.40-12.00) fL Neut % (Auto) 69.7 (48.0-80.0) % Lymph % (Auto) 16.2 (16.0-40.0) % [place] % (Auto) 8.7 (0.0-15.0) % Eos % (Auto) 5.1 (0.0-7.0) % Baso % (Auto) 0.3 (0.0-1.5) % Neut # (Auto) 4.6 (1.4-5.7) K/uL Lymph # (Auto) 1.1 (0.6-2.4) K/uL [place] # (Auto) 0.6 (0.0-0.8) K/uL Eos # (Auto) 0.3 (0.0-0.7) K/uL Baso # (Auto) 0.0 (0.0-0.1) K/uL Sodium 142 (136-145) mmol/L Potassium 4.3 (3.5-5.1) mmol/L Chloride 105 (98-107) mmol/L Carbon Dioxide 29.1 (21.0-32.0) mmol/L BUN 8 (7.0-18.0) mg/dL Creatinine 0.8 (0.6-1.0) mg/dL Est Cr Clr Drug Dosing 72.61 mL/min Estimated GFR (MDRD) > 60.0 ml/min Glucose 98 (74-106) mg/dL Calcium 7.7 L (8.5-10.1) mg/dL Total Bilirubin 0.7 (0.2-1.0) mg/dL AST 14 L (15-37) IU/L ALT 16 (14-63) IU/L Alkaline Phosphatase 50 (46-116) U/L Total Protein 5.3 L (6.4-8.2) g/dL Albumin 2.3 L (3.4-5.0) g/dL Globulin 3.0 (2.6-4.0) g/dL Albumin/Globulin Ratio 0.8 L (0.9-1.6) Result Diagrams: 06/02/21 06:05 06/02/21 06:05 Sepsis Event Note - Evaluation Sepsis Screening Result: No Definite Risk - Focused Exam Vital Signs: Vital Signs Temp Pulse Resp BP Pulse Ox 06/02/21 14:10 97.8 F 65 18 99/62 93 L 06/02/21 10:46 98 F 79 18 101/60 90 L - Problem List & Annotations (1) COVID-19 SNOMED Code(s): 079146267 Code(s): U07.1 - COVID-19 Status: Acute Current Visit: Yes (2) Hypoxia SNOMED Code(s): 166347520 Code(s): R09.02 - HYPOXEMIA Status: Acute Current Visit: Yes (3) GERD (gastroesophageal reflux disease) SNOMED Code(s): 522621053 Code(s): K21.9 - GASTRO-ESOPHAGEAL REFLUX DISEASE WITHOUT ESOPHAGITIS Sta tus: Acute Current Visit: Yes (4) Spinal stenosis SNOMED Code(s): 51861769 Code(s): M48.00 - SPINAL STENOSIS, SITE UNSPECIFIED Status: Acute Current Visit: Yes (5) Hypotension SNOMED Code(s): 22106363 Code(s): I95.9 - HYPOTENSION, UNSPECIFIED Status: Acute Current Visit: Yes (6) Physical deconditioning SNOMED Code(s): 49293064516096 Code(s): R53.81 - OTHER MALAISE Status: Acute Current Visit: Yes - Problem List Review Problem List Initiated/Reviewed/Updated: Yes - Assessment Assessment:: 1. Hypoxia secondary to COVID-19 pneumonia -Patient is on NC, currently on 3.5 L saturating at 91%, will continue wean oxygen as appropriate, patient has been cleared by physical therapy to go home while on oxygen supplementation. We will have Pag[facility] see the patient tomorrow in regards to how much oxygen is needed. In the meantime we will continue with the management below. -For SOB, we will continue with Duoneb treatment and Combivent -For cough, we will continue with Robitussin per oral route -Continue I-S in prone position 2. Orthostatic hypotension -We will continue to hold her blood pressure medications and monitor her vitals 3. Physical deconditioning -Physical therapy worked with this patient today and gave her the okay to go home tomorrow, they also taught her some home exercises to perform in order to increase her strength.. 4. Degenerative spinal stenosis -Continue the patient on ibuprofen 400 mg TID PO and oxycodone 5 mg per PO Q6H PRN
[2021-06-02] MEDS: guaiFENesin 100 MG/5 ML Soln 5 ML UD Cup PO PRN (22:50)
[2021-06-03] MEDS: Ibuprofen 400 MG Tab PO PRN (04:24)
[2021-06-03 06:45] LABS: BLOOD UREA NITROGEN,BUN 8 mg/dL (7.0-18.0); CARBON DIOXIDE,CO2 30.3 mmol/L (21.0-32.0); CHLORIDE,CL 105 mmol/L (98-107); GLUCOSE RANDOM 93 mg/dL (74-106); SODIUM,NA 142 mmol/L (136-145)
--- NOTE | 2021-06-03 11:05 | PCM.DCSUM1 ---
Discharge Summary - Hospital Course Free Text/Narrative:: The patient is a 61-year-old female, on day 18 of service, with a significant past medical history of degenerative spinal stenosis, GERD, and hypertension, who was admitted for hypoxia secondary to COVID-19 pneumonia. The patient is currently on nasal cannula, 2 L of oxygen, and is saturating at 92%. The patient's oxygen demand fluctuated throughout her hospital course, she was first on the medical floor but then worsened and had to be admitted to the intensive care unit. After treatment with heated high flow and CPAP the patient's lung function eventually improved and she was transitioned back to nasal cannula and readmitted to the medical floor. Subsequently with this oxygen supplementation, the patient was treated with remdesivir via IV route, dexamethasone via oral route, Combivent, duo nebs, and Robitussin all to improve her COVID-19 symptoms. Along with this the patient suffered from orthostatic hypotension and deconditioning while in hospital. She required continuous work with physical therapy to improve her strength and promote independent ambulation so she could perform her activities of daily living. Yesterday, physical therapy cleared this patient to be discharged and feels she is physically strong enough to be independent. The patient also suffered from constipation and diarrhea throughout her hospital course; she was given multiple enemas, MiraLAX, and Imodium when needed. The patient will be sent home on oxygen via [employer] She will also have Robitussin and albuterol inhalers sent to her pharmacy so she can use them at home if the need arises. The patient has been counseled to return to the hospital if she experiences shortness of breath, respiratory difficulty, chest pain, or palpitations. She has been advised to be compliant with her medications and to take them at scheduled times. Lastly, she has been educated on following up with her PCP in 1 to 2 weeks time. The patient is stable and now ready for discharge. - Discharge Data Discharge Date: 06/03/21 Discharge Disposition: Home, Self-Care 01 Condition: Stable - Referral to Home Health Primary Care Physician: Cyndi Zavala NP - Discharge Diagnosis/Problem(s) (1) COVID-19 SNOMED Code(s): 529439796 ICD Code: U07.1 - COVID-19 Status: Acute Current Visit: Yes (2) Hypoxia SNOMED Code(s): 068123002 ICD Code: R09.02 - HYPOXEMIA Status: Acute Current Visit: Yes (3) GERD (gastroesophageal reflux disease) SNOMED Code(s): 742962377 ICD Code: K21.9 - GASTRO-ESOPHAGEAL REFLUX DISEASE WITHOUT ESOPHAGITIS Status: Acute Current Visit: Yes (4) Spinal stenosis SNOMED Code(s): 26227292 ICD Code: M48.00 - SPINAL STENOSIS, SITE UNSPECIFIED Status: Acute Current Visit: Yes (5) Hypotension SNOMED Code(s): 89434944 ICD Code: I95.9 - HYPOTENSION, UNSPECIFIED Status: Acute Current Visit: Yes (6) Physical deconditioning SNOMED Code(s): 56911120651769 ICD Code: R53.81 - OTHER MALAISE Status: Acute Current Visit: Yes - Patient Summary/Data Consults: Consultations 05/28/21 19:28 Consult to Physical Therapy [PT Evaluation and Treatment] [CONS] Routine 05/30/21 19:19 Consult to Home Health [CONS] Routine - Patient Instructions Diet: Regular Diet as Tolerated Activity: As Tolerated Showering/Bathing: May Shower Other/Special Instructions: -Return to the hospital if you have shortness of breath, chest pain, palpitations, or fever. -Be compliant with medications, take them at scheduled times. -Follow up with your PCP in 1-2 weeks - Discharge Plan *PRESCRIPTION DRUG MONITORING PROGRAM REVIEWED*: Not Applicable *COPY OF PRESCRIPTION DRUG MONITORING REPORT IN PATIENT FARRUKH: Not Applicable Prescriptions/Med Rec: Albuterol Sulfate [Albuterol Sulfate HFA] 8.5 gm INH Q2H #1 ea guaiFENesin [Robitussin] 100 mg PO Q4H PRN #100 ml PRN Reason: Cough Home Medications: Home Meds Diltiazem HCl [Diltiazem 24Hr ER] 360 mg PO DAILY 05/16/21 [History] Omeprazole 20 mg PO DAILY 05/16/21 [History] Albuterol Sulfate [Albuterol Sulfate HFA] 8.5 gm INH Q2H #1 ea 06/03/21 [Rx] guaiFENesin [Robitussin] 100 mg PO Q4H PRN #100 ml 06/03/21 [Rx] Oxygen Therapy Mode: Nasal Cannula Oxygen Flow Rate (L/min): 2 (Use 2 liters with ambulation) Patient Handouts: Hypoxia, COVID-19, Acute Respiratory Failure, Adult Referrals: Cyndi Zavala, [employer] [Primary Care Provider] - 06/12/21 9:00 am - Discharge Summary/Plan Comment DC Time >30 min.: Yes Total # of Minutes for Discharge Time: 35 minutes - Review of Systems General: Denies: Fever, Weakness, Fatigue HEENT: Denies: Headaches, Sore Throat Pulmonary: Reports: Other (Shortness of breath and cough only with long periods of exertion). Denies: Shortness of Breath, Cough Cardiovascular: Denies: Chest Pain, Palpitations Gastrointestinal: Denies: Abdominal Pain, Constipation, Diarrhea Genitourinary: Denies: Dysuria - Patient Data Vitals - Most Recent: Last Vital Signs Temp 97.4 F 06/03/21 08:52 Pulse 92 06/03/21 08:52 Resp 18 06/03/21 08:52 BP 99/56 L 06/03/21 08:52 Pulse Ox 92 L 06/03/21 08:52 Weight - Most Recent: 202 lb I&O - Last 24 hours: Intake & Output 06/02/21 06/03/21 06/03/21 22:59 06:59 14:59 Intake Total 1376 1180 Balance 1376 1180 Lab Results - Last 24 hrs: Laboratory Results - last 24 hr 06/03/21 06/03/21 Range/Units 05:55 05:55 WBC 7.25 (4.0-11.0) K/uL RBC 4.48 (4.30-5.90) M/uL Hgb 13.1 (12.0-16.0) g/dL Hct 40.3 (36.0-46.0) % MCV 90.0 (80.0-98.0) fL MCH 29.2 (27.0-32.0) pg MCHC 32.5 (31.0-37.0) g/dL RDW Std Deviation 44.3 (28.0-62.0) fl RDW Coeff of [place] 14 (11.0-15.0) % Plt Count 179 (150-400) K/uL MPV 10.90 (7.40-12.00) fL Neut % (Auto) 69.7 (48.0-80.0) % Lymph % (Auto) 14.8 L (16.0-40.0) % [place] % (Auto) 9.7 (0.0-15.0) % Eos % (Auto) 5.2 (0.0-7.0) % Baso % (Auto) 0.6 (0.0-1.5) % Neut # (Auto) 5.1 (1.4-5.7) K/uL Lymph # (Auto) 1.1 (0.6-2.4) K/uL [place] # (Auto) 0.7 (0.0-0.8) K/uL Eos # (Auto) 0.4 (0.0-0.7) K/uL Baso # (Auto) 0.0 (0.0-0.1) K/uL Sodium 142 (136-145) mmol/L Potassium 4.0 (3.5-5.1) mmol/L Chloride 105 (98-107) mmol/L Carbon Dioxide 30.3 (21.0-32.0) mmol/L BUN 8 (7.0-18.0) mg/dL Creatinine 0.8 (0.6-1.0) mg/dL Est Cr Clr Drug Dosing 72.61 mL/min Estimated GFR (MDRD) > 60.0 ml/min Glucose 93 (74-106) mg/dL Calcium 7.9 L (8.5-10.1) mg/dL Total Bilirubin 0.9 (0.2-1.0) mg/dL AST 11 L (15-37) IU/L ALT 19 (14-63) IU/L Alkaline Phosphatase 54 (46-116) U/L Total Protein 5.3 L (6.4-8.2) g/dL Albumin 2.4 L (3.4-5.0) g/dL Globulin 2.9 (2.6-4.0) g/dL Albumin/Globulin Ratio 0.8 L (0.9-1.6) Med Orders - Current: Current Medications Albuterol/Ipratropium (Albuterol/Ipratropium 3.0-0.5 Mg/3 Ml Neb Soln) 3 ml NEB Q4HRRT PRN PRN Reason: Shortness of Breath Last Admin: 05/20/21 11:36 Dose: 3 ml Documented by: Enoxaparin Sodium (Enoxaparin 40 Mg/0.4 Ml Syringe) 40 mg SUBCUT Q24H BJ Last Admin: 06/02/21 14:12 Dose: 40 mg Documented by: Guaifenesin (Guaifenesin 100 Mg/5 Ml Soln 5 Ml Ud Cup) 100 mg PO Q4H PRN PRN Reason: Cough Last Admin: 06/02/21 22:50 Dose: 100 mg Documented by: Pantoprazole Sodium 40 mg/ (Sodium Chloride) 10 mls @ 300 mls/hr IV Q24H BJ Last Admin: 06/02/21 14:14 Dose: 300 mls/hr Documented by: Ibuprofen (Ibuprofen 400 Mg Tab) 400 mg PO Q8H PRN PRN Reason: Pain Last Admin: 06/03/21 04:24 Dose: 400 mg Documented by: Lorazepam (Lorazepam 2 Mg/Ml Sdv) 1 mg IVPUSH Q4H PRN PRN Reason: Agitation Last Admin: 05/26/21 13:16 Dose: 1 mg Documented by: Magnesium Hydroxide (Magnesium Hydroxide 400 Mg/5 Ml Susp 30 Ml Cup) 30 ml PO ONETIME PRN PRN Reason: Constipation Last Admin: 05/28/21 13:59 Dose: 30 ml Documented by: Ondansetron HCl (Ondansetron 4 Mg/2 Ml Sdv) 4 mg IVPUSH Q4H PRN PRN Reason: Vomiting Last Admin: 05/27/21 10:38 Dose: 4 mg Documented by: Oxycodone HCl (Oxycodone 5 Mg Tab) 5 mg PO Q6H PRN PRN Reason: Pain Last Admin: 05/22/21 03:53 Dose: 5 mg Documented by: Sodium Chloride (Sodium Chloride 0.9% 10 Ml Syringe) 10 ml FLUSH ASDIRECTED PRN PRN Reason: Keep Vein Open Last Admin: 05/16/21 10:51 Dose: 10 ml Documented by: Sodium Chloride (Sodium Chloride 0.9% 2.5 Ml Syringe) 2.5 ml FLUSH ASDIRECTED PRN PRN Reason: Keep Vein Open Last Admin: 05/16/21 10:51 Dose: 2.5 ml Documented by: Sodium Chloride (Sodium Chloride 0.65% Nasal [place] 45 Ml Bottle) 0 ml GALINDO Q6H PRN PRN Reason: Congestion Discontinued Medications Albuterol/Ipratropium (Albuterol/Ipratropium 4 Gm Inhalation [place]) 1 gm INH Q4HRRT PRN PRN Reason: Dyspnea Last Admin: 05/18/21 11:29 Dose: 1 puff Documented by: Albuterol/Ipratropium (Albuterol/Ipratropium 4 Gm Inhalation [place]) 1 gm INH Q4HRRT BJ Last Admin: 06/02/21 09:59 Dose: Not Given Documented by: Dexamethasone (Dexamethasone 4 Mg Tab) 6 mg PO DAILY [facility] Last Admin: 05/29/21 08:41 Dose: 6 mg Documented by: Diltiazem HCl (Diltiazem 180 Mg Cap.Cd) 360 mg PO DAILY [facility] Last Admin: 05/21/21 08:04 Dose: 360 mg Documented by: Guaifenesin/Dextromethorphan (Guaifenesin/Dextromethorphan 100-10 Mg/5 Ml Soln 10 Ml Cup) 10 ml PO Q4H PRN PRN Reason: Cough Last Admin: 05/24/21 03:34 Dose: 10 ml Documented by: Sodium Chloride (Normal Saline) 1,000 mls @ 999 mls/hr IV .Bolus ONE Stop: 05/16/21 11:36 Last Admin: 05/16/21 10:49 Dose: 999 mls/hr Documented by: Remdesivir 200 mg/ Sodium (Chloride) 250 mls @ 250 mls/hr IV ONETIME ONE Stop: 05/16/21 15:59 Last Admin: 05/16/21 15:52 Dose: 250 mls/hr Documented by: Remdesivir 100 mg/ Sodium (Chloride) 100 mls @ 100 mls/hr IV Q24H BJ Stop: 05/20/21 15:59 Last Admin: 05/20/21 14:39 Dose: 100 mls/hr Documented by: Levofloxacin/Dextrose 750 mg/ (Premix) 150 mls @ 100 mls/hr IV Q24H BJ Last Admin: 05/28/21 21:18 Dose: 100 mls/hr Documented by: Levofloxacin/Dextrose 750 mg/ (Premix) 150 mls @ 100 mls/hr IV NOW ONE Stop: 05/21/21 02:59 Last Admin: 05/21/21 02:01 Dose: 100 mls/hr Documented by: Lactated Ringer's (Ringers, Lactated) 250 mls @ 999 mls/hr IV ONETIME ONE Stop: 05/23/21 14:15 Last Admin: 05/23/21 14:13 Dose: 999 mls/hr Documented by: Lactated Ringer's (Ringers, Lactated) 250 mls @ 999 mls/hr IV ONETIME ONE Stop: 05/26/21 13:21 Last Admin: 05/26/21 13:16 Dose: 999 mls/hr Documented by: Sodium Chloride (Normal Saline) 250 mls @ 999 mls/hr IV BOLUS BJ Last Admin: 05/27/21 09:40 Dose: 999 mls/hr Documented by: Lactated Ringer's (Ringers, Lactated) 250 mls @ 999 mls/hr IV ONETIME ONE Stop: 05/28/21 13:43 Last Admin: 05/28/21 13:55 Dose: 999 mls/hr Documented by: Lactated Ringer's (Ringers, Lactated) 1,000 mls @ 250 mls/hr IV ONETIME ONE Stop: 05/29/21 13:44 Last Admin: 05/29/21 10:29 Dose: Not Given Documented by: Lactated Ringer's (Ringers, Lactated) 250 mls @ 250 mls/hr IV .BOLUS BJ Last Admin: 05/29/21 10:05 Dose: 250 mls/hr Documented by: Ibuprofen (Ibuprofen 400 Mg Tab) 400 mg PO ONETIME ONE Stop: 05/16/21 10:36 Last Admin: 05/16/21 10:51 Dose: 400 mg Documented by: Ibuprofen (Ibuprofen 400 Mg Tab) 400 mg PO Q12H PRN PRN Reason: Pain Last Admin: 05/18/21 13:58 Dose: 400 mg Documented by: Ketorolac Tromethamine (Ketorolac 30 Mg/Ml Sdv) 30 mg IVPUSH ONETIME ONE Stop: 05/18/21 14:11 Last Admin: 05/18/21 14:42 Dose: 30 mg Documented by: Loperamide HCl (Loperamide 2 Mg Cap) 2 mg PO ONETIME ONE Stop: 06/01/21 10:26 Last Admin: 06/01/21 11:42 Dose: Not Given Documented by: Omeprazole (Omeprazole 20 Mg Cap.Cr) 20 mg PO DAILY BJ Last Admin: 05/17/21 14:06 Dose: Not Given Documented by: Ondansetron HCl (Ondansetron 4 Mg/2 Ml Sdv) 4 mg IVPUSH ONETIME ONE Stop: 05/16/21 10:26 Last Admin: 05/16/21 10:47 Dose: 4 mg Documented by: Polyethylene Glycol (Polyethylene Glycol 3350 Powder 17 Gm Packet) 17 gm PO ONETIME ONE Stop: 05/19/21 10:26 Last Admin: 05/19/21 11:46 Dose: 17 gm Documented by: Polyethylene Glycol (Polyethylene Glycol 3350 Powder 17 Gm Packet) 17 gm PO BEDTIME BJ Last Admin: 05/29/21 23:39 Dose: 17 gm Documented by: Polyethylene Glycol (Polyethylene Glycol 3350 Powder 17 Gm Packet) 17 gm PO BEDTIME BJ Sodium Chloride (Sodium Chloride 0.9% 10 Ml Sdv) 250 ml IV STAT STA Stop: 05/16/21 10:28 Last Admin: 05/16/21 10:36 Dose: Not Given Documented by: - Exam General: Reports: Alert, Oriented, Cooperative HEENT: Reports: Mucous Membr. Moist/[place] Neck: Reports: Trachea Midline Lungs: Reports: Clear to Auscultation, Normal Respiratory Effort Cardiovascular: Reports: Regular Rate, Regular Rhythm, No Murmurs GI/Abdominal Exam: Normal Bowel Sounds, Soft, Non-Tender Extremities: No Pedal Edema
== END 2021-06-03 12:00 | disposition home or self-care (01) | DRG 177 ==
LOC: MW.ED 09:44 → MW.MS 12:27 → MW.ICU 05-20 23:24 → MW.MS 05-29 11:08
PROVIDERS: ADMIT Student in an Organized Health Care Education/Training Program; ATTEND Student in an Organized Health Care Education/Training Program
PROC: XW033E5 Introduction of Remdesivir Anti-infective into Peripheral Vein, Percutaneous Approach, New Technology Group 5 (ICD-10-PCS; principal; 2021-05-16)
PROC: 3E0DX3Z Introduction of Anti-inflammatory into Mouth and Pharynx, External Approach (ICD-10-PCS; 2021-05-16)
PROC: 5A09457 Assistance with Respiratory Ventilation, 24-96 Consecutive Hours, Continuous Positive Airway Pressure (ICD-10-PCS; 2021-05-22)
PROC: 5A0955A Assistance with Respiratory Ventilation, Greater than 96 Consecutive Hours, High Flow/Velocity Cannula (ICD-10-PCS; 2021-05-25)
DX: U07.1 COVID-19 (principal); J12.82 Pneumonia due to coronavirus disease 2019; J96.01 Acute respiratory failure with hypoxia; M48.00 Spinal stenosis, site unspecified; I95.1 Orthostatic hypotension; R53.81 Other malaise; I10 Essential (primary) hypertension; K21.9 Gastro-esophageal reflux disease without esophagitis; M54.9 Dorsalgia, unspecified; G89.29 Other chronic pain; E66.9 Obesity, unspecified; K59.00 Constipation, unspecified; Z88.5 Allergy status to narcotic agent; Z91.013 Allergy to seafood; Z88.7 Allergy status to serum and vaccine; Z79.899 Other long term (current) drug therapy; Z68.30 Body mass index [BMI] 30.0-30.9, adult
CPT/HCPCS: 36415; 36600; 51702; 71045; 71045-26; 74018; 74018-26; 80053; 82803; 83735; 84100; 84145; 85025; 85379; 86140; 93005; 93970; 93970-26; 94640; 94660; 96374; 96375; 97110-GP; 97163-GP; 99285; 99285-25; A9270-GY; C9113; J1650; J1885; J1956; J2060; J2405; J7030; J7050; J7120; J7620-GY; J8540

== ENCOUNTER 2024-01-21 21:58 | Emergency (ER) | payer MEDICARE ==
[2024-01-21] MEDS: Sodium Chloride 0.9% 10 ML Syringe FLUSH PRN (22:05)
[2024-01-21] MEDS: Sodium Chloride 0.9% 2.5 ML Syringe FLUSH PRN (22:05)
[2024-01-21 22:13] LABS: BASOPHILS ABSOLUTE AUTO 0.04 K/uL (0.00-0.20); BASOPHILS PERCENT AUTO 0.5 % (0.0-1.0); EOSINOPHILS ABSOLUTE AUTO 0.51 K/uL (0.00-0.45); EOSINOPHILS PERCENT AUTO 6.8 % (0.0-6.0); HEMATOCRIT 45.9 % (37.0-47.0); HEMOGLOBIN 15.4 g/dL (12.0-16.0); IMMATURE GRAN ABSOLUTE AUTO 0.01 K/uL (0.00-0.05); IMMATURE GRAN PERCENT AUTO 0.1 % (0.0-0.4); LYMPHOCYTES ABSOLUTE AUTO 2.31 K/uL (1.00-4.80); LYMPHOCYTES PERCENT AUTO 30.8 % (24.0-44.0); MEAN CORPUSCULAR HEMOGLOBIN 29.2 pg (28.0-32.0); MEAN CORPUSCULAR HGB CONC 33.6 g/dL (32.0-36.0); MEAN CORPUSCULAR VOLUME 86.9 fL (83.0-99.0); MEAN PLATELET VOLUME 9.9 fL (9.4-12.3); MONOCYTES ABSOLUTE AUTO 0.54 K/uL (0.00-0.80); MONOCYTES PERCENT AUTO 7.2 % (0.0-8.0); NEUTROPHILS ABSOLUTE AUTO 4.08 K/uL (1.80-7.70); NEUTROPHILS PERCENT AUTO 54.6 % (41.0-71.0); PLATELET COUNT,PLT 246 K/uL (150-400); RED BLOOD CELL COUNT 5.28 M/uL (4.10-5.30); WHITE BLOOD CELL COUNT,WBC 7.49 K/uL (3.9-11.3)
[2024-01-21] MEDS: Morphine 4 MG/ML Syringe IVPUSH ONE ×2 (22:32→22:39)
[2024-01-21 22:37] LABS: ALANINE AMINOTRANSFERASE,ALT 44 IU/L (14-63); ALBUMIN 3.8 g/dL (3.4-5.0); ALKALINE PHOSPHATASE 93 U/L (46-116); ASPARTATE AMNIOTRANSFERASE,AST 37 IU/L (15-37); BILIRUBIN TOTAL 0.8 mg/dL (0.2-1.0); BLOOD UREA NITROGEN,BUN 13 mg/dL (7.0-18.0); CALCIUM 8.7 mg/dL (8.5-10.1); CHLORIDE,CL 105 mmol/L (98-107); CREATININE 1.1 mg/dL (0.6-1.0); GLUCOSE RANDOM 104 mg/dL (74-106); POTASSIUM,K 3.7 mmol/L (3.5-5.1); PROTEIN TOTAL,TP 7.6 g/dL (6.4-8.2); SODIUM,NA 141 mmol/L (136-145)
[2024-01-21 22:39] LABS: ESTIMATED GFR 56 mL/min (>60)
[2024-01-21] MEDS: Ondansetron 4 MG/2 ML SDV IVPUSH ONE (22:43)
[2024-01-21 22:49] LABS: INR 0.99 (0.86-1.11)
[2024-01-22 00:01] LABS: APPEARANCE,URINE CLEAR; BILIRUBIN,URINE NEGATIVE (NEGATIVE); COLOR,URINE YELLOW; GLUCOSE,URINE NEGATIVE (NEGATIVE); KETONES,URINE NEGATIVE (NEGATIVE); LEUKOCYTE ESTERASE,URINE NEGATIVE (NEGATIVE); NITRITE,URINE NEGATIVE (NEGATIVE); OCCULT BLOOD,URINE TRACE-INTACT (NEGATIVE); PROTEIN,URINE NEGATIVE (NEGATIVE); UROBILINOGEN,URINE 0.2 EU/dL (<2.0)
[2024-01-22 00:10] LABS: BACTERIA,URINE RARE (NEGATIVE); EPITHELIAL CELLS,URINE NOT SEEN (NONE-FEW); MUCUS,URINE NOT SEEN (NONE-MOD); WBC,URINE 0-1 (0-5/HPF)
[2024-01-22] MEDS: Haloperidol Lactate 5 MG/ML SDV IM ONE ×2 (01:30→03:45)
[2024-01-22 02:08] LABS: LACTIC ACID 0.8 mmol/L (0.4-2.0)
[2024-01-22] MEDS: Morphine 4 MG/ML Syringe IVPUSH ONE (02:56)
[2024-01-22] MEDS: Sodium Chloride 0.9% 1,000 ML IV STA (03:33)
== END 2024-01-22 06:12 ==
LOC: MW.ED 21:58
DX: R33.9 Retention of urine, unspecified (principal); R10.9 Unspecified abdominal pain; R07.9 Chest pain, unspecified; M54.50 Low back pain, unspecified; I10 Essential (primary) hypertension; K21.9 Gastro-esophageal reflux disease without esophagitis; Z88.5 Allergy status to narcotic agent; Z91.013 Allergy to seafood; Z88.7 Allergy status to serum and vaccine; Z91.041 Radiographic dye allergy status; Z88.6 Allergy status to analgesic agent; Z79.899 Other long term (current) drug therapy; Z90.49 Acquired absence of other specified parts of digestive tract; Z90.710 Acquired absence of both cervix and uterus; Z75.8 Other problems related to medical facilities and other health care
CPT/HCPCS: 36415; 51702; 71250; 72128; 72131; 74176; 80053; 81001; 83605; 84484; 85025; 85610; 93005; 96361; 96372; 96374; 96375; 96376; 99285; J1630; J2270; J2405; J3490; J7030; 93010